=== PATIENT | female | born 1950 | race Caucasian/White ===

== ENCOUNTER → 2019-11-02 09:21 | Outpatient (BNVA) | payer MEDICARE, MEDICAID, SELFPAY | PROVIDERS: Family Provider Family Medicine; PCP Family Medicine; Visit Provider Social Worker | DX: F41.1 Generalized anxiety disorder (principal); F43.12 Post-traumatic stress disorder, chronic | CPT/HCPCS: 90834 ==

== ENCOUNTER 2019-11-03 08:09 | Outpatient (CLI) | payer MEDICARE, MEDICAID, SELFPAY ==
--- NOTE | 2019-11-03 08:25 | CT_ITS ---
WS: [id number] CT ABDOMEN WITH CONTRAST HISTORY: Pain in stomach. Burning sensation. History of colon cancer. Contiguous single phase 5 mm axial imaging performed to the abdomen. Oral contrast has been provided. Coronal and sagittal reformats are submitted. All CT scans at [facility] use at least on e of these dose optimization techniques: automated exposure control; mA and/or kV adjustment per corey ent size (includes targeted exams where dose is matched to clinical indication); or iterative reconst ruction. CONTRAST: Visipaque 320; 95 mL IV. DLP: 726.22 mGy-cm. COMPARISON: 07/15/2018 and 01/03/2018 Lower thorax: Irregular soft tissue opacification measuring 10 x 20 mm at the medial RIGHT lung base is new. Liver: Numerous scattered cysts throughout the liver. No solid mass is identified. No bile duct dilat ation. Gallbladder: Normal. Pancreas: Normal. Spleen: Normal. Adrenals: RIGHT adrenal gland is normal. Long-term stability LEFT adrenal mass measuring 1.9 x 1.7 cm . Right kidney: Numerous low-attenuation masses within the kidney. Largest from the upper pole is a cys t measuring 4.7 x 4.2 cm. Numerous hypodensities are subcentimeter and too small to characterize in t he cortex. Small extrarenal pelvis. No obstruction of the kidney. Left kidney: 2 small to characterize hypodensity in the posterior upper pole. Aorta: Mild atherosclerosis with calcified plaque. No aneurysm. GI tract: As visualized there is no GI tract obstruction. Moderate fecal retention throughout the tra nsverse colon. No adenopathy or free fluid. Abdominal wall: No hernia. Visualized osseous structures: Facet joint arthropathy in the lower lumbar spine. No osseous destruct ion. CT/CT abdomen w con* [id number] IMPRESSION: 1. Hepatic and renal cysts. Some of the hypodensities in the kidneys are too s mall to characterize due to their small size. 2. Focal consolidation in the medial RIGHT lower lobe measures 10 x 20 mm. Pne umonia versus atelectasis or early neoplasm. Recommend follow-up chest CT after treatment in 3 months. 3. Long-term stability LEFT adrenal mass consistent with that adenoma.
[2019-11-03] MEDS: iodixanol 320 mg/mL 100mL Btl IV (09:39)
[2019-11-03 09:45] LABS: Blood Urea Nitrogen 13 mg/dL (8-23)
[2019-11-03] MEDS: iohexol 300 mg/mL 50 mL Btl PO (15:28)
== END 2019-11-03 08:10 | disposition home or self-care (01) ==
LOC: RADWPI 08:15
PROVIDERS: Radiology Diagnostic Radiology; Family Provider Family Medicine; PCP Family Medicine; Referring Provider Family Medicine; Visit Provider Internal Medicine Gastroenterology
DX: K76.89 Other specified diseases of liver (principal); E27.8 Other specified disorders of adrenal gland; R10.9 Unspecified abdominal pain
CPT/HCPCS: 74160; 82565; 84520; Q9967

== ENCOUNTER → 2019-11-11 12:57 | Outpatient (BNVA) | payer MEDICARE, MEDICAID, SELFPAY | PROVIDERS: Family Provider Family Medicine; PCP Family Medicine; Visit Provider Nurse Practitioner | DX: F43.12 Post-traumatic stress disorder, chronic (principal); F41.1 Generalized anxiety disorder; F51.05 Insomnia due to other mental disorder | CPT/HCPCS: 99213 ==

== ENCOUNTER → 2019-11-23 14:13 | Outpatient (BNVA) | payer MEDICARE, MEDICAID, SELFPAY | PROVIDERS: Family Provider Family Medicine; PCP Family Medicine; Visit Provider Social Worker | DX: F41.1 Generalized anxiety disorder (principal); F43.12 Post-traumatic stress disorder, chronic | CPT/HCPCS: 90834 ==

== ENCOUNTER → 2019-11-25 13:56 | Outpatient (BNVA) | payer MEDICARE, MEDICAID, SELFPAY | PROVIDERS: Family Provider Family Medicine; PCP Family Medicine; Visit Provider Urology | DX: N28.9 Disorder of kidney and ureter, unspecified (principal); N39.0 Urinary tract infection, site not specified; N28.1 Cyst of kidney, acquired | CPT/HCPCS: 81001; 87086 ==

== ENCOUNTER → 2019-12-13 09:02 | Outpatient (BNVA) | payer MEDICARE, MEDICAID, SELFPAY | PROVIDERS: Family Provider Family Medicine; PCP Family Medicine; Visit Provider Family Medicine | DX: E78.5 Hyperlipidemia, unspecified (principal); R73.9 Hyperglycemia, unspecified; E78.00 Pure hypercholesterolemia, unspecified; F17.219 Nicotine dependence, cigarettes, with unspecified nicotine-induced disorders | CPT/HCPCS: 83036 ==

== ENCOUNTER 2019-12-15 12:38 | Outpatient (CLI) | payer MEDICARE, MEDICAID, SELFPAY ==
--- NOTE | 2019-12-15 13:00 | CT_ITS ---
WS: [id number] CT CHEST TECHNIQUE: Noncontrast CT of the chest with coronal and sagittal reformatted images. CLINICAL INFORMATION: Lung nodule COMPARISON: CT abdomen pelvis November 03, 2019 DLP: 368.[address] scans at [facility] use at least one of these dose optimization techniques: automat ed exposure control; mA and/or kV adjustment per patient size (includes targeted exams where dose is matched to clinical indication); or iterative reconstruction. FINDINGS: Previously described pneumonia in the right lower lobe medially has nearly resolved with a small amou nt of residual patchy infiltrate. Lungs are otherwise well aerated. Moderate chronic emphysematous ch anges. No other suspicious pulmonary parenchymal abnormalities. No mediastinal or hilar lymphadenopat hy. Normal endobronchial tree. No axillary lymphadenopathy. Stable left adrenal adenoma measuring 17 mm. Partially visualized stable hepatic cysts. Mild thoracic curve. Mild thoracic kyphosis. CT/CT chest wo con [id number] IMPRESSION: 1. Previous described right lower lobe pneumonia has nearly resolved with smal l amount of residual infiltrate. 2. No other suspicious pulmonary parenchymal abnormalities. 3. Moderate chronic emphysematous changes. 4. No mediastinal or hilar lymphadenopathy. 5. Stable left adrenal adenoma. 6. Partially visualized hepatic cysts.
== END 2019-12-15 12:39 | disposition home or self-care (01) ==
LOC: CT 12:40
PROVIDERS: Family Provider Family Medicine; PCP Family Medicine; Visit Provider Internal Medicine Critical Care Medicine
DX: R91.1 Solitary pulmonary nodule (principal); J18.9 Pneumonia, unspecified organism; J43.9 Emphysema, unspecified; D35.02 Benign neoplasm of left adrenal gland; K76.89 Other specified diseases of liver
CPT/HCPCS: 71250

== ENCOUNTER → 2019-12-28 08:21 | Outpatient (BNVA) | payer MEDICARE, MEDICAID, SELFPAY | PROVIDERS: Family Provider Family Medicine; PCP Family Medicine; Visit Provider Social Worker | DX: F41.1 Generalized anxiety disorder (principal); F43.12 Post-traumatic stress disorder, chronic | CPT/HCPCS: 90834 ==

== ENCOUNTER 2019-12-31 20:19 | Emergency (ER) | payer MEDICARE, MEDICAID, SELFPAY ==
[2019-12-31 20:20] VITALS: BP 183/75; PULSE 69; RESP 18; TEMP 36.7; O2SAT 97; BMI 25.8
--- NOTE | 2019-12-31 20:43 | XR_ITS ---
WS: [id number] XR chest 1V portable [id number] REASON FOR EXAM: cough FINDINGS: The heart and mediastinal interfaces normal. The chest is similar to July 17, 2018. The lung [place] are well aerated. No pneumonia, pleural effusion, pulmonary edema, mass effect, or pn eumothorax. The hilum and apices normal. No osseous abnormalities. XR/XR chest 1V portable [id number] IMPRESSION: Negative chest for active pathology.
--- NOTE | 2019-12-31 20:43 | W.ED.GENADLT ---
HPI - General Adult General: Chief complaint: General Medical Stated complaint: cough/sore throat Time Seen by Provider: 12/31/19 20:43 History of Present Illness: HPI narrative: Patient is a 69-year-old female who comes to the ED with nasal congestion and cough. Patient says the symptoms started last night. Patient does have a past medical history of COPD. Patient also states she is out of her albuterol inhaler. She feels like her lungs are a little wheezy and would like to get a breathing treatment here in the ED. She did say she has been around quite a few sick people recently that have a cough and other upper respiratory symptoms. Associated symptoms: Deny chest pain, dyspnea, headache(s), nausea, rash, palpitations or vomiting Review of Systems Const: Denies: fever, chills or fatigue Eyes: Denies: change in vision or eye discomfort ENMT: Reports: throat pain, nasal discharge and nasal congestion; Denies: painful swallowing Card: Denies: chest pain, palpitations, edema, swelling of feet/ankles, shortness of breath on exertion or shortness of breath when lying down Resp: Reports: non-productive cough; Denies: shortness of breath or productive cough GI: Denies: abdominal pain, nausea, vomiting, diarrhea, constipation or blood in stool : Denies: flank pain, painful urination or blood in urine Musc: Denies: neck pain, back pain or extremity swelling Skin/Breast: Denies: rash or new lesion Neuro: Denies: headache, numbness in extremities or weakness in extremities [facility] PFSH: Medical History Benign essential HTN Generalized anxiety disorder GERD (gastroesophageal reflux disease) Hyperlipidemia Insomnia Insomnia due to mental condition Osteoporosis Post-traumatic stress disorder, chronic Renal cyst Surgical History H/O section S/P breast biopsy S/P lumpectomy of breast S/P thyroidectomy S/P tonsillectomy Family History Mother , 89 Cancer Dementia Father No problems noted. Social History Smoking and tobacco status: current every day smoker cigarettes Packs smoked per day: 0.25 Years cigarettes smoked: 23 Alcohol intake: never Lives independently: Yes Marital status: Single Current occupational status: retired History of recent travel: No Current gender identity: Female Physical Exam Narrative: EXAM NARRATIVE: Patient is a 69-year-old female that is sitting comfortably on the exam bed when I enter the room. She is showing no signs of any acute respiratory distress or any acute pain. Const: COMMON NORMALS: oriented x3 HENMT: COMMON NORMALS: normocephalic and external nose normal HEAD & SCALP: normocephalic NOSE: external nose normal and nasal discharge clear MOUTH: oral and palatal mucosa normal THROAT: uvula midline and posterior oropharynx abnormal cobblestoning Neck/C-Spine: COMMON NORMALS: supple GENERAL: Yes normal visual inspection Lymph: LYMPHATIC: no lymphadenopathy noted (none palpated on cervical chains) Resp: COMMON NORMALS: normal respiratory effort, no retractions and no use of accessory muscles AUSCULTATION: wheezes left lower (light wheezing) and right upper (light wheezing) Cardio: COMMON NORMALS: regular rate, regular rhythm, S1 normal heart sound, S2 normal heart sound, no gallops, no clicks, no murmurs and peripheral pulses 2+ throughout RATE: regular rate RHYTHM: regular rhythm HEART SOUNDS: S1 normal and S2 normal PERIPHERAL PULSES: pulses 2+ throughout GI: COMMON NORMALS: normal to inspection, nondistended, normoactive bowel sounds, soft to palpation, non-tender and no masses PALPATION: Yes soft : COMMON NORMALS: Yes no CVA tenderness BLADDER/KIDNEY EXAM: Yes no CVA tenderness Back/Pelvis: COMMON NORMALS: no CVA tenderness Extremity: COMMON NORMALS: normal to inspection and normal capillary refill Neuro: COMMON NORMALS: oriented x3 and moves all extremities Skin: COMMON NORMALS: no rashes or lesions noted GENERAL SKIN EXAM: no rashes or lesions noted Course Vital Signs: Vital signs: Vital Signs Temperature 98.1 F 12/31/19 20:20 Pulse Rate 64 12/31/19 22:29 Respiratory Rate 16 12/31/19 22:29 Blood Pressure 137/89 12/31/19 22:29 Pulse Oximetry 96 12/31/19 22:29 MDM - General Adult MDM Narrative: Medical decision making narrative: Patient is a 69-year-old female comes to the ED with some wheezing, cough and congestion. Patient is a past medical history of COPD and states she is out of her albuterol inhaler. Physical exam was remarkable for some wheezing. Chest x-ray showed some possible bronchitis. Patient was diagnosed with upper respiratory infection and bronchitis. She was given a prescription for an albuterol inhaler, azithromycin and prednisone. Patient was told to follow-up with PCP in 5 to 7 days for reevaluation. Patient understood and agreed with plan. Lab Data: Attestation: I reviewed the patient's lab results. Labs: Lab Results 12/31/19 Range/Units 20:57 Influenza Type A A g Negative (Negative) POC Influenza B Ag Negative (Negative) Imaging Data^: CXR: Attestation: I personally reviewed and interpreted this imaging study as follows: My impression: Possible bronchitis seen. Pending final radiology report. Discharge Plan Discharge Patient Disposition: Home, Self-Care Clinical Impression: Upper respiratory infection with cough and congestion, Bronchitis Condition: Stable Prescriptions: New albuterol sulfate 90 mcg/actuation HFA aerosol inhaler 1 inh INHALATION Q6H Qty: 8 RF: 0 azithromycin 250 mg tablet See Rx Instructions .ROUTE .COMPLEX Qty: 6 RF: 0 prednisone 50 mg tablet 50 mg PO DAILY 5 Days Qty: 5 RF: 0 No Action alendronate [Fosamax] 70 mg tablet 70 mg PO Q7D RF: 0 aspirin [Adult Aspirin Regimen] 81 mg tablet,delayed release (DR/EC) 81 mg PO QDAY RF: 0 sulfamethoxazole-trimethoprim 800-160 mg tablet 1 tab PO BID Qty: 60 RF: 2 pantoprazole [Protonix] 40 mg tablet,delayed release (DR/EC) 40 mg PO BID RF: 0 metoprolol tartrate 50 mg tablet 50 mg PO BID RF: 0 clonazepam [Klonopin] 0.5 mg tablet 0.5 mg PO QDAY PRN (Reason: anxiety) Qty: 30 RF: 2 eszopiclone [Lunesta] 3 mg tablet 3 mg PO .at bed Qty: 30 RF: 2 levothyroxine 88 mcg capsule 88 mcg PO DAILY RF: 0 atorvastatin 20 mg tablet 20 mg PO DAILY Qty: 45 RF: 0 acetaminophen 325 mg Tablet 325 mg PO QID PRN (Reason: Pain) RF: 0 pravastatin 40 mg Tablet 40 mg PO DAILY RF: 0 Aleve 220 mg Tablet 220 mg PO BID PRN (Reason: Pain) RF: 0 ibuprofen 200 mg Tablet 200 mg PO Q6H PRN (Reason: Pain) RF: 0 Discharge Orders: Discharge Order (Routine); Ordered 12/31/19 Ordered By: Cholo Ross Referrals: Mulu Miguel DO [Primary Care Provider] - Discharge Diet: Regular Discharge Activity: Resume usual activity Patient Instructions: Upper Respiratory Infection - Adult Activity Restrictions/Additional Instructions: Follow-up with your primary care physician in 7 days for reevaluation. Take the albuterol inhaler as needed for shortness of breath or wheezing. Take ibuprofen or Tylenol for any fevers. Drink plenty of fluids and stay hydrated. Continue taking all other medications. I discussed with you the importance of quitting smoking to help your COPD and symptoms. Discharge Date/Time: 12/31/19 22:30 Coding Level of Care Code ED Assistant Program Manager for [facility] Fwd Exam Comprehensive
[2019-12-31 21:38] LABS: Influenza A by IFA Negative (Negative); Influenza B by IFA Negative (Negative)
[2019-12-31] MEDS: ipratropium-albuterol 3 mL Neb INHALATION (21:51)
[2019-12-31 21:52] VITALS: PULSE 58; RESP 18; O2SAT 98
[2019-12-31 21:54] VITALS: PULSE 60; RESP 22; O2SAT 99
[2019-12-31] MEDS: predniSONE 20 mg Tablet 40 MG PO (21:56)
[2019-12-31 22:29] VITALS: BP 137/89; PULSE 64; RESP 16; O2SAT 96
--- NOTE | 2019-12-31 22:30 | PC.NURSE ---
Patient dc'd home in stable condition via ambulation refusing wheelchair. Discharge papers and rx given to patient with all questions asked and answered.
== END 2019-12-31 22:30 | disposition home or self-care (01) ==
PROVIDERS: Emergency Provider Physician Assistant; Family Provider Family Medicine; PCP Family Medicine
DX: J06.9 Acute upper respiratory infection, unspecified (principal); J40 Bronchitis, not specified as acute or chronic; F17.210 Nicotine dependence, cigarettes, uncomplicated; I10 Essential (primary) hypertension; F41.1 Generalized anxiety disorder; K21.9 Gastro-esophageal reflux disease without esophagitis; E78.5 Hyperlipidemia, unspecified; G47.00 Insomnia, unspecified; M81.0 Age-related osteoporosis without current pathological fracture; F43.12 Post-traumatic stress disorder, chronic
CPT/HCPCS: 12345; 71045; 87804; 94640; 99281; 99283; J7512

== ENCOUNTER 2020-01-02 09:51 | Emergency (ER) | payer MEDICARE, MEDICAID, SELFPAY ==
[2020-01-02 09:56] VITALS: BMI 25.8
[2020-01-02 10:00] VITALS: BP 190/102; PULSE 59; RESP 18; TEMP 36.6; O2SAT 96
[2020-01-02 10:08] VITALS: O2SAT 97
--- NOTE | 2020-01-02 10:46 | XRR_ITS ---
PROCEDURE INFORMATION: Exam: XR Chest, 1 View Exam date and time: 01/02/2020 10:47 AM Age: 69 years old Clinical indication: Cough; Additional info: Cough/congestion TECHNIQUE: Imaging protocol: XR of the chest Views: 1 view. COMPARISON: CR XR chest 1V portable [id number] 12/31/2019 9:00 PM FINDINGS: Lungs: Lungs are well aerated without a focal area of consolidation. Pleural space: Unremarkable. No pleural effusion. No pneumothorax. Heart/Mediastinum: The cardiac silhouette appears enlarged, some of which is magnification related to the AP projection. Bones/joints: Unremarkable. XR/XR chest 1V portable [id number] IMPRESSION: Mild platelike atelectasis right costophrenic angle. Lungs are otherwise well aerated.
--- NOTE | 2020-01-02 10:47 | W.ED.GENADLT ---
HPI - General Adult General: Chief complaint: Headache Stated complaint: GENERAL WEAKNESS, FLU LIKE SYMPTOMS Time Seen by Provider: 01/02/20 10:15 Source: patient Mode of arrival: ambulatory Limitations: no limitations History of Present Illness: HPI narrative: Patient is a 69-year-old female who presents to ED today for complaints of a headache, sinus pain/pressure, cough, nasal congestion,, body aches, not feeling well. Patient was seen here recently for similar symptoms and diagnosed with bronchitis. Patient reports a history of migraines and states the sinus pressure and cough has caused her to have a migraine headache. She states her headache today feels identical to previous migraines. She does not feel lightheaded, dizzy. She ambulates well. Onset (ago): day(s) Relieving factors: none Exacerbating factors: none Associated symptoms: Reports no associated symptoms, headache(s) and malaise; Deny chest pain, dyspnea, nausea, rash, palpitations, syncope or vomiting Review of Systems Const: Reports: body aches and malaise; Denies: fever, chills, change in appetite, change in weight, fatigue or night sweats Eyes: Denies: change in vision, blurry vision, photophobia, eye discomfort or eye discharge ENMT: Reports: nasal discharge, nasal congestion and facial/sinus pain; Denies: throat pain, enlarged tonsils, painful swallowing, swelling of lips/tongue, oral sores/lesions, ear pain, ear discharge or post nasal drip Card: Denies: chest pain, palpitations, irregular heart rhythm, edema, lightheadedness, syncope or pre-syncope Resp: Reports: productive cough and chest congestion; Denies: shortness of breath, non-productive cough or coughing up blood GI: Denies: abdominal pain, nausea, vomiting or diarrhea : Denies: flank pain, difficulty urinating, painful urination, urinary frequency or urinary urgency Musc: Denies: neck pain or back pain Skin/Breast: Denies: rash Neuro: Reports: headache; Denies: numbness in extremities, weakness in extremities, changes in sensation or lack of coordination All/Imm: Denies: facial swelling or seasonal allergies PFSH ED PFSH: Social History Smoking and tobacco status: current every day smoker cigarettes Packs smoked per day: 0.25 Years cigarettes smoked: 23 Alcohol intake: never Lives independently: Yes Marital status: Single Current occupational status: retired History of recent travel: No Current gender identity: Female Physical Exam Const: COMMON NORMALS: no apparent distress, average body habitus, oriented x3, no limitations, healthy appearing, alert and well nourished HENMT: COMMON NORMALS: normocephalic, head/scalp atraumatic, hearing grossly normal bilaterally, external ears normal, EAC's normal, TM's normal bilaterally, external nose normal, moist oral mucous membranes and oropharynx normal HEAD & SCALP: normocephalic and atraumatic FACE & SINUS: sinus tenderness maxillary NOSE: external nose normal and nasal discharge EXTERNAL EAR: Yes external ears normal EXTERNAL AUDITORY CANAL: EAC's normal TYMPANIC MEMBRANE: TM's normal bilaterally THROAT: posterior oropharynx normal, tonsils normal and uvula midline Eye: COMMON NORMALS: PERRL, EOMs intact bilaterally, conjunctivae normal and no scleral icterus CONJUNCTIVA: Yes conjunctivae normal PUPIL: Yes PERRL Neck/C-Spine: COMMON NORMALS: full ROM, no lymphadenopathy and no meningeal signs Resp: COMMON NORMALS: normal respiratory effort and clear to auscultation bilaterally AUSCULTATION: clear to auscultation bilaterally Cardio: COMMON NORMALS: regular rate and regular rhythm RATE: regular rate RHYTHM: regular rhythm Neuro: COMMON NORMALS: oriented x3 SENSORIUM/ORIENTATION: Yes alert MENINGEAL SIGNS: Yes no meningeal signs Skin: COMMON NORMALS: no rashes or lesions noted GENERAL SKIN EXAM: no rashes or lesions noted Course Vital Signs: Vital signs: Vital Signs Temperature 97.9 F 01/02/20 12:15 Pulse Rate 64 01/02/20 12:15 Respiratory Rate 16 01/02/20 12:15 Blood Pressure 176/106 01/02/20 12:15 Pulse Oximetry 96 01/02/20 12:15 [facility] - General Adult Lab Data: Labs: Lab Results 01/02/20 01/02/20 01/02/20 Range/Units 10:30 10:30 11:20 WBC 6.2 (4.0-10.0) 10^3/ uL RBC 4.83 (4.1-5.3) 10^6/u L Hgb 14.2 (11.5-15.3) g/dL Hct 43.6 (37.0-47.0) % MCV 90.3 (81-99) fL MCH 29.4 (28.0-34.0) pg MCHC 32.6 (30.0-36.0) g/dL RDW 13.4 (12.1-15.1) % Plt Count 158 (130-400) 10^3/c mm MPV 13.5 H (7.4-10.4) fL Neut % (Auto) 70.8 % Lymph % (Auto) 21.2 % [place] % (Auto) 7.6 % Eos % (Auto) 0.0 % Baso % (Auto) 0.2 % Neut # (Auto) 4.4 (1.8-7.7) 10^3/u L Lymph # (Auto) 1.3 (0.8-4.8) 10^3/u L [place] # (Auto) 0.5 (0.2-0.9) 10^3/u L Eos # (Auto) 0.0 (0.0-0.8) 10^3/u L Baso # (Auto) 0.0 (0.0-0.1) 10^3/u L Nucleated RBC % (a uto) 0 % Nucleated RBCs # 0.0 /100WBC Sodium 142 (136-145) mmol/L Potassium 3.6 (3.5-5.1) mmol/L Chloride 104 (98-107) mmol/L Carbon Dioxide 23 (22-29) mmol/L Anion Gap 18.6 (5-19) BUN 17 (8-23) mg/dL Creatinine 1.0 H (0.5-0.9) mg/dL GFR Calculation 55.0 L (90-130) mL/min Glucose 85 (65-115) mg/dL Calculated Osmolal ity 290 (285-295) mOsm/k g Calcium 9.8 (8.5-10.5) mg/dL Total Bilirubin 0.3 (0.15-1.2) mg/dL AST 24 (0-32) U/L ALT 15 (0-33) U/L Alkaline Phosphata se 85 (35-105) IU/L Total Protein 8.3 (6.6-8.7) g/dL Albumin 4.3 (3.5-5.2) g/dL Globulin 4.0 (1.3-4.6) g/dL Influenza Type A A g Positive H (Negative) POC Influenza B Ag Negative (Negative) Imaging Data^: CXR: Radiologist's impression: [address] [address] XRay Report Signed Patient: Wen Voss Unit #: [id number] : 1950 Age/Sex: 69 / F ADM Date: 01/02/20 Loc: ER Room/Bed: Attending Dr: Ordering Provider/Ordering MD: Amairani Ramirez Date of Service: 01/02/20 Procedure(s): XR chest 1V portable [id number] Accession Number(s): [id number] Report Number: [id number] PROCEDURE INFORMATION: Exam: XR Chest, 1 View Exam date and time: 01/02/2020 10:47 AM Age: 69 years old Clinical indication: Cough; Additional info: Cough/congestion TECHNIQUE: Imaging protocol: XR of the chest Views: 1 view. COMPARISON: CR XR chest 1V portable [id number] 12/31/2019 9:00 PM FINDINGS: Lungs: Lungs are well aerated without a focal area of consolidation. Pleural space: Unremarkable. No pleural effusion. No pneumothorax. Heart/Mediastinum: The cardiac silhouette appears enlarged, some of which is magnification related to the AP projection. Bones/joints: Unremarkable. XR/XR chest 1V portable [id number] IMPRESSION: Mild platelike atelectasis right costophrenic angle. Lungs are otherwise well aerated. Dictated By: Jorge Crespo MD Signed By: Jorge Crespo MD Signed Date/Time: 01/02/20 1136 DD/ 1135 Discharge Plan Discharge Patient Disposition: Home, Self-Care Clinical Impression: Influenza A Condition: Stable Prescriptions: No Action alendronate [Fosamax] 70 mg tablet 70 mg PO Q7D RF: 0 aspirin [Adult Aspirin Regimen] 81 mg tablet,delayed release (DR/EC) 81 mg PO QDAY RF: 0 sulfamethoxazole-trimethoprim 800-160 mg tablet 1 tab PO BID Qty: 60 RF: 2 pantoprazole [Protonix] 40 mg tablet,delayed release (DR/EC) 40 mg PO BID RF: 0 metoprolol tartrate 50 mg tablet 50 mg PO BID RF: 0 clonazepam [Klonopin] 0.5 mg tablet 0.5 mg PO QDAY PRN (Reason: anxiety) Qty: 30 RF: 2 eszopiclone [Lunesta] 3 mg tablet 3 mg PO .at bed Qty: 30 RF: 2 levothyroxine 88 mcg capsule 88 mcg PO DAILY RF: 0 atorvastatin 20 mg tablet 20 mg PO DAILY Qty: 45 RF: 0 acetaminophen 325 mg Tablet 325 mg PO QID PRN (Reason: Pain) RF: 0 pravastatin 40 mg Tablet 40 mg PO DAILY RF: 0 Aleve 220 mg Tablet 220 mg PO BID PRN (Reason: Pain) RF: 0 ibuprofen 200 mg Tablet 200 mg PO Q6H PRN (Reason: Pain) RF: 0 albuterol sulfate 90 mcg/actuation HFA aerosol inhaler 1 inh INHALATION Q6H Qty: 8 RF: 0 azithromycin 250 mg tablet See Rx Instructions .ROUTE .COMPLEX Qty: 6 RF: 0 prednisone 50 mg tablet 50 mg PO DAILY 5 Days Qty: 5 RF: 0 Discharge Orders: Discharge Order (Routine); Ordered 01/02/20 Ordered By: Amairani Ramirez Referrals: Mulu Miguel DO [Primary Care Provider] - Patient Instructions: Influenza (ED) Discharge Date/Time: 01/02/20 12:20 Coding Level of Care Code ED 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
[2020-01-02 11:01] LABS: Basophils % 0.2 %; Hematocrit 43.6 % (37.0-47.0); Hemoglobin 14.2 g/dL (11.5-15.3); Lymphocytes # 1.3 10^3/uL (0.8-4.8); Lymphocytes % 21.2 %; Mean Corpuscular HGB Conc 32.6 g/dL (30.0-36.0); Mean Corpuscular Hemoglobin 29.4 pg (28.0-34.0); Mean Corpuscular Volume 90.3 fL (81-99); Mean Platelet Volume 13.5 fL (7.4-10.4); Monocytes # 0.5 10^3/uL (0.2-0.9); Monocytes % 7.6 %; Neutrophils # 4.4 10^3/uL (1.8-7.7); Neutrophils % 70.8 %; Nucleated Red Blood Cells % 0 %; Platelet Count 158 10^3/cmm (130-400); Red Blood Count 4.83 10^6/uL (4.1-5.3); Red Cell Distribution Width 13.4 % (12.1-15.1); White Blood Count 6.2 10^3/uL (4.0-10.0)
[2020-01-02 11:08] LABS: Alanine Aminotransferase 15 U/L (0-33); Albumin Level 4.3 g/dL (3.5-5.2); Alkaline Phosphatase 85 IU/L (35-105); Anion Gap 18.6 (5-19); Aspartate Amino Transferase 24 U/L (0-32); Blood Urea Nitrogen 17 mg/dL (8-23); Calcium 9.8 mg/dL (8.5-10.5); Carbon Dioxide 23 mmol/L (22-29); Chloride 104 mmol/L (98-107); Glucose 85 mg/dL (65-115); Osmolality Calculated 290 mOsm/kg (285-295); Potassium 3.6 mmol/L (3.5-5.1); Sodium 142 mmol/L (136-145); Total Bilirubin 0.3 mg/dL (0.15-1.2); Total Protein 8.3 g/dL (6.6-8.7)
[2020-01-02] MEDS: ketorolac 60 mg/2 mL INJ 30 MG IVP (11:16)
[2020-01-02] MEDS: dexamethasone 10 mg/mL INJ 6 MG IVP (11:16)
[2020-01-02] MEDS: sodium chloride 0.9% 1,000 ML 999 ML IV (11:16)
[2020-01-02] MEDS: ondansetron 2 mg/ML SDV 2 mL 4 MG IVP (11:17)
[2020-01-02] MEDS: diphenhydrAMINE 50 mg/mL SDV 1mL IVP (11:17)
[2020-01-02 11:52] LABS: Influenza A by IFA Positive (Negative); Influenza B by IFA Negative (Negative)
[2020-01-02 12:15] VITALS: BP 176/106; PULSE 64; RESP 16; TEMP 36.6; O2SAT 96
== END 2020-01-02 12:20 | disposition home or self-care (01) ==
PROVIDERS: Emergency Provider Physician Assistant; Family Provider Family Medicine; PCP Family Medicine
DX: J09.X2 Influenza due to identified novel influenza A virus with other respiratory manifestations (principal); F17.210 Nicotine dependence, cigarettes, uncomplicated
CPT/HCPCS: 12345; 36415; 71045; 80053; 85025; 87804; 96360; 96361; 96374; 96375; 99283; J1100; J1200; J1885; J2405; J7030

== ENCOUNTER → 2020-01-05 08:07 | Outpatient (BNVA) | payer MEDICARE, MEDICAID, SELFPAY | PROVIDERS: Family Provider Family Medicine; PCP Family Medicine; Visit Provider Urology | DX: N39.0 Urinary tract infection, site not specified (principal); N28.1 Cyst of kidney, acquired; I10 Essential (primary) hypertension | CPT/HCPCS: 81001 ==

== ENCOUNTER → 2020-01-27 07:42 | Outpatient (BNVA) | payer MEDICARE, MEDICAID, SELFPAY | PROVIDERS: Family Provider Family Medicine; PCP Family Medicine; Visit Provider Nurse Practitioner | DX: F51.05 Insomnia due to other mental disorder (principal); F43.12 Post-traumatic stress disorder, chronic; F41.1 Generalized anxiety disorder | CPT/HCPCS: 99213 ==

== ENCOUNTER → 2020-02-02 15:12 | Outpatient (BNVA) | payer MEDICARE, MEDICAID, SELFPAY | PROVIDERS: Family Provider Family Medicine; PCP Family Medicine; Visit Provider Social Worker | DX: F41.1 Generalized anxiety disorder (principal); F43.12 Post-traumatic stress disorder, chronic | CPT/HCPCS: 90834 ==

== ENCOUNTER → 2020-03-01 08:51 | Outpatient (BNVA) | payer MEDICARE, MEDICAID, SELFPAY | PROVIDERS: Family Provider Family Medicine; PCP Family Medicine; Visit Provider Social Worker | DX: F41.1 Generalized anxiety disorder (principal); F43.12 Post-traumatic stress disorder, chronic | CPT/HCPCS: 90834 ==

== ENCOUNTER → 2020-03-02 07:23 | Outpatient (BNVA) | payer MEDICARE, MEDICAID, SELFPAY | PROVIDERS: Family Provider Family Medicine; PCP Family Medicine; Visit Provider Nurse Practitioner | DX: F43.12 Post-traumatic stress disorder, chronic (principal); F41.1 Generalized anxiety disorder; F51.05 Insomnia due to other mental disorder; F60.3 Borderline personality disorder; I10 Essential (primary) hypertension; L01.00 Impetigo, unspecified; Z13.6 Encounter for screening for cardiovascular disorders | CPT/HCPCS: 80053; 80061; 82044; 85025; 99213 ==

== ENCOUNTER → 2020-04-05 08:24 | Outpatient (BNVA) | payer MEDICARE, MEDICAID, SELFPAY | PROVIDERS: Family Provider Family Medicine; PCP Family Medicine; Visit Provider Social Worker | DX: F41.1 Generalized anxiety disorder (principal); F43.12 Post-traumatic stress disorder, chronic; F17.219 Nicotine dependence, cigarettes, with unspecified nicotine-induced disorders | CPT/HCPCS: 90832 ==

== ENCOUNTER 2020-05-01 08:08 | Emergency (ER) | payer MEDICARE, MEDICAID, SELFPAY ==
[2020-05-01 08:15] VITALS: BMI 25.8
[2020-05-01 08:17] VITALS: BP 225/105; PULSE 77; RESP 20; TEMP 36.4; O2SAT 98
--- NOTE | 2020-05-01 08:22 | XRR_ITS ---
PROCEDURE INFORMATION: Exam: XR Chest, 1 View Exam date and time: 05/01/2020 8:23 AM Age: 69 years old Clinical indication: Cough and dyspnea; Smoker's cough; Additional info: Dyspnea/cough TECHNIQUE: Imaging protocol: XR of the chest Views: 1 view. COMPARISON: CR XR chest 1V portable [id number] 01/02/2020 10:46 AM FINDINGS: Lungs: Unremarkable. No consolidation. Pleural space: Unremarkable. No pleural effusion. No pneumothorax. Heart/Mediastinum: Unremarkable. No cardiomegaly. Bones/joints: Unremarkable. XR/XR chest 1V portable [id number] IMPRESSION: No acute findings.
[2020-05-01 08:53] LABS: Alanine Aminotransferase 8 U/L (0-33); Albumin Level 4.2 g/dL (3.5-5.2); Alkaline Phosphatase 80 IU/L (35-105); Anion Gap 13.9 (5-19); Aspartate Amino Transferase 16 U/L (0-32); Blood Urea Nitrogen 24 mg/dL (8-23); Calcium 9.4 mg/dL (8.5-10.5); Carbon Dioxide 26 mmol/L (22-29); Chloride 105 mmol/L (98-107); Globulin 3.2 g/dL (1.3-4.6); Glomerular Filtration Rate 62.1 mL/min (90-130); Glucose 97 mg/dL (65-115); Osmolality Calculated 289 mOsm/kg (285-295); Potassium 3.9 mmol/L (3.5-5.1); Sodium 141 mmol/L (136-145); Total Bilirubin 0.5 mg/dL (0.15-1.2); Total Protein 7.4 g/dL (6.6-8.7)
--- NOTE | 2020-05-01 08:59 | ED_ITS ---
HPI - SOB/Dyspnea General: Chief Complaint: Shortness of Breath/Dyspnea Stated Complaint: sob Time Seen by Provider: 05/01/20 08:22 History of Present Illness: HPI Narrative: 69-year-old female presents emergency room complaining of sore throat said she had nebulizer at home but is out of the medication for it she felt short of breath and was coughing more clear mucus she not had a fever at all sore throat began yesterday. She was sent here by her home health nurse. On arrival she is breathing and talking comfortably 97% on room air with no wheezing MD elicited complaint: shortness of breath, cough and anxiety Pertinent past history: COPD Onset (ago): hour(s) Timing: intermittent Severity: mild Exacerbating factors: nothing Relieving factors: nothing Known history of: COPD Associated symptoms: Reports chest congestion and cough; Deny abdominal pain, chest pain, diaphoresis, dizziness, extremity pain, fever(s), hemoptysis, lightheadedness, myalgias, nausea, orthopnea or palpitations Treatment prior to arrival: none Review of Systems Const: Denies: fever(s) or diaphoresis ENMT: Denies: throat pain, ear or mastoid pain, nasal discharge or nasal congestion Card: Denies: chest pain, palpitations, lightheadedness or orthopnea Resp: Reports: chest congestion; Denies: hemoptysis GI: Denies: abdominal pain or nausea : Denies: flank pain, difficulty voiding, dysuria, urinary frequency or urinary urgency Musc: Denies: extremity pain Skin/Breast: Denies: rash or pruritus Neuro: Denies: dizziness PFSH ED PFSH: Medical History Benign essential HTN Generalized anxiety disorder GERD (gastroesophageal reflux disease) Hyperlipidemia Insomnia Insomnia due to mental condition Osteoporosis Post-traumatic stress disorder, chronic Renal cyst Surgical History H/O section S/P breast biopsy S/P lumpectomy of breast S/P thyroidectomy S/P tonsillectomy Family History Mother , 89 Cancer Dementia Father No problems noted. Social History (Reviewed 05/01/20 @ 09:17 by JORGE Cortes Smoking and tobacco status: current every day smoker cigarettes Years cigarettes smoked: 23 [ Other cigarette details: Hx of 3PPD x 20 Years ] Quit status (tobacco): considering quitting Alcohol intake: never Lives independently: Yes Household members: none Housing: Apartment Marital status: Single Current occupational status: retired History of recent travel: No Current gender identity: Female Physical Exam Const: COMMON NORMALS: no acute distress GENERAL APPEARANCE: cooperative and comfortable ORIENTATION/CONSCIOUSNESS: Yes awake, Yes oriented to person, Yes oriented to place and Yes oriented to time HENMT: COMMON NORMALS: normocephalic, atraumatic, hearing grossly normal bilaterally, external ears normal, EAC's normal, TM's normal bilaterally, Normal nasal mucous membranes and turbinates present, moist oral mucous membranes and oropharynx normal HEAD & SCALP: normocephalic and atraumatic NOSE: Normal nasal mucous membranes and turbinates present EXTERNAL EAR: Yes external ears normal EXTERNAL AUDITORY CANAL: EAC's normal TYMPANIC MEMBRANE: TM's normal bilaterally Eye: COMMON NORMALS: Equal, round and reactive pupils present, EOMs intact bilaterally, conjunctivae normal and no scleral icterus CONJUNCTIVA: Yes conjunctivae normal PUPIL: Yes Equal, round and reactive pupils present Neck/C-Spine: COMMON NORMALS: full ROM, no lymphadenopathy, supple and no JVD Lymph: LYMPHATIC: no lymphadenopathy noted and no lymphedema noted Resp: COMMON NORMALS: normal respiratory effort, No retractions, No use of accessory muscles and clear to auscultation bilaterally AUSCULTATION: clear to auscultation bilaterally Cardio: COMMON NORMALS: no JVD, regular rate, regular rhythm and No murmurs present (Cardio) RATE: regular rate RHYTHM: regular rhythm GI: COMMON NORMALS: Soft to palpation and No hepatosplenomegaly present AUSCULTATION: Yes normoactive bowel sounds PALPATION: Yes Soft to palpation, No Tenderness to palpation present (GI), No Guarding due to palpation present (GI) and Yes No hepatosplenomegaly present Extremity: COMMON NORMALS: normal to inspection, capillary refill normal, no clubbing, cyanosis or edema, no calf tenderness and no pedal edema Neuro: SENSORIUM/ORIENTATION: Yes oriented to person, Yes oriented to place and Yes oriented to time Skin: COMMON NORMALS: no rashes or lesions noted GENERAL SKIN EXAM: no rashes or lesions noted Course Vital Signs: Vital signs: Vital Signs Temperature 97.6 F 05/01/20 08:17 Pulse Rate 70 05/01/20 09:38 Respiratory Rate 15 05/01/20 09:38 Blood Pressure 143/85 05/01/20 09:38 Pulse Oximetry 98 05/01/20 09:38 MDM - SOB/Dyspnea MDM Narrative: Medical decision making narrative: Patient has no significant findings on exam her lungs are clear. We did give her an albuterol treatment she states she feels fine. No acute infection at this time did not recommend antibiotics refilled her DuoNeb to follow-up with her primary care doctor as needed return if has further problems. Lab Data: Labs: Lab Results 05/01/20 05/01/20 05/01/20 Range/Units 08:25 08:25 08:55 WBC 6.9 (4.0-10.0) 10^3/ uL RBC 4.58 (4.1-5.3) 10^6/u L Hgb 13.9 (11.5-15.3) g/dL Hct 44.2 (37.0-47.0) % MCV 96.5 (81-99) fL MCH 30.3 (28.0-34.0) pg MCHC 31.4 (30.0-36.0) g/dL RDW 12.1 (12.1-15.1) % Plt Count 125 L (130-400) 10^3/c mm MPV 13.5 H (7.4-10.4) fL Neut % (Auto) 66.6 % Lymph % (Auto) 22.3 % White % (Auto) 5.8 % Eos % (Auto) 3.9 % Baso % (Auto) 1.3 % Neut # (Auto) 4.6 (1.8-7.7) 10^3/u L Lymph # (Auto) 1.5 (0.8-4.8) 10^3/u L White # (Auto) 0.4 (0.2-0.9) 10^3/u L Eos # (Auto) 0.3 (0.0-0.8) 10^3/u L Baso # (Auto) 0.1 (0.0-0.1) 10^3/u L Nucleated RBC % (a uto) 0 % Nucleated RBCs # 0.0 /100WBC Sodium 141 (136-145) mmol/L Potassium 3.9 (3.5-5.1) mmol/L Chloride 105 (98-107) mmol/L Carbon Dioxide 26 (22-29) mmol/L Anion Gap 13.9 (5-19) BUN 24 H (8-23) mg/dL Creatinine 0.9 (0.5-0.9) mg/dL GFR Calculation 62.1 L (90-130) mL/min Glucose 97 (65-115) mg/dL Calculated Osmolal ity 289 (285-295) mOsm/k g Calcium 9.4 (8.5-10.5) mg/dL Total Bilirubin 0.5 (0.15-1.2) mg/dL AST 16 (0-32) U/L ALT 8 (0-33) U/L Alkaline Phosphata se 80 (35-105) IU/L Total Protein 7.4 (6.6-8.7) g/dL Albumin 4.2 (3.5-5.2) g/dL Globulin 3.2 (1.3-4.6) g/dL Urine Color Yellow (Yellow) Urine Appearance Clear (CLEAR) Urine pH 5.0 (5-7) Ur Specific Gravit y 1.010 (1.005-1.030) Urine Protein Neg (Negative) Urine Glucose (UA) Norm (Normal) Urine Ketones Negative (Negative) Urine Blood Neg (Negative) Urine Nitrate Negative (Negative) Urine Bilirubin Neg (NEGATIVE) Urine Urobilinogen Norm (Negative) mg/dL Ur Leukocyte Richelle ase Negative (Negative) Discharge Plan Discharge Patient Disposition: Home, Self-Care Clinical Impression: COPD (chronic obstructive pulmonary disease) Condition: Stable Prescriptions: New ipratropium-albuterol 0.5 mg-3 mg(2.5 mg base)/3 mL solution for nebulization 3 ml INHALATION Q6H PRN (Reason: shortness of breath or wheezing) Qty: 90 RF: 0 No Action aspirin [Adult Aspirin Regimen] 81 mg tablet,delayed release (DR/EC) 81 mg PO DAILY RF: 0 dicyclomine 10 mg capsule 10 mg PO QID PRN (Reason: unknown) RF: 0 pantoprazole [Protonix] 40 mg tablet,delayed release (DR/EC) 40 mg PO BID RF: 0 atorvastatin 20 mg tablet 20 mg PO DAILY Qty: 30 RF: 5 alendronate [Fosamax] 70 mg tablet 70 mg PO Q7D Qty: 4 RF: 2 metoprolol tartrate 50 mg tablet 50 mg PO BID Qty: 180 RF: 0 levothyroxine 50 mcg Tablet 50 mcg PO DAILY RF: 0 valsartan 40 mg Tablet 40 mg PO DAILY RF: 0 potassium chloride 10 mEq Tablet Extended Release 10 meq PO DAILY RF: 0 Klonopin 0.5 mg tablet 0.5 mg PO DAILY PRN (Reason: anxiety) RF: 0 albuterol sulfate 90 mcg/actuation HFA aerosol inhaler 1 inh INHALATION Q6H PRN (Reason: Shortness Of Breath) RF: 0 Lunesta 3 mg tablet 3 mg PO BEDTIME RF: 0 Discharge Orders: Discharge Order (Routine); Ordered 05/01/20 Ordered By: Gregory Guajardo Referrals: Mulu Miguel DO [Primary Care Provider] - Discharge Diet: Advance as tolerated Discharge Activity: Resume usual activity Discharge Date/Time: 05/01/20 09:44 Coding Level of Care Code ED Fire Extinguisher Repairer Inspector for Chg Fwd Exam Comprehensive
[2020-05-01 09:04] LABS: Basophils # 0.1 10^3/uL (0.0-0.1); Basophils % 1.3 %; Eosinophils # 0.3 10^3/uL (0.0-0.8); Eosinophils % 3.9 %; Hematocrit 44.2 % (37.0-47.0); Hemoglobin 13.9 g/dL (11.5-15.3); Lymphocytes # 1.5 10^3/uL (0.8-4.8); Lymphocytes % 22.3 %; Mean Corpuscular HGB Conc 31.4 g/dL (30.0-36.0); Mean Corpuscular Hemoglobin 30.3 pg (28.0-34.0); Mean Corpuscular Volume 96.5 fL (81-99); Mean Platelet Volume 13.5 fL (7.4-10.4); Monocytes # 0.4 10^3/uL (0.2-0.9); Monocytes % 5.8 %; Neutrophils # 4.6 10^3/uL (1.8-7.7); Neutrophils % 66.6 %; Nucleated Red Blood Cells % 0 %; Platelet Count 125 10^3/cmm (130-400); Red Blood Count 4.58 10^6/uL (4.1-5.3); Red Cell Distribution Width 12.1 % (12.1-15.1); White Blood Count 6.9 10^3/uL (4.0-10.0)
[2020-05-01 09:19] LABS: Add Urine Microscopic? NO
[2020-05-01 09:27] LABS: Bilirubin Urine Neg (NEGATIVE); Blood Urine Neg (Negative); Glucose Urine UA Norm (Normal); Ketones Urine Negative (Negative); Leukocyte Esterase Urine Negative (Negative); Nitrate Urine Negative (Negative); Protein Urine Neg (Negative); Urine Appearance Clear (CLEAR); Urine Color Yellow (Yellow); Urobilinogen Urine Norm (Negative)
[2020-05-01 09:38] VITALS: BP 143/85; PULSE 70; RESP 15; O2SAT 98
== END 2020-05-01 09:44 | disposition home or self-care (01) ==
PROVIDERS: Emergency Provider Family Medicine; Family Provider Family Medicine; PCP Family Medicine
DX: J44.9 Chronic obstructive pulmonary disease, unspecified (principal); Z79.82 Long term (current) use of aspirin
CPT/HCPCS: 12345; 71045; 80053; 81003; 85025; 99283

== ENCOUNTER → 2020-05-02 07:30 | Outpatient (BNVA) | payer MEDICARE, MEDICAID, SELFPAY | PROVIDERS: Family Provider Family Medicine; PCP Family Medicine; Visit Provider Nurse Practitioner | DX: F43.12 Post-traumatic stress disorder, chronic (principal); F41.1 Generalized anxiety disorder; F51.05 Insomnia due to other mental disorder | CPT/HCPCS: 99213 ==

== ENCOUNTER → 2020-05-23 13:47 | Outpatient (BNVA) | payer MEDICARE, MEDICAID, SELFPAY | PROVIDERS: Family Provider Family Medicine; PCP Family Medicine; Visit Provider Dermatology | DX: B37.0 Candidal stomatitis (principal); B35.1 Tinea unguium; D17.1 Benign lipomatous neoplasm of skin and subcutaneous tissue of trunk; B35.8 Other dermatophytoses; F17.210 Nicotine dependence, cigarettes, uncomplicated | CPT/HCPCS: 11102; 87220; 99203; 99204 ==

== ENCOUNTER 2020-06-28 10:38 | Outpatient (CLI) | payer MEDICARE, MEDICAID, SELFPAY ==
--- NOTE | 2020-06-28 10:44 | MR_ITS ---
WS: [id number] MRI BRAIN WITH AND WITHOUT CONTRAST HISTORY: MULTIPLE SCLEROSIS COMPARISON: 03/03/2016 TECHNIQUE: Multiplanar imaging performed through the brain with Prohance 14 ml's IV. No acute infarcts or hemorrhage. There is extensive, predominantly confluent T2 and FLAIR signal abno rmalities within the white matter beginning at the vertices and extending inferiorly through the cent rum semiovale ovale and saucedo radiata and the basal ganglia. Bilateral increased T2 signal in the po ns and a few scattered foci in the mid cerebellum. There are numerous callosal and pericallosal white matter lesions similar to the prior study consistent with demyelinating disease. There has been an i ncrease in the number and size of the white matter lesions. None of these white matter lesions enhanc e. Ventricles and extra-axial spaces are mildly prominent on the basis of atrophy. Clivus and pituitary gland are normal. Postcontrast images are negative for masses or vascular malformations. Dural venous sinuses are normal. Paranasal sinuses: Well aerated with no significant disease. Mastoid air cells: Normal. Calvarium and scalp: Normal. MR/MR head wo/w con [id number] IMPRESSION: 1. Mild progression of the demyelinating lesions and chronic microvascular isc hemic disease since 03/03/2016. There is extensive chronic ischemic disease with superimposed demyelinating lesions but no active lesions. There is no enhanceme nt. 2. No hemorrhage or acute infarct.
[2020-06-28 11:32] LABS: Blood Urea Nitrogen 12 mg/dL (8-23); Glomerular Filtration Rate 70.9 mL/min (90-130)
== END 2020-06-28 10:39 | disposition home or self-care (01) ==
LOC: RADSHAW 10:43
PROVIDERS: PCP Physician Assistant; Visit Provider Physician Assistant
DX: G35 Multiple sclerosis (principal)
CPT/HCPCS: 70553; 82565; 84520; 99213; A9579

== ENCOUNTER → 2020-08-09 10:33 | Outpatient (BNVA) | payer MEDICARE, MEDICAID, SELFPAY | PROVIDERS: PCP Physician Assistant; Visit Provider Internal Medicine | DX: E03.9 Hypothyroidism, unspecified (principal); E16.2 Hypoglycemia, unspecified; E78.00 Pure hypercholesterolemia, unspecified; I10 Essential (primary) hypertension | CPT/HCPCS: 99204 ==

== ENCOUNTER 2020-08-10 07:27 | Outpatient (CLI) | payer MEDICARE, MEDICAID, SELFPAY ==
[2020-08-10 08:52] LABS: Free T4 Free Thyroxine 1.27 ng/dL (0.82-1.77); Thyroid Stimulating Hormone 7.63 uIU/mL (0.27-4.20)
[2020-08-10 08:53] LABS: Cortisol Random 24.94 ug/mL (2.47-19.5)
== END 2020-08-10 07:28 | disposition home or self-care (01) ==
LOC: LAB 07:35
PROVIDERS: PCP Physician Assistant; Visit Provider Internal Medicine
DX: E16.2 Hypoglycemia, unspecified (principal); E03.9 Hypothyroidism, unspecified
CPT/HCPCS: 36415; 82533; 84439; 84443; 86337

== ENCOUNTER 2020-08-16 12:57 | Emergency (ER) | payer MEDICARE, MEDICAID, SELFPAY ==
[2020-08-16 13:17] VITALS: BP 168/87; BP 183/82; PULSE 61; PULSE 63; RESP 14; RESP 16; TEMP 36.6; O2SAT 97; O2SAT 98; BMI 24.5
--- NOTE | 2020-08-16 13:38 | XR_ITS ---
WS: [id number] Right hand, 3 views, 08/16/2020 Clinical Data: swelling and pain Comparison: Right hand, 06/23/2013. Findings: No fractures or dislocations are seen. The soft tissues are unremarkable. There is minima l narrowing of the DIP joints but little progression from the prior study. No periarticular demineral ization or calcification is seen. The carpal bones are intact. There is a small cyst of the lunate un changed. XR/XR hand RT min 3V* [id number] Impression: 1. Minimal narrowing of the DIP joints unchanged from prior study. 2. Negative for fracture or dislocation.
--- NOTE | 2020-08-16 13:38 | ED_ITS ---
HPI - Extremity Problem General: Chief complaint: Extremity Problem,Nontraumatic Stated complaint: R HAND SWELLING/NO INJURY Time Seen by Provider: 08/16/20 13:23 Source: patient Mode of arrival: ambulatory Limitations: no limitations History of Present Illness: HPI Narrative: She noticed right hand swelling about 45 minutes 1 hour ago. Swelling is in the dorsal part of her right hand, she says the swelling has been progressively enlarging. She denies any trauma. No prior history of something similar MD Complaint: extremity pain and extremity swelling Onset (ago): hour(s) (1) Pain Consistency: constant Location: right and upper extremity Quality: sharp Radiation: none Relieving factors: nothing Exacerbating factors: nothing Associated symptoms: Deny fever(s) or rash Review of Systems General: Reports: 10 or more systems reviewed and unremarkable except in HPI and below Const: Denies: fever(s), chills or body aches Eyes: Denies: change in vision or blurry vision ENMT: Denies: throat pain, enlarged tonsils, odynophagia, hoarseness, mouth pain or swelling of lips/tongue Card: Denies: palpitations, irregular heart rhythm, edema or swelling of feet/ankles Resp: Denies: dyspnea, productive cough or non-productive cough GI: Denies: abdominal pain, nausea or vomiting : Denies: flank pain, difficulty voiding, dysuria, urinary frequency, urinary urgency or urinary hesitancy Musc: Reports: extremity pain and extremity swelling; Denies: neck pain or back pain Skin/Breast: Denies: rash, pruritus or erythema Neuro: Denies: headache(s), numbness in extremities or weakness in extremities Endo: Denies: polyuria, polydipsia or tired all the time PFSH ED PFSH: Medical History (Reviewed 08/16/20 @ 13:42 by Thierno Aranda MD, [facility] [place]) Benign essential HTN Generalized anxiety disorder GERD (gastroesophageal reflux disease) Lori's disease Hyperlipidemia Insomnia due to mental condition Osteoporosis Post-traumatic stress disorder, chronic Renal cyst Surgical History (Reviewed 08/16/20 @ 13:42 by Thierno Aranda MD, [facility] [place]) H/O section H/O colonoscopy H/O esophagogastroduodenoscopy S/P breast biopsy S/P lumpectomy of breast S/P thyroidectomy S/P tonsillectomy Family History (Reviewed 08/16/20 @ 13:42 by Thierno Aranda MD, [facility] [place]) Mother , 89 Cancer Dementia Father No problems noted. Family/Other Bleeding disorder cousin, hemophilia Denies family history of Anesthesia complication Social History (Reviewed 08/16/20 @ 13:42 by Thierno Aranda MD, [facility] [place]) Smoking and tobacco status: current every day smoker cigarettes Years cigarettes smoked: 23 [ Other cigarette details: Hx of 3PPD x 20 Years ] Quit status (tobacco): considering quitting Second hand smoke exposure: Yes Smoking risk assessment/counseling performed?: Yes Alcohol intake: never Lives independently: Yes Household members: none Housing: Apartment Marital status: Single Current occupational status: retired History of recent travel: No Current gender identity: Female Physical Exam Const: COMMON NORMALS: no acute distress, average body habitus, patient oriented x3, no limitations, healthy appearing, alert and well nourished HENMT: COMMON NORMALS: normocephalic, atraumatic and moist oral mucous membranes HEAD & SCALP: normocephalic and atraumatic Neck/C-Spine: COMMON NORMALS: no meningeal signs and no JVD Resp: COMMON NORMALS: normal respiratory effort, No retractions, No use of accessory muscles, clear to auscultation bilaterally and percussion normal AUSCULTATION: clear to auscultation bilaterally PERCUSSION: percussion normal Cardio: COMMON NORMALS: no JVD, regular rate, regular rhythm, S1 normal heart sound present, S2 normal heart sound present, No gallops present (Cardio), No clicks present (Cardio), No murmurs present (Cardio), No rub (Cardio) and Peripheral pulses 2+ throughout RATE: regular rate RHYTHM: regular rhythm HEART SOUNDS: S1 normal heart sound present and S2 normal heart sound present PERIPHERAL PULSES: Peripheral pulses 2+ throughout GI: COMMON NORMALS: Normal to inspection, nondistended, normoactive bowel sounds present, Soft to palpation, non-tender, No hepatosplenomegaly present, no masses and no bruits PALPATION: Yes Soft to palpation and Yes No hepatosplenomegaly present Extremity: COMMON NORMALS: normal to inspection, full ROM, capillary refill normal, no calf tenderness and no pedal edema RIGHT UPPER EXTREMITY: Yes hand & digits (5 cm swelling noted on the dorsal surface of the hand just proximal to mid third and fourth fingers. She is tender at the MCPs. Limited flexion. Neurovascular status intact) Neuro: COMMON NORMALS: patient oriented x3 SENSORIUM/ORIENTATION: Yes alert MENINGEAL SIGNS: Yes no meningeal signs Course Reevaluation(s): Reevaluation #1: Discussed imaging findings with. Negative for acute findings. No fracture or dislocation. I discussed that since her pain and swelling is mostly at the MCP she likely has some arthritic process going on. The small joints of the hand are also swollen. She does say that she has rheumatoid arthritis but is not on any medication for it. I advised her that this is likely a flare and will give a prescription for oral steroids. She is to follow-up with her primary care provider and to be referred to a metaphysician. She voiced understanding and is in agreement with the plan. Time: 14:06 Vital Signs: Vital signs: Vital Signs Temperature 97.9 F 08/16/20 13:17 Pulse Rate 63 08/16/20 13:17 Respiratory Rate 14 08/16/20 13:17 Blood Pressure 183/82 08/16/20 13:17 Pulse Oximetry 97 08/16/20 13:17 MDM - Extremity (Nontraumatic) MDM Narrative: Medical decision making narrative: Patient with symptoms consistent with a flare of her rheumatoid arthritis. She is discharged home with a prescription for oral steroids and she is advised to follow-up with a metaphysician. Medical Records: Attestation: I reviewed the patient's medical records. Imaging Data^: Xray Ortho: Attestation: I personally reviewed and interpreted this imaging study as follows: Radiologist's impression: [address] [address] XRay Report Signed Patient: Wen Voss #: [id number] : 1950Acct#:[id number] Age/Sex: 70 / FADM Date: 08/16/20 Loc: ERRoom/Bed: Attending Dr: Ordering Provider/Ordering MD: Thierno Aranda MD, [facility] [place] Date of Service: 08/16/20 Procedure(s): XR hand RT min 3V* 13268 Accession Number(s): [id number] Report Number: [id number] WS: [id number] Right hand, 3 views, 08/16/2020 Clinical Data: swelling and pain Comparison: Right hand, 06/23/2013. Findings: No fractures or dislocations are seen. The soft tissues are unremarkable. There is minimal narrowing of the DIP joints but little p rogression from the prior study. No periarticular demineralization or calcification is seen. The carpal bones are intact. There is a small cyst of the lunate unchanged. XR/XR hand RT min 3V* [id number] Impression: 1. Minimal narrowing of the DIP joints unchanged from prior study. 2. Negative for fracture or dislocation. Dictated By:Lauryn Chandra MD Signed By:Lauryn Chandraigned Date/Time:08/16/201352 DD/ 1350 Discharge Plan Discharge Patient Disposition: Home Clinical Impression: Arthritis of hand, right Condition: Stable Prescriptions: New prednisone 20 mg tablet 20 mg PO DAILY Qty: 7 RF: 0 Continued aspirin [Adult Aspirin Regimen] 81 mg tablet,delayed release (DR/EC) 81 mg PO DAILY RF: 0 dicyclomine 10 mg capsule 10 mg PO QID PRN (Reason: unknown) RF: 0 mupirocin 2 % ointment 1 applic TOPICAL BID Qty: 22 RF: 1 ketoconazole 2 % cream 1 applic TOPICAL BID Qty: 60 RF: 1 pantoprazole [Protonix] 40 mg tablet,delayed release (DR/EC) 40 mg PO BID RF: 0 albuterol sulfate [ProAir HFA] 90 mcg/actuation HFA aerosol inhaler 2 puff INHALATION Q6H PRN (Reason: shortness of breath or wheezing) 30 Days Qty: 18 RF: 3 Klonopin 0.5 mg tablet 0.5 mg PO DAILY PRN (Reason: anxiety) Qty: 30 RF: 2 Lunesta 3 mg tablet 3 mg PO BEDTIME Qty: 30 RF: 2 atorvastatin 20 mg tablet 20 mg PO DAILY Qty: 30 RF: 5 alendronate [Fosamax] 70 mg tablet 70 mg PO Q7D Qty: 4 RF: 2 fluconazole 150 mg tablet 300 mg PO DAILY Qty: 48 RF: 0 metoprolol tartrate 50 mg tablet 50 mg PO BID Qty: 180 RF: 0 umeclidinium-vilanterol [Anoro Ellipta] 62.5-25 mcg/actuation blister with device See Rx Instructions .ROUTE .COMPLEX Qty: 60 RF: 3 levothyroxine 50 mcg Tablet 50 mcg PO DAILY RF: 0 ipratropium-albuterol 0.5 mg-3 mg(2.5 mg base)/3 mL solution for nebulization 3 ml INHALATION Q6H PRN (Reason: shortness of breath or wheezing) Qty: 90 RF: 0 albuterol sulfate 90 mcg/actuation HFA aerosol inhaler 1 inh INHALATION Q6H PRN (Reason: Shortness Of Breath) RF: 0 valsartan 40 mg tablet 40 mg PO DAILY RF: 0 Discharge Orders: Discharge Order (Routine); Ordered 08/16/20 Ordered By: Thierno Aranda Referrals: Lisa Puente PA [Primary Care Provider] - 1-3 days Discharge Diet: Usual diet Discharge Activity: Increase activity as tolerated Patient Instructions: Rheumatoid Arthritis (ED) Activity Restrictions/Additional Instructions: Return for any new or worsening symptoms. Take your medications as prescribed. Apply cold compress to the hand at least 3 times a day. Do not apply ice directly to the hand and for no longer than 15 minutes at a time. Follow-up with your primary care provider for referral to the metaphysician. Coding Level of Care Code ED Strategic Debriefing Officer for Chg Fwd Exam Detailed
[2020-08-16 14:20] VITALS: BP 152/90; PULSE 74; RESP 14; O2SAT 99
== END 2020-08-16 14:22 | disposition home or self-care (01) ==
PROVIDERS: Emergency Provider Family Medicine; PCP Physician Assistant
DX: M19.041 Primary osteoarthritis, right hand (principal); Z79.82 Long term (current) use of aspirin; I10 Essential (primary) hypertension; E78.5 Hyperlipidemia, unspecified; F17.210 Nicotine dependence, cigarettes, uncomplicated
CPT/HCPCS: 12345; 73130; 99281; 99282

== ENCOUNTER 2020-08-27 14:08 | Outpatient (CLI) | payer MEDICARE, MEDICAID, SELFPAY ==
[2020-08-27 14:36] LABS: Basophils # 0.1 10^3/uL (0.0-0.1); Basophils % 1.1 %; Eosinophils # 0.2 10^3/uL (0.0-0.8); Hematocrit 46.3 % (37.0-47.0); Hemoglobin 14.2 g/dL (11.5-15.3); Lymphocytes % 31.9 %; Mean Corpuscular HGB Conc 30.7 g/dL (30.0-36.0); Mean Corpuscular Hemoglobin 29.3 pg (28.0-34.0); Mean Corpuscular Volume 95.5 fL (81-99); Monocytes # 0.4 10^3/uL (0.2-0.9); Monocytes % 6.8 %; Neutrophils # 3.63 10^3/uL (1.8-7.7); Nucleated Red Blood Cells % 0 %; Platelet Count 60 10^3/cmm (130-400); Red Blood Count 4.85 10^6/uL (4.1-5.3); Red Cell Distribution Width 14.6 % (12.1-15.1); White Blood Count 6.4 10^3/uL (4.0-10.0)
[2020-08-27 15:02] LABS: Alanine Aminotransferase 18 U/L (0-33); Albumin Level 4.1 g/dL (3.5-5.2); Alkaline Phosphatase 100 IU/L (35-105); Anion Gap 11.1 (5-19); Aspartate Amino Transferase 19 U/L (0-32); Blood Urea Nitrogen 24 mg/dL (8-23); Calcium 8.9 mg/dL (8.5-10.5); Carbon Dioxide 28 mmol/L (22-29); Chloride 106 mmol/L (98-107); Globulin 2.9 g/dL (1.3-4.6); Glomerular Filtration Rate 54.8 mL/min (90-130); Glucose 87 mg/dL (65-115); Osmolality Calculated 295 mOsm/kg (285-295); Potassium 4.1 mmol/L (3.5-5.1); Sodium 141 mmol/L (136-145); Total Bilirubin 0.3 mg/dL (0.15-1.2)
[2020-08-27 15:45] LABS: HIV 1 & 2 Antibody Non-Reactive (Non-Reactiv); HIV 1 & 2 Antigen Non-Reactive (Non-Reactiv)
[2020-08-27 16:28] LABS: Slide Review Slide Review Perform
== END 2020-08-27 14:09 | disposition home or self-care (01) ==
LOC: LAB 14:13
PROVIDERS: PCP Physician Assistant; Visit Provider Dermatology
DX: B35.1 Tinea unguium (principal); B37.0 Candidal stomatitis
CPT/HCPCS: 36415; 80053; 85025; 87806

== ENCOUNTER → 2020-08-28 10:12 | Outpatient (BNVA) | payer MEDICARE, MEDICAID, SELFPAY | PROVIDERS: PCP Physician Assistant; Visit Provider Urology | DX: N23 Unspecified renal colic (principal); N39.0 Urinary tract infection, site not specified; N26.1 Atrophy of kidney (terminal) | CPT/HCPCS: 81003 ==

== ENCOUNTER → 2020-09-11 14:04 | Outpatient (BNVA) | payer MEDICARE, MEDICAID, SELFPAY | PROVIDERS: PCP Physician Assistant; Visit Provider Specialist | DX: G37.9 Demyelinating disease of central nervous system, unspecified (principal); F17.210 Nicotine dependence, cigarettes, uncomplicated | CPT/HCPCS: 99203 ==

== ENCOUNTER 2020-09-12 07:51 | Outpatient (CLI) | payer MEDICARE, MEDICAID, SELFPAY ==
--- NOTE | 2020-09-12 07:45 | XR_ITS ---
WS: [id number] ABDOMEN: SUPINE FILM HISTORY: RENAL COLIC COMPARISON: 09/28/2017 and 11/03/2019 Moderate fecal retention throughout the colon. Calcific density in the LEFT upper abdomen is external to the kidney and seen on a prior CT in the anterior soft tissues. Phleboliths in the pelvis. Mild d egenerative changes and LEFT convex curvature lumbar spine. Right kidney: No renal or ureteral stone identified. Left kidney: No renal or ureteral stone identified. XR/XR KUB [id number] IMPRESSION: No renal or ureteral calcifications are identified. Kidneys are obscured by bow el content.
--- NOTE | 2020-09-12 08:00 | US_ITS ---
WS: [id number] RENAL ULTRASOUND HISTORY: RENAL CYST COMPARISON: 11/16/2009 TECHNIQUE: 2-D and color Doppler imaging of the kidney submitted. Right kidney: 10.1 cm x 4.8 cm x 5.2 cm. Mildly complex cyst from the upper pole the RIGHT kidney. There are a few small thin septations withi n the cyst. There is through transmission. Cyst measures 4.6 x 3.9 x 4.2 cm and has slowly increased in size. No solid mass or hydronephrosis. Left kidney: 10.6 cm x 4.2 cm x 4.8 cm. Normal echogenicity with no hydronephrosis or mass. Cortical cyst inferior LEFT kidney measures 1.0 x 0.8 x 1.0 cm. Aorta: Normal. Urinary Bladder: Minimally distended urinary bladder. Simple cyst in the RIGHT lobe of the liver measures 2.3 x 1.7 x 2.4 cm and has been previously descri bed. US/US renal BI* [id number] IMPRESSION: 1. Minimally complex cyst upper pole RIGHT kidney has slowly increased in size since 2009. 2. Stable hepatic cyst. 3. Lower pole LEFT renal cyst measures 1.0 cm.
== END 2020-09-12 07:52 | disposition home or self-care (01) ==
LOC: RAD 08:03
PROVIDERS: PCP Physician Assistant; Visit Provider Nurse Practitioner Family
DX: N28.1 Cyst of kidney, acquired (principal); N23 Unspecified renal colic; N39.0 Urinary tract infection, site not specified
CPT/HCPCS: 74018; 76770; 81003

== ENCOUNTER → 2020-09-26 07:38 | Outpatient (BNVA) | payer MEDICARE, MEDICAID, SELFPAY | PROVIDERS: PCP Physician Assistant; Visit Provider Nurse Practitioner | DX: F43.12 Post-traumatic stress disorder, chronic (principal); F41.1 Generalized anxiety disorder; F51.05 Insomnia due to other mental disorder | CPT/HCPCS: 99214 ==

== ENCOUNTER 2020-10-12 13:55 | Outpatient (CLI) | payer MEDICARE, MEDICAID, SELFPAY ==
--- NOTE | 2020-10-12 14:00 | MM_ITS ---
WS: [id number] BILATERAL SCREENING DIGITAL MAMMOGRAM WITH CAD HISTORY: SCREENING COMPARISON: 05/20/2017 and 01/29/2016 Bilateral CC and MLO views submitted. Computer aided detection analyzed. Breast composition: There are scattered areas of fibroglandular density. No suspicious masses, microc alcifications or architectural distortion. Benign calcifications in each breast. MM/[place] [id number] IMPRESSION: BI-RADS: 2-Benign FOLLOW UP: 1 Year Follow-up
== END 2020-10-12 13:56 | disposition home or self-care (01) ==
LOC: RADSHAW 13:58
PROVIDERS: PCP Physician Assistant; Visit Provider Physician Assistant
DX: Z12.31 Encounter for screening mammogram for malignant neoplasm of breast (principal)
CPT/HCPCS: 77067

== ENCOUNTER 2020-10-23 15:32 | Outpatient (CLI) | payer MEDICARE, MEDICAID, SELFPAY ==
[2020-10-23 16:53] LABS: Free T4 Free Thyroxine 1.26 ng/dL (0.82-1.77); Thyroid Stimulating Hormone 6.16 uIU/mL (0.27-4.20)
[2020-10-23 17:20] LABS: Estmated Average Glucose 103; Hemoglobin A1C 5.2 % (4.0-6.0)
== END 2020-10-23 15:33 | disposition home or self-care (01) ==
PROVIDERS: PCP Physician Assistant; Visit Provider Internal Medicine
DX: E03.9 Hypothyroidism, unspecified (principal); E04.1 Nontoxic single thyroid nodule; E16.2 Hypoglycemia, unspecified; R73.9 Hyperglycemia, unspecified
CPT/HCPCS: 36415; 83036; 84439; 84443; 99214

== ENCOUNTER 2020-11-09 13:36 | Outpatient (CLI) | payer MEDICARE, MEDICAID, SELFPAY ==
--- NOTE | 2020-11-09 14:15 | US_ITS ---
WS: [id number] ULTRASOUND THYROID TECHNIQUE: Ultrasound of the thyroid. CLINICAL INFORMATION: thyroid nodule, s/p partial thyroidectomy COMPARISON: FINDINGS: Thyroid: Right thyroid has been surgically removed. 3 echogenic nodules in the left thyroid similar i n appearance to 2018. Left thyroid lobe: 2.1 cm x 0.9 cm x 1.0 cm. Isthmus: 0.1 mm. Cervical lymphadenopathy: None. US/US thyroid [id number] IMPRESSION: 1. Right thyroidectomy is new from previous. 2. 3 small echogenic nodules left thyroid largest measuring 6 x 3 mm. This is similar in appearance to 2018. Recommend continued annual surveillance
== END 2020-11-09 13:37 | disposition home or self-care (01) ==
LOC: US 13:41
PROVIDERS: PCP Physician Assistant; Visit Provider Internal Medicine
DX: E04.1 Nontoxic single thyroid nodule (principal); E89.0 Postprocedural hypothyroidism
CPT/HCPCS: 76536

== ENCOUNTER 2020-11-29 09:31 | Outpatient (CLI) | payer MEDICARE, MEDICAID, SELFPAY ==
[2020-11-29 09:56] LABS: Basophils # 0.1 10^3/uL (0.0-0.1); Eosinophils # 0.1 10^3/uL (0.0-0.8); Eosinophils % 2.4 %; Hematocrit 44.6 % (37.0-47.0); Hemoglobin 14.2 g/dL (11.5-15.3); Lymphocytes # 1.4 10^3/uL (0.8-4.8); Lymphocytes % 27.4 %; Mean Corpuscular HGB Conc 31.8 g/dL (30.0-36.0); Mean Corpuscular Hemoglobin 30.1 pg (28.0-34.0); Mean Corpuscular Volume 94.7 fL (81-99); Monocytes # 0.4 10^3/uL (0.2-0.9); Monocytes % 8.1 %; Neutrophils # 3.07 10^3/uL (1.8-7.7); Neutrophils % 60.9 %; Nucleated Red Blood Cells % 0 %; Platelet Count 49 10^3/cmm (130-400); Red Blood Count 4.71 10^6/uL (4.1-5.3); Red Cell Distribution Width 13.3 % (12.1-15.1)
[2020-11-29 10:18] LABS: Alanine Aminotransferase 17 U/L (0-33); Albumin Level 4.3 g/dL (3.5-5.2); Alkaline Phosphatase 93 IU/L (35-105); Anion Gap 11.8 (5-19); Aspartate Amino Transferase 21 U/L (0-32); Blood Urea Nitrogen 18 mg/dL (8-23); Calcium 9.2 mg/dL (8.5-10.5); Carbon Dioxide 29 mmol/L (22-29); Chloride 104 mmol/L (98-107); Glomerular Filtration Rate 70.9 mL/min (90-130); Glucose 93 mg/dL (65-115); Osmolality Calculated 294 mOsm/kg (285-295); Potassium 3.8 mmol/L (3.5-5.1); Sodium 141 mmol/L (136-145); Total Bilirubin 0.6 mg/dL (0.15-1.2); Total Protein 7.3 g/dL (6.6-8.7)
[2020-11-29 10:24] LABS: Slide Review Slide Review Perform
== END 2020-11-29 09:32 | disposition home or self-care (01) ==
LOC: LAB 09:35
PROVIDERS: PCP Physician Assistant; Visit Provider Dermatology
DX: B35.1 Tinea unguium (principal); Z79.899 Other long term (current) drug therapy
CPT/HCPCS: 36415; 80053; 85025

== ENCOUNTER → 2020-12-18 07:28 | Outpatient (BNVA) | payer MEDICARE, MEDICAID, SELFPAY | PROVIDERS: PCP Physician Assistant; Visit Provider Nurse Practitioner | DX: F43.12 Post-traumatic stress disorder, chronic (principal); F41.1 Generalized anxiety disorder; F51.05 Insomnia due to other mental disorder; F17.219 Nicotine dependence, cigarettes, with unspecified nicotine-induced disorders | CPT/HCPCS: 99214 ==

== ENCOUNTER 2020-12-20 08:39 | Outpatient (CLI) | payer MEDICARE, MEDICAID, SELFPAY ==
[2020-12-20 11:00] LABS: Basophils # 0.1 10^3/uL (0.0-0.1); Eosinophils # 0.2 10^3/uL (0.0-0.8); Eosinophils % 3.4 %; Hematocrit 45.7 % (37.0-47.0); Hemoglobin 14.3 g/dL (11.5-15.3); Lymphocytes # 1.2 10^3/uL (0.8-4.8); Lymphocytes % 24.4 %; Mean Corpuscular HGB Conc 31.3 g/dL (30.0-36.0); Mean Platelet Volume 14.1 fL (7.4-10.4); Monocytes # 0.4 10^3/uL (0.2-0.9); Monocytes % 7.8 %; Neutrophils # 3.15 10^3/uL (1.8-7.7); Neutrophils % 63.2 %; Nucleated Red Blood Cells % 0 %; Platelet Count 98 10^3/cmm (130-400); Red Blood Count 4.76 10^6/uL (4.1-5.3); Red Cell Distribution Width 13.3 % (12.1-15.1)
[2020-12-20 11:28] LABS: Alanine Aminotransferase 17 U/L (0-33); Albumin Level 4.3 g/dL (3.5-5.2); Alkaline Phosphatase 87 IU/L (35-105); Anion Gap 11.1 (5-19); Aspartate Amino Transferase 17 U/L (0-32); Blood Urea Nitrogen 21 mg/dL (8-23); Calcium 9.4 mg/dL (8.5-10.5); Carbon Dioxide 30 mmol/L (22-29); Chloride 104 mmol/L (98-107); Globulin 3.1 g/dL (1.3-4.6); Glomerular Filtration Rate 70.9 mL/min (90-130); Glucose 84 mg/dL (65-115); Lactate Dehydrogenase 233 U/L (135-214); Osmolality Calculated 294 mOsm/kg (285-295); Potassium 4.1 mmol/L (3.5-5.1); Sodium 141 mmol/L (136-145); Thyroid Stimulating Hormone 0.98 uIU/mL (0.27-4.20); Total Bilirubin 0.7 mg/dL (0.15-1.2); Total Protein 7.4 g/dL (6.6-8.7); Vitamin B12 487 pg/mL (232-1245)
[2020-12-20 12:22] LABS: Erythrocyte Sedimentation Rate 13 mm/hr (0-15)
[2020-12-20 12:38] LABS: Free T4 Free Thyroxine 1.51 ng/dL (0.82-1.77)
[2020-12-20 13:12] LABS: LAB Peripheral Smear Sent for Review
--- NOTE | 2020-12-20 13:54 | ONC CON_ITS ---
Dr. García New Patient Note Patient: Wen Voss Unit #: [id number]: 1950 Dicatated By: Walter García M.D.Date of Visit: Dec 20, 2020 Onc MED New Patient/Consult Referring Physician: Tracee Villasenor Chief Complaint: Thrombocytopenia. History of Present Illness: This is a 70-year-old woman with mild to moderately severe thrombocytopenia. She has multiple medical illnesses including hypertension, hyperlipidemia, COPD, degenerative arthritis/degenerative disease of the spine, and osteoporosis. She has a history of posttraumatic stress disorder with anxiety and depression. She also has a history of Lori's thyroiditis with associated thyroid nodules for which she underwent right hemithyroidectomy in August 2018. She had recently been seeing Dr. Villasenor for treatment of onychomycosis, and she was found to have a low platelet count. In reviewing the record in [facility], she was first noted to have a mildly decreased platelet count in April 2020 with a CBC at that time showing normal hemoglobin at 13.9 g, white blood cell count 6900, and platelet count slightly decreased at 125,000. On a repeat CBC in August 2020 the platelet count was down to 60,000. The most recent CBC, from 11/29/2020, showed further decrease in the platelet count to 49,000 with hemoglobin normal at 14.2 g and white blood cell count normal at 5000. She complains that she has been feeling really tired, that has been getting gradually worse. Her activity is also limited because of back pain. Her ECOG score is 2. Her appetite has been okay. She reports having previously gained somewhere in the range of 20 pounds, and she has been losing some of that. She has not had fever or night sweats. She used to have hot flashes, but not as much lately. She reports having sneezing and stuffy nose, and she reports having a lot of white phlegm. She has cough, but not bad. She does not complain of shortness of breath. She recently has had sharp pain in the left side of the chest, significant enough that she could not breathe. She does not complain of nausea. Her acid reflux is adequately managed with medication. She has diarrhea associated with irritable bowel syndrome. She occasionally has abdominal pain. She has been prone to have urinary tract infection, and she reports having intermittent dysuria and urinary frequency. She has joint pain, particularly in her hands, hips, ankles, and feet. She has chronic back pain. She has a history of migraine headache, but she now has headaches very infrequently. She has random dizziness. She has numbness in her feet. She reports having anxiety, and she also has chronic anxiety. Both are adequately managed with medication. Past Medical History: Her medical history includes chronic obstructive pulmonary disease, degenerative arthritis/degenerative disease of the spine, gastroesophageal reflux disease, Hashito's disease, history of chronic migraine, hyperlipidemia, hypertension, insomnia, onychomycosis, osteoporosis, and PTSD with anxiety and depression. Past Surgical History: Her surgical/procedural history includes Caesarean section, colonoscopy in October 2015, EGD and colonoscopy in 2012, EGD in February 2016 and in October 2017, fatty tumor removed from spine in 1986, multiple breast biopsies for benign disease, a procedure for cervical cancer in 2007, tonsillectomy, and right hemithyroidectomy in 2018. Medications: Albuterol Sulfate 2 Inhalation (of 108 (90 base) mcg/act) Aerosol Powder, Breath Activated Inhalation q 6 hours, Aleve 1 (220 mg) Tablet Oral daily PRN, Anoro Ellipta 1 (62.5-25 mcg/inh) Aerosol Powder, Breath Activated Inhalation q 8 hours, Aspirin 81 1 (81 mg) Tablet, chewable Oral daily, Atorvastatin Calcium 1 (20 mg) Tablet Oral daily, Bentyl 1 (10 mg) Capsule Oral four times a day PRN, Ciclopirox (8 %) Solution Topical Take as Directed, clonazePAM 1 (0.5 mg) Tablet Oral b.i.d. PRN, Clotrimazole Jeni Mouth/throat, Diflucan 2 (150 mg) Tablet Oral q 7 days, Fosamax 1 (70 mg) Tablet Oral q 1 week, Levothyroxine Sodium 1 (75 mcg) Tablet Oral every am on ,,Alexander, Levothyroxine Sodium 1 (50 mcg) Tablet Oral every am on -, Lunesta 1 (3 mg) Tablet Oral at bedtime, Lutein 1 (20 mg) Tablet Oral daily, Metoprolol Tartrate 1 (50 mg) Tablet Oral b.i.d., Simethicone 1 (125 mg) Tablet Oral daily, Stiolto Respimat 2 Inhalation (of 2.5-2.5 mcg/act) Aerosol, solution Inhalation daily, Tylenol PM Extra Strength 2 (500-25 mg) Tablet Oral daily, Valsartan 1 (80 mg) Tablet Oral daily Allergies: Butorphanol Tartrate and DULoxetine HCl. Social History: Ms. Voss is . She has a history of smoking up to 2-1/2 packs of cigarettes daily for 15 years. She quit smoking about 4 years ago. She then started again, but only 2 to 5 cigarettes/day. She has had just very occasional alcohol use. Family History: She does not know anything about her father. Her mother with dementia at age 89. There are multiple aunts, uncles, and cousins on her mother side affected by a variety of different cancers including colon cancer, brain cancer, bone cancer, liver cancer, and leukemia. A son of suicide. Review Of Symptoms: Constitutional - She has been feeling really tired. She has restricted activity due to her back problems. Her appetite has been okay. She had experienced a significant weight gain, in the range of 20 pounds, but she has started to lose some of that now. She does not have fever or night sweats. She used to have hot flashes, but those seem to be resolving. ECOG score is 2, Eyes - She has had some visual decline due to macular degeneration, ENMT - No hearing loss or tinnitus. She has some chronic sneezing and stuffy nose. No mouth sores. No sore throat or difficulty swallowing, Hematologic/Lymphatic - She has just occasional bruising. No other bleeding, Respiratory - No shortness of breath. She has some cough, but not bad. She does report bringing up a lot of white phlegm. No pleuritic pain or hemoptysis, Cardiovascular - Recently she had sharp pain in the left side of the chest. It was bad enough that she could not breathe. No palpitations, Gastrointestinal - No nausea or vomiting. Her acid reflux is adequately managed with medication. She has irritable bowel syndrome with diarrhea. She occasionally has abdominal pain. No blood in the stool or black stools, Genitourinary (F) - She has been prone to urinary tract infections, and she does report having intermittent burning with urination and urinary frequency. No hematuria. No urgency or incontinence, Musculoskeletal - She has joint pain, particularly in her hands, hips, and in her ankles/feet. She has chronic back pain, Integumentary - She has been undergoing treatment for onychomycosis, Neurologic - She has headache only infrequently. She has random dizziness. She has numbness/tingling in her feet. No other focal neurologic symptoms. She has been having some difficulty with memory, Psychiatric - She has anxiety. She has insomnia, but it is managed adequately with her medication. Vital Signs: Performed on Dec 20, 2020 09:45: 10, 0, 0.00, 0.00 sq.m, 98 %, 60 /min, 18 /min, 146/81 mm(hg) (HIGH), 97.6 F (LOW), and 152.6 lbs (HIGH). Physical Examination: Constitutional - She does not appear acutely ill. She does have somewhat limited mobility, Eyes - Sclerae nonicteric. Conjunctivae clear, ENMT - No lesions noted in the oral cavity, Hematologic/Lymphatic - No cervical, clavicular, or axillary adenopathy, Respiratory - Lungs are clear with good air movement bilaterally, Cardiovascular - Heart rhythm is regular. There is no murmur, gallop, or rub noted, Abdomen - Soft and non-tender. Liver and spleen are not enlarged. There is no abdominal mass or ascites noted and there is no inguinal adenopathy, Back/Spine - No spine or CVA tenderness noted, Extremities - No edema. Both feet are cool to touch. I am not able to palpate pedal pulses. There are no petechiae or ecchymoses noted, Integumentary - She does appear to have onychomycosis in the toenails. No suspicious skin lesions noted, Neurologic - No focal neurologic deficits noted. Problem List: 1. Mild to moderately severe thrombocytopenia. 2. She has recently been undergoing treatment for onychomycosis. 3. Hypertension. 4. Hyperlipidemia. 5. GERD. 6. Lori's thyroiditis with associated thyroid nodules. She is status post right hemithyroidectomy. 7. Degenerative arthritis/degenerative disease of the spine. 8. Osteoporosis. 9. History of chronic migraine. 10. Chronic insomnia. 11. Posttraumatic stress disorder with anxiety and depression. Problems Addressed with this Encounter and Plan: Patient with mild to moderately severe thrombocytopenia. Etiology is uncertain. Platelet clumping needs to be first of all be excluded. Otherwise, it would most likely be autoimmune. At this point drug-induced thrombocytopenia cannot be excluded, but none of the medications she has been taking are in the higher risk category for that. The laboratory findings were reviewed with the patient and we discussed the clinical implications. She will have additional laboratory studies today to include CBC, comprehensive metabolic profile, sed rate and CRP level, ESTELA and RA titers, thyroid profile, LDH level, and B12 level. I will review the blood smear. She will have further evaluation as indicated. Signed By: Walter García M.D. <<Signature on File>>
[2020-12-21 14:13] LABS: Anti-Nuclear Antibody Screen NEGATIVE (NEGATIVE)
== END 2020-12-20 08:40 | disposition home or self-care (01) ==
LOC: ONCMED 08:42
PROVIDERS: PCP Physician Assistant; Visit Provider Internal Medicine Medical Oncology
DX: D69.6 Thrombocytopenia, unspecified (principal); B35.1 Tinea unguium; I10 Essential (primary) hypertension; E78.5 Hyperlipidemia, unspecified; K21.9 Gastro-esophageal reflux disease without esophagitis; E06.3 Autoimmune thyroiditis; M47.9 Spondylosis, unspecified; M81.0 Age-related osteoporosis without current pathological fracture; G43.919 Migraine, unspecified, intractable, without status migrainosus; F51.04 Psychophysiologic insomnia; F43.10 Post-traumatic stress disorder, unspecified; F41.9 Anxiety disorder, unspecified; F32.9 Major depressive disorder, single episode, unspecified; Z79.899 Other long term (current) drug therapy
CPT/HCPCS: 36415; 80053; 82607; 83615; 84439; 84443; 85025; 85651; 86038; 86141; 86431; 99204

== ENCOUNTER 2021-01-02 08:57 | Outpatient (CLI) | payer MEDICARE, MEDICAID, SELFPAY ==
--- NOTE | 2021-01-02 09:30 | USCV_ITS ---
Wen Voss Age: 70 Gender: F : 1950 Exam Date: 01/02/2021 08:57 Ordering Phys: Martin Lynch DPM Technologist: Exam Location: [facility] [place] Indication: DECREASED PEDAL PULSES RIGHT LEFT Brachial 179.00 mmHg Brachial 169.00 mmHg Pressure (mmHg) Waveform Pressure (mmHg) Waveform 214.00 Below Knee 215.00 ENVIRONMENTAL PROJECTS ADVISOR 216.00 210.00 DPA 196.00 1.20 Ankle/Brachial Index 1.21 128.00 Pre-Exercise Toe Pressure 100.00 0.72 Pre-Exercise Toe/Brachial Index 0.56 FINDINGS Normal resting ABIs of 1.20 bilaterally Normal resting TBI on the right side of 0.72 Slightly diminished resting TBI on the left side of 0.56 CONCLUSIONS Features of mild peripheral arterial disease on the left side, possibly involving the distal vessels No significant arterial obstruction on the right side Dr Ted Klein MD [facility] (Electronically Signed) Final Date: 02 January 2021 23:07 S
== END 2021-01-02 08:58 | disposition home or self-care (01) ==
LOC: RAD 09:04
PROVIDERS: PCP Physician Assistant; Visit Provider Podiatrist Foot & Ankle Surgery
DX: R09.89 Other specified symptoms and signs involving the circulatory and respiratory systems (principal)
CPT/HCPCS: 93923

== ENCOUNTER 2021-01-11 09:30 | Outpatient (CLI) | payer MEDICARE, MEDICAID, SELFPAY ==
--- NOTE | 2021-01-11 10:15 | MR_ITS ---
WS: [id number] INDICATION: Left elbow mass TECHNIQUE: MRI left elbow without and with gadolinium enhancement. Axial T1, axial T2, coronal T1, co bobby PD, coronal STIR, post gadolinium imaging was obtained with fat saturation technique. FINDINGS: Palpable marker in the area of concern. Deep to the area of palpable concern is normal underlying subcutaneous fat and soft tissue. No eviden ce of cystic or solid mass. No suspicious abnormalities in this area. There is a prominent vessel in this area likely corresponding to the palpable abnormality. No significant joint effusion. Distal humerus is normal in appearance. Normal radial head and neck. M ild degenerative arthritis involving the proximal ulna. Normal radial and lateral collateral ligament s. MR/MR elbow LT wo/w con [id number] IMPRESSION: 1. No evidence of pathologic mass or lesion deep to the area of palpable jason rn. 2. Prominent vessel in this area likely corresponds the palpable abnormality. 3. Mild degenerative arthritis left elbow. 4. No significant joint effusion. 5. No other significant findings.
[2021-01-11] MEDS: gadobenate dimeglumine 20 mL vial IV (11:46)
== END 2021-01-11 09:31 | disposition home or self-care (01) ==
LOC: RADWPI 09:36
PROVIDERS: PCP Physician Assistant; Visit Provider Physician Assistant
DX: R22.32 Localized swelling, mass and lump, left upper limb (principal); M19.022 Primary osteoarthritis, left elbow
CPT/HCPCS: 73223; A9577

== ENCOUNTER → 2021-01-18 10:46 | Outpatient (BNVA) | payer MEDICARE, MEDICAID, SELFPAY | PROVIDERS: PCP Physician Assistant; Visit Provider Nurse Practitioner | DX: R30.0 Dysuria (principal); N39.0 Urinary tract infection, site not specified | CPT/HCPCS: 81000 ==

== ENCOUNTER → 2021-01-21 15:18 | Outpatient (BNVA) | payer MEDICARE, MEDICAID, SELFPAY | PROVIDERS: PCP Physician Assistant; Visit Provider Internal Medicine | DX: D35.00 Benign neoplasm of unspecified adrenal gland (principal); E03.9 Hypothyroidism, unspecified; E04.1 Nontoxic single thyroid nodule; E16.2 Hypoglycemia, unspecified | CPT/HCPCS: 99215 ==

== ENCOUNTER → 2021-02-13 07:13 | Outpatient (BNVA) | payer MEDICARE, MEDICAID, SELFPAY | PROVIDERS: PCP Physician Assistant; Visit Provider Nurse Practitioner Psychiatric/Mental Health | DX: F43.12 Post-traumatic stress disorder, chronic (principal); F41.1 Generalized anxiety disorder; F17.219 Nicotine dependence, cigarettes, with unspecified nicotine-induced disorders | CPT/HCPCS: 99214 ==

== ENCOUNTER 2021-03-09 19:52 | Emergency (ER) | payer MEDICARE, MEDICAID, SELFPAY ==
[2021-03-09 19:56] VITALS: BP 188/138; PULSE 74; RESP 16; TEMP 36.8; O2SAT 100; BMI 24.5
--- NOTE | 2021-03-09 20:25 | W.ED.EXTPRO ---
HPI - Extremity Problem General: Chief complaint: Extremity Problem,Nontraumatic Stated complaint: poss spider bite Time Seen by Provider: 03/09/21 20:11 History of Present Illness: HPI Narrative: Right third finger had a possible bite or cut on the end of it which she was placed on amoxicillin. She said it is hurting worse now swelling is gone down at the area but her fingers 1 little bit more proximal of where the bite was. Said it hurts a lot more now Complaint: extremity pain and extremity swelling Onset (ago): day(s) Pain Consistency: constant Location: right and upper extremity Severity scale (1-10): 4 Quality: aching Radiation: proximal Relieving factors: nothing Associated symptoms: Reports no associated symptoms; Deny chest pain, fever(s) or rash Review of Systems Const: Denies: fever(s), chills or body aches Eyes: Denies: change in vision or blurry vision ENMT: Denies: throat pain or nasal congestion Card: Denies: chest pain or dyspnea on exertion Resp: Denies: dyspnea, productive cough or non-productive cough GI: Denies: abdominal pain, nausea or vomiting Musc: Denies: extremity pain Skin/Breast: Reports: erythema, skin tenderness, skin swelling and other (Possible spider bite or cut to the right third finger happened few days ago); Denies: rash Neuro: Denies: headache(s) Psych: Denies: anxiety or depression Bello/Lymph: Denies: easy bruising [facility] ED PFSH: Medical History (Updated 03/09/21 @ 20:23 by MARLENI Rosenberg) Benign essential HTN Candidiasis of mouth Generalized anxiety disorder GERD (gastroesophageal reflux disease) Lori's disease High risk medication use Hyperlipidemia Insomnia due to mental condition Onychomycosis Onychomycosis Osteoporosis Post-traumatic stress disorder, chronic Renal cyst Surgical History H/O section H/O colonoscopy H/O esophagogastroduodenoscopy S/P breast biopsy S/P lumpectomy of breast S/P thyroidectomy S/P tonsillectomy Family History Mother , 89 Cancer Dementia Father No problems noted. Family/Other Bleeding disorder cousin, hemophilia Denies family history of Anesthesia complication Social History Smoking and tobacco status: current every day smoker cigarettes Years cigarettes smoked: 23 [ Other cigarette details: Hx of 3PPD x 20 Years ] Quit status (tobacco): considering quitting Second hand smoke exposure: Yes Smoking risk assessment/counseling performed?: Yes Alcohol intake: never Counseling given: No Counseling given: No Lives independently: Yes Household members: none Housing: Apartment Marital status: Single Current occupational status: retired History of recent travel: No Current gender identity: Female Physical Exam Const: COMMON NORMALS: no acute distress Extremity: RIGHT UPPER EXTREMITY: Yes hand & digits (Right third finger with mild redness, bruising underneath the skin) Right hand and digits: Yes other (Does have mild swelling to the base of the finger no tenderness) OTHER: She does not have a red streak extend down her hand or upper arm Psych: COMMON NORMALS: mental status grossly normal Course Vital Signs: Vital signs: Vital Signs Temperature 98.3 F 03/09/21 19:56 Pulse Rate 74 03/09/21 20:34 Respiratory Rate 16 03/09/21 20:34 Blood Pressure 165/110 03/09/21 20:34 Pulse Oximetry 97 03/09/21 20:34 MDM - Extremity (Nontraumatic) MDM Narrative: Medical decision making narrative: Finger did not appear too bad. Does not really like there is any erythema there is mild swelling. Patient has been trying a variety of pulses that friends have given her. Definitely looks like it is been a brown recluse bite. We will try different antibiotic than now Augmentin and see if that improves her. Discharge Plan Discharge Patient Disposition: Home Clinical Impression: Finger pain, right Condition: Stable Prescriptions: New tramadol 50 mg tablet 50 mg PO TID PRN (Reason: pain) Qty: 7 RF: 0 doxycycline hyclate 100 mg capsule 100 mg PO BID 7 Days Qty: 14 RF: 0 No Action aspirin [Adult Aspirin Regimen] 81 mg tablet,delayed release (DR/EC) 81 mg PO DAILY RF: 0 dicyclomine 10 mg capsule 10 mg PO QID PRN (Reason: unknown) RF: 0 mupirocin 2 % ointment 1 applic TOPICAL BID Qty: 22 RF: 1 ketoconazole 2 % cream 1 applic TOPICAL BID Qty: 60 RF: 1 levothyroxine 75 mcg tablet 75 mcg PO .every thursday RF: 0 sulfamethoxazole-trimethoprim 800-160 mg tablet 1 tab PO Q12H 7 Days Qty: 14 RF: 0 Klonopin 0.5 mg tablet 0.5 mg PO .morning Qty: 30 RF: 3 Lunesta 3 mg tablet 3 mg PO BEDTIME Qty: 30 RF: 3 melatonin 10 mg tablet 10 mg PO DIRECTED PRN (Reason: sleep) Qty: 30 RF: 3 amoxicillin-pot clavulanate [Augmentin] 875-125 mg tablet 1 tab PO BID 10 Days Qty: 20 RF: 0 pantoprazole [Protonix] 40 mg tablet,delayed release (DR/EC) 40 mg PO BID RF: 0 levothyroxine 50 mcg tablet 50 mcg PO DAILY Qty: 90 RF: 3 alendronate [Fosamax] 70 mg tablet 70 mg PO Q7D Qty: 4 RF: 2 fluconazole 150 mg tablet 300 mg PO DAILY Qty: 48 RF: 0 clotrimazole 10 mg eric 10 mg MUCOUS MEM TID Qty: 60 RF: 0 metoprolol tartrate 50 mg tablet 50 mg PO BID Qty: 42 RF: 0 atorvastatin 20 mg tablet 20 mg PO DAILY Qty: 14 RF: 0 Stiolto Respimat 2.5-2.5 mcg/actuation mist 2 puff inhalation DAILY Qty: 4 RF: 3 albuterol sulfate [Ventolin HFA] 90 mcg/actuation HFA aerosol inhaler 2 puff inhalation Q6H PRN (Reason: shortness of breath or wheezing) Qty: 8.5 RF: 3 valsartan 80 mg tablet 80 mg PO DAILY Qty: 90 RF: 3 fluticasone propionate 50 mcg/actuation spray,suspension See Rx Instructions .ROUTE .COMPLEX Qty: 16 RF: 3 ipratropium-albuterol 0.5 mg-3 mg(2.5 mg base)/3 mL solution for nebulization 3 ml INHALATION Q6H PRN (Reason: shortness of breath or wheezing) Qty: 90 RF: 0 Discharge Orders: Discharge ED (Routine); Ordered 03/09/21 Ordered By: Oscar Hairston Referrals: Lisa Puente PA [Primary Care Provider] - Discharge Diet: Usual diet Discharge Activity: Increase activity as tolerated Patient Instructions: Brown Recluse Spider Bite (ED), Opioid Safety Activity Restrictions/Additional Instructions: Follow-up with medical provider as directed. Take medications as prescribed. Return to the ER or your medical provider if condition worsens. Please read and understand discharge instructions. If any questions ask please. Do Epson salt soaks with finger 3 times a day. 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
[2021-03-09] MEDS: doxycycline 100 mg Tablet PO (20:28)
[2021-03-09] MEDS: TRAMadol 50 mg Tablet PO (20:32)
[2021-03-09 20:34] VITALS: BP 165/110; PULSE 74; RESP 16; O2SAT 97
== END 2021-03-09 20:35 | disposition home or self-care (01) ==
PROVIDERS: Emergency Provider Nurse Practitioner Family; PCP Physician Assistant
DX: M79.644 Pain in right finger(s) (principal); Z79.82 Long term (current) use of aspirin; I10 Essential (primary) hypertension; E78.5 Hyperlipidemia, unspecified; F17.210 Nicotine dependence, cigarettes, uncomplicated
CPT/HCPCS: 99283

== ENCOUNTER 2021-03-18 13:48 | Outpatient (CLI) | payer MEDICARE, MEDICAID, SELFPAY ==
[2021-03-18 14:45] LABS: Basophils # 0.1 10^3/uL (0.0-0.1); Basophils % 0.8 %; Eosinophils # 0.1 10^3/uL (0.0-0.8); Hematocrit 41.6 % (37.0-47.0); Hemoglobin 13.3 g/dL (11.5-15.3); Lymphocytes # 1.9 10^3/uL (0.8-4.8); Mean Corpuscular Hemoglobin 29.8 pg (28.0-34.0); Mean Corpuscular Volume 93.3 fL (81-99); Mean Platelet Volume 13.6 fL (7.4-10.4); Monocytes # 0.5 10^3/uL (0.2-0.9); Monocytes % 7.6 %; Neutrophils # 3.42 10^3/uL (1.8-7.7); Neutrophils % 57.4 %; Nucleated Red Blood Cells % 0 %; Platelet Count 114 10^3/cmm (130-400); Red Blood Count 4.46 10^6/uL (4.1-5.3); Red Cell Distribution Width 13.4 % (12.1-15.1)
[2021-03-18 16:45] LABS: Alanine Aminotransferase 12 U/L (0-33); Albumin Level 4.1 g/dL (3.5-5.2); Alkaline Phosphatase 76 IU/L (35-105); Aspartate Amino Transferase 18 U/L (0-32); Blood Urea Nitrogen 15 mg/dL (8-23); Calcium 8.6 mg/dL (8.5-10.5); Carbon Dioxide 28 mmol/L (22-29); Chloride 105 mmol/L (98-107); Free T4 Free Thyroxine 1.77 ng/dL (0.82-1.77); Globulin 2.3 g/dL (1.3-4.6); Glomerular Filtration Rate 82.7 mL/min (90-130); Glucose 85 mg/dL (65-115); Osmolality Calculated 296 mOsm/kg (285-295); Sodium 143 mmol/L (136-145); Thyroid Stimulating Hormone 0.97 uIU/mL (0.27-4.20); Total Bilirubin 0.5 mg/dL (0.15-1.2); Total Protein 6.4 g/dL (6.6-8.7)
--- NOTE | 2021-03-18 19:53 | ONC FU_ITS ---
Dr. García Patient Follow-Up Note Patient: Wen Voss Unit #: [id number]: 1950 Dicatated By: Walter García M.D.Date of Visit:March 18, 2021 Onc Med Follow-up/Prog Note Chief Complaint: Thrombocytopenia. History of Present Illness: This is a 70-year-old woman with mild to moderately severe thrombocytopenia. She has multiple medical illnesses including hypertension, hyperlipidemia, COPD, degenerative arthritis/degenerative disease of the spine, and osteoporosis. She has a history of posttraumatic stress disorder with anxiety and depression. She also has a history of Lori's thyroiditis with associated thyroid nodules for which she underwent right hemithyroidectomy in August 2018. She had been seeing Dr. Villasenor for treatment of onychomycosis, and she was found to have a low platelet count. I had seen her initially on 12/20/2020. In reviewing the record in [facility], she was first noted to have a mildly decreased platelet count in April 2020 with a CBC at that time showing normal hemoglobin at 13.9 g, white blood cell count 6900, and platelet count slightly decreased at 125,000. On a repeat CBC in August 2020 the platelet count was down to 60,000. The most recent CBC, from 11/29/2020, showed further decrease in the platelet count to 49,000 with hemoglobin normal at 14.2 g and white blood cell count normal at 5000. She complained that she had been feeling really tired, that it had been getting gradually worse. Her activity was also limited because of back pain. She also complained of having sharp pain in the left side of the chest, significant enough that she could not breathe. Her CBC showed normal hemoglobin of 14.3 g with white blood cell count 5000 and platelet count just mildly decreased at 98,000. Her sed rate was normal at 13 mm/h with CRP normal at 0.180 mg/dL. Her B12 level was normal at 487 pg/mL. Her RA titer was normal and her ESTELA screen was negative. With those findings, I had recommended expectant management for the thrombocytopenia. However, I did schedule her for arterial Doppler studies of the lower extremities and no showed features of mild peripheral arterial disease on the left side with no significant arterial obstruction on the right side. She is seen now for a follow-up visit. She continues to complain that she is really tired and that she wants to sleep all the time. Activity remains very limited, though she does walk every day. Her ECOG score is 2. She does not have good appetite. She has not had fever. She occasionally has sweating at night. She has sinus drainage and cough. She gets short of breath lying on her back. She has pain in her chest and back which is worse with coughing. The pain also gets worse in certain positions and with lifting. She sometimes has nausea. Her acid reflux is adequately managed with medication. She continues to have a constant ache in the right upper quadrant area. Bowel function has been okay. She says she has bladder infections all the time. She has a lot of back pain, mainly in the area just below the right shoulder blade. She also has joint pain and she has pain in both feet. She has numbness, particularly in the right foot. Medications: Albuterol Sulfate 2 Inhalation (of 108 (90 base) mcg/act) Aerosol Powder, Breath Activated Inhalation q 6 hours, Aleve 1 (220 mg) Tablet Oral daily PRN, Anoro Ellipta 1 (62.5-25 mcg/inh) Aerosol Powder, Breath Activated Inhalation q 8 hours, Aspirin 81 1 (81 mg) Tablet, chewable Oral daily, Atorvastatin Calcium 1 (20 mg) Tablet Oral daily, Bentyl 1 (10 mg) Capsule Oral four times a day PRN, Ciclopirox (8 %) Solution Topical Take as Directed, clonazePAM 1 (0.5 mg) Tablet Oral b.i.d. PRN, Clotrimazole Jeni Mouth/throat, Diflucan 2 (150 mg) Tablet Oral q 7 days, Fosamax 1 (70 mg) Tablet Oral q 1 week, Levothyroxine Sodium 1 (75 mcg) Tablet Oral every am on ,Sa,Alexander, Levothyroxine Sodium 1 (50 mcg) Tablet Oral every am on -, Lunesta 1 (3 mg) Tablet Oral at bedtime, Lutein 1 (20 mg) Tablet Oral daily, Metoprolol Tartrate 1 (50 mg) Tablet Oral b.i.d., Simethicone 1 (125 mg) Tablet Oral daily, Stiolto Respimat 2 Inhalation (of 2.5-2.5 mcg/act) Aerosol, solution Inhalation daily, Tylenol PM Extra Strength 2 (500-25 mg) Tablet Oral daily, Valsartan 1 (80 mg) Tablet Oral daily Allergies: Butorphanol Tartrate and DULoxetine HCl. Vital Signs: Performed on March 18, 2021 15:55 Weight - 151.2 lbs (LOW) BSA - 0.00 sq.m BMI - 0.00 Temperature - 96.5 F (LOW) Pulse - 65 /min Respiration - 18 /min BP - 169/80 mm(hg) (HIGH) O2 Sat - 98 % Pain - 5 Fatigue - 7 Physical Examination: Constitutional - She has limited mobility, Eyes - Sclerae nonicteric. Conjunctivae clear, ENMT - No lesions noted in the oral cavity, Hematologic/Lymphatic - No cervical, clavicular, or axillary adenopathy, Respiratory - Lungs are clear with good air movement bilaterally, Cardiovascular - Heart rhythm is regular. There is no murmur, gallop, or rub noted, Abdomen - There is tenderness in the right upper quadrant, but her abdomen is soft. Liver and spleen are not enlarged. There is no abdominal mass or ascites noted and there is no inguinal adenopathy, Back/Spine - There is no significant bony tenderness in the spine. There is some tenderness in the area of the right costovertebral angle, Extremities - Mild edema, Neurologic - No focal neurologic deficits noted. Lab/Imaging: Test performed on March 18, 2021 14:07 Sodium 143 mmol/L T4, Free 1.77 ng/dL TSH 0.97 uIU/mL Potassium 4.0 mmol/L Chloride 105 mmol/L CO2 28 mmol/L Anion Gap 14.0 BUN 15 mg/dL Creatinine 0.7 mg/dL eGFR 82.7 mL/min Glucose 85 mg/dL Osmolality - Calculated 296 mOsm/kg Calcium 8.6 mg/dL Protein, Total 6.4 g/dL Albumin 4.1 g/dL Globulin 2.3 g/dL Bilirubin, Total 0.5 mg/dL ALT (SGPT) 12 U/L AST (SGOT) 18 U/L Alkaline Phosphatase 76 IU/L WBC 6.0 10 3/uL RBC 4.46 10 6/uL HGB 13.3 g/dL HCT 41.6 % MCV 93.3 fL MCH 29.8 pg MCHC 32.0 g/dL RDW 13.4 % Platelet Count 114 10 3/cmm MPV 13.6 fL Neutrophils 3.42 10 3/uL Lymphocytes 1.9 10 3/uL Monocytes 0.5 10 3/uL Eosinophils 0.1 10 3/uL Basophils 0.1 10 3/uL Neutrophil % 57.4 % Lymphocyte % 32.0 % Monocyte % 7.6 % Eosinophil % 2.0 % Basophils % 0.8 % NRBC % 0 % Problem List: 1. Mild to moderately severe thrombocytopenia. 2. She has recently been undergoing treatment for onychomycosis. 3. Hypertension. 4. Hyperlipidemia. 5. GERD. 6. Lori's thyroiditis with associated thyroid nodules. She is status post right hemithyroidectomy. 7. Degenerative arthritis/degenerative disease of the spine. 8. Osteoporosis. 9. History of chronic migraine. 10. Chronic insomnia. 11. Posttraumatic stress disorder with anxiety and depression. Problems Addressed with this Encounter and Plan: 1. Patient with mild to moderately severe thrombocytopenia. This was first detected in early November when her platelet count was 49,000. I had initially seen her 3 weeks later, and by that time the platelet count had increased to 98,000. A specific cause was not determined, but it has continued to show gradual improvement with her platelet count now up to 114,000. With her other blood counts remaining normal, the cause and clinical significance of the thrombocytopenia is uncertain. However, it can just be followed expectantly. 2. She has severe fatigue and excessive somnolence. In the absence of any other apparent cause for it, I will recommend that she have a sleep study. I also will repeat her thyroid studies. 3. She has ongoing complaints of chest pain, back pain, and abdominal pain, and I also will repeat her CT scans of the chest, abdomen, and pelvis. She will have further evaluation as indicated. Signed By: Walter García M.D. <<Signature on File>>
== END 2021-03-18 13:49 | disposition home or self-care (01) ==
LOC: ONCMED 13:52
PROVIDERS: PCP Physician Assistant; Visit Provider Internal Medicine Medical Oncology
DX: D69.6 Thrombocytopenia, unspecified (principal); B35.1 Tinea unguium; I10 Essential (primary) hypertension; E78.5 Hyperlipidemia, unspecified; K21.9 Gastro-esophageal reflux disease without esophagitis; E06.3 Autoimmune thyroiditis; M47.9 Spondylosis, unspecified; M81.0 Age-related osteoporosis without current pathological fracture; G43.919 Migraine, unspecified, intractable, without status migrainosus; F51.04 Psychophysiologic insomnia; F43.10 Post-traumatic stress disorder, unspecified; F41.9 Anxiety disorder, unspecified; F32.9 Major depressive disorder, single episode, unspecified; Z79.899 Other long term (current) drug therapy
CPT/HCPCS: 36415; 80053; 84439; 84443; 85025; 99214

== ENCOUNTER → 2021-03-19 08:21 | Outpatient (BNVA) | payer MEDICARE, MEDICAID, SELFPAY | PROVIDERS: PCP Physician Assistant; Visit Provider Nurse Practitioner Psychiatric/Mental Health | DX: F43.12 Post-traumatic stress disorder, chronic (principal); F41.1 Generalized anxiety disorder; F17.219 Nicotine dependence, cigarettes, with unspecified nicotine-induced disorders | CPT/HCPCS: 99214 ==

== ENCOUNTER 2021-03-26 13:23 | Outpatient (CLI) | payer MEDICARE, MEDICAID, SELFPAY ==
--- NOTE | 2021-03-26 13:30 | XRR_ITS ---
PROCEDURE INFORMATION: Exam: XR Abdomen Exam date and time: 03/26/2021 1:46 PM Age: 70 years old Clinical indication: Condition or disease; Kidney or ureter condition; Cyst of kidney; Prior surgery; Surgery type: Leep; Additional info: N28.1 - cyst of kidney, acquired TECHNIQUE: Imaging protocol: XR of the abdomen. Views: Frontal supine view of the abdomen. 1 View. COMPARISON: CR XR KUB [id number] 09/12/2020 8:13 AM FINDINGS: Gastrointestinal tract: There is stool throughout the colon. No bowel dilation or obstruction. Bones/joints: Unremarkable. XR/XR KUB [id number] IMPRESSION: There are no acute concerning abnormalities. If there is desire for further evaluation, a CT scan could be performed.
== END 2021-03-26 13:24 | disposition home or self-care (01) ==
LOC: RAD 13:27
PROVIDERS: PCP Physician Assistant; Visit Provider Urology
DX: N28.1 Cyst of kidney, acquired (principal)
CPT/HCPCS: 74018; 81003

== ENCOUNTER → 2021-03-28 13:10 | Outpatient (BNVA) | payer MEDICARE, MEDICAID, SELFPAY | PROVIDERS: PCP Physician Assistant; Referring Provider Orthopaedic Surgery; Visit Provider Orthopaedic Surgery | DX: M47.897 Other spondylosis, lumbosacral region (principal); M47.894 Other spondylosis, thoracic region; M54.9 Dorsalgia, unspecified; M41.9 Scoliosis, unspecified | CPT/HCPCS: 72072; 72110 ==

== ENCOUNTER 2021-04-01 11:49 | Outpatient (CLI) | payer MEDICARE, MEDICAID, SELFPAY ==
--- NOTE | 2021-04-01 12:00 | CT_ITS ---
WS: [id number] CT CHEST, ABDOMEN, AND PELVIS TECHNIQUE: Contrast-enhanced CT of the chest, abdomen, and pelvis with coronal and sagittal reformatt ed images. CLINICAL INFORMATION: CHEST PAIN, RT UPPER QUADRANT PAIN, BACK PAIN COMPARISON: CT November 2019, October 2019, June 2018 DLP: 1635.[address] scans at [facility] use at least one of these dose optimization techniques: automat ed exposure control; mA and/or kV adjustment per patient size (includes targeted exams where dose is matched to clinical indication); or iterative reconstruction. CT CHEST: Moderate chronic emphysematous changes. No acute pulmonary infiltrates. No focal consolidation or ple ural fluid. No mediastinal or hilar lymphadenopathy. Normal caliber thoracic aorta. Mild aortic calci fication. Coronary calcification. No axillary lymphadenopathy. Normal GE junction. Slight subsegmenta l atelectasis in the lung bases. CT ABDOMEN AND PELVIS: Diffuse fatty infiltration of the liver. Multiple hepatic cysts stable since the prior examinations. Normal portal vein and splenic vein. Normal gallbladder . Normal spleen. Stable left adrenal adenoma measuring 19 mm. No hydronephrosis in either kidney. Stable bilateral renal cysts largest right upper pole measuring 4.2 x 4.6 cm unchanged. Stable right renal pelvocaliectasis. Normal caliber abdominal aorta. Aortic calcification. No abdominal or pelvic lymphadenopathy. No inguinal lymphadenopathy. Sigmoid diverticulosis. No evide nce of small or large bowel obstruction. No other significant changes from previous. CT/CT chest abd pel w con* IMPRESSION: 1. No suspicious pulmonary parenchymal opacities. No focal consolidation or pl eural fluid. 2. No mediastinal or hilar lymphadenopathy. 3. Stable left adrenal adenoma. 4. Stable hepatic and renal cysts. 5. Sigmoid diverticulosis. No evidence of acute diverticulitis. 6. No other significant changes.
[2021-04-01] MEDS: iohexol 300 mg/mL 50 mL Btl PO (13:07)
[2021-04-01] MEDS: iohexol 300 mg/mL 100 mL Btl IV (13:29)
== END 2021-04-01 11:50 | disposition home or self-care (01) ==
PROVIDERS: PCP Physician Assistant; Visit Provider Internal Medicine Medical Oncology
DX: R10.11 Right upper quadrant pain (principal); R07.9 Chest pain, unspecified; D35.02 Benign neoplasm of left adrenal gland; K76.89 Other specified diseases of liver; N28.1 Cyst of kidney, acquired; K57.30 Diverticulosis of large intestine without perforation or abscess without bleeding
CPT/HCPCS: 71260; 74177; Q9967

== ENCOUNTER 2021-04-02 21:19 | Emergency (ER) | payer MEDICARE, MEDICAID, SELFPAY ==
[2021-04-02 21:23] VITALS: BP 215/111; PULSE 83; RESP 16; TEMP 36.7; O2SAT 98; BMI 24.3
--- NOTE | 2021-04-02 21:30 | W.ED.HA ---
HPI - Headache General: Chief Complaint: Headache Stated Complaint: Headache Time Seen by Provider: 04/02/21 21:25 Source: patient Mode of arrival: ambulatory Limitations: no limitations History of Present Illness: HPI Narrative: 70-year-old female states she had a headache that began gradually this morning and got much worse this evening. States headache is now 9 out of 10. She does have photophobia and phonophobia. States she has a history of migraines this feels similar. She was recently diagnosed with a lung mass. She denies any syncope. She denies his headache being sudden. MD elicited complaint: headache Pertinent past history: migraines Onset (ago): hour(s) Onset description: gradually Associated symptoms: Deny chest pain, fever(s), nausea, rash or vomiting Review of Systems Const: Denies: fever(s), chills, body aches or change in appetite Eyes: Denies: blurry vision or eye discomfort ENMT: Denies: throat pain or dental pain Card: Denies: chest pain Resp: Denies: dyspnea GI: Denies: abdominal pain, nausea, vomiting or diarrhea : Denies: dysuria Musc: Denies: neck pain or back pain Skin/Breast: Denies: rash Neuro: Reports: headache(s) Psych: Denies: depression Bello/Lymph: Denies: easy bruising All/Imm: Denies: urticaria PFSH ED PFSH: Medical History Benign essential HTN Candidiasis of mouth Generalized anxiety disorder GERD (gastroesophageal reflux disease) Lori's disease High risk medication use History of kidney stones Hyperlipidemia Insomnia due to mental condition Onychomycosis Onychomycosis Osteoporosis Post-traumatic stress disorder, chronic Renal cyst Surgical History H/O section H/O colonoscopy H/O esophagogastroduodenoscopy S/P breast biopsy S/P lumpectomy of breast S/P thyroidectomy S/P tonsillectomy Family History Mother , 89 Cancer Dementia Father No problems noted. Family/Other Bleeding disorder cousin, hemophilia Denies family history of Anesthesia complication Social History Smoking and tobacco status: current every day smoker cigarettes Years cigarettes smoked: 23 [ Other cigarette details: Hx of 3PPD x 20 Years ] Quit status (tobacco): considering quitting Second hand smoke exposure: Yes Smoking risk assessment/counseling performed?: Yes Alcohol intake: never Counseling given: No Counseling given: No Lives independently: Yes Household members: none Housing: Apartment Marital status: Single Current occupational status: retired History of recent travel: No Current gender identity: Female Physical Exam Const: COMMON NORMALS: no acute distress, patient oriented x3 and healthy appearing HENMT: COMMON NORMALS: normocephalic and atraumatic HEAD & SCALP: normocephalic and atraumatic Eye: COMMON NORMALS: Equal, round and reactive pupils present and EOMs intact bilaterally PUPIL: Yes Equal, round and reactive pupils present Neck/C-Spine: COMMON NORMALS: full ROM and supple Chest: COMMONS NORMALS: normal inspection of the chest and normal palpation of entire chest wall Resp: COMMON NORMALS: normal respiratory effort, No retractions, No use of accessory muscles and clear to auscultation bilaterally AUSCULTATION: clear to auscultation bilaterally Cardio: COMMON NORMALS: regular rate, regular rhythm and No murmurs present (Cardio) RATE: regular rate RHYTHM: regular rhythm GI: COMMON NORMALS: Normal to inspection, nondistended, normoactive bowel sounds present, Soft to palpation, non-tender and no masses PALPATION: Yes Soft to palpation Extremity: COMMON NORMALS: normal to inspection and full ROM Neuro: COMMON NORMALS: patient oriented x3, moves all extremities and no focal motor deficits Psych: COMMON NORMALS: mental status grossly normal, Normal thought process present and cooperative THOUGHT PROCESS: Normal thought process present Skin: COMMON NORMALS: no rashes or lesions noted and no wounds GENERAL SKIN EXAM: no rashes or lesions noted Course Vital Signs: Vital signs: Vital Signs Temperature 98.1 F 04/02/21 21:23 Pulse Rate 69 04/02/21 23:00 Respiratory Rate 14 04/02/21 23:00 Blood Pressure 151/83 04/02/21 23:00 Pulse Oximetry 96 04/02/21 23:00 MDM - Headache MDM Narrative: Medical decision making narrative: Krystyna presents with a headache that is likely a migraine headache. Head CT and CT angios showed no signs of aneurysm or hemorrhage. She has no signs of meningitis. Headache is much improved here. She is stable for discharge and follow-up with PCP and return if worsening. Lab Data: Labs: Lab Results 04/02/21 04/02/21 Range/Units 21:42 21:42 WBC 6.5 (4.0-10.0) 10^3/ uL RBC 4.81 (4.1-5.3) 10^6/u L Hgb 14.3 (11.5-15.3) g/dL Hct 43.5 (37.0-47.0) % MCV 90.4 (81-99) fL MCH 29.7 (28.0-34.0) pg MCHC 32.9 (30.0-36.0) g/dL RDW 13.5 (12.1-15.1) % Plt Count 103 L (130-400) 10^3/c mm MPV Not Reportable Neut % (Auto) 82.8 % Lymph % (Auto) 13.8 % Yell % (Auto) 2.9 % Eos % (Auto) 0.0 % Baso % (Auto) 0.2 % Neut # (Auto) 5.42 (1.8-7.7) 10^3/u L Lymph # (Auto) 0.9 (0.8-4.8) 10^3/u L Yell # (Auto) 0.2 (0.2-0.9) 10^3/u L Eos # (Auto) 0.0 (0.0-0.8) 10^3/u L Baso # (Auto) 0.0 (0.0-0.1) 10^3/u L Nucleated RBC % (a uto) 0 % Nucleated RBCs # 0.0 /100WBC Sodium 135 L (136-145) mmol/L Potassium 4.8 (3.5-5.1) mmol/L Chloride 99 (98-107) mmol/L Carbon Dioxide 24 (22-29) mmol/L Anion Gap 16.8 (5-19) BUN 17 (8-23) mg/dL Creatinine 0.7 (0.5-0.9) mg/dL GFR Calculation 82.7 L (90-130) mL/min Glucose 115 (65-115) mg/dL Calculated Osmolal ity 282 L (285-295) mOsm/k g Calcium 8.7 (8.5-10.5) mg/dL Imaging Data^: CT Head: Attestation: I personally reviewed and interpreted this imaging study as follows: [facility]ologist's impression: [facility] [address] [place] [address] CT Scan Report Signed Patient: Wen Voss Unit #: [id number] : 1950 Age/Sex: 70 / F ADM Date: 04/02/21 Loc: ER Room/Bed: Attending Dr: Ordering Provider/Ordering MD: Nayeli Rush MD Date of Service: 04/02/21 Procedure(s): CT head wo con* [id number] Accession Number(s): [id number] Report Number: [id number] PROCEDURE INFORMATION: Exam: CT Head Without Contrast Exam date and time: 04/02/2021 9:35 PM Age: 70 years old Clinical indication: Pain; Patient HX: RT sided headache. Hypertensive. ; Additional info: BUENO TECHNIQUE: Imaging protocol: Computed tomography of the head without contrast. Radiation optimization: All CT scans at this facility use at least one of these dose optimization techniques: automated exposure control; mA and/or kV adjustment per patient size (includes targeted exams where dose is matched to clinical indication); or iterative reconstruction. COMPARISON: No relevant prior studies available. RADIATION DOSE METRICS: Total DLP (mGy-cm): 740.99 FINDINGS: Brain: No acute intracranial hemorrhage or mass effect. There is prominent decreased attenuation in the periventricular white matter, likely from microvascular disease. Changes related to multiple sclerosis or other demyelinating process might also be considered. Please correlate clinically. MRI could further evaluate, as clinically directed. There is a small old lacunar infarct in the left caudate nucleus. No definite acute infarct by CT. Cerebral ventricles: Ventricle size is normal for age. Paranasal sinuses: Included paranasal sinuses are essentially clear. Mastoid air cells: No significant acute finding. Vasculature: Vascular calcifications in the internal carotid arteries. Bones/joints: No definite acute skull fracture. Soft tissues: Unremarkable. CT/CT head wo con* [id number] IMPRESSION: 1. No acute intracranial hemorrhage or mass effect. 2. White matter changes as discussed above. 3. 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 4. No definite acute infarct by CT. 5. Other findings discussed above. Other CT: Attestation: I personally reviewed and interpreted this imaging study as follows: Radiologist's impression: [facility] [place] [address] CT Scan Report Signed Patient: Wen Voss Unit #: [id number] : 1950 Age/Sex: 70 / F ADM Date: 04/02/21 Loc: ER Room/Bed: Attending Dr: Ordering Provider/Ordering MD: Nayeli Rush MD Date of Service: 04/02/21 Procedure(s): CT angio headneck* [id number] Accession Number(s): [id number] Report Number: [id number] PROCEDURE INFORMATION: Exam: CT Angiography Head With Contrast, Arteriography Exam date and time: 04/02/2021 10:31 PM Age: 70 years old Clinical indication: Pain; Headache; Patient HX: Lung cancer; Additional info: BUENO TECHNIQUE: Imaging protocol: Computed tomography angiography of the head with contrast. Exam focused on the arteries. 3D rendering (Not supervised by radiologist): MIP and/or 3D reconstructed images were created by the technologist. Radiation optimization: All CT scans at this facility use at least one of these dose optimization techniques: automated exposure control; mA and/or kV adjustment per patient size (includes targeted exams where dose is matched to clinical indication); or iterative reconstruction. Contrast material: OMNI 350; Contrast volume: 95 ml; Contrast route: INTRAVENOUS (IV); COMPARISON: CT head wo con* [id number] 04/02/2021 9:45 PM RADIATION DOSE METRICS: Total DLP (mGy-cm): 1752.65 FINDINGS: ANTERIOR CIRCULATION: Right internal carotid artery: Calcified plaque causes mild stenosis of the right intracranial ICA. Right middle cerebral artery: Unremarkable. No occlusion or significant stenosis. No aneurysm. Right anterior cerebral artery: Unremarkable. No occlusion or significant stenosis. No aneurysm. Left internal carotid artery: Calcified plaque causes mild stenosis of the left intracranial ICA. Left middle cerebral artery: Unremarkable. No occlusion or significant stenosis. No aneurysm. Left anterior cerebral artery: Unremarkable. No occlusion or significant stenosis. No aneurysm. POSTERIOR CIRCULATION: Right vertebral artery: Unremarkable. No occlusion or significant stenosis. No aneurysm. Left vertebral artery: Unremarkable. No occlusion or significant stenosis. No aneurysm. Basilar artery: Unremarkable. No occlusion or significant stenosis. No aneurysm. Right posterior cerebral artery: Persistent origin. No occlusion or significant stenosis. No aneurysm. Left posterior cerebral artery: Persistent origin. No occlusion or significant stenosis. No aneurysm. IMPRESSION: Mild stenosis of the intracranial ICAs bilaterally. PROCEDURE INFORMATION: Exam: CT Angiography Neck With Contrast Exam date and time: 04/02/2021 10:31 PM Age: 70 years old Clinical indication: Pain; Headache; Patient HX: Lung cancer; Additional info: BUENO TECHNIQUE: Imaging protocol: Computed tomography angiography of the neck with contrast. 3D rendering (Not supervised by radiologist): MIP and/or 3D reconstructed images were created by the technologist. Radiation optimization: All CT scans at this facility use at least one of these dose optimization techniques: automated exposure control; mA and/or kV adjustment per patient size (includes targeted exams where dose is matched to clinical indication); or iterative reconstruction. Contrast material: OMNI 350; Contrast volume: 95 ml; Contrast route: INTRAVENOUS (IV); COMPARISON: CT head wo con* [id number] 04/02/2021 9:45 PM RADIATION DOSE METRICS: Total DLP (mGy-cm): 1752.65 FINDINGS: Right common carotid artery: No stenosis. No dissection or occlusion. Right internal carotid artery: Calcified plaque causes no significant stenosis of the right proximal ICA. Right external carotid artery: No occlusion or stenosis of the origin. Left common carotid artery: No stenosis. No dissection or occlusion. Left internal carotid artery: Calcified plaque causes mild less than 50% stenosis of the left proximal ICA. Left external carotid artery: No occlusion or stenosis of the origin. Right vertebral artery: No stenosis. No dissection or occlusion. Left vertebral artery: No stenosis. No dissection or occlusion. Oropharynx: Incidentally noted is asymmetric soft tissue fullness at the right base of tongue and vallecula. Recommend correlation with direct visualization to exclude a mucosal lesion in this location. Lungs: Mild emphysematous changes at the lung apices. CT/CT angio headneck* [id number] IMPRESSION: 1. Mild less than 50% stenosis of the left proximal ICA. 2. Asymmetric soft tissue fullness at the right base of tongue and vallecula. Correlate with direct visualization, to exclude mucosal lesion in this location. REFERENCES: NASCET CRITERIA. The degree of internal carotid artery stenosis is based on NASCET criteria. Normal is no stenosis. Mild is less than 50% stenosis. Moderate is 50-69% stenosis. Severe is 70% to 99% stenosis. Total occlusion is no detectable patent lumen. Discharge Plan Discharge Patient Disposition: Home Clinical Impression: Headache Qualifiers: Headache type: unspecified Headache chronicity pattern: unspecified pattern Intractability: not intractable Qualified Code(s): R51.9 - Headache, unspecified Condition: Stable Prescriptions: No Action aspirin [Adult Aspirin Regimen] 81 mg tablet,delayed release (DR/EC) 81 mg PO DAILY RF: 0 levothyroxine 75 mcg tablet 75 mcg PO .every thursday RF: 0 Klonopin 0.5 mg tablet 0.5 mg PO .morning Qty: 30 RF: 3 Lunesta 3 mg tablet 3 mg PO BEDTIME Qty: 30 RF: 3 melatonin 10 mg tablet 10 mg PO DIRECTED PRN (Reason: sleep) Qty: 30 RF: 3 prednisone 20 mg tablet 20 mg PO DAILY Qty: 15 RF: 0 diazepam [Valium] 5 mg tablet 5 mg PO ONCE PRN (Reason: anxiety) 1 Days Qty: 2 RF: 0 pantoprazole [Protonix] 40 mg tablet,delayed release (DR/EC) 40 mg PO BID RF: 0 levothyroxine 50 mcg tablet 50 mcg PO DAILY Qty: 90 RF: 3 alendronate [Fosamax] 70 mg tablet 70 mg PO Q7D Qty: 4 RF: 2 atorvastatin 20 mg tablet 20 mg PO DAILY Qty: 14 RF: 0 albuterol sulfate [Ventolin HFA] 90 mcg/actuation HFA aerosol inhaler 2 puff inhalation Q6H PRN (Reason: shortness of breath or wheezing) Qty: 8.5 RF: 3 valsartan 80 mg tablet 80 mg PO DAILY Qty: 90 RF: 3 fluticasone propionate 50 mcg/actuation spray,suspension See Rx Instructions .ROUTE .COMPLEX Qty: 16 RF: 3 metoprolol tartrate 50 mg tablet 50 mg PO BID Qty: 60 RF: 3 Stiolto Respimat 2.5-2.5 mcg/actuation mist See Rx Instructions .ROUTE .COMPLEX Qty: 4 RF: 3 ipratropium-albuterol 0.5 mg-3 mg(2.5 mg base)/3 mL solution for nebulization 3 ml INHALATION Q6H PRN (Reason: shortness of breath or wheezing) Qty: 90 RF: 0 Discharge Orders: Discharge ED (Routine); Ordered 04/02/21 Ordered By: Nayeli Rush Referrals: Lisa Puente PA [Primary Care Provider] - 1-3 days Discharge Diet: Advance as tolerated Discharge Activity: Resume usual activity Patient Instructions: Migraine Headache (ED) Coding Level of Care Code ED [employer] 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
[2021-04-02 21:47] LABS: Basophils % 0.2 %; Hematocrit 43.5 % (37.0-47.0); Hemoglobin 14.3 g/dL (11.5-15.3); Lymphocytes # 0.9 10^3/uL (0.8-4.8); Lymphocytes % 13.8 %; Mean Corpuscular HGB Conc 32.9 g/dL (30.0-36.0); Mean Corpuscular Hemoglobin 29.7 pg (28.0-34.0); Mean Corpuscular Volume 90.4 fL (81-99); Monocytes # 0.2 10^3/uL (0.2-0.9); Monocytes % 2.9 %; Neutrophils # 5.42 10^3/uL (1.8-7.7); Neutrophils % 82.8 %; Nucleated Red Blood Cells % 0 %; Platelet Count 103 10^3/cmm (130-400); Red Blood Count 4.81 10^6/uL (4.1-5.3); Red Cell Distribution Width 13.5 % (12.1-15.1); White Blood Count 6.5 10^3/uL (4.0-10.0)
[2021-04-02] MEDS: diphenhydrAMINE 50 mg/mL SDV 1mL 25 MG IVP (22:02)
[2021-04-02] MEDS: metoclopramide 5 mg/mL SDV 2 mL IVP (22:03)
[2021-04-02] MEDS: hyDRALAzine 20 mg/mL INJ 1 mL 10 MG IVP (22:06)
[2021-04-02 22:16] LABS: Blood Urea Nitrogen 17 mg/dL (8-23); Calcium 8.7 mg/dL (8.5-10.5); Carbon Dioxide 24 mmol/L (22-29); Chloride 99 mmol/L (98-107); Glomerular Filtration Rate 82.7 mL/min (90-130); Glucose 115 mg/dL (65-115); Osmolality Calculated 282 mOsm/kg (285-295); Sodium 135 mmol/L (136-145)
[2021-04-02 22:21] LABS: Anion Gap 16.8 (5-19); Potassium 4.8 mmol/L (3.5-5.1)
[2021-04-02 22:24] VITALS: BP 142/90; PULSE 70; RESP 18; O2SAT 97
--- NOTE | 2021-04-02 22:30 | CTR_ITS ---
PROCEDURE INFORMATION: Exam: CT Angiography Head With Contrast, Arteriography Exam date and time: 04/02/2021 10:31 PM Age: 70 years old Clinical indication: Pain; Headache; Patient HX: Lung cancer; Additional info: BUENO TECHNIQUE: Imaging protocol: Computed tomography angiography of the head with contrast. Exam focused on the arteries. 3D rendering (Not supervised by radiologist): MIP and/or 3D reconstructed images were created by the technologist. Radiation optimization: All CT scans at this facility use at least one of these dose optimization techniques: automated exposure control; mA and/or kV adjustment per patient size (includes targeted exams where dose is matched to clinical indication); or iterative reconstruction. Contrast material: OMNI 350; Contrast volume: 95 ml; Contrast route: INTRAVENOUS (IV); COMPARISON: CT head wo con* [id number] 04/02/2021 9:45 PM RADIATION DOSE METRICS: Total DLP (mGy-cm): 1752.65 FINDINGS: ANTERIOR CIRCULATION: Right internal carotid artery: Calcified plaque causes mild stenosis of the right intracranial ICA. Right middle cerebral artery: Unremarkable. No occlusion or significant stenosis. No aneurysm. Right anterior cerebral artery: Unremarkable. No occlusion or significant stenosis. No aneurysm. Left internal carotid artery: Calcified plaque causes mild stenosis of the left intracranial ICA. Left middle cerebral artery: Unremarkable. No occlusion or significant stenosis. No aneurysm. Left anterior cerebral artery: Unremarkable. No occlusion or significant stenosis. No aneurysm. POSTERIOR CIRCULATION: Right vertebral artery: Unremarkable. No occlusion or significant stenosis. No aneurysm. Left vertebral artery: Unremarkable. No occlusion or significant stenosis. No aneurysm. Basilar artery: Unremarkable. No occlusion or significant stenosis. No aneurysm. Right posterior cerebral artery: Persistent origin. No occlusion or significant stenosis. No aneurysm. Left posterior cerebral artery: Persistent origin. No occlusion or significant stenosis. No aneurysm. IMPRESSION: Mild stenosis of the intracranial ICAs bilaterally. PROCEDURE INFORMATION: Exam: CT Angiography Neck With Contrast Exam date and time: 04/02/2021 10:31 PM Age: 70 years old Clinical indication: Pain; Headache; Patient HX: Lung cancer; Additional info: BUENO TECHNIQUE: Imaging protocol: Computed tomography angiography of the neck with contrast. 3D rendering (Not supervised by radiologist): MIP and/or 3D reconstructed images were created by the technologist. Radiation optimization: All CT scans at this facility use at least one of these dose optimization techniques: automated exposure control; mA and/or kV adjustment per patient size (includes targeted exams where dose is matched to clinical indication); or iterative reconstruction. Contrast material: OMNI 350; Contrast volume: 95 ml; Contrast route: INTRAVENOUS (IV); COMPARISON: CT head wo con* [id number] 04/02/2021 9:45 PM RADIATION DOSE METRICS: Total DLP (mGy-cm): 1752.65 FINDINGS: Right common carotid artery: No stenosis. No dissection or occlusion. Right internal carotid artery: Calcified plaque causes no significant stenosis of the right proximal ICA. Right external carotid artery: No occlusion or stenosis of the origin. Left common carotid artery: No stenosis. No dissection or occlusion. Left internal carotid artery: Calcified plaque causes mild less than 50% stenosis of the left proximal ICA. Left external carotid artery: No occlusion or stenosis of the origin. Right vertebral artery: No stenosis. No dissection or occlusion. Left vertebral artery: No stenosis. No dissection or occlusion. Oropharynx: Incidentally noted is asymmetric soft tissue fullness at the right base of tongue and vallecula. Recommend correlation with direct visualization to exclude a mucosal lesion in this location. Lungs: Mild emphysematous changes at the lung apices. CT/CT angio headneck* [id number] IMPRESSION: 1. Mild less than 50% stenosis of the left proximal ICA. 2. Asymmetric soft tissue fullness at the right base of tongue and vallecula. Correlate with direct visualization, to exclude mucosal lesion in this location. REFERENCES: NASCET CRITERIA. The degree of internal carotid artery stenosis is based on NASCET criteria. Normal is no stenosis. Mild is less than 50% stenosis. Moderate is 50-69% stenosis. Severe is 70% to 99% stenosis. Total occlusion is no detectable patent lumen. Radiation Dose CTDIVOL = (mGy): DLP = 1752.65~1752.65 (mGy-cm)
[2021-04-02 22:35] VITALS: RESP 20; O2SAT 98
[2021-04-02] MEDS: morphine 4 mg/mL SDV 1 mL IVP (22:35)
[2021-04-02] MEDS: iohexol 350 mg/mL 100 mL Btl IV (22:55)
[2021-04-02 23:00] VITALS: BP 151/83; PULSE 69; RESP 14; O2SAT 96
[2021-04-02 23:47] VITALS: BP 148/93; PULSE 64; RESP 15; TEMP 36.7; O2SAT 96
== END 2021-04-02 23:49 | disposition home or self-care (01) ==
PROVIDERS: Emergency Provider Emergency Medicine; PCP Physician Assistant
DX: R51.9 Headache, unspecified (principal); Z79.82 Long term (current) use of aspirin; I10 Essential (primary) hypertension; E78.5 Hyperlipidemia, unspecified; F17.210 Nicotine dependence, cigarettes, uncomplicated
CPT/HCPCS: 70450; 70496; 70498; 80048; 85025; 96374; 96375; 99284; J0360; J1200; J2270; J2765; Q9967

== ENCOUNTER → 2021-04-10 10:41 | Outpatient (BNVA) | payer MEDICARE, MEDICAID, SELFPAY | PROVIDERS: PCP Physician Assistant; Visit Provider Podiatrist Foot & Ankle Surgery | DX: M79.671 Pain in right foot (principal); M20.11 Hallux valgus (acquired), right foot | CPT/HCPCS: 73630 ==

== ENCOUNTER → 2021-04-16 07:24 | Outpatient (BNVA) | payer MEDICARE, MEDICAID, SELFPAY | PROVIDERS: PCP Physician Assistant; Visit Provider Nurse Practitioner Psychiatric/Mental Health | DX: F43.12 Post-traumatic stress disorder, chronic (principal); F41.1 Generalized anxiety disorder; F17.219 Nicotine dependence, cigarettes, with unspecified nicotine-induced disorders | CPT/HCPCS: 99214 ==

== ENCOUNTER 2021-05-02 08:32 | Outpatient (CLI) | payer MEDICARE, MEDICAID, SELFPAY ==
--- NOTE | 2021-05-02 09:00 | IR_ITS ---
WS: [id number] MYELOGRAM THORACIC AND LUMBAR SPINE Fluoroscopic guided thoracic myelogram CLINICAL INFORMATION: M41.9 - Scoliosis, unspecified TECHNIQUE: The procedure, including risks, benefits, and complications, were discussed with the patie nt who agreed to proceed. A timeout was performed to confirm correct patient, procedure, and site. Using sterile technique, the patient was prepped and draped in the usual sterile fashion. After admin istration of local anesthesia using 1% preservative-free lidocaine and using fluoroscopic guidance, a 22-gauge spinal needle was advanced into the subarachnoid space at the left L2-3 level. Subsequently 13 cc of Omnipaque 240 was administered into the thecal sac. The needle was removed and hemostasis w as achieved. Subsequently the table was tilted down and contrast flowed freely into the thoracic spin e. Spot fluoroscopic images were obtained. FLUOROSCOPIC TIME: 1.0 minutes. Spot fluoroscopic images demonstrate S-shaped thoracolumbar scoliosis. Mild thoracic kyphosis. Mild d isc space narrowing throughout the thoracic spine. Mild chronic appearing anterior wedging mid thorac ic spine. No acute compression fractures. Incidental perineural thoracic and lumbar nerve sheath cyst s. Normal alignment on the neutral view in the lumbar spine. Disc space narrowing worse at L4-L5 and L5- S1. Advanced facet arthropathy L5-S1. No instability on flexion-extension in the lumbar spine. Aortic calcification. Osteopenia IR/IR myelogram spine thorac/lumb IMPRESSION: 1. Uncomplicated thoracic and lumbar myelogram. 2. Moderate suspicion thoracolumbar scoliosis is mild thoracic kyphosis. 3. Disc space narrowing worse L4-L5 and L5-S1. Advanced facet arthropathy L5-S 1. 4. No instability on flexion-extension. 5. Contrast filled perineural thoracic and lumbar nerve sheath cysts likely in cidental. Please see CT myelogram report for additional detail.
[2021-05-02] MEDS: iohexol 240 mg/mL 50 mL Btl INTRATHECA (09:34)
--- NOTE | 2021-05-02 11:00 | CT_ITS ---
WS: [id number] CT THORACIC SPINE MYELOGRAM TECHNIQUE: CT myelogram of the thoracic spine with coronal and sagittal reformatted images. CLINICAL INFORMATION: M54.9 - Dorsalgia, unspecified COMPARISON: None. DLP: 886.[address] scans at [facility] use at least one of these dose optimization techniques: automat ed exposure control; mA and/or kV adjustment per patient size (includes targeted exams where dose is matched to clinical indication); or iterative reconstruction. FINDINGS: Mild thoracic curve convex right. Mild thoracic kyphosis. No acute compression fractures. Mild disc s pace narrowing mid thoracic spine. Minimal chronic anterior wedging in the mid thoracic spine. No hi gh-grade central canal stenosis. A few tiny disc protrusions in the upper and mid thoracic spine more prominent at T4-T5 and T6-T7. Moderate facet arthropathy lower thoracic spine. A few incidental joyce neural nerve root sleeve cysts. Partially visualized lungs are well aerated. Slight atelectasis in the lung bases. Left adrenal adeno ma. Partially visualized right renal cyst. CT/CT thoracic spine w con [id number] IMPRESSION: 1. Mild thoracic kyphosis with mild thoracic curve. 2. No acute compression fractures. No high-grade central canal stenosis. 3. Mild disc space narrowing in the mid thoracic spine with moderate facet art hropathy in the lower thoracic spine. 4. Tiny disc protrusions at T4-T5 and T6-T7 with slight effacement of ventral thecal sac. No significant central canal stenosis.
--- NOTE | 2021-05-02 11:30 | CT_ITS ---
WS: [id number] CT LUMBAR SPINE TECHNIQUE: Contrast-enhanced CT of the lumbar spine with coronal and sagittal reformatted images. CLINICAL INFORMATION: M54.9 - Dorsalgia, unspecified COMPARISON: MRI 4 14,010 DLP: 1848.[address] scans at [facility] use at least one of these dose optimization techniques: automat ed exposure control; mA and/or kV adjustment per patient size (includes targeted exams where dose is matched to clinical indication); or iterative reconstruction. FINDINGS: Mild lumbar curve. No acute compression. No high-grade central canal stenosis. Mild disc bulging L4-L 5 and L5-S1. Vacuum disc phenomenon L5-S1. L1-L2: Small bilateral perineural cysts. Spinal canal and foramen are patent. L2-L3: Small bilateral perineural cysts. No significant disc bulging. Spinal canal and foramen are pa tent. L3-L4: Small bilateral perineural cysts. Mild to moderate facet arthropathy. Mild annular bulging. Sl ight effacement of ventral thecal sac. Spinal canal is patent. Foramen are patent. Mild facet arthrop athy with ligamentum flavum flavum hypertrophy. L4-L5: Mild annular bulging with narrowing of the right subarticular recess. Encroachment traversing right L5 nerve root. Moderate facet arthropathy ligament flavum hypertrophy. Right eccentric disc bul ging encroaches on the far exiting right L4 nerve root. Left foramen is patent. Mild central canal st enosis. L5-S1: Mild disc bulging with vacuum disc phenomenon. Shallow right pericentral protrusion impinges t he traversing right S1 nerve root with mild central canal stenosis. Mild right greater than left fora jose narrowing. Moderate to advanced left facet arthropathy with ligament flavum hypertrophy. Right upper pole renal cyst measuring 4.3 cm. Low-attenuation left adrenal lesion likely adenoma scottie uring 1.9 cm. Visualized pelvic bony structures: Normal. Paravertebral soft tissues: Normal. CT/CT lumbar spine w con [id number] IMPRESSION: 1. Mild lumbar curve. No acute compression. No high-grade central canal stenos is. 2. Mild annular bulging L4-5 with mild central canal stenosis. Impingement on the traversing right L5 nerve root in the subarticular recess. Right eccentric disc bulging encroaches on the far exiting right L4 nerve root. 3. Shallow right pericentral protrusion L5-S1 impinges the traversing right S1 nerve root in the subarticular recess. Correlation for right S1 nerve root sym ptoms. Mild to moderate central canal stenosis at this level. 4. Moderate facet arthropathy L4-L5 and moderate to advanced facet arthropathy left L5-S1.
== END 2021-05-02 08:33 | disposition home or self-care (01) ==
LOC: RADWPI 08:33
PROVIDERS: PCP Physician Assistant; Visit Provider Orthopaedic Surgery
DX: M47.816 Spondylosis without myelopathy or radiculopathy, lumbar region (principal); M48.07 Spinal stenosis, lumbosacral region; M47.817 Spondylosis without myelopathy or radiculopathy, lumbosacral region; M51.26 Other intervertebral disc displacement, lumbar region; M51.24 Other intervertebral disc displacement, thoracic region; M40.294 Other kyphosis, thoracic region
CPT/HCPCS: 62305; 72120; 72129; 72132; Q9966

== ENCOUNTER → 2021-05-10 08:38 | Outpatient (BNVA) | payer MEDICARE, MEDICAID, SELFPAY | PROVIDERS: PCP Physician Assistant; Referring Provider Orthopaedic Surgery; Visit Provider Anesthesiology Pain Medicine | DX: G89.29 Other chronic pain (principal); M47.814 Spondylosis without myelopathy or radiculopathy, thoracic region; M47.816 Spondylosis without myelopathy or radiculopathy, lumbar region; M51.16 Intervertebral disc disorders with radiculopathy, lumbar region; M41.9 Scoliosis, unspecified; M79.605 Pain in left leg; F17.210 Nicotine dependence, cigarettes, uncomplicated; Z79.899 Other long term (current) drug therapy | CPT/HCPCS: 99205 ==

== ENCOUNTER → 2021-05-22 07:15 | Outpatient (BNVA) | payer MEDICARE, MEDICAID, SELFPAY | PROVIDERS: PCP Physician Assistant; Visit Provider Nurse Practitioner Psychiatric/Mental Health | DX: F43.12 Post-traumatic stress disorder, chronic (principal); F41.1 Generalized anxiety disorder; F17.219 Nicotine dependence, cigarettes, with unspecified nicotine-induced disorders | CPT/HCPCS: 80061; 83036; 99214 ==

== ENCOUNTER → 2021-06-04 13:13 | Outpatient (BNVA) | payer MEDICARE, MEDICAID, SELFPAY ==
[2021-06-03 11:55] VITALS: BP 147/81; BMI 24.9
== END ==
PROVIDERS: PCP Physician Assistant; Visit Provider Anesthesiology Pain Medicine
DX: M47.814 Spondylosis without myelopathy or radiculopathy, thoracic region (principal); F17.210 Nicotine dependence, cigarettes, uncomplicated
CPT/HCPCS: 64490; 64491; 64492; J1040; J3490

== ENCOUNTER → 2021-06-19 07:31 | Outpatient (BNVA) | payer MEDICARE, MEDICAID, SELFPAY ==
[2021-06-03 11:55] VITALS: BP 147/81; BMI 24.9
== END ==
PROVIDERS: PCP Physician Assistant; Visit Provider Nurse Practitioner Psychiatric/Mental Health
DX: F43.12 Post-traumatic stress disorder, chronic (principal); F41.1 Generalized anxiety disorder; F17.219 Nicotine dependence, cigarettes, with unspecified nicotine-induced disorders; G89.29 Other chronic pain; M51.16 Intervertebral disc disorders with radiculopathy, lumbar region; M47.814 Spondylosis without myelopathy or radiculopathy, thoracic region; M47.816 Spondylosis without myelopathy or radiculopathy, lumbar region; M51.17 Intervertebral disc disorders with radiculopathy, lumbosacral region; M25.559 Pain in unspecified hip; M41.9 Scoliosis, unspecified; M79.605 Pain in left leg
CPT/HCPCS: 99214

== ENCOUNTER 2021-06-27 12:09 | Outpatient (CLI) | payer MEDICARE, MEDICAID, SELFPAY ==
[2021-06-03 11:55] VITALS: BP 147/81; BMI 24.9
[2021-06-27 15:40] LABS: Thyroid Stimulating Hormone 1.56 uIU/mL (0.27-4.20)
[2021-06-27 17:41] LABS: Free T4 Free Thyroxine 1.47 ng/dL (0.82-1.77)
== END 2021-06-27 12:10 | disposition home or self-care (01) ==
PROVIDERS: PCP Physician Assistant; Visit Provider Internal Medicine
DX: E03.9 Hypothyroidism, unspecified (principal); E16.2 Hypoglycemia, unspecified
CPT/HCPCS: 84439; 84443

== ENCOUNTER 2021-07-10 11:50 | Outpatient (RCR) | payer MEDICARE, MEDICAID, SELFPAY ==
[2021-06-03 11:55] VITALS: BP 147/81; BMI 24.9
== END 2021-07-25 23:59 | disposition home or self-care (01) ==
LOC: SPT 11:50
PROVIDERS: PCP Physician Assistant; Referring Provider Anesthesiology Pain Medicine; Visit Provider Anesthesiology Pain Medicine
DX: M54.5 Low back pain (principal); G89.29 Other chronic pain
CPT/HCPCS: 97110; 97161

== ENCOUNTER → 2021-07-17 10:30 | Outpatient (BNVA) | payer MEDICARE, MEDICAID, SELFPAY ==
[2021-06-03 11:55] VITALS: BP 147/81; BMI 24.9
== END ==
PROVIDERS: PCP Physician Assistant; Visit Provider Anesthesiology Pain Medicine
DX: M47.816 Spondylosis without myelopathy or radiculopathy, lumbar region (principal); M51.16 Intervertebral disc disorders with radiculopathy, lumbar region; M47.814 Spondylosis without myelopathy or radiculopathy, thoracic region; M41.9 Scoliosis, unspecified; M79.605 Pain in left leg; M25.559 Pain in unspecified hip
CPT/HCPCS: 99214

== ENCOUNTER → 2021-07-18 07:35 | Outpatient (BNVA) | payer MEDICARE, MEDICAID, SELFPAY ==
[2021-06-03 11:55] VITALS: BP 147/81; BMI 24.9
== END ==
PROVIDERS: PCP Physician Assistant; Visit Provider Nurse Practitioner Psychiatric/Mental Health
DX: F43.12 Post-traumatic stress disorder, chronic (principal); F41.1 Generalized anxiety disorder; F17.219 Nicotine dependence, cigarettes, with unspecified nicotine-induced disorders
CPT/HCPCS: 99214

== ENCOUNTER 2021-07-25 10:12 | Outpatient (CLI) | payer MEDICARE, MEDICAID, SELFPAY ==
[2021-06-03 11:55] VITALS: BP 147/81; BMI 24.9
--- NOTE | 2021-07-25 10:15 | USCV_ITS ---
Wen Voss Age: 71 Gender: F : 1950 Exam Date: 07/25/2021 10:34 Ordering Phys: Gisele Shanks Technologist: Ashley Cornell Exam Location: [facility] [place] Indication: SOB BP: 100 / 72 HR: 46 Rhythm: Sinus Technical Quality: Adequate MEASUREMENTS (Male / Female) Normal Values 2D ECHO LV Diastolic Diameter PLAX 4.0 cm 4.2 - 5.9 / 3.9 - 5.3 cm LV Systolic Diameter PLAX 2.6 cm IVS Diastolic Thickness 1.2 cm 0.6 - 1.0 / 0.6 - 0.9 cm IVS Systolic Thickness 1.3 cm LVPW Diastolic Thickness 1.0 cm 0.6 - 1.0 / 0.6 - 0.9 cm LVPW Systolic Thickness 1.3 cm LVOT Diameter 2.1 cm LV Ejection Fraction 2D Teich 64.4 % LV Ejection Fraction MOD 2C 43.6 % LV Ejection Fraction 2C AL 43.5 % LA Width 2.9 cm LA Height 3.9 cm RA Width 3.4 cm RA Height 4.0 cm Aorta at Sinotubular Diameter 2.7 cm DOPPLER AV Peak Velocity 95.0 cm/s LVOT Peak Velocity 82.0 cm/s AV Area Cont Eq vti 2.8 cm squared AV Area Cont Eq pk 2.9 cm squared MV Peak Velocity 116.0 cm/s MV Area PHT 3.7 cm squared Mitral E to A Ratio 1.3 MV E' Velocity 54.5 cm/s Mitral E to MV E' Ratio 12.5 Mitral E to LV E' Lateral Ratio 13.1 Mitral E to LV E' Septal Ratio 12.0 TR Peak Velocity 196.0 cm/s TR Peak Gradient 15.4 mmHg Right Atrial Pressure 3.0 mmHg Pulmonary Artery Systolic Pressu 18.4 mmHg PV Peak Velocity 60.0 cm/s RV Acceleration Time 0.2 s RV Ejection Time 0.4 s RV AcT/ET 0.6 FINDINGS Left Ventricle Normal left ventricular size, systolic function and wall thickness, with no regional wall motion abnormalities. Left ventricular ejection fraction is estimated at 65 %. Indeterminate diastolic function. Right Ventricle Normal right ventricular size and systolic function. Right ventricular systolic pressure 26 mmHg. Right Atrium Normal right atrial size. Right atrial pressure estimated at 8 mm Hg. Left Atrium Mildly increased left atrial size. Mitral Valve Structurally normal mitral valve. No mitral valve stenosis. Mild mitral valve regurgitation. Aortic Valve Mildly thickened and calcified trileaflet aortic valve. No aortic valve stenosis. No aortic valve regurgitation. Tricuspid Valve Structurally normal tricuspid valve. Trace to mild tricuspid valve regurgitation. Pulmonic Valve Pulmonic valve not well visualized. No pulmonary valve stenosis. Trace pulmonary valve regurgitation. Pericardium No pericardial effusion. Aorta Normal sized aortic root. Mildly dilated inferior vena cava with decreased respiratory variation. CONCLUSIONS 1. Normal left ventricular size, systolic function and wall thickness, with no regional wall motion abnormalities. Left ventricular ejection fraction is estimated at 65 %. Indeterminate diastolic function. 2. Mild mitral valve regurgitation. 3. Pulmonary artery pressure estimated at 26 mm Hg. 4. When compared to previous echocardiogram dated 08/17/2014, there may not have been any significant change. Arline Dubose MD (Electronically Signed) Final Date: 28 July 2021 20:07 S
== END 2021-07-25 10:13 | disposition home or self-care (01) ==
LOC: US 10:15
PROVIDERS: PCP Physician Assistant; Visit Provider Nurse Practitioner Family
DX: I73.9 Peripheral vascular disease, unspecified (principal); R06.02 Shortness of breath; I34.0 Nonrheumatic mitral (valve) insufficiency
CPT/HCPCS: 93306

== ENCOUNTER 2021-07-25 13:43 | Emergency (ER) | payer MEDICARE, MEDICAID, SELFPAY ==
[2021-06-03 11:55] VITALS: BP 147/81; BMI 24.9
[2021-07-25 14:01] VITALS: BP 168/78; PULSE 54; RESP 17; TEMP 36.6; O2SAT 98; BMI 24.0
[2021-07-25 14:56] VITALS: BP 142/76; PULSE 46; RESP 16; O2SAT 97
--- NOTE | 2021-07-25 15:17 | ED_ITS ---
HPI - Extremity Problem General: Chief complaint: Extremity Injury, Lower Stated complaint: LLE PAIN/SWELLING/REDNESS Time Seen by Provider: 07/25/21 14:40 Source: patient Mode of arrival: ambulatory Limitations: no limitations History of Present Illness: HPI Narrative: Patient is a 71-year-old female presents to ED today after she was told to come here for DVT rule out. Patient tells me she has had bilateral lower extremity swelling over the past several months. She has recently seen Dr. Dubose/cardiology who has ordered cardiac echo to assess for CHF. Patient states over the past 48 to 72 hours she has noticed a lump to her left lower leg and was told it could be a DVT. She has had no injury or trauma. She complains of minimal calf pain. Patient has been ambula tory on the extremity. She does not complain of shortness of breath or chest pain. MD Complaint: extremity pain and extremity swelling Onset (ago): day(s) Pain Consistency: constant Location: left and lower extremity Relieving factors: nothing Exacerbating factors: weight bearing, walking and palpation Associated symptoms: Reports no associated symptoms; Deny chest pain, fever(s) or rash Review of Systems Const: Denies: fever(s), chills, body aches, fatigue or malaise Card: Reports: swelling of feet/ankles; Denies: chest pain, palpitations, irregular heart rhythm, lightheadedness, syncope or pre-syncope Resp: Denies: dyspnea Musc: Reports: extremity pain and extremity swelling Skin/Breast: Denies: rash Neuro: Denies: numbness in extremities, weakness in extremities or sensory changes PFS ED PFSH: Medical History Benign essential HTN Candidiasis of mouth Generalized anxiety disorder GERD (gastroesophageal reflux disease) Lori's disease High risk medication use History of kidney stones Hyperlipidemia Insomnia due to mental condition Onychomycosis Onychomycosis Osteoporosis Post-traumatic stress disorder, chronic Psychiatric care Renal cyst Surgical History H/O section H/O colonoscopy H/O esophagogastroduodenoscopy S/P breast biopsy S/P lumpectomy of breast S/P thyroidectomy S/P tonsillectomy Family History Mother , 89 Dementia Father No problems noted. Family/Other Bleeding disorder cousin, hemophilia Denies family history of Anesthesia complication Social History Quit status (tobacco): not considering quitting Smoking risk assessment/counseling performed?: Yes Alcohol intake: never Counseling given: No Counseling given: No Adopted: No Caregiver/support person: No Lives independently: Yes Household members: none Housing: Apartment Marital status: Number of children: 4 Number of grandchildren: 11 Highest education level completed: GED or Equivalent service: No Current occupational status: retired Current occupational exposures/hazards: No Pets and animals: No History of recent travel: No Leisure activites: art, games and other Leisure activities details: Wii bowling, Bingo, craft Sexually active: No Current gender identity: Female Cara/Hinduism: Moravian Special cara needs: No Agree to transfusion: No Financial difficulty paying for basics: Not Very Hard Female Reproductive History: Para: 4 Physical Exam Const: COMMON NORMALS: no acute distress, average body habitus, patient oriented x3, no limitations, healthy appearing, alert and well nourished Resp: COMMON NORMALS: normal respiratory effort and clear to auscultation bilaterally AUSCULTATION: clear to auscultation bilaterally Cardio: COMMON NORMALS: regular rate and regular rhythm RATE: regular rate RHYTHM: regular rhythm Extremity: GENERAL: Yes normal exam except as noted OTHER: mild bilateral pitting edema; she complains of firmness to L lower anteriomedial leg; no erythema/warmth present; no calf swelling/negative Jean's; some varicose veins noted but no obvious palpable cord Neuro: COMMON NORMALS: patient oriented x3 SENSORIUM/ORIENTATION: Yes alert Skin: COMMON NORMALS: no rashes or lesions noted GENERAL SKIN EXAM: no rashes or lesions noted TRAUMA: no lacerations or abrasions Course Vital Signs: Vital signs: Vital Signs Temperature 97.9 F 07/25/21 14:01 Pulse Rate 50 L 07/25/21 15:53 Respiratory Rate 16 07/25/21 15:53 Blood Pressure 155/84 07/25/21 15:53 Pulse Oximetry 97 07/25/21 15:53 MDM - Extremity (Nontraumatic) Imaging Data^: US L LE venous: Radiologist's impression: [facility] [place], [place] [id number] ReportSigned Patient: Wen Voss SUnit #: [id number]: 1950Acct#:[id number]/Sex: 71 / FADM Date: 07/25/21Loc: ERRoom/Bed:Attending Dr: Ordering Provider/Ordering MD: Amairani Ramirez Date of Service: 07/25/21 Procedure(s): [place] [address] Accession Number(s): [id number] Report Number: [id number] Wen Voss Age: 71 Gender: F : 1950 Exam Date: 07/25/2021 15:36 Ordering Phys: Amairani Ramirez Technologist: Ashley Cornell [place] [facility] [place]ication: LLE EDEMA HISTORY: LLE SWELLING AND PAIN PROCEDURES: On the left side, the common femoral, superficial femoral, profunda femoral, popliteal, posterior tibial, greater saphenous veins, and the peroneal trunk were identified and interrogated in the standard fashion. FINDINGS: Normal 2-D Doppler and augmentation and compressibility throughout the lower extremity venous structures. Additional imaging through the proximal calf veins also reveals no thrombus. Limited evaluation of the greater saphenous vein is patent with no thrombus. CONCLUSIONS No DVT left lower extremity. Dr. Lise Issa DO (Electronically Signed) Final Date: 25 July 2021 16:05 S Discharge Plan Discharge Patient Disposition: Home Clinical Impression: Left leg pain Condition: Stable Prescriptions: No Action aspirin [Adult Aspirin Regimen] 81 mg tablet,delayed release (DR/EC) 81 mg PO DAILY RF: 0 levothyroxine 75 mcg tablet 75 mcg PO .every thursday RF: 0 Anoro Ellipta 62.5-25 mcg/actuation blister with device 1 inh inhalation DAILY RF: 0 melatonin 10 mg tablet 10 mg PO DIRECTED PRN (Reason: sleep) Qty: 30 RF: 3 pantoprazole [Protonix] 40 mg tablet,delayed release (DR/EC) 40 mg PO BID RF: 0 levothyroxine 50 mcg tablet 50 mcg PO DAILY Qty: 90 RF: 3 furosemide 20 mg tablet 20 mg PO DAILY PRN (Reason: edema) Qty: 90 RF: 2 tizanidine 4 mg tablet 4 mg PO BID PRN (Reason: muscle spasticity) Qty: 60 RF: 0 pregabalin 75 mg capsule 75 mg PO DAILY 30 Days Qty: 30 RF: 0 Lunesta 3 mg tablet 3 mg PO BEDTIME Qty: 30 RF: 3 alendronate [Fosamax] 70 mg tablet 70 mg PO Q7D Qty: 4 RF: 2 atorvastatin 20 mg tablet 20 mg PO DAILY Qty: 14 RF: 0 albuterol sulfate [Ventolin HFA] 90 mcg/actuation HFA aerosol inhaler 2 puff inhalation Q6H PRN (Reason: shortness of breath or wheezing) Qty: 8.5 RF: 3 valsartan 80 mg tablet 80 mg PO DAILY Qty: 90 RF: 3 fluticasone propionate 50 mcg/actuation spray,suspension See Rx Instructions .ROUTE .COMPLEX Qty: 16 RF: 3 Stiolto Respimat 2.5-2.5 mcg/actuation mist See Rx Instructions .ROUTE .COMPLEX Qty: 4 RF: 3 clonazepam 2 mg tablet 2 mg PO ONCE Qty: 1 RF: 0 metoprolol tartrate 50 mg tablet 50 mg PO BID Qty: 60 RF: 3 ciclopirox 8 % solution 1 applic topical DAILY Qty: 6.6 RF: 3 Klonopin 0.5 mg tablet 0.25 mg PO .morning PRN (Reason: anxiety) Qty: 15 RF: 1 ipratropium-albuterol 0.5 mg-3 mg(2.5 mg base)/3 mL solution for nebulization 3 ml INHALATION Q6H PRN (Reason: shortness of breath or wheezing) Qty: 90 RF: 0 Discharge Orders: Discharge ED (Routine); Ordered 07/25/21 Ordered By: Amairani Ramirez Referrals: Lisa Puente PA [Primary Care Provider] - Activity Restrictions/Additional Instructions: As we discussed your ultrasound did not show any evidence of a blood clot. 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 Coding Level of Care Code ED Corporate Securities Research Analyst for Chg Fwd Exam Detailed
[2021-07-25 15:53] VITALS: BP 155/84; PULSE 50; RESP 16; O2SAT 97
== END 2021-07-25 16:18 | disposition home or self-care (01) ==
PROVIDERS: Emergency Provider Physician Assistant; PCP Physician Assistant
DX: M79.605 Pain in left leg (principal); Z79.82 Long term (current) use of aspirin; I10 Essential (primary) hypertension; E78.5 Hyperlipidemia, unspecified; I73.9 Peripheral vascular disease, unspecified; R06.02 Shortness of breath; I34.0 Nonrheumatic mitral (valve) insufficiency
CPT/HCPCS: 93306; 93971; 99282

== ENCOUNTER → 2021-08-14 08:21 | Outpatient (BNVA) | payer MEDICARE, MEDICAID, SELFPAY ==
[2021-06-03 11:55] VITALS: BP 147/81; BMI 24.9
== END ==
PROVIDERS: PCP Physician Assistant; Visit Provider Nurse Practitioner Psychiatric/Mental Health
DX: F43.12 Post-traumatic stress disorder, chronic (principal); F41.1 Generalized anxiety disorder; F17.219 Nicotine dependence, cigarettes, with unspecified nicotine-induced disorders
CPT/HCPCS: 99214

== ENCOUNTER 2021-08-17 09:32 | Emergency (ER) | payer MEDICARE, MEDICAID, SELFPAY ==
[2021-06-03 11:55] VITALS: BP 147/81; BMI 24.9
[2021-08-17] VITALS (7 sets, daily range): BP systolic 151–177; BP diastolic 82–97; PULSE 60–98; RESP 17–18; TEMP 36.4–37; O2SAT 94–100; BMI 24.0
--- NOTE | 2021-08-17 09:56 | W.ED.EXTPRO ---
Documented by User: AALIYAH Child 08/17/21 11:43 HPI - Extremity Problem General: Chief complaint: Extremity Problem,Nontraumatic Stated complaint: LLE REDNESS/SWELLING/PAIN: BEGAN LAST PM Time Seen by Provider: 08/17/21 09:36 Source: patient and family (daughter) Mode of arrival: ambulatory Limitations: no limitations History of Present Illness: HPI Narrative: Patient is a 71-year-old female who presents to ED today along with her daughter for complaints of a rash to her bilateral lower extremities. Patient states she began noticing the rash 1 to 2 days ago. She states the rash initially felt very pruritic but has progressed into pain/burning. Patient has chronic bilateral lower extremity edema. She has known peripheral vascular disease. No chemical, household, environmental exposures to suggest contact dermatitis. No new medications. She is not on anticoagulation. She has no systemic symptoms such as fever, chills, body aches, joint pains. Complaint: extremity pain and extremity swelling Onset (ago): day(s) Pain Consistency: constant Location: left, right and lower extremity Quality: burning Radiation: none Relieving factors: nothing Exacerbating factors: palpation Associated symptoms: Reports no associated symptoms and rash; Deny chest pain or fever(s) Review of Systems Const: Denies: fever(s), chills, body aches, fatigue or malaise Card: Denies: chest pain Resp: Denies: dyspnea GI: Denies: abdominal pain Musc: Reports: extremity pain and extremity swelling; Denies: neck pain, back pain, joint pain, joint swelling, joint redness, joint warmth or limited range of motion Skin/Breast: Reports: rash Neuro: Denies: headache(s), numbness in extremities, weakness in extremities or sensory changes [facility] ED PFSH: Medical History Benign essential HTN Candidiasis of mouth Generalized anxiety disorder GERD (gastroesophageal reflux disease) Lori's disease High risk medication use History of kidney stones Hyperlipidemia Insomnia due to mental condition Onychomycosis Onychomycosis Osteoporosis Post-traumatic stress disorder, chronic Psychiatric care Renal cyst Surgical History H/O section H/O colonoscopy H/O esophagogastroduodenoscopy S/P breast biopsy S/P lumpectomy of breast S/P thyroidectomy S/P tonsillectomy Family History Mother , 89 Dementia Father No problems noted. Family/Other Bleeding disorder cousin, hemophilia Denies family history of Anesthesia complication Social History Quit status (tobacco): not considering quitting Smoking risk assessment/counseling performed?: Yes Alcohol intake: never Counseling given: No Counseling given: No Adopted: No Caregiver/support person: No Lives independently: Yes Household members: none Housing: Apartment Marital status: Number of children: 4 Number of grandchildren: 11 Highest education level completed: GED or Equivalent service: No Current occupational status: retired Current occupational exposures/hazards: No Pets and animals: No History of recent travel: No Leisure activites: art, games and other Leisure activities details: Wii bowling, Bingo, craft Sexually active: No Current gender identity: Female Cara/Roman Catholic: Spiritism Special cara needs: No Agree to transfusion: No Financial difficulty paying for basics: Not Very Hard Female Reproductive History: Para: 4 Physical Exam Const: COMMON NORMALS: no acute distress, average body habitus, patient oriented x3, no limitations, healthy appearing, alert and well nourished GENERAL APPEARANCE: cooperative ORIENTATION/CONSCIOUSNESS: Yes awake, Yes oriented to person, Yes oriented to place and Yes oriented to time Resp: COMMON NORMALS: normal respiratory effort and clear to auscultation bilaterally AUSCULTATION: clear to auscultation bilaterally Cardio: COMMON NORMALS: regular rate and regular rhythm RATE: regular rate RHYTHM: regular rhythm Extremity: OTHER: pt has bilateral symmetrical 1+ pitting edema; she has faint but palpable DP/PT pulses with normal cap refills; edema has not worsened since I saw her about a month ago; she has no calf swelling and negative Jean's; she is very tender to the touch throughout lower legs which is consistent with previous examination by myself and also reported from other provider documentation; she has the presence of new skin lesions consisting of non-raised/non-palpable and non-blanching purpuric/petechial lesions to R medial lower leg and larger convalescing area to L anteriomedial leg Neuro: COMMON NORMALS: patient oriented x3 SENSORIUM/ORIENTATION: Yes alert, Yes oriented to person, Yes oriented to place and Yes oriented to time Skin: NARRATIVE SKIN EXAM: see extremity assessment for pertinent skin findings Course Vital Signs: Vital signs: Vital Signs Temperature 98.6 F 08/17/21 12:11 Pulse Rate 63 08/17/21 12:11 Respiratory Rate 18 08/17/21 12:11 Blood Pressure 151/82 08/17/21 12:11 Pulse Oximetry 94 08/17/21 12:11 MDM - Extremity (Nontraumatic) MDM Narrative: Medical decision making narrative: Patient's vital signs are stable. Labs including coags are normal. She has a normal platelet count. She has weak but palpable DP/PT pulses. Extremities are warm to the touch. Rash most likely consistent with stasis dermatitis. Could also be pigmented purpuric dermatosis. Less likely cutaneous vasculitis. Think she also has a neuropathic component as well given her diffuse tenderness. Recommend she follow up with her house steward/stewardess for continued evaluation of her PVD. She can also follow up with PCP in the meantime for any additional workup if indicated. Discussed with Dr. Guajardo who agrees with plan/assessment for patient. Lab Data: Labs: Lab Results 08/17/21 08/17/21 08/17/21 10:15 10:15 10:15 WBC 5.1 10^3/uL 10^3/ uL (4.0-10.0) RBC 4.81 10^6/uL 10^6 /uL (4.1-5.3) Hgb 14.4 g/dL g/dL (11.5-15.3) Hct 45.5 % % (37.0-47.0) MCV 94.6 fl fl (81-99) MCH 29.9 pg pg (28.0-34.0) MCHC 31.6 g/dL g/dL (30.0-36.0) RDW 14.2 % % (12.1-15.1) Plt Count 133 10^3/cmm 10^3 /cmm (130-400) MPV 12.9 fL H fL (7.4-10.4) Neut % (Auto) 64.2 % % Lymph % (Auto) 25.1 % % [place] % (Auto) 7.9 % % Eos % (Auto) 1.8 % % Baso % (Auto) 0.8 % % Neut # (Auto) 3.25 10^3/uL 10^3 /uL (1.8-7.7) Lymph # (Auto) 1.3 10^3/uL 10^3/ uL (0.8-4.8) [place] # (Auto) 0.4 10^3/uL 10^3/ uL (0.2-0.9) Eos # (Auto) 0.1 10^3/uL 10^3/ uL (0.0-0.8) Baso # (Auto) 0.0 10^3/uL 10^3/ uL (0.0-0.1) Nucleated RBC % (a uto) 0 % % Nucleated RBCs # 0.0 /100WBC /100W BC PT INR APTT Sodium 142 mmol/L mmol/L (136-145) Potassium 3.7 mmol/L mmol/L (3.5-5.1) Chloride 101 mmol/L mmol/L (98-107) Carbon Dioxide 30 mmol/L H mmol/ L (22-29) Anion Gap 14.7 (5-19) BUN 19 mg/dL mg/dL (8-23) Creatinine 0.8 mg/dL mg/dL (0.5-0.9) GFR Calculation Not Reportable Glucose 90 mg/dL mg/dL (65-115) Calculated Osmolal ity 296 mOsm/kg H mOs m/kg (285-295) Calcium 9.4 mg/dL mg/dL (8.5-10.5) Total Bilirubin 0.9 mg/dL mg/dL (0.15-1.2) AST 21 U/L U/L (0-32) ALT 14 U/L U/L (0-33) Alkaline Phosphata se 84 IU/L IU/L (35-105) C-Reactive Protein 7.9 mg/L H mg/L (0.0-4.9) Total Protein 7.6 g/dL g/dL (6.6-8.7) Albumin 4.4 g/dL g/dL (3.5-5.2) Globulin 3.2 g/dL g/dL (1.3-4.6) Urine Color Yellow (Yellow) Urine Appearance Clear (CLEAR) Urine pH 6.5 (5-7) Ur Specific Gravit y 1.005 (1.005-1.030) Urine Protein Neg (Negative) Urine Glucose (UA) Norm (Normal) Urine Ketones Negative (Negative) Urine Blood Neg (Negative) Urine Nitrate Negative (Negative) Urine Bilirubin Neg (Negative) Urine Urobilinogen Norm mg/dL mg/dL (Negative) Ur Leukocyte Richelle ase Negative (Negative) 08/17/21 10:30 WBC RBC Hgb Hct MCV MCH MCHC RDW Plt Count MPV Neut % (Auto) Lymph % (Auto) [place] % (Auto) Eos % (Auto) Baso % (Auto) Neut # (Auto) Lymph # (Auto) [place] # (Auto) Eos # (Auto) Baso # (Auto) Nucleated RBC % (a uto) Nucleated RBCs # PT 13.20 SECONDS SEC ONDS (12.1-14.9) INR 0.97 (0.8-1.2) APTT 28.6 SECONDS SECO NDS (23.9-36.7) Sodium Potassium Chloride Carbon Dioxide Anion Gap BUN Creatinine GFR Calculation Glucose Calculated Osmolal ity Calcium Total Bilirubin AST ALT Alkaline Phosphata se C-Reactive Protein Total Protein Albumin Globulin Urine Color Urine Appearance Urine pH Ur Specific Gravit y Urine Protein Urine Glucose (UA) Urine Ketones Urine Blood Urine Nitrate Urine Bilirubin Urine Urobilinogen Ur Leukocyte Richelle ase Discharge Plan Discharge Patient Disposition: Home Clinical Impression: Stasis dermatitis of both legs Condition: Stable Prescriptions: No Action aspirin [Adult Aspirin Regimen] 81 mg tablet,delayed release (DR/EC) 81 mg PO DAILY RF: 0 Anoro Ellipta 62.5-25 mcg/actuation blister with device 1 inh inhalation DAILY RF: 0 melatonin 10 mg tablet 10 mg PO DIRECTED PRN (Reason: sleep) Qty: 30 RF: 3 pantoprazole [Protonix] 40 mg tablet,delayed release (DR/EC) 40 mg PO BID RF: 0 furosemide 20 mg tablet 20 mg PO DAILY PRN (Reason: edema) Qty: 90 RF: 2 tizanidine 4 mg tablet 4 mg PO BID PRN (Reason: muscle spasticity) Qty: 60 RF: 0 pregabalin 75 mg capsule 75 mg PO DAILY 30 Days Qty: 30 RF: 0 Lunesta 3 mg tablet 3 mg PO BEDTIME Qty: 30 RF: 3 Klonopin 0.5 mg tablet 0.25 mg PO .morning PRN (Reason: anxiety) Qty: 30 RF: 1 alendronate [Fosamax] 70 mg tablet 70 mg PO Q7D Qty: 4 RF: 2 atorvastatin 20 mg tablet 20 mg PO DAILY Qty: 14 RF: 0 albuterol sulfate [Ventolin HFA] 90 mcg/actuation HFA aerosol inhaler 2 puff inhalation Q6H PRN (Reason: shortness of breath or wheezing) Qty: 8.5 RF: 3 valsartan 80 mg tablet 80 mg PO DAILY Qty: 90 RF: 3 fluticasone propionate 50 mcg/actuation spray,suspension See Rx Instructions .ROUTE .COMPLEX Qty: 16 RF: 3 Stiolto Respimat 2.5-2.5 mcg/actuation mist See Rx Instructions .ROUTE .COMPLEX Qty: 4 RF: 3 metoprolol tartrate 50 mg tablet 50 mg PO BID Qty: 60 RF: 3 ciclopirox 8 % solution 1 applic topical DAILY Qty: 6.6 RF: 3 levothyroxine 50 mcg tablet 50 mcg PO DAILY Qty: 90 RF: 3 ipratropium-albuterol 0.5 mg-3 mg(2.5 mg base)/3 mL solution for nebulization 3 ml INHALATION Q6H PRN (Reason: shortness of breath or wheezing) Qty: 90 RF: 0 Discharge Orders: Discharge ED (Routine); Ordered 08/17/21 Ordered By: Amairani Ramirez Referrals: Lisa Puente PA [Primary Care Provider] - Patient Instructions: Stasis Dermatitis (ED) Activity Restrictions/Additional Instructions: As we discussed we will have you follow-up with your house steward/stewardess for continued evaluation of your peripheral vascular disease. You may follow-up with your primary care provider in the meantime. You may return to the ED for worsening rash, severe or uncontrollable pain, systemic symptoms such as fevers, body aches, generally feeling ill, coldness to your extremities, numbness/tingling/loss of sensation, or any other concerns you may have. Coding Level of Care Code ED Manager Mechanical for Chg Fwd Exam Expanded Problem Focused Documented by User: Gregory Guajardo DO 08/17/21 15:01 HPI - Extremity Problem General: Chief complaint: Extremity Problem,Nontraumatic Stated complaint: LLE REDNESS/SWELLING/PAIN: BEGAN LAST PM Time Seen by Provider: 08/17/21 09:36 PFSH ED PFSH: Medical History Benign essential HTN Candidiasis of mouth Generalized anxiety disorder GERD (gastroesophageal reflux disease) Lori's disease High risk medication use History of kidney stones Hyperlipidemia Insomnia due to mental condition Onychomycosis Onychomycosis Osteoporosis Post-traumatic stress disorder, chronic Psychiatric care Renal cyst Surgical History H/O section H/O colonoscopy H/O esophagogastroduodenoscopy S/P breast biopsy S/P lumpectomy of breast S/P thyroidectomy S/P tonsillectomy Family History Mother , 89 Dementia Father No problems noted. Family/Other Bleeding disorder cousin, hemophilia Denies family history of Anesthesia complication Social History Quit status (tobacco): not considering quitting Smoking risk assessment/counseling performed?: Yes Alcohol intake: never Counseling given: No Counseling given: No Adopted: No Caregiver/support person: No Lives independently: Yes Household members: none Housing: Apartment Marital status: Number of children: 4 Number of grandchildren: 11 Highest education level completed: GED or Equivalent service: No Current occupational status: retired Current occupational exposures/hazards: No Pets and animals: No History of recent travel: No Leisure activites: art, games and other Leisure activities details: Wii bowling, Bingo, craft Sexually active: No Current gender identity: Female Cara/Roman Catholic: Spiritism Special cara needs: No Agree to transfusion: No Financial difficulty paying for basics: Not Very Hard Course Vital Signs: Vital signs: Vital Signs Temperature 98.6 F 08/17/21 12:11 Pulse Rate 63 08/17/21 12:11 Respiratory Rate 18 08/17/21 12:11 Blood Pressure 151/82 08/17/21 12:11 Pulse Oximetry 94 08/17/21 12:11 MDM - Extremity (Nontraumatic) MDM Narrative: Medical decision making narrative: Patient seen by AALIYAH Child asked with Amairani méndez assessment and plan agree. Lab Data: Labs: Lab Results 08/17/21 08/17/21 08/17/21 10:15 10:15 10:15 WBC 5.1 10^3/uL 10^3/ uL (4.0-10.0) RBC 4.81 10^6/uL 10^6 /uL (4.1-5.3) Hgb 14.4 g/dL g/dL (11.5-15.3) Hct 45.5 % % (37.0-47.0) MCV 94.6 fl fl (81-99) MCH 29.9 pg pg (28.0-34.0) MCHC 31.6 g/dL g/dL (30.0-36.0) RDW 14.2 % % (12.1-15.1) Plt Count 133 10^3/cmm 10^3 /cmm (130-400) MPV 12.9 fL H fL (7.4-10.4) Neut % (Auto) 64.2 % % Lymph % (Auto) 25.1 % % [place] % (Auto) 7.9 % % Eos % (Auto) 1.8 % % Baso % (Auto) 0.8 % % Neut # (Auto) 3.25 10^3/uL 10^3 /uL (1.8-7.7) Lymph # (Auto) 1.3 10^3/uL 10^3/ uL (0.8-4.8) [place] # (Auto) 0.4 10^3/uL 10^3/ uL (0.2-0.9) Eos # (Auto) 0.1 10^3/uL 10^3/ uL (0.0-0.8) Baso # (Auto) 0.0 10^3/uL 10^3/ uL (0.0-0.1) Nucleated RBC % (a uto) 0 % % Nucleated RBCs # 0.0 /100WBC /100W BC PT INR APTT Sodium 142 mmol/L mmol/L (136-145) Potassium 3.7 mmol/L mmol/L (3.5-5.1) Chloride 101 mmol/L mmol/L (98-107) Carbon Dioxide 30 mmol/L H mmol/ L (22-29) Anion Gap 14.7 (5-19) BUN 19 mg/dL mg/dL (8-23) Creatinine 0.8 mg/dL mg/dL (0.5-0.9) GFR Calculation Not Reportable Glucose 90 mg/dL mg/dL (65-115) Calculated Osmolal ity 296 mOsm/kg H mOs m/kg (285-295) Calcium 9.4 mg/dL mg/dL (8.5-10.5) Total Bilirubin 0.9 mg/dL mg/dL (0.15-1.2) AST 21 U/L U/L (0-32) ALT 14 U/L U/L (0-33) Alkaline Phosphata se 84 IU/L IU/L (35-105) C-Reactive Protein 7.9 mg/L H mg/L (0.0-4.9) Total Protein 7.6 g/dL g/dL (6.6-8.7) Albumin 4.4 g/dL g/dL (3.5-5.2) Globulin 3.2 g/dL g/dL (1.3-4.6) Urine Color Yellow (Yellow) Urine Appearance Clear (CLEAR) Urine pH 6.5 (5-7) Ur Specific Gravit y 1.005 (1.005-1.030) Urine Protein Neg (Negative) Urine Glucose (UA) Norm (Normal) Urine Ketones Negative (Negative) Urine Blood Neg (Negative) Urine Nitrate Negative (Negative) Urine Bilirubin Neg (Negative) Urine Urobilinogen Norm mg/dL mg/dL (Negative) Ur Leukocyte Richelle ase Negative (Negative) 08/17/21 10:30 WBC RBC Hgb Hct MCV MCH MCHC RDW Plt Count MPV Neut % (Auto) Lymph % (Auto) [place] % (Auto) Eos % (Auto) Baso % (Auto) Neut # (Auto) Lymph # (Auto) [place] # (Auto) Eos # (Auto) Baso # (Auto) Nucleated RBC % (a uto) Nucleated RBCs # PT 13.20 SECONDS SEC ONDS (12.1-14.9) INR 0.97 (0.8-1.2) APTT 28.6 SECONDS SECO NDS (23.9-36.7) Sodium Potassium Chloride Carbon Dioxide Anion Gap BUN Creatinine GFR Calculation Glucose Calculated Osmolal ity Calcium Total Bilirubin AST ALT Alkaline Phosphata se C-Reactive Protein Total Protein Albumin Globulin Urine Color Urine Appearance Urine pH Ur Specific Gravit y Urine Protein Urine Glucose (UA) Urine Ketones Urine Blood Urine Nitrate Urine Bilirubin Urine Urobilinogen Ur Leukocyte Richelle ase Discharge Plan Discharge Patient Disposition: Home Clinical Impression: Stasis dermatitis of both legs Condition: Stable Prescriptions: No Action aspirin [Adult Aspirin Regimen] 81 mg tablet,delayed release (DR/EC) 81 mg PO DAILY RF: 0 Anoro Ellipta 62.5-25 mcg/actuation blister with device 1 inh inhalation DAILY RF: 0 melatonin 10 mg tablet 10 mg PO DIRECTED PRN (Reason: sleep) Qty: 30 RF: 3 pantoprazole [Protonix] 40 mg tablet,delayed release (DR/EC) 40 mg PO BID RF: 0 furosemide 20 mg tablet 20 mg PO DAILY PRN (Reason: edema) Qty: 90 RF: 2 tizanidine 4 mg tablet 4 mg PO BID PRN (Reason: muscle spasticity) Qty: 60 RF: 0 pregabalin 75 mg capsule 75 mg PO DAILY 30 Days Qty: 30 RF: 0 Lunesta 3 mg tablet 3 mg PO BEDTIME Qty: 30 RF: 3 Klonopin 0.5 mg tablet 0.25 mg PO .morning PRN (Reason: anxiety) Qty: 30 RF: 1 alendronate [Fosamax] 70 mg tablet 70 mg PO Q7D Qty: 4 RF: 2 atorvastatin 20 mg tablet 20 mg PO DAILY Qty: 14 RF: 0 albuterol sulfate [Ventolin HFA] 90 mcg/actuation HFA aerosol inhaler 2 puff inhalation Q6H PRN (Reason: shortness of breath or wheezing) Qty: 8.5 RF: 3 valsartan 80 mg tablet 80 mg PO DAILY Qty: 90 RF: 3 fluticasone propionate 50 mcg/actuation spray,suspension See Rx Instructions .ROUTE .COMPLEX Qty: 16 RF: 3 Stiolto Respimat 2.5-2.5 mcg/actuation mist See Rx Instructions .ROUTE .COMPLEX Qty: 4 RF: 3 metoprolol tartrate 50 mg tablet 50 mg PO BID Qty: 60 RF: 3 ciclopirox 8 % solution 1 applic topical DAILY Qty: 6.6 RF: 3 levothyroxine 50 mcg tablet 50 mcg PO DAILY Qty: 90 RF: 3 ipratropium-albuterol 0.5 mg-3 mg(2.5 mg base)/3 mL solution for nebulization 3 ml INHALATION Q6H PRN (Reason: shortness of breath or wheezing) Qty: 90 RF: 0 Discharge Orders: Discharge ED (Routine); Ordered 08/17/21 Ordered By: Amairani Ramirez Referrals: Lisa Puente PA [Primary Care Provider] - Patient Instructions: Stasis Dermatitis (ED) Activity Restrictions/Additional Instructions: As we discussed we will have you follow-up with your house steward/stewardess for continued evaluation of your peripheral vascular disease. You may follow-up with your primary care provider in the meantime. You may return to the ED for worsening rash, severe or uncontrollable pain, systemic symptoms such as fevers, body aches, generally feeling ill, coldness to your extremities, numbness/tingling/loss of sensation, or any other concerns you may have. Coding Level of Care Code ED Manager Mechanical for Chg Fwd Exam Expanded Problem Focused
[2021-08-17 10:25] LABS: Add Urine Microscopic? NO; Charge for UA Resulting for Rev
[2021-08-17 10:37] LABS: Bilirubin Urine Neg (Negative); Blood Urine Neg (Negative); Glucose Urine UA Norm (Normal); Ketones Urine Negative (Negative); Leukocyte Esterase Urine Negative (Negative); Nitrate Urine Negative (Negative); Protein Urine Neg (Negative); Specific Gravity, Urine 1.005 (1.005-1.030); Urine Appearance Clear (CLEAR); Urine Color Yellow (Yellow); Urobilinogen Urine Norm (Negative); pH Urine 6.5 (5-7)
[2021-08-17 10:45] LABS: Alanine Aminotransferase 14 U/L (0-33); Albumin Level 4.4 g/dL (3.5-5.2); Alkaline Phosphatase 84 IU/L (35-105); Anion Gap 14.7 (5-19); Aspartate Amino Transferase 21 U/L (0-32); Blood Urea Nitrogen 19 mg/dL (8-23); C Reactive Protein 7.9 mg/L (0.0-4.9); Calcium 9.4 mg/dL (8.5-10.5); Carbon Dioxide 30 mmol/L (22-29); Chloride 101 mmol/L (98-107); Globulin 3.2 g/dL (1.3-4.6); Glucose 90 mg/dL (65-115); Osmolality Calculated 296 mOsm/kg (285-295); Potassium 3.7 mmol/L (3.5-5.1); Sodium 142 mmol/L (136-145); Total Bilirubin 0.9 mg/dL (0.15-1.2); Total Protein 7.6 g/dL (6.6-8.7)
[2021-08-17 10:52] LABS: INR 0.97 (0.8-1.2)
[2021-08-17 10:53] LABS: Partial Thromboplastin Time 28.6 SECONDS (23.9-36.7)
[2021-08-17 10:56] LABS: Basophils % 0.8 %; Eosinophils # 0.1 10^3/uL (0.0-0.8); Eosinophils % 1.8 %; Hematocrit 45.5 % (37.0-47.0); Hemoglobin 14.4 g/dL (11.5-15.3); Lymphocytes # 1.3 10^3/uL (0.8-4.8); Lymphocytes % 25.1 %; Mean Corpuscular HGB Conc 31.6 g/dL (30.0-36.0); Mean Corpuscular Hemoglobin 29.9 pg (28.0-34.0); Mean Corpuscular Volume 94.6 fl (81-99); Mean Platelet Volume 12.9 fL (7.4-10.4); Monocytes # 0.4 10^3/uL (0.2-0.9); Monocytes % 7.9 %; Neutrophils # 3.25 10^3/uL (1.8-7.7); Neutrophils % 64.2 %; Nucleated Red Blood Cells % 0 %; Platelet Count 133 10^3/cmm (130-400); Red Blood Count 4.81 10^6/uL (4.1-5.3); Red Cell Distribution Width 14.2 % (12.1-15.1); White Blood Count 5.1 10^3/uL (4.0-10.0)
--- NOTE | 2021-08-20 10:50 | PC.SOCIAL ---
Addendum entered by Loida Jenkins RN 08/21/21 09:56: Patient returned call and confirmed that she will see Dr Dubose on Aug. Original Note: Called Patient and verified she sees Dr Dubose. Called Cardiology clinic and appt was move from Sep to 09/02/21 at arrival time of 3:30 pm for 3:45 appt. Tried to call patient back but unable to reach left a voicemail with appt information and requested a call back.
--- NOTE | 2021-09-05 08:35 | DCPLANNER ---
Patient had an appointment scheduled for 09.02.[address] [facility] [address]. Dubose - patient did attend appointment.
== END 2021-08-17 12:12 | disposition home or self-care (01) ==
PROVIDERS: Emergency Provider Physician Assistant; PCP Physician Assistant
DX: I87.2 Venous insufficiency (chronic) (peripheral) (principal); Z79.82 Long term (current) use of aspirin; I10 Essential (primary) hypertension; E78.5 Hyperlipidemia, unspecified
CPT/HCPCS: 36415; 80053; 81003; 85025; 85610; 85730; 86140; 99283

== ENCOUNTER → 2021-08-19 10:01 | Day surgery (SDC) | payer MEDICARE, MEDICAID, SELFPAY ==
[2021-06-03 11:55] VITALS: BP 147/81; BMI 24.9
[2021-08-19 10:25] VITALS: BP 176/98; PULSE 67; RESP 18; TEMP 36.4; O2SAT 100
[2021-08-19] MEDS: cosyntropin 0.25 mg SDV IVP (10:40)
[2021-08-19 10:50] VITALS: BMI 24.7
[2021-08-19 12:52] LABS: Cosyntropin 30 Minute 18.85 mcg/dL
== END ==
PROVIDERS: PCP Physician Assistant; Visit Provider Internal Medicine
DX: D35.00 Benign neoplasm of unspecified adrenal gland (principal); E04.1 Nontoxic single thyroid nodule; E03.9 Hypothyroidism, unspecified; E16.2 Hypoglycemia, unspecified
CPT/HCPCS: 36415; 82533; 96374; J0834

== ENCOUNTER 2021-08-20 13:30 | Outpatient (CLI) | payer MEDICARE, MEDICAID, SELFPAY ==
[2021-06-03 11:55] VITALS: BP 147/81; BMI 24.9
[2021-08-20 14:11] LABS: Urine Creatinine 109 mg/dL (28-217)
[2021-08-20 14:22] LABS: Creatinine 24 Hour Urine 554.8 mg/dL (601-1689); Total Volume Urine 509 ml
[2021-08-23 20:49] LABS: Free Cortisol Urine 26.3 mcg/24 h (4.0-50.0); Total Urine 500 mL; Urine Creatinine 0.56 g/24 h (0.50-2.15)
== END 2021-08-20 13:31 | disposition home or self-care (01) ==
LOC: LAB 13:36
PROVIDERS: PCP Physician Assistant; Visit Provider Internal Medicine
DX: D35.00 Benign neoplasm of unspecified adrenal gland (principal); E03.9 Hypothyroidism, unspecified; E04.1 Nontoxic single thyroid nodule; E16.2 Hypoglycemia, unspecified; N39.0 Urinary tract infection, site not specified
CPT/HCPCS: 82530; 82570

== ENCOUNTER 2021-09-06 01:06 | Emergency (ER) | payer MEDICARE, MEDICAID, SELFPAY ==
[2021-06-03 11:55] VITALS: BP 147/81; BMI 24.9
[2021-09-06 01:07] VITALS: BP 182/89; PULSE 52; RESP 16; TEMP 36.4; O2SAT 98; BMI 24.1
--- NOTE | 2021-09-06 01:14 | CTR_ITS ---
PROCEDURE INFORMATION: Exam: CT Head Without Contrast Exam date and time: 09/06/2021 1:14 AM Age: 71 years old Clinical indication: Patient HX: Severe dizziness and weakness with n/v. History of vertigo. TECHNIQUE: Imaging protocol: Computed tomography of the head without contrast. Radiation optimization: All CT scans at this facility use at least one of these dose optimization techniques: automated exposure control; mA and/or kV adjustment per patient size (includes targeted exams where dose is matched to clinical indication); or iterative reconstruction. COMPARISON: CT head wo con* [id number] 04/02/2021 9:45 PM RADIATION DOSE METRICS: Total DLP (mGy-cm): 726.47 FINDINGS: Brain: Age appropriate atrophy and small vessel ischemic change. 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 No evidence of intracranial hemorrhage, mass effect, midline shift or extra-axial fluid collections. Midline structures are normal. Arroyo-white matter differentiation is normal. Cerebral ventricles: No ventriculomegaly. Paranasal sinuses: Mucosal thickening in the ethmoid and sphenoid sinuses. Mastoid air cells: Visualized mastoid air cells are well aerated. Vasculature: Carotid atherosclerotic calcification. Bones/joints: Unremarkable. No acute fracture. Soft tissues: Unremarkable. CT/CT head wo con* [id number] IMPRESSION: No acute intracranial abnormality. Radiation Dose CTDIVOL = (mGy): DLP = 726.47 (mGy-cm)
--- NOTE | 2021-09-06 01:14 | CTR_ITS ---
PROCEDURE INFORMATION: Exam: CT Angiography Head With Contrast, Arteriography Exam date and time: 09/06/2021 1:14 AM Age: 71 years old Clinical indication: Prior surgery; Surgery type: Thyroidectomy; Patient HX: Severe dizziness and weakness with n/v. History of vertigo. TECHNIQUE: Imaging protocol: Computed tomography angiography of the head with contrast. Exam focused on the arteries. 3D rendering (Not supervised by radiologist): MIP and/or 3D reconstructed images were created by the technologist. Radiation optimization: All CT scans at this facility use at least one of these dose optimization techniques: automated exposure control; mA and/or kV adjustment per patient size (includes targeted exams where dose is matched to clinical indication); or iterative reconstruction. Contrast material: OMNI 350; Contrast volume: 95 ml; Contrast route: INTRAVENOUS (IV); COMPARISON: CT angio headneck* [id number] 04/02/2021 10:51 PM RADIATION DOSE METRICS: Total DLP (mGy-cm): 1516.64 FINDINGS: ANTERIOR CIRCULATION: Right internal carotid artery: Unremarkable. Intracranial segment is patent with no significant stenosis. No aneurysm. Right middle cerebral artery: Unremarkable. No occlusion or significant stenosis. No aneurysm. Right anterior cerebral artery: Unremarkable. No occlusion or significant stenosis. No aneurysm. Left internal carotid artery: Unremarkable. Intracranial segment is patent with no significant stenosis. No aneurysm. Left middle cerebral artery: Unremarkable. No occlusion or significant stenosis. No aneurysm. Left anterior cerebral artery: Unremarkable. No occlusion or significant stenosis. No aneurysm. POSTERIOR CIRCULATION: Right vertebral artery: Unremarkable. No occlusion or significant stenosis. No aneurysm. Left vertebral artery: Unremarkable. No occlusion or significant stenosis. No aneurysm. Basilar artery: Unremarkable. No occlusion or significant stenosis. No aneurysm. Right posterior cerebral artery: There is a origin right EDGE BANDER HAND. Left posterior cerebral artery: There is a origin left EDGE BANDER HAND. Brain: No definite mass, mass effect, or midline shift. Cerebral ventricles: No ventriculomegaly. Bones/joints: Unremarkable. No acute fracture. Soft tissues: Unremarkable. IMPRESSION: No acute vascular abnormality. PROCEDURE INFORMATION: Exam: CT Angiography Neck With Contrast Exam date and time: 09/06/2021 1:14 AM Age: 71 years old Clinical indication: Prior surgery; Surgery type: Thyroidectomy; Patient HX: Severe dizziness and weakness with n/v. History of vertigo. TECHNIQUE: Imaging protocol: Computed tomography angiography of the neck with contrast. 3D rendering (Not supervised by radiologist): MIP and/or 3D reconstructed images were created by the technologist. Radiation optimization: All CT scans at this facility use at least one of these dose optimization techniques: automated exposure control; mA and/or kV adjustment per patient size (includes targeted exams where dose is matched to clinical indication); or iterative reconstruction. Contrast material: OMNI 350; Contrast volume: 95 ml; Contrast route: INTRAVENOUS (IV); COMPARISON: CT angio headne* [id number] 04/02/2021 10:51 PM RADIATION DOSE METRICS: Total DLP (mGy-cm): 1516.64 FINDINGS: Right common carotid artery: No stenosis. No dissection or occlusion. Right internal carotid artery: No stenosis of the extracranial segment. No dissection or occlusion. Right external carotid artery: No occlusion or stenosis of the origin. Left common carotid artery: No stenosis. No dissection or occlusion. Left internal carotid artery: No stenosis of the extracranial segment. No dissection or occlusion. Left external carotid artery: No occlusion or stenosis of the origin. Right vertebral artery: No stenosis. No dissection or occlusion. Left vertebral artery: There is a dominant left vertebral artery. Soft tissues: Normal. No significant soft tissue swelling. Bones/joints: No acute fracture. CT[facility] [id number] IMPRESSION: No acute vascular abnormality. REFERENCES: NASCET CRITERIA. The degree of internal carotid artery stenosis is based on NASCET criteria. Normal is no stenosis. Mild is less than 50% stenosis. Moderate is 50-69% stenosis. Severe is 70% to 99% stenosis. Total occlusion is no detectable patent lumen. Radiation Dose CTDIVOL = (mGy): DLP = 1516.64~1516.64 (mGy-cm)
--- NOTE | 2021-09-06 01:14 | XRR_ITS ---
PROCEDURE INFORMATION: Exam: XR Chest Exam date and time: 09/06/2021 1:14 AM Age: 71 years old Clinical indication: Prior surgery; Surgery type: Breast biopsy; Patient HX: General weakness. Nausea. History of vertigo. History of copd. ; Additional info: HTN TECHNIQUE: Imaging protocol: XR of the chest. Views: 1 view. COMPARISON: CR IR myelogram spine thorac/lumb 05/02/2021 8:44 AM FINDINGS: Lungs: Unremarkable. No consolidation. Pleural spaces: Unremarkable. No pleural effusion. No pneumothorax. Heart/Mediastinum: Unremarkable. No cardiomegaly. Bones/joints: Unremarkable. XR/XR chest 1V portable [id number] IMPRESSION: No acute findings. Radiation Dose CTDIVOL = (mGy): DLP = (mGy-cm)
--- NOTE | 2021-09-06 01:17 | W.ED.DIZZY ---
HPI - Dizziness General: Chief Complaint: Dizziness Stated Complaint: N/V Time Seen by Provider: 09/06/21 01:09 Source: patient and EMS Mode of arrival: EMS Limitations: no limitations History of Present Illness: HPI Narrative: 71-year-old female states she has not felt well all day. States she woke up at 6 took her meds and starting at 10 she did feel very dizzy lightheaded and nauseous. States anytime she moves she gets very dizzy states she when he time she ambulates she feels like she is running into cano. States she states still her symptoms are minimum. States she is having very difficulty getting time walking. Denies any history of stroke denies any headache denies any chest pain. Associated symptoms: Reports nausea; Denies chest pain or chills Review of Systems Const: Denies: fever(s), chills, body aches or change in appetite Eyes: Denies: blurry vision or eye discomfort ENMT: Denies: throat pain or dental pain Card: Denies: chest pain Resp: Denies: dyspnea GI: Reports: nausea : Denies: dysuria Musc: Denies: neck pain or back pain Skin/Breast: Denies: rash Neuro: Reports: difficulty walking and dizziness Psych: Denies: depression Bello/Lymph: Denies: easy bruising All/Imm: Denies: urticaria PFSH ED PFSH: Medical History Benign essential HTN Candidiasis of mouth Generalized anxiety disorder GERD (gastroesophageal reflux disease) Lori's disease High risk medication use History of kidney stones Hyperlipidemia Insomnia due to mental condition Onychomycosis Onychomycosis Osteoporosis Post-traumatic stress disorder, chronic Psychiatric care Renal cyst Surgical History H/O section H/O colonoscopy H/O esophagogastroduodenoscopy S/P breast biopsy S/P lumpectomy of breast S/P thyroidectomy S/P tonsillectomy Family History Mother , 89 Dementia Father No problems noted. Family/Other Bleeding disorder cousin, hemophilia Denies family history of Anesthesia complication Social History Smoking and tobacco status: former smoker Quit status (tobacco): not considering quitting Smoking risk assessment/counseling performed?: Yes Alcohol intake: never Counseling given: No Counseling given: No Adopted: No Caregiver/support person: No Lives independently: Yes Household members: none Housing: Apartment Marital status: Number of children: 4 Number of grandchildren: 11 Highest education level completed: GED or Equivalent service: No Current occupational status: retired Current occupational exposures/hazards: No Pets and animals: No History of recent travel: No Leisure activites: art, games and other Leisure activities details: Wii bowling, Bingo, craft Sexually active: No Current gender identity: Female Cara/Buddhist: Moravian Special cara needs: No Agree to transfusion: No Financial difficulty paying for basics: Not Very Hard Female Reproductive History: Para: 4 Physical Exam Const: COMMON NORMALS: no acute distress, patient oriented x3 and healthy appearing HENMT: COMMON NORMALS: normocephalic and atraumatic HEAD & SCALP: normocephalic and atraumatic Eye: COMMON NORMALS: Equal, round and reactive pupils present and EOMs intact bilaterally PUPIL: Yes Equal, round and reactive pupils present Neck/C-Spine: COMMON NORMALS: full ROM and supple Chest: COMMONS NORMALS: normal inspection of the chest and normal palpation of entire chest wall Resp: COMMON NORMALS: normal respiratory effort, No retractions, No use of accessory muscles and clear to auscultation bilaterally AUSCULTATION: clear to auscultation bilaterally Cardio: COMMON NORMALS: regular rate, regular rhythm and No murmurs present (Cardio) RATE: regular rate RHYTHM: regular rhythm GI: COMMON NORMALS: Normal to inspection, nondistended, normoactive bowel sounds present, Soft to palpation, non-tender and no masses PALPATION: Yes Soft to palpation Extremity: COMMON NORMALS: normal to inspection and full ROM Neuro: COMMON NORMALS: patient oriented x3, moves all extremities and no focal motor deficits Psych: COMMON NORMALS: mental status grossly normal, Normal thought process present and cooperative THOUGHT PROCESS: Normal thought process present Skin: COMMON NORMALS: no rashes or lesions noted and no wounds GENERAL SKIN EXAM: no rashes or lesions noted Course Vital Signs: Vital signs: Vital Signs Temperature 97.6 F 09/06/21 01:07 Pulse Rate 50 L 09/06/21 04:18 Respiratory Rate 14 09/06/21 04:18 Blood Pressure 146/72 09/06/21 04:18 Pulse Oximetry 98 09/06/21 04:18 MDM - Dizziness MDM Narrative: Medical decision making narrative: Patient presents here with vertigo is likely peripheral in nature her symptoms have since resolved here after meclizine patient was able ambulate to bathroom back with normal dizziness CT of the head and CT are normal no signs of stroke or difficulty meclizine for home if her symptoms worsen she is to return immediately she is to follow-up with PCP in 2 to 4 days she understands agrees to plan. Lab Data: Labs: Lab Results 09/06/21 09/06/21 09/06/21 00:53 00:53 00:53 WBC 6.0 10^3/uL 10^3/ uL (4.0-10.0) RBC 4.79 10^6/uL 10^6 /uL (4.1-5.3) Hgb 14.2 g/dL g/dL (11.5-15.3) Hct 45.1 % % (37.0-47.0) MCV 94.2 fl fl (81-99) MCH 29.6 pg pg (28.0-34.0) MCHC 31.5 g/dL g/dL (30.0-36.0) RDW 13.6 % % (12.1-15.1) Plt Count 147 10^3/cmm 10^3 /cmm (130-400) MPV 12.6 fL H fL (7.4-10.4) Neut % (Auto) 59.0 % % Lymph % (Auto) 30.7 % % [place] % (Auto) 7.0 % % Eos % (Auto) 2.2 % % Baso % (Auto) 0.8 % % Neut # (Auto) 3.53 10^3/uL 10^3 /uL (1.8-7.7) Lymph # (Auto) 1.8 10^3/uL 10^3/ uL (0.8-4.8) [place] # (Auto) 0.4 10^3/uL 10^3/ uL (0.2-0.9) Eos # (Auto) 0.1 10^3/uL 10^3/ uL (0.0-0.8) Baso # (Auto) 0.1 10^3/uL 10^3/ uL (0.0-0.1) Nucleated RBC % (a uto) 0 % % Nucleated RBCs # 0.0 /100WBC /100W BC PT 12.90 SECONDS SEC ONDS (12.1-14.9) INR 0.94 (0.8-1.2) Sodium 142 mmol/L mmol/L (136-145) Potassium 4.1 mmol/L mmol/L (3.5-5.1) Chloride 104 mmol/L mmol/L (98-107) Carbon Dioxide 27 mmol/L mmol/L (22-29) Anion Gap 15.1 (5-19) BUN 20 mg/dL mg/dL (8-23) Creatinine 0.8 mg/dL mg/dL (0.5-0.9) GFR Calculation Not Reportable Glucose 88 mg/dL mg/dL (65-115) Calculated Osmolal ity 296 mOsm/kg H mOs m/kg (285-295) Calcium 9.4 mg/dL mg/dL (8.5-10.5) Total Bilirubin 0.3 mg/dL mg/dL (0.15-1.2) AST 15 U/L U/L (0-32) ALT 13 U/L U/L (0-33) Alkaline Phosphata se 80 IU/L IU/L (35-105) Troponin T Baselin e Troponin T 120 Min [place] Delta Troponin T Total Protein 7.0 g/dL g/dL (6.6-8.7) Albumin 4.4 g/dL g/dL (3.5-5.2) Globulin 2.6 g/dL g/dL (1.3-4.6) TSH 0.31 uIU/mL uIU/m L (0.27-4.20) 09/06/21 09/06/21 00:53 03:27 WBC RBC Hgb Hct MCV MCH MCHC RDW Plt Count MPV Neut % (Auto) Lymph % (Auto) [place] % (Auto) Eos % (Auto) Baso % (Auto) Neut # (Auto) Lymph # (Auto) [place] # (Auto) Eos # (Auto) Baso # (Auto) Nucleated RBC % (a uto) Nucleated RBCs # PT INR Sodium Potassium Chloride Carbon Dioxide Anion Gap BUN Creatinine GFR Calculation Glucose Calculated Osmolal ity Calcium Total Bilirubin AST ALT Alkaline Phosphata se Troponin T Baselin e 17 ng/L H ng/L (0-10) Troponin T 120 Min [place] 13.80 ng/L H ng/L (0-10) Delta Troponin T -3.20 ABS# L ABS# (0-10) Total Protein Albumin Globulin TSH Imaging Data^: CXR: Attestation: I personally reviewed and interpreted this imaging study as follows: Radiologist's impression: [address] [facility]. [place] [id number] XRay Report Signed Patient: Wen Voss Unit #: [id number] : 1950 Age/Sex: 71 / F ADM Date: 09/06/21 Loc: ER Room/Bed: Attending Dr: Ordering Provider/Ordering MD: Nayeli Rush MD Date of Service: 09/06/21 Procedure(s): XR chest 1V portable [id number] Accession Number(s): [id number] Report Number: [id number] PROCEDURE INFORMATION: Exam: XR Chest Exam date and time: 09/06/2021 1:14 AM Age: 71 years old Clinical indication: Prior surgery; Surgery type: Breast biopsy; Patient HX: General weakness. Nausea. History of vertigo. History of copd. ; Additional info: HTN TECHNIQUE: Imaging protocol: XR of the chest. Views: 1 view. COMPARISON: CR IR myelogram spine thorac/lumb 05/02/2021 8:44 AM FINDINGS: Lungs: Unremarkable. No consolidation. Pleural spaces: Unremarkable. No pleural effusion. No pneumothorax. Heart/Mediastinum: Unremarkable. No cardiomegaly. Bones/joints: Unremarkable. XR/XR chest 1V portable [id number] IMPRESSION: No acute findings. Radiation Dose CTDIVOL = (mGy): DLP = (mGy-cm) Dictated By: Garrett Sheikh MD Signed By: Garrett Sheikh MD Signed Date/Time: 09/06/21237 DD/ 3 CT Head: Radiologist's impression: [facility] [address] [facility] [place] [address] CT Scan Report Signed Patient: Wen Voss Unit #: [id number] : 1950 Age/Sex: 71 / F ADM Date: 09/06/21 Loc: ER Room/Bed: Attending Dr: Ordering Provider/Ordering MD: Nayeli Rsuh MD Date of Service: 09/06/21 Procedure(s): CT head wo con* [id number] Accession Number(s): [id number] Report Number: [id number] PROCEDURE INFORMATION: Exam: CT Head Without Contrast Exam date and time: 09/06/2021 1:14 AM Age: 71 years old Clinical indication: Patient HX: Severe dizziness and weakness with n/v. History of vertigo. TECHNIQUE: Imaging protocol: Computed tomography of the head without contrast. Radiation optimization: All CT scans at this facility use at least one of these dose optimization techniques: automated exposure control; mA and/or kV adjustment per patient size (includes targeted exams where dose is matched to clinical indication); or iterative reconstruction. COMPARISON: CT head wo con* [id number] 04/02/2021 9:45 PM RADIATION DOSE METRICS: Total DLP (mGy-cm): 726.47 FINDINGS: Brain: Age appropriate atrophy and small vessel ischemic change. 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 No evidence of intracranial hemorrhage, mass effect, midline shift or extra-axial fluid collections. Midline structures are normal. Arroyo-white matter differentiation is normal. Cerebral ventricles: No ventriculomegaly. Paranasal sinuses: Mucosal thickening in the ethmoid and sphenoid sinuses. Mastoid air cells: Visualized mastoid air cells are well aerated. Vasculature: Carotid atherosclerotic calcification. Bones/joints: Unremarkable. No acute fracture. Soft tissues: Unremarkable. CT/CT head wo con* [id number] IMPRESSION: No acute intracranial abnormality. Radiation Dose CTDIVOL = (mGy): DLP = 726.47 (mGy-cm) Dictated By: Garrett Sheikh MD Signed By: Garrett Sheikh MD Signed Date/Time: 09/06/21 0302 DD/ [address]: Attestation: I personally reviewed and interpreted this imaging study as follows: Radiologist's impression: [facility] [address] [address] [address] Scan Report Signed Patient: Wen Voss Unit #: [id number] : 1950 Age/Sex: 71 / F ADM Date: 09/06/21 Loc: ER Room/Bed: Attending Dr: Ordering Provider/Ordering MD: Nayeli Rush MD Date of Service: 09/06/21 Procedure(s): CT angio headneck* [id number] Accession Number(s): [id number] Report Number: [id number] PROCEDURE INFORMATION: Exam: CT Angiography Head With Contrast, Arteriography Exam date and time: 09/06/2021 1:14 AM Age: 71 years old Clinical indication: Prior surgery; Surgery type: Thyroidectomy; Patient HX: Severe dizziness and weakness with n/v. History of vertigo. TECHNIQUE: Imaging protocol: Computed tomography angiography of the head with contrast. Exam focused on the arteries. 3D rendering (Not supervised by radiologist): MIP and/or 3D reconstructed images were created by the technologist. Radiation optimization: All CT scans at this facility use at least one of these dose optimization techniques: automated exposure control; mA and/or kV adjustment per patient size (includes targeted exams where dose is matched to clinical indication); or iterative reconstruction. Contrast material: OMNI 350; Contrast volume: 95 ml; Contrast route: INTRAVENOUS (IV); COMPARISON: CT angio headneck* [id number] 04/02/2021 10:51 PM RADIATION DOSE METRICS: Total DLP (mGy-cm): 1516.64 FINDINGS: ANTERIOR CIRCULATION: Right internal carotid artery: Unremarkable. Intracranial segment is patent with no significant stenosis. No aneurysm. Right middle cerebral artery: Unremarkable. No occlusion or significant stenosis. No aneurysm. Right anterior cerebral artery: Unremarkable. No occlusion or significant stenosis. No aneurysm. Left internal carotid artery: Unremarkable. Intracranial segment is patent with no significant stenosis. No aneurysm. Left middle cerebral artery: Unremarkable. No occlusion or significant stenosis. No aneurysm. Left anterior cerebral artery: Unremarkable. No occlusion or significant stenosis. No aneurysm. POSTERIOR CIRCULATION: Right vertebral artery: Unremarkable. No occlusion or significant stenosis. No aneurysm. Left vertebral artery: Unremarkable. No occlusion or significant stenosis. No aneurysm. Basilar artery: Unremarkable. No occlusion or significant stenosis. No aneurysm. Right posterior cerebral artery: There is a origin right LANDSCAPE SUPERVISOR. Left posterior cerebral artery: There is a origin left LANDSCAPE SUPERVISOR. Brain: No definite mass, mass effect, or midline shift. Cerebral ventricles: No ventriculomegaly. Bones/joints: Unremarkable. No acute fracture. Soft tissues: Unremarkable. IMPRESSION: No acute vascular abnormality. PROCEDURE INFORMATION: Exam: CT Angiography Neck With Contrast Exam date and time: 09/06/2021 1:14 AM Age: 71 years old Clinical indication: Prior surgery; Surgery type: Thyroidectomy; Patient HX: Severe dizziness and weakness with n/v. History of vertigo. TECHNIQUE: Imaging protocol: Computed tomography angiography of the neck with contrast. 3D rendering (Not supervised by radiologist): MIP and/or 3D reconstructed images were created by the technologist. Radiation optimization: All CT scans at this facility use at least one of these dose optimization techniques: automated exposure control; mA and/or kV adjustment per patient size (includes targeted exams where dose is matched to clinical indication); or iterative reconstruction. Contrast material: OMNI 350; Contrast volume: 95 ml; Contrast route: INTRAVENOUS (IV); COMPARISON: CT angio headneck* [id number] 04/02/2021 10:51 PM RADIATION DOSE METRICS: Total DLP (mGy-cm): 1516.64 FINDINGS: Right common carotid artery: No stenosis. No dissection or occlusion. Right internal carotid artery: No stenosis of the extracranial segment. No dissection or occlusion. Right external carotid artery: No occlusion or stenosis of the origin. Left common carotid artery: No stenosis. No dissection or occlusion. Left internal carotid artery: No stenosis of the extracranial segment. No dissection or occlusion. Left external carotid artery: No occlusion or stenosis of the origin. Right vertebral artery: No stenosis. No dissection or occlusion. Left vertebral artery: There is a dominant left vertebral artery. Soft tissues: Normal. No significant soft tissue swelling. Bones/joints: No acute fracture. CT/CT angio headneck* [id number] IMPRESSION: No acute vascular abnormality. REFERENCES: NASCET CRITERIA. The degree of internal carotid artery stenosis is based on NASCET criteria. Normal is no stenosis. Mild is less than 50% stenosis. Moderate is 50-69% stenosis. Severe is 70% to 99% stenosis. Total occlusion is no detectable patent lumen. Radiation Dose CTDIVOL = (mGy): DLP = 1516.64 1516.64 (mGy-cm) Dictated By: Garrett Sheikh MD Signed By: Garrett Sheikh MD Signed Date/Time: 09/06/21312 EKG Data^: EKG 1: Attestation: I personally reviewed and interpreted this EKG as follows: EKG interpretation date: 09/06/21 EKG interpretation time: 01:22 Interpretation: sinus triston hr [address] or t wave abnormalities qrs 74 qtc 445 Discharge Plan Discharge Patient Disposition: Home Clinical Impression: Dizziness Condition: Stable Prescriptions: New Antivert 50 mg tablet 50 mg PO BID PRN (Reason: dizziness) Qty: 20 RF: 0 No Action aspirin [Adult Aspirin Regimen] 81 mg tablet,delayed release (DR/EC) 81 mg PO DAILY RF: 0 Anoro Ellipta 62.5-25 mcg/actuation blister with device 1 inh inhalation DAILY RF: 0 melatonin 10 mg tablet 10 mg PO DIRECTED PRN (Reason: sleep) Qty: 30 RF: 3 levothyroxine 50 mcg tablet 50 mcg PO DAILY RF: 0 furosemide 20 mg tablet 20 mg PO DAILY PRN (Reason: edema) Qty: 90 RF: 2 pantoprazole [Protonix] 40 mg tablet,delayed release (DR/EC) 40 mg PO BID RF: 0 Lunesta 3 mg tablet 3 mg PO BEDTIME Qty: 30 RF: 3 Klonopin 0.5 mg tablet 0.25 mg PO .morning PRN (Reason: anxiety) Qty: 30 RF: 1 alendronate [Fosamax] 70 mg tablet 70 mg PO Q7D Qty: 4 RF: 2 atorvastatin 20 mg tablet 20 mg PO DAILY Qty: 14 RF: 0 valsartan 80 mg tablet 80 mg PO DAILY Qty: 90 RF: 3 metoprolol tartrate 50 mg tablet 50 mg PO BID Qty: 60 RF: 3 ipratropium-albuterol 0.5 mg-3 mg(2.5 mg base)/3 mL solution for nebulization 3 ml INHALATION Q6H PRN (Reason: shortness of breath or wheezing) Qty: 90 RF: 0 Discharge Orders: Discharge ED (Routine); Ordered 09/06/21 Ordered By: Nayeli Rush Referrals: Lisa Puente PA [Primary Care Provider] - Discharge Diet: Advance as tolerated Discharge Activity: Resume usual activity Patient Instructions: Vertigo (ED) Coding Level of Care Code ED Spot Welder Body Assembly for Chg Fwd Exam Comprehensive NIH stroke score NIHSS Level Of Consciousness - 1a: 0 Level Of Consciousness Questions - 1b: Both Correct Level Of Consciousness Commands - 1c: Both Correct Best Gaze - 2: Normal Visual Rosas - 3: No Visual Loss Facial Palsy - 4: Normal Motor Arm Right - 5: No Drift Motor Arm Left - 5: No Drift Motor Leg Right - 6: No Drift Motor Leg Left - 6: No Drift Limb Ataxia - 7: Absent Sensory - 8: Normal Best Language - 9: No Aphasia Dysarthia - 10: Normal Extinction And Inattention - 11: 0 Score Total Score: 0
[2021-09-06] MEDS: meclizine 25 mg tablet 50 MG PO (01:31)
[2021-09-06 01:43] LABS: Basophils # 0.1 10^3/uL (0.0-0.1); Basophils % 0.8 %; Eosinophils # 0.1 10^3/uL (0.0-0.8); Eosinophils % 2.2 %; Hematocrit 45.1 % (37.0-47.0); Hemoglobin 14.2 g/dL (11.5-15.3); Lymphocytes # 1.8 10^3/uL (0.8-4.8); Lymphocytes % 30.7 %; Mean Corpuscular HGB Conc 31.5 g/dL (30.0-36.0); Mean Corpuscular Hemoglobin 29.6 pg (28.0-34.0); Mean Corpuscular Volume 94.2 fl (81-99); Mean Platelet Volume 12.6 fL (7.4-10.4); Monocytes # 0.4 10^3/uL (0.2-0.9); Neutrophils # 3.53 10^3/uL (1.8-7.7); Nucleated Red Blood Cells % 0 %; Platelet Count 147 10^3/cmm (130-400); Red Blood Count 4.79 10^6/uL (4.1-5.3); Red Cell Distribution Width 13.6 % (12.1-15.1)
[2021-09-06 01:55] LABS: INR 0.94 (0.8-1.2)
[2021-09-06 02:07] LABS: Troponin(5th) Baseline 17 ng/L (0-10)
[2021-09-06 02:14] LABS: Alanine Aminotransferase 13 U/L (0-33); Albumin Level 4.4 g/dL (3.5-5.2); Alkaline Phosphatase 80 IU/L (35-105); Anion Gap 15.1 (5-19); Aspartate Amino Transferase 15 U/L (0-32); Blood Urea Nitrogen 20 mg/dL (8-23); Calcium 9.4 mg/dL (8.5-10.5); Carbon Dioxide 27 mmol/L (22-29); Chloride 104 mmol/L (98-107); Globulin 2.6 g/dL (1.3-4.6); Glucose 88 mg/dL (65-115); Osmolality Calculated 296 mOsm/kg (285-295); Potassium 4.1 mmol/L (3.5-5.1); Sodium 142 mmol/L (136-145); Thyroid Stimulating Hormone 0.31 uIU/mL (0.27-4.20); Total Bilirubin 0.3 mg/dL (0.15-1.2)
[2021-09-06] MEDS: LORazepam 2 mg/mL INJ 1 mL 0.5 MG IVP (02:15)
[2021-09-06] MEDS: iohexol 350 mg/mL 100 mL Btl IV (02:40)
[2021-09-06 04:18] VITALS: BP 146/72; PULSE 50; RESP 14; O2SAT 98
--- NOTE | 2021-09-06 05:45 | P.HP_ITS ---
Providers/Chief Complaint Primary Care Provider: Lisa Puente Chief Complaint: N/V History of Present Illness Wen Voss is a 71 year old female with past medical history of hypertension, COPD, anxiety, MS who is presenting with complaints of dizziness and vertigo which started yesterday suddenly. History describes her symptoms as severe. Has associated problems with balance, nausea. Reports similar episodes in the past when she had active MS. She denies any associated muscle weakness or sensory loss, headache, problems with vision. No vomiting. No fever or chills. No runny nose or sore throat. No chest pain, shortness of breath, cough, palpitations. Meclizine in the emergency room provided partial relief of the symptoms. However she still has ataxia and is unable to stand up and ambulate. Review of Systems General: Reports: 10 or more systems reviewed and unremarkable except in HPI and below Medications/Allergies Home Medications Medication Instructions Recorded Confirmed Last Taken Type pantoprazole 40 mg tablet,delayed 40 mg PO BID tab 11/11/19 08/13/21 12/31/19 History release aspirin 81 mg tablet,delayed 81 mg PO DAILY 11/25/19 08/13/21 12/31/19 History release alendronate 70 mg tablet 70 mg PO Q7D #4 tab 04/05/20 08/13/21 Unknown Rx ipratropium-albuterol 3 ml INHALATION Q6H PRN #90 ml 05/01/20 08/13/21 Unknown Rx atorvastatin 20 mg tablet 20 mg PO DAILY #14 tab 11/14/20 08/13/21 Unknown Rx valsartan 80 mg tablet 80 mg PO DAILY #90 tab 12/13/20 08/13/21 Unknown Rx melatonin 10 mg tablet 10 mg PO DIRECTED PRN #30 tab 02/13/21 08/13/21 Unknown Rx metoprolol tartrate 50 mg tablet 50 mg PO BID #60 tab 06/11/21 08/13/21 Unknown Rx umeclidinium 62.5 mcg-vilanterol 1 inh INHALATION DAILY 07/11/21 08/13/21 Unknown History 25 mcg/actuation powdr for inhalation eszopiclone 3 mg tablet 3 mg PO BEDTIME #30 tab 07/18/21 08/13/21 Unknown Rx clonazepam 0.5 mg tablet 0.25 mg PO .morning PRN #30 tab 08/14/21 08/14/21 08/19/21 Rx furosemide 20 mg tablet 20 mg PO DAILY PRN #90 tab 09/02/21 09/02/21 Unknown Rx levothyroxine 50 mcg tablet 50 mcg PO DAILY tab 09/02/21 Unknown History meclizine [Antivert] 50 mg PO BID PRN #20 tab 09/06/21 Unknown Rx Allergies Allergy/AdvReac Type Severity Reaction Status Date / Time butorphanol [From Stadol] AdvReac Mild ADR-Vomitin Verified 09/02/21 15:42 g duloxetine [From Cymbalta] AdvReac Mild ADR-Vomitin Verified 09/02/21 15:42 g PFSH Acute PFSH: Medical History Benign essential HTN Candidiasis of mouth Generalized anxiety disorder GERD (gastroesophageal reflux disease) Lori's disease High risk medication use History of kidney stones Hyperlipidemia Insomnia due to mental condition Onychomycosis Onychomycosis Osteoporosis Post-traumatic stress disorder, chronic Psychiatric care Renal cyst Surgical History H/O section H/O colonoscopy H/O esophagogastroduodenoscopy S/P breast biopsy S/P lumpectomy of breast S/P thyroidectomy S/P tonsillectomy Family History Mother , 89 Dementia Father No problems noted. Family/Other Bleeding disorder cousin, hemophilia Denies family history of Anesthesia complication Social History Smoking and tobacco status: former smoker Quit status (tobacco): not considering quitting Smoking risk assessment/counseling performed?: Yes Alcohol intake: never Counseling given: No Counseling given: No Adopted: No Caregiver/support person: No Lives independently: Yes Household members: none Housing: Apartment Marital status: Number of children: 4 Number of grandchildren: 11 Highest education level completed: GED or Equivalent service: No Current occupational status: retired Current occupational exposures/hazards: No Pets and animals: No History of recent travel: No Leisure activites: art, games and other Leisure activities details: Wii bowling, Bingo, craft Sexually active: No Current gender identity: Female Cara/Buddhist: Lutheran Special cara needs: No Agree to transfusion: No Financial difficulty paying for basics: Not Very Hard Female Reproductive History: Para: 4 Vitals/I&O/Wt Last Vital Signs Temp 97.6 F 09/06/21 01:07 Pulse 50 L 09/06/21 04:18 Resp 14 09/06/21 04:18 BP 146/72 09/06/21 04:18 Pulse Ox 98 09/06/21 04:18 Weight last 48 hrs Weight 65.771 kg Physical Exam Narrative: EXAM NARRATIVE: Slightly sleepy but responses are adequate. Oriented x4. No acute distress currently. Skin is warm and dry. Moist mucous membranes Eyes PERRL, extraocular muscles are intact. Developing vertigo when performance this test. No nystagmus Neck supple. No JVD Lungs are clear to auscultation bilaterally. No wheezes or crackles Heart S1, S2, regular Abdomen soft, nontender, bowel sounds are present Extremities no edema cyanosis or calf tenderness bilaterally Cerebellar testing upper extremities are grossly intact. No focal weakness on evaluation. Sensation seems to be intact. Normal speech. No facial asymmetry. Data : 09/06/21 00:53 09/06/21 00:53 Other Labs: Laboratory Results WBC 6.0 10^3/uL (4.0-10.0) 09/06/21 00:53 RBC 4.79 10^6/uL (4.1-5.3) 09/06/21 00:53 Hgb 14.2 g/dL (11.5-15.3) 09/06/21 00:53 Hct 45.1 % (37.0-47.0) 09/06/21 00:53 MCV 94.2 fl (81-99) 09/06/21 00:53 MCH 29.6 pg (28.0-34.0) 09/06/21 00:53 MCHC 31.5 g/dL (30.0-36.0) 09/06/21 00:53 RDW 13.6 % (12.1-15.1) 09/06/21 00:53 Plt Count 147 10^3/cmm (130-400) 09/06/21 00:53 MPV 12.6 fL (7.4-10.4) H 09/06/21 00:53 Neut % (Auto) 59.0 % 09/06/21 00:53 Lymph % (Auto) 30.7 % 09/06/21 00:53 [place] % (Auto) 7.0 % 09/06/21 00:53 Eos % (Auto) 2.2 % 09/06/21 00:53 Baso % (Auto) 0.8 % 09/06/21 00:53 Neut # (Auto) 3.53 10^3/uL (1.8-7.7) 09/06/21 00:53 Lymph # (Auto) 1.8 10^3/uL (0.8-4.8) 09/06/21 00:53 [place] # (Auto) 0.4 10^3/uL (0.2-0.9) 09/06/21 00:53 Eos # (Auto) 0.1 10^3/uL (0.0-0.8) 09/06/21 00:53 Baso # (Auto) 0.1 10^3/uL (0.0-0.1) 09/06/21 00:53 Nucleated RBC % (auto) 0 % 09/06/21 00:53 Nucleated RBCs # 0.0 /100WBC 09/06/21 00:53 PT 12.90 SECONDS (12.1-14.9) 09/06/21 00:53 INR 0.94 (0.8-1.2) 09/06/21 00:53 Sodium 142 mmol/L (136-145) 09/06/21 00:53 Potassium 4.1 mmol/L (3.5-5.1) 09/06/21 00:53 Chloride 104 mmol/L (98-107) 09/06/21 00:53 Carbon Dioxide 27 mmol/L (22-29) 09/06/21 00:53 Anion Gap 15.1 (5-19) 09/06/21 00:53 BUN 20 mg/dL (8-23) 09/06/21 00:53 Creatinine 0.8 mg/dL (0.5-0.9) 09/06/21 00:53 GFR Calculation Not Reportable 09/06/21 00:53 Glucose 88 mg/dL (65-115) 09/06/21 00:53 Calculated Osmolality 296 mOsm/kg (285-295) H 09/06/21 00:53 Calcium 9.4 mg/dL (8.5-10.5) 09/06/21 00:53 Total Bilirubin 0.3 mg/dL (0.15-1.2) 09/06/21 00:53 AST 15 U/L (0-32) 09/06/21 00:53 ALT 13 U/L (0-33) 09/06/21 00:53 Alkaline Phosphatase 80 IU/L (35-105) 09/06/21 00:53 Troponin T Baseline 17 ng/L (0-10) H 09/06/21 00:53 Troponin T 120 Minute 13.80 ng/L (0-10) H 09/06/21 03:27 Delta Troponin T -3.20 ABS# (0-10) L 09/06/21 03:27 Total Protein 7.0 g/dL (6.6-8.7) 09/06/21 00:53 Albumin 4.4 g/dL (3.5-5.2) 09/06/21 00:53 Globulin 2.6 g/dL (1.3-4.6) 09/06/21 00:53 TSH 0.31 uIU/mL (0.27-4.20) 09/06/21 00:53 Impressions Chest X-Ray 09/06/21 01:14 IMPRESSION: No acute findings. Radiation Dose CTDIVOL = (mGy): DLP = (mGy-cm) Head CT 09/06/21 01:14 IMPRESSION: No acute intracranial abnormality. Radiation Dose CTDIVOL = (mGy): DLP = 726.47 (mGy-cm) Head/Neck CTA 09/06/21 01:14 IMPRESSION: No acute vascular abnormality. REFERENCES: NASCET CRITERIA. The degree of internal carotid artery stenosis is based on NASCET criteria. Normal is no stenosis. Mild is less than 50% stenosis. Moderate is 50-69% stenosis. Severe is 70% to 99% stenosis. Total occlusion is no detectable patent lumen. Radiation Dose CTDIVOL = (mGy): DLP = 1516.64~1516.64 (mGy-cm) A&P Assessment and plan (1) Vertigo: Status: Acute (2) Multiple sclerosis: Status: Acute (3) Benign essential HTN: Status: Chronic Additional A&P Information 1 year old female with past medical history of hypertension, COPD, anxiety, MS who is presenting with complaints of dizziness and vertigo which started yesterday suddenly. Has associated problems with balance, nausea. Reports similar episodes in the past when she had active MS. Vertigo and ataxia. CT and CTA head and neck were unremarkable. Will admit the patient for observation. Will order MRI of the brain with and without contrast. Will continue managing her symptoms with meclizine, Zofran, Phenergan. PT OT eval. Uncontrolled hypertension. We will resume her home medications. Will order as needed hydralazine. It seems her bradycardia is chronic. COPD. No acute exacerbation. We will resume her home medications. DVT prophylaxis. SCDs. If she remains in the hospital longer than 1 midnight we will consider anticoagulation. The plan of care was discussed with the patient. She verbalized understanding and agreement. 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
[2021-09-06 09:55] VITALS: BP 168/83; PULSE 50; RESP 16; O2SAT 97
[2021-09-06] MEDS: aspirin 81 mg EC Tablet PO (10:09)
[2021-09-06] MEDS: LORazepam 2 mg/mL INJ 1 mL 1 MG IVP (10:10)
--- NOTE | 2021-09-06 10:15 | MR_ITS ---
WS: [id number] MRI HEAD WITH CONTRAST TECHNIQUE: Sagittal T1, T2 axial, T2 axial FLAIR, axial susceptibility weighted imaging, axial diffus ion weighted images, and coronal T2 images were obtained. Pre and post-T1 axial and post T1 coronal i mages. ADC and FSPGR images. CLINICAL INFORMATION: Verigo. MS? CVA? COMPARISON: CT September 06, 2021 MRI June 28, 2020 FINDINGS: No evidence of restricted diffusion to suggest acute ischemia. Ventricular system and basal cisterns are patent. Moderate patchy supra and infratentorial white matter changes compatible with small vesse l disease superimposed on background history of demyelination. Small vessel changes in the fredo. Norm al posterior fossa. Normal vascular flow voids at the skull base. No extra-axial fluid collections. N o evidence of mass or mass effect. No hemosiderin on susceptibly weighted images. Mild parenchymal vo lume loss. Normal optic chiasm and pituitary infundibulum. Temporal lobes and hippocampal formations are normal in appearance. No abnormal gadolinium enhancement. No enhancing lesions. MR/MR head wo/w con [id number] IMPRESSION: 1. No evidence of restricted diffusion to suggest acute ischemia. 2. Moderate patchy white matter changes unchanged from previous consistent wit h small vessel disease in a patient this age. Superimposed chronic underlying d emyelinating plaques. 3. No enhancing lesions. 4. Mild parenchymal volume loss. 5. Overall no significant changes from the prior MRI June 28, 2020
[2021-09-06] MEDS: gadobenate dimeglumine 20 mL vial IV (11:11)
--- NOTE | 2021-09-06 13:20 | PC.NURSE ---
PT AMB 30 FEET UNASSISTED. PT HAS A LIMP BUT IS ABLE TO WALK WITHOUT ASSISTANCE PT REPORTS USING A WALKER AT HOME.
--- NOTE | 2021-09-06 13:22 | PM.DCS ---
Discharge Providers Date of Discharge: September 06, 2021 Primary Care Provider: Lisa Puente Diagnoses at Discharge Discharge Diagnosis (1) Vertigo: Status: Acute (2) Multiple sclerosis: Status: Acute (3) Benign essential HTN: Status: Chronic Reason for Visit Reason for Visit: N/V Hospital Course Hospital Course Wen is a 71-year-old white female who presented to the emergency department with complaints of dizziness. This improved with meclizine, but was still significantly present as the patient could not ambulate. There was concern this might be a CVA so emergency department physician arrange for CT of head, which was negative as well as CTA of head and neck which was negative. Bradycardia was noted, sinus, with no obvious pauses or blocks. No evidence of severe electrolyte abnormality. Troponin slight elevation but no trend. She was monitored overnight and an MRI was performed the next day. This demonstrated no evidence of CVA. At that point she was able to ambulate 20 feet without concern. It was thought she could be discharged home, with close follow-up. Meclizine was given as needed for further dizziness. Metoprolol will be reduced to 12.5 mg twice a day and Norvasc added for hypertension. EKG was done prior to discharge demonstrated sinus bradycardia, borderline axis, normal QT interval, no evidence of heart blocks. Physical Exam Narrative: EXAM NARRATIVE: General exam no distress Neck is supple Cardiovascular regular rate and rhythm Lungs clear Abdomen is soft Extremities no cyanosis clubbing or edema Discharge Data Data Completed and Pending: Completed Studies During Hospitalization Category Date Time Status CT angio headneck * [id number] Urge nt Cat Scan 09/06/21 01:[address] head wo con* [id number] Urgent Cat Scan 09/06/21 01:14 Completed XR chest 1V deyanira ble [id number] Stat Exams 09/06/21 01:14 Completed MR head wo/w con [id number] Urgent MRI 09/06/21 10:15 Completed Pending at discharge Category Date Time Status Basic Metabolic P esperanza AM LABS Lab 09/07/21 04:00 Ordered Complete Blood Co unt w/Auto AM LABS Lab 09/07/21 04:00 Ordered Lipid Panel AM LA BS Lab 09/07/21 04:00 Ordered Magnesium AM LABS Lab 09/07/21 04:00 Ordered Labs from last 24 hours 09/06/21 09/06/21 09/06/21 03:27 00:53 00:53 WBC RBC Hgb Hct MCV MCH MCHC RDW Plt Count MPV Neut % (Auto) Lymph % (Auto) [place] % (Auto) Eos % (Auto) Baso % (Auto) Neut # (Auto) Lymph # (Auto) [place] # (Auto) Eos # (Auto) Baso # (Auto) Nucleated RBC % (a uto) Nucleated RBCs # PT INR Sodium 142 Potassium 4.1 Chloride 104 Carbon Dioxide 27 Anion Gap 15.1 BUN 20 Creatinine 0.8 GFR Calculation Not Reportable Glucose 88 Calculated Osmolal ity 296 H Calcium 9.4 Total Bilirubin 0.3 AST 15 ALT 13 Alkaline Phosphata se 80 Troponin T Baselin e 17 H Troponin T 120 Min [place] 13.80 H Delta Troponin T -3.20 L Total Protein 7.0 Albumin 4.4 Globulin 2.6 TSH 0.31 09/06/21 09/06/21 00:53 00:53 WBC 6.0 RBC 4.79 Hgb 14.2 Hct 45.1 MCV 94.2 MCH 29.6 MCHC 31.5 RDW 13.6 Plt Count 147 MPV 12.6 H Neut % (Auto) 59.0 Lymph % (Auto) 30.7 [place] % (Auto) 7.0 Eos % (Auto) 2.2 Baso % (Auto) 0.8 Neut # (Auto) 3.53 Lymph # (Auto) 1.8 [place] # (Auto) 0.4 Eos # (Auto) 0.1 Baso # (Auto) 0.1 Nucleated RBC % (a uto) 0 Nucleated RBCs # 0.0 PT 12.90 INR 0.94 Sodium Potassium Chloride Carbon Dioxide Anion Gap BUN Creatinine GFR Calculation Glucose Calculated Osmolal ity Calcium Total Bilirubin AST ALT Alkaline Phosphata se Troponin T Baselin e Troponin T 120 Min [place] Delta Troponin T Total Protein Albumin Globulin TSH Vitals: Last Vital Signs Temp 97.6 F 09/06/21 01:07 Pulse 50 L 09/06/21 09:55 Resp 16 09/06/21 09:55 BP 168/83 09/06/21 09:55 Pulse Ox 97 09/06/21 09:55 Discharge Plan Discharge Patient Disposition: Home Clinical Impression: Dizziness Condition: Stable Prescriptions: New Antivert 50 mg tablet 50 mg PO BID PRN (Reason: dizziness) Qty: 20 RF: 0 metoprolol tartrate 25 mg tablet 12.5 mg PO BID Qty: 30 RF: 0 Norvasc 5 mg tablet 5 mg PO DAILY Qty: 30 RF: 0 meclizine 25 mg tablet 12.5 mg PO TID PRN (Reason: dizziness) Qty: 10 RF: 0 Continued aspirin [Adult Aspirin Regimen] 81 mg tablet,delayed release (DR/EC) 81 mg PO DAILY RF: 0 Anoro Ellipta 62.5-25 mcg/actuation blister with device 1 inh inhalation DAILY RF: 0 melatonin 10 mg tablet 10 mg PO DIRECTED PRN (Reason: sleep) Qty: 30 RF: 3 levothyroxine 50 mcg tablet 50 mcg PO DAILY RF: 0 pantoprazole [Protonix] 40 mg tablet,delayed release (DR/EC) 40 mg PO BID RF: 0 Lunesta 3 mg tablet 3 mg PO BEDTIME Qty: 30 RF: 3 Klonopin 0.5 mg tablet 0.25 mg PO .morning MDD see pharmacy comment PRN (Reason: anxiety) Qty: 30 RF: 1 alendronate [Fosamax] 70 mg tablet 70 mg PO Q7D Qty: 4 RF: 2 atorvastatin 20 mg tablet 20 mg PO DAILY Qty: 14 RF: 0 valsartan 80 mg tablet 80 mg PO DAILY Qty: 90 RF: 3 levothyroxine 75 mcg tablet See Rx Instructions .ROUTE .COMPLEX RF: 0 furosemide 20 mg tablet 20 mg PO DAILY RF: 0 ipratropium-albuterol 0.5 mg-3 mg(2.5 mg base)/3 mL solution for nebulization 3 ml INHALATION Q6H PRN (Reason: shortness of breath or wheezing) Qty: 90 RF: 0 Discontinued metoprolol tartrate 50 mg tablet 50 mg PO BID Qty: 60 RF: 3 Discharge Orders: Discharge ED (Routine); Ordered 09/06/21 Ordered By: Sher Dalton Referrals: Lisa Puente PA [Primary Care Provider] - 1-3 days Discharge Diet: Advance as tolerated and Usual diet Discharge Activity: Resume usual activity Patient Instructions: Vertigo (ED) Activity Restrictions/Additional Instructions: Take all medicine as prescribed Return for any severe worsening Note your beta-benedicto has been reduced, and Norvasc has been added to your regimen Follow-up with your primary care provider in 2 to 3 days. Discharge Attestations Time Spent in Discharge Care*: greater than 30 min Quality Metrics Clinical Quality Measures During this hospital stay, did patient experience: None Coding Level of Care Code Acute Chg FW DC note Diagnoses Vertigo R42 Multiple sclerosis G35 Benign essential HTN I10
--- NOTE | 2021-09-06 13:23 | ECG_ITS ---
[facility] Test Date: 2021-09-06 Pat Name: Wen Voss Department: Room: Gender: Female Choral Director: : 1950 Requested By: Sher Hawthorne Order Number: [id number] Magan MD: Stew Page M.D. Measurements Intervals [place] Rate: 51 P: 61 WV: 196 QRS: 1 QRSD: 74 T: 39 QT: 446 QTc: 412 Interpretive Statements SINUS BRADYCARDIA POSSIBLE LEFT ATRIAL ENLARGEMENT [-0.1mV P-WAVE IN V1/V2] SEPTAL MYOCARDIAL INFARCTION , OF INDETERMINATE AGE [40+ ms Q WAVE IN V1/V2] Compared to ECG 07/17/2018 13:43:02 Myocardial infarct finding now present Sinus rhythm no longer present ST (T wave) deviation no longer present Electronically Signed On 09-06-2021 19:49:00 COLD ROLLER by Stew Page M.D. [email or web address] what's in [id number]
== END 2021-09-06 13:56 | disposition home or self-care (01) ==
PROVIDERS: Emergency Provider Emergency Medicine; PCP Physician Assistant
DX: R42 Dizziness and giddiness (principal); Z79.82 Long term (current) use of aspirin; I10 Essential (primary) hypertension; E78.5 Hyperlipidemia, unspecified; Z87.891 Personal history of nicotine dependence
CPT/HCPCS: 70450; 70496; 70498; 70553; 71045; 80053; 84443; 84484; 85025; 85610; 93005; 96374; 96376; 99284; A9577; J2060; J8597; Q9967

== ENCOUNTER → 2021-09-11 07:43 | Outpatient (BNVA) | payer MEDICARE, MEDICAID, SELFPAY ==
[2021-06-03 11:55] VITALS: BP 147/81; BMI 24.9
== END ==
PROVIDERS: PCP Physician Assistant; Visit Provider Nurse Practitioner Psychiatric/Mental Health
DX: F43.12 Post-traumatic stress disorder, chronic (principal); F41.1 Generalized anxiety disorder; F17.219 Nicotine dependence, cigarettes, with unspecified nicotine-induced disorders
CPT/HCPCS: 99214

== ENCOUNTER → 2021-09-18 13:22 | Outpatient (BNVA) | payer MEDICARE, MEDICAID, SELFPAY ==
[2021-06-03 11:55] VITALS: BP 147/81; BMI 24.9
== END ==
PROVIDERS: PCP Physician Assistant; Visit Provider Internal Medicine
DX: D35.00 Benign neoplasm of unspecified adrenal gland (principal); E04.1 Nontoxic single thyroid nodule; E16.2 Hypoglycemia, unspecified; E03.9 Hypothyroidism, unspecified; F17.210 Nicotine dependence, cigarettes, uncomplicated
CPT/HCPCS: 99214

== ENCOUNTER 2021-09-30 14:48 | Emergency (ER) | payer MEDICARE, MEDICAID, SELFPAY ==
[2021-06-03 11:55] VITALS: BP 147/81; BMI 24.9
[2021-09-30 14:52] VITALS: BP 160/103; PULSE 78; RESP 17; TEMP 36.9; O2SAT 99; BMI 23.8
[2021-09-30 15:02] VITALS: BP 134/95; PULSE 89; RESP 18; O2SAT 95
[2021-09-30] MEDS: triamcinolone 40 mg/mL SDV IM (15:25)
[2021-09-30] MEDS: sodium bicarbonate 8.4% 1 mEq/mL 50mL Syr 50 MEQ IVP (15:26)
[2021-09-30 15:46] LABS: Add Urine Microscopic? NO; Charge for UA Resulting for Rev
--- NOTE | 2021-09-30 16:04 | ED_ITS ---
HPI - General Adult General: Chief complaint: Back Pain/Injury Stated complaint: back pain Time Seen by Provider: 09/30/21 14:50 History of Present Illness: HPI narrative: CC: Back pain HPI: [71]yo patient w/ hx of chronic L-sided lumbar back pain presenting to the ED with acutely worsening chronic pain x 2 days when she bent over to pick an object for her granddaughter. Patient is followed by Dr. Jacques and because of the severity of pain decided to come to the ER. Endorsing taking [] medications back pain without symptom improvements. Today, patients denies trauma to the back, fever/chill/IVDU, LE weakness, saddle anesthesia/bowel incontinence/bladder incontinence, or hx of recent weight loss or cancer. In addition, he does not have a history of kidney stone or urinary symptoms/hx of UTI. Onset: chronic, acutely worsening symptoms x 2 days Duration: 2 days Location: +L Back pain with radiation to the L leg Severity: moderate Review of Systems Narrative: Constitutional: No fever, no chills. HEENT: No vision changes CV: No chest pain, no palpitations PULM: No cough, no dyspnea. GI: No abdominal pain, no N/V/D. : No dysuria MSKEL: No edema SKIN: No new rashes, no lesions. NEURO: No headache, no focal weakness. HEME: No visible bruises PSYCH: Normal mood BACK: L-sided lumbar paraspinal pain radiating to the legs/ +sginficant L glute pain PFSH ED PFSH: Medical History Benign essential HTN Candidiasis of mouth Generalized anxiety disorder GERD (gastroesophageal reflux disease) Lori's disease High risk medication use History of kidney stones Hyperlipidemia Insomnia due to mental condition Onychomycosis Onychomycosis Osteoporosis Post-traumatic stress disorder, chronic Psychiatric care Renal cyst Surgical History H/O section H/O colonoscopy H/O esophagogastroduodenoscopy S/P breast biopsy S/P lumpectomy of breast S/P thyroidectomy S/P tonsillectomy Family History Mother , 89 Dementia Father No problems noted. Family/Other Bleeding disorder cousin, hemophilia Denies family history of Anesthesia complication Social History Smoking and tobacco status: current every day smoker (is in the process of quiting) cigarettes Years cigarettes smoked: 30 Quit status (tobacco): has tried quititng Smoking risk assessment/counseling performed?: Yes Alcohol intake: never Counseling given: No Counseling given: No Adopted: No Caregiver/support person: No Lives independently: Yes Household members: none Housing: Apartment Marital status: Number of children: 4 Number of grandchildren: 11 Highest education level completed: GED or Equivalent service: No Current occupational status: retired Current occupational exposures/hazards: No Pets and animals: No History of recent travel: No Leisure activites: art, games and other Leisure activities details: Wii bowling, Bingo, craft Sexually active: No Current gender identity: Female Cara/Restorationist: Bahai Special cara needs: No Agree to transfusion: No Financial difficulty paying for basics: Not Very Hard Female Reproductive History: Para: 4 Physical Exam Narrative: EXAM NARRATIVE: Head: Atraumatic Eyes: PERRL, conjunctiva without injection ENT: Mucous membrane moist NECK: Supple without lymphadenopathy LUNGS: CTA CV: RRR ABDOMEN: Soft, nontender EXTREMITY: Normal ROM, 5/5 strength in hip/knee/ankle f/e bilaterally, sensation intact bilaterally in the hip SKIN: No rash or erythema NEURO: Awake and alert. No focal motor deficits. PSYCH: Normal mood and affect. : No saddle anesthesia BACK: No midline tenderness, no step off, obvious deformity, hip stable, L paraspinal lumbar tenderness with radiation to the : side GLUTE: +mulitple palpable knots in the L glutes with focal tenderness to palpation Procedures Nerve Block Nerve Block 1: Time out performed: Yes Local Anesthetic: lidocaine 1%, with epi and with bicarb Amount of anesthesia used (mL): 10 Side: left Nerve Blocks: other (glute) Procedure Successful: Yes Patient Tolerated Procedure: well Complications: none Additional Comments: Trigger point injections of the L glutes - multiple knots were appreciated on palpitation. Surface cleaned extensively with chlorohexadine, sterile gloves used. 40mg of kenalog mixed 10 cc of lidocaine 1% w/ epi and sodium bicarb were injected into the sites of pain and pressure. Area extensively cleaned afterwards with alcohol wipes. Course Vital Signs: Vital signs: Vital Signs Temperature 98.5 F 09/30/21 14:52 Pulse Rate 78 09/30/21 14:52 Respiratory Rate 17 09/30/21 14:52 Blood Pressure 160/103 09/30/21 14:52 Pulse Oximetry 99 09/30/21 14:52 MDM - General Adult MDM Narrative: Medical decision making narrative: [71]yo patient w/ hx of chronic lumbar pain with radiation to the L side presenting to the ED with acute worsening lumbar pain x [] days, now has pain with ambulation. Neurological exam including LE exam intact. The Patient is able to bear weight on legs and ambulate with moderate pain. No red flags of IVDU/fever, hx or symptomatology of cancer w/ mets to the bones, neurological findings or bowel or bladder incontinence, or acute trauma/fracture of the vertebral columns. Aorta size normal from April this year. Intervention: Trigger point injection, lidoaine patch, tylenol 500mg [3:45pm] On reassessment, the patient reports the pain is significantly improved with medications. Patient is now able to ambulate in the ED with only mild pain. At the present time, I have discussed the importance for the patient to follow up with orthopedics DIOGENES and the patient agrees. No suspicion for acute cord compression at this time. Rx: Tylenol 500mg Q6Hrs Lidocaine patch Qdaily x 10, menthol cream PRN pain I have given patient follow up with our case managers to be seen by Dr. Jacques in the next few days for worsening back pain. Patient aware of a call from our case managers to schedule for appointment(s) and verbalizes understanding of the im portance of following up. Disposition: Discharge. Patient is given SRP for any focal weakness, intractable pain, fever/chill, any signs of bowel or bladder incontinence. Patient is instructed to follow up with the orthopedics provider. I have provided an additional orthopedic referral for the patient should the patient need it. Patient verbalizes understanding and plans to do so in the next fews. Discharge Plan Discharge Patient Disposition: Home Clinical Impression: Back pain Condition: Stable Prescriptions: New acetaminophen 500 mg tablet 500 mg PO Q6H PRN (Reason: pain) 5 Days Qty: 20 RF: 0 lidocaine 5 % adhesive patch,medicated 1 patch topical DAILY PRN (Reason: pain) 10 Days Qty: 10 RF: 0 Biofreeze (menthol) 5 % gel 1 ea topical BID PRN (Reason: pain) 10 Days Qty: 1 RF: 0 No Action aspirin [Adult Aspirin Regimen] 81 mg tablet,delayed release (DR/EC) 81 mg PO DAILY RF: 0 Anoro Ellipta 62.5-25 mcg/actuation blister with device 1 inh inhalation DAILY RF: 0 melatonin 10 mg tablet 10 mg PO DIRECTED PRN (Reason: sleep) Qty: 30 RF: 3 levothyroxine 50 mcg tablet 50 mcg PO DAILY RF: 0 pantoprazole [Protonix] 40 mg tablet,delayed release (DR/EC) 40 mg PO BID RF: 0 Lunesta 3 mg tablet 3 mg PO BEDTIME Qty: 30 RF: 3 Klonopin 0.5 mg tablet 0.25 mg PO .morning MDD see pharmacy comment PRN (Reason: anxiety) Qty: 30 RF: 1 alendronate [Fosamax] 70 mg tablet 70 mg PO Q7D Qty: 4 RF: 2 atorvastatin 20 mg tablet 20 mg PO DAILY Qty: 14 RF: 0 valsartan 80 mg tablet 80 mg PO DAILY Qty: 90 RF: 3 Antivert 50 mg tablet 50 mg PO BID PRN (Reason: dizziness) Qty: 20 RF: 0 levothyroxine 75 mcg tablet See Rx Instructions .ROUTE .COMPLEX RF: 0 furosemide 20 mg tablet 20 mg PO DAILY RF: 0 Norvasc 5 mg tablet 5 mg PO DAILY Qty: 30 RF: 0 meclizine 25 mg tablet 12.5 mg PO TID PRN (Reason: dizziness) Qty: 10 RF: 0 ipratropium-albuterol 0.5 mg-3 mg(2.5 mg base)/3 mL solution for nebulization 3 ml INHALATION Q6H PRN (Reason: shortness of breath or wheezing) Qty: 90 RF: 0 Discharge Orders: Discharge ED (Routine); Ordered 09/30/21 Ordered By: Quinton Haines Referrals: Lisa Puente PA [Primary Care Provider] - Discharge Diet: Advance as tolerated Discharge Activity: Resume usual activity Patient Instructions: Back Pain (ED) Activity Restrictions/Additional Instructions: Please come back to the emergency room to have worsening back pain, if have any problem with urination and bowel movementm if you have any weakness in the legs, numbness in the legs, or if you have any new or concerning complaints. Our case managers will have you follow-up with Dr. Jacques in the next few days. You would be expected to have a phone call with our case managers who will put you on the schedule. Coding Level of Care Code ED Buncher Machine for Palomo Cameron
[2021-09-30] MEDS: acetaminophen 500 mg Tablet PO (16:23)
[2021-09-30 16:29] LABS: Bilirubin Urine Neg (Negative); Blood Urine Neg (Negative); Glucose Urine UA Norm (Normal); Ketones Urine Negative (Negative); Leukocyte Esterase Urine Negative (Negative); Nitrate Urine Negative (Negative); Protein Urine Neg (Negative); Specific Gravity, Urine 1.015 (1.005-1.030); Sulfosalicylic Acid Urine Negative (Negative); Urine Appearance Clear (CLEAR); Urine Color Straw (Yellow); Urobilinogen Urine Norm (Negative); pH Urine 9 (5-7)
[2021-09-30] MEDS: lidocaine 5% Patch 1 PATCH TOPICAL (16:38)
--- NOTE | 2021-10-01 08:41 | DCPLANNER ---
traffic manager had message to schedule a follow up appointment for patient with ortho. traffic manager called the ortho clinic, spoke with Kenyatta, gave clinic patients information. traffic manager was told that patients information would be printed and reviewed. Clinic will call patient with appointment information.
--- NOTE | 2021-10-03 07:12 | DCPLANNER ---
Patient has a follow up appointment scheduled for Friday, October 08, 2021 at 3:[address] Jacques at ortho. Clinic will call patient with appointment information.
--- NOTE | 2021-10-18 11:17 | DCPLANNER ---
Patient had a follow up appointment scheduled for 10.08.21 with ortho - patient did attend appointment.
== END 2021-09-30 16:40 | disposition home or self-care (01) ==
PROVIDERS: Emergency Provider Emergency Medicine; PCP Physician Assistant
DX: M54.50 Low back pain, unspecified (principal); Z79.82 Long term (current) use of aspirin; I10 Essential (primary) hypertension; E78.5 Hyperlipidemia, unspecified; F17.210 Nicotine dependence, cigarettes, uncomplicated
CPT/HCPCS: 81003; 96374; 99283; J3301

== ENCOUNTER 2021-10-02 08:35 | Outpatient (CLI) | payer MEDICARE, MEDICAID, SELFPAY ==
[2021-06-03 11:55] VITALS: BP 147/81; BMI 24.9
[2021-10-07 16:27] LABS: Metanephrine Total Free 92 pg/mL (<=205)
[2021-10-07 22:46] LABS: Plasma Renin Activity LC/MS/MS 1.83 ng/mL/h (0.25-5.82)
== END 2021-10-02 08:36 | disposition home or self-care (01) ==
LOC: LAB 08:38
PROVIDERS: PCP Physician Assistant; Visit Provider Internal Medicine
DX: D35.00 Benign neoplasm of unspecified adrenal gland (principal); E03.9 Hypothyroidism, unspecified; E04.1 Nontoxic single thyroid nodule; E16.2 Hypoglycemia, unspecified
CPT/HCPCS: 36415; 82088; 83835; 84244

== ENCOUNTER → 2021-10-11 07:46 | Outpatient (BNVA) | payer MEDICARE, MEDICAID, SELFPAY ==
[2021-06-03 11:55] VITALS: BP 147/81; BMI 24.9
== END ==
PROVIDERS: PCP Physician Assistant; Visit Provider Nurse Practitioner Psychiatric/Mental Health
DX: F43.12 Post-traumatic stress disorder, chronic (principal); F41.1 Generalized anxiety disorder; F17.219 Nicotine dependence, cigarettes, with unspecified nicotine-induced disorders
CPT/HCPCS: 99214

== ENCOUNTER → 2021-11-04 11:44 | Outpatient (BNVA) | payer MEDICARE, SELFPAY ==
[2021-06-03 11:55] VITALS: BP 147/81; BMI 24.9
== END ==
PROVIDERS: PCP Physician Assistant; Visit Provider Orthopaedic Surgery
DX: M48.062 Spinal stenosis, lumbar region with neurogenic claudication (principal); M51.16 Intervertebral disc disorders with radiculopathy, lumbar region
CPT/HCPCS: 87635

== ENCOUNTER 2021-11-06 14:34 | Outpatient (CLI) | payer MEDICARE, MEDICAID, SELFPAY ==
[2021-06-03 11:55] VITALS: BP 147/81; BMI 24.9
--- NOTE | 2021-11-06 15:00 | USCV_ITS ---
Wen Voss Age: 71 Gender: F : 1950 Exam Date: 11/06/2021 15:06 Ordering Phys: Arline Dubose MD ([email or web address]) Technologist: [place] [facility] [place]: HISTORY: Lower extremity swelling. PROCEDURES: Bilateral duplex Venous Insufficiency study of the Deep and Superficial systems was carried out according to normal protocol with the patient in supine positon for deep system and dependent position for the superficial system. FINDINGS: All deep veins demonstrated compressibility without evidence of intraluminal thrombus or increased echogenicity. Spectral analysis of Doppler signals demonstrates normal response to compression maneuvers indicating patency without obstruction. Reflux determinations were made with the patient in the dependent position, the weight being on the contralateral leg. THERE IS QUALIFING REFLUX ON RT GSAPH BELOW THE KNEE. PT WOULD MEET REQUIREMENTS FOR ABLATION CONCLUSIONS No evidence of DVT in the above-mentioned identifiable veins. Significant venous reflux of greater than 500 ms was noted at the below-knee segment of the greater saphenous vein on the right side. This venous segment was 0.52 cm in diameter at a depth of 0.83 cm. No significant venous reflux on the left superficial veins. No significant venous reflux in the deep veins. For the details of the venous dimensions , reflux times and the depth from the surface, please see the attached report Dr Ted Klein MD [facility] (Electronically Signed) Final Date: 07 November 2021 19:20 S
== END 2021-11-06 14:35 | disposition home or self-care (01) ==
LOC: RAD 14:37
PROVIDERS: PCP Physician Assistant; Visit Provider Internal Medicine Cardiovascular Disease
DX: I83.90 Asymptomatic varicose veins of unspecified lower extremity (principal); M79.89 Other specified soft tissue disorders
CPT/HCPCS: 93970

== ENCOUNTER 2021-11-08 07:49 | Day surgery (SDC) | payer MEDICARE, MEDICAID, SELFPAY ==
[2021-06-03 11:55] VITALS: BP 147/81; BMI 24.9
[2021-11-04 09:59] VITALS: BMI 23.3
--- NOTE | 2021-11-04 10:24 | ANES.PREANE2 ---
Pre-Anesthetic Assessment Pre-Anesthetic Assessment: Height/Weight: Height 1.68 m Weight 65.771 kg Proposed Procedure: Operation Date: 11/08/21 07:00 Proposed Procedures p Lumbar Spine Decompression L4/5 L5/S1 [id number] M48.062(Not Applicable) - Garry Jacques DO Familial anesthetic complications: none Social: Social History: Tobacco and No alcohol Exam: Pre-Anes Outpt Exam: alert, oriented x 3, clear to auscultation bilaterally and regular rate & rhythm Airway: MP: 2 Dentition: Other (no teeth) Pulmonary: Pulmonary: COPD CV/HEM: CV/HEM: HTN and PVD Metabolic: Metabolic: Thyroid Neuropsych: Comments: Relapsing-Remitting MS Anesthetic Plan: ASA status: 3 Anesthesia: General Risk of > 500 ml blood loss (7ml/kg in children): No PFSH Anesthesia PFSH: Medical History Benign essential HTN Candidiasis of mouth Generalized anxiety disorder GERD (gastroesophageal reflux disease) Lori's disease High risk medication use History of kidney stones Hyperlipidemia Insomnia due to mental condition Onychomycosis Onychomycosis Osteoporosis Post-traumatic stress disorder, chronic Psychiatric care Renal cyst Surgical History H/O section H/O colonoscopy H/O esophagogastroduodenoscopy S/P breast biopsy S/P lumpectomy of breast S/P thyroidectomy S/P tonsillectomy Family History Mother , 89 Dementia Father No problems noted. Family/Other Bleeding disorder cousin, hemophilia Denies family history of Anesthesia complication Social History Quit status (tobacco): has tried quititng Smoking risk assessment/counseling performed?: Yes Alcohol intake: never Counseling given: No Counseling given: No Adopted: No Caregiver/support person: No Lives independently: Yes Household members: none Housing: Apartment Marital status: Number of children: 4 Number of grandchildren: 11 Highest education level completed: GED or Equivalent service: No Current occupational status: retired Current occupational exposures/hazards: No Pets and animals: No History of recent travel: No Leisure activites: art, games and other Leisure activities details: Brianna Candelario craft Sexually active: No Current gender identity: Female Cara/Baptism: Episcopalian Special cara needs: No Agree to transfusion: No Financial difficulty paying for basics: Not Very Hard Female Reproductive History: Para: 4 Data Anesthesia CBC & Chem 7: 11/04/21 10:10 Cardiac Studies: Echocardiogram 07/25/21
[2021-11-04 10:41] LABS: Anion Gap 16.1 (5-19); Blood Urea Nitrogen 17 mg/dL (8-23); Calcium 9.7 mg/dL (8.5-10.5); Carbon Dioxide 26 mmol/L (22-29); Chloride 104 mmol/L (98-107); Glucose 75 mg/dL (65-115); Osmolality Calculated 294 mOsm/kg (285-295); Potassium 4.1 mmol/L (3.5-5.1); Sodium 142 mmol/L (136-145)
[2021-11-08] VITALS (15 sets, daily range): BP systolic 115–150; BP diastolic 73–98; PULSE 65–80; RESP 16–20; TEMP 36.2–36.4; O2SAT 94–100
--- NOTE | 2021-11-08 | SCC_ITS ---
Procedure Done: 1. L4/5 laminectomy with partial facetectomy 2. L5/S1 laminectomy with partial facetectomy 15.1 seconds of fluoroscopic guidance, for a cumulative dose of 2.88 mGy, was provided to Dr. Jacques by the radiology department. C-arm images of the lumbar spine were saved for the patient's permanent record. [facility]
--- NOTE | 2021-11-08 | XR_ITS ---
WS: [id number] XR lumbar spine 1V port [id number] REASON FOR EXAM: decompression FINDINGS: Surgical instrument initially overlies the left L4-L5 disc space. A second image demonstrates the molina gical instrument overlying the left L5-S1 disc space. XR/XR lumbar spine 1V port [id number] IMPRESSION: Intraoperative lumbar spine localization.
--- NOTE | 2021-11-08 08:57 | P.ANESUD_ITS ---
Pre-Anesthetic Update Pre-Anesthetic Assessment: Date of Surgery/Procedure: 11/08/21 Preop Kianna gnosis: Lumbar stenosis with neurogenic claudication Proposed Procedure: Operation Date: 11/08/21 09:25 Proposed Procedures p Lumbar Spine Decompression L4/5 L5/S1 [id number] M48.062(Not Applicable) - Garry Jacques, DO Any changes to Pre-Anesthetic Assessment?: No Last Intake: Intake Last Liquid Date 11/07/21 Last Liquid Time 22:00 Last Solid Date 11/07/21 Last Solid Time 22:00 Vitals: Temperature 97.6 F 11/08/21 08:22 Temperature Source Temporal Artery S can 11/08/21 08:22 Pulse Rate 65 11/08/21 08:22 Respiratory Rate 18 11/08/21 08:22 Blood Pressure 150/87 11/08/21 08:22 Blood Pressure Margareth n 108 11/08/21 08:22 Pulse Oximetry 98 11/08/21 08:22 Oxygen Delivery Me thod 11/08/21 08:22 Exam: Pre-Anes Outpt Exam: alert, oriented x 3, clear to auscultation bilaterally and regular rate & rhythm Cardiac Studies: Echocardiogram 07/25/21
--- NOTE | 2021-11-08 09:02 | P.HP_ITS ---
Providers/Chief Complaint Primary Care Provider: Lisa Puente Chief Complaint: Lumbar stenosis History of Present Illness Wen Voss is a 71 year old female patient here for follow up of her left sided mid and low back pain without radiation. She has been seeing pain management and is here for a follow up to discuss her response. She states that she have injections but she had no relief. She also went to [facility] once but had trouble with transportation and could not make anymore visits. She was in the ER a few days ago because she could not walk due to her back pain. They did a nerve block and her pain was improved for a short period of time. Review of Systems Narrative: General ROS: negative for weight changes, fever ENT ROS: negative for nasal congestion, drainage or bleeding, sore throat, dysphagia or ear pain Eyes: PERRL Hematological and Lymphatic ROS: negative for swollen glands or abnormal bleeding Endocrine ROS: negative for polyuria/polydpsia or new changes in weight Respiratory ROS: negative for cough, shortness of breath, or wheezing Cardiovascular ROS: negative for chest pain or dyspnea on exertion Gastrointestinal ROS: negative for reflux, abdominal pain, change in bowel habits, or black or bloody stools Musculoskeletal ROS: negative for back pain, neck pain, or joint pain or swelling except for current problem Neurological ROS: negative for TIA or stoke symptoms Skin: no rashes Medications/Allergies Home Medications Medication Instructions Recorded Confirmed Last Taken Type pantoprazole 40 mg tablet,delayed 40 mg PO BID tab 11/11/19 11/04/21 11/06/21 History release aspirin 81 mg tablet,delayed 81 mg PO DAILY 11/25/19 11/04/21 11/06/21 History release alendronate 70 mg tablet 70 mg PO Q7D #4 tab 04/05/20 11/04/21 11/02/21 Rx ipratropium-albuterol 3 ml INHALATION Q6H PRN #90 ml 05/01/20 11/08/21 Unknown Rx atorvastatin 20 mg tablet 20 mg PO DAILY #14 tab 11/14/20 11/04/21 11/06/21 Rx melatonin 10 mg tablet 10 mg PO DIRECTED PRN #30 tab 02/13/21 11/04/21 11/08/21 Rx umeclidinium 62.5 mcg-vilanterol 1 inh INHALATION DAILY 07/11/21 11/04/21 11/08/21 History 25 mcg/actuation powdr for inhalation eszopiclone 3 mg tablet 3 mg PO BEDTIME #30 tab 07/18/21 11/04/21 11/07/21 Rx clonazepam 0.5 mg tablet 0.25 mg PO .morning PRN #30 tab 08/14/21 11/04/21 Rx MDD see pharmacy comment levothyroxine 50 mcg tablet 50 mcg PO DAILY tab 09/02/21 11/04/21 11/08/21 History levothyroxine See Rx Instructions .ROUTE .COMPLEX 09/06/21 11/04/21 11/03/21 History meclizine 12.5 mg PO TID PRN #10 tab 09/06/21 11/08/21 Unknown Rx meclizine [Antivert] 50 mg PO BID PRN #20 tab 09/06/21 10/24/21 Unknown Rx amlodipine 5 mg tablet 5 mg PO DAILY #90 tab 10/02/21 11/04/21 11/08/21 Rx metoprolol tartrate 25 mg tablet 12.5 mg PO BID #45 tab 10/02/21 11/08/21 11/08/21 Rx valsartan 80 mg tablet 80 mg PO DAILY #90 tab 10/02/21 11/04/21 11/07/21 Rx furosemide [Lasix] 20 mg PO DAILY 11/08/21 11/04/21 11/07/21 History Allergies Allergy/AdvReac Type Severity Reaction Status Date / Time pregabalin [From Lyrica] Allergy Unknown Verified 11/08/21 08:23 butorphanol [From Stadol] AdvReac Mild ADR-Vomitin Verified 11/08/21 08:23 g duloxetine [From Cymbalta] AdvReac Mild ADR-Vomitin Verified 11/08/21 08:23 g PFSH Acute PFSH: Medical History Benign essential HTN Candidiasis of mouth Generalized anxiety disorder GERD (gastroesophageal reflux disease) Lori's disease High risk medication use History of kidney stones Hyperlipidemia Insomnia due to mental condition Onychomycosis Onychomycosis Osteoporosis Post-traumatic stress disorder, chronic Psychiatric care Renal cyst Surgical History H/O section H/O colonoscopy H/O esophagogastroduodenoscopy S/P breast biopsy S/P lumpectomy of breast S/P thyroidectomy S/P tonsillectomy Family History Mother , 89 Dementia Father No problems noted. Family/Other Bleeding disorder cousin, hemophilia Denies family history of Anesthesia complication Social History Quit status (tobacco): has tried quititng Smoking risk assessment/counseling performed?: Yes Alcohol intake: never Counseling given: No Counseling given: No Adopted: No Caregiver/support person: No Lives independently: Yes Household members: none Housing: Apartment Marital status: Number of children: 4 Number of grandchildren: 11 Highest education level completed: GED or Equivalent service: No Current occupational status: retired Current occupational exposures/hazards: No Pets and animals: No History of recent travel: No Leisure activites: art, games and other Leisure activities details: Justine davison, luciana Reed Sexually active: No Current gender identity: Female Cara/Sabianism: Lutheran Special cara needs: No Agree to transfusion: No Financial difficulty paying for basics: Not Very Hard Female Reproductive History: Para: 4 Vitals/I&O/Wt Last Vital Signs Temp 97.6 F 11/08/21 08:22 Pulse 65 11/08/21 08:22 Resp 18 11/08/21 08:22 BP 150/87 11/08/21 08:22 Pulse Ox 98 11/08/21 08:22 Physical Exam Narrative: EXAM NARRATIVE: GENERAL: Patient in no acute distress. CARDIAC: Regular rate and rhythm. CHEST: Normal inspiratory effort, normal respiratory rate. ABDOMEN: Soft and nontender. SKIN: Clear, warm and intact. NEURO?PSYCH: The patient is alert and oriented to person, place and time. Sensorv /SILT Motor StrengthShoulder abduction C5 5/5Wrist extension C6 5/5Elbow extension C7 5/5Hand Sustainability Project Manager C8 5/5Finger abduction T15/5 Radial/ Ulnar/ Median n intact LowerSensory (SILT)Motor StrengthHin flexion L2/3Ant/inner thigh 5/5Hip adduction L2/3 5/5Knee extension L4 Lat thigh, 5/5Toe dorsiflexion L5 5/5Ankle dorsiflexion L5/ I23Vktvthc flexion S1 5/5 DTRBleeps 2+Triceps 2+Brachioradialis 2+Patellar 2+Achilles 2+ MUSCULOSKELETAL: [] UPPEREXTREMITIES: The patient had full active ROM in fingers, wrist, elbow, and shoulder. The patient demonstrated ability to fully flex/extend/abduct/adduct fingers, make ok sign, cross 2nd/3rd digits, extend 1st digit fully.. Radial pulse 2+, CR<2 seconds. LOWER EXTREMITIES: Pt has full, active ROM of toes, ankle, knee, and hip. Dorsalis pedis/posterior tibialis pulses 2+, CR<2 seconds. SPINE: Skin warm, dry, intact. 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
[2021-11-08] MEDS: sodium chloride 0.9% 1,000 ML 30 ML IV (09:16)
--- NOTE | 2021-11-08 10:12 | P.ANESUD_ITS ---
Pre-Anesthetic Update Pre-Anesthetic Assessment: Date of Surgery/Procedure: 11/08/21 Preop Kianna gnosis: Lumbar stenosis with neurogenic claudication Proposed Procedure: Operation Date: 11/08/21 09:25 Proposed Procedures p Lumbar Spine Decompression L4/5 L5/S1 [id number] M48.062(Not Applicable) - Garry Jacques, DO Any changes to Pre-Anesthetic Assessment?: No Last Intake: Intake Last Liquid Date 11/07/21 Last Liquid Time 22:00 Last Solid Date 11/07/21 Last Solid Time 22:00 Vitals: Temperature 97.6 F 11/08/21 08:22 Temperature Source Temporal Artery S can 11/08/21 08:22 Pulse Rate 65 11/08/21 08:22 Respiratory Rate 18 11/08/21 08:22 Blood Pressure 150/87 11/08/21 08:22 Blood Pressure Margareth n 108 11/08/21 08:22 Pulse Oximetry 98 11/08/21 08:22 Oxygen Delivery Me thod 11/08/21 08:22 Exam: Pre-Anes Outpt Exam: alert, oriented x 3, clear to auscultation bilaterally and regular rate & rhythm Cardiac Studies: Echocardiogram 07/25/21
--- NOTE | 2021-11-08 12:06 | P.OP_ITS ---
Operative Report Date of procedure: November 08, 2021 Pre-op Diagnosis: Lumbar stenosis with neurogenic claudication Post-op diagnosis: same Procedure Done: 1. L4/5 laminectomy with partial facetectomy 2. L5/S1 laminectomy with partial facetectomy Surgeon: Garry Jacques Rotary Surface Grinder: Edward Joyce Rotary Surface Grinder: The director surgical, TERA Luna was needed for his expertise under the microscope. He was important and necessary throughout the procedure to complete in a safe and timely manner. He assisted with patient positioning prepping and draping tissue retraction suctioning of the operative field protection of the dural sac and tissue closure Anesthesia: General Estimated blood loss (mL): 5 Condition: stable Disposition: PACU Procedure: 1. L4/5 laminectomy with partial facetectomy 2. L5/S1 laminectomy with partial facetectomy Patient is brought to the operative suite. After undergoing anesthesia they are placed in the prone position. All areas of impingement are well padded. Patient is then prepped and draped in the normal sterile fashion. A skin incision is made over the L4/5 level. This is confirmed under c-arm guidance. A series of dilators are passed and the tubular retractor is docked on the L4 lamina. A bovie is used to clear the soft tissue off the lamina and the L 4/5 facet joint. A high speed ashely is then used to perform the laminectomy and take down the medial aspect of the L 4/5 facet joint. A kerrison rongeure was then used to take down the remaining lamina and smooth the edge of the laminectomy up to the point where the ligamentum flavum attaches. Attention was then brought to the medial aspect of the facet joint. The remaining medial aspect of the superior and inferior aspect of the facet joint were taken down with the kerrison from the pedicle of L4 to L 5. The facet joint had significant hypertrophy. Attention was then brought to the Ligamentum Flavum. The ligament was taken down from the lamina of L4 to L5 and out medially to the remaining facet joint. The ligament was thick. The dura was then exposed. The dura was in good repair. The L4 nerve was then traced with a curette out the L4/5 foramen and found to be adequately decompressed. The L5 nerve was traced with a curette around the L5 pedicle. The lateral recess was opened with a kerrison helping to further decompress the L5 nerve. Wound is then irrigated copiously with saline and surgiflo is used to stop any bleeding. The tubular retractor is removed and A skin incision is made over the L5/S1 level. This is confirmed under c-arm guidance. A series of dilators are passed and the tubular retractor is docked on the L5 lamina. A bovie is used to clear the soft tissue off the lamina and the L 5/S1 facet joint. A high speed ashely is then used to perform the l aminectomy and take down the medial aspect of the L 5/S1 facet joint. A kerrison rongeure was then used to take down the remaining lamina and smooth the edge of the laminectomy up to the point where the ligamentum flavum attaches. Attention was then brought to the medial aspect of the facet joint. The remaining medial aspect of the superior and inferior aspect of the facet joint were taken down with the kerrison from the pedicle of L5 to S1. The facet joint had significant hypertrophy. Attention was then brought to the Ligamentum Flavum. The ligament was taken down from the lamina of L5 to S1 and out medially to the remaining facet joint. The ligament was thick. The dura was then exposed. The dura was in good repair. The L5 nerve was then traced with a curette out the L5/S1 foramen and found to be adequately decompressed. The S1 nerve was traced with a curette around the S1 pedicle. The lateral recess was opened with a kerrison helping to further decompress the S1 nerve. Wound is then irrigated copiously with saline and surgiflo is used to stop any bleeding. The tubular retractor is removed and the wound is closed with vicryl and monocryl suture. Glue is then used to protect the wound. A sterile dressing is then placed. Patient was then placed in the supine position and transferred to the PACU in stable condition.
[2021-11-08] MEDS: HYDROmorphone 1 mg/mL INJ 1 mL 0.25 MG IVP (12:39)
[2021-11-08] MEDS: meperidine 50 mg/mL INJ 12.5 MG IVP ×2 (12:52→13:01)
--- NOTE | 2021-11-08 13:16 | ANE.PACU2 ---
Inpatient post-anesthesia follow up: Airway intact: Yes Vital signs: Temperature 97.4 F Pulse Rate 67 Respiratory Rate 18 Blood Pressure 142/80 Pulse Oximetry 96 Oxygen Delivery Me thod Room Air Oxygen Flow Rate 7 Fraction of Inspir ed Oxygen Hydration adequate: Yes Nausea and vomiting: No Pain level: 1 Mental status: Baseline
[2021-11-08] MEDS: HYDROcodone-acetaminophen 5-325 mg Tablet 1 TAB PO (14:02)
== END 2021-11-08 14:23 | disposition home or self-care (01) ==
PROVIDERS: Anesthesiology; PCP Physician Assistant; Visit Provider Orthopaedic Surgery
PROC: (CPT 63005; principal; 2021-11-08 09:25)
DX: M48.062 Spinal stenosis, lumbar region with neurogenic claudication (principal); J44.9 Chronic obstructive pulmonary disease, unspecified; I10 Essential (primary) hypertension; K21.9 Gastro-esophageal reflux disease without esophagitis; E78.5 Hyperlipidemia, unspecified
CPT/HCPCS: 63047; 63048; 72020; 76000; 80048; 96375; J0690; J1100; J1170; J2175; J2250; J2405; J2704; J2710; J3010; J3490; J7030

== ENCOUNTER 2021-12-05 13:44 | Outpatient (CLI) | payer MEDICARE, MEDICAID, SELFPAY ==
[2021-06-03 11:55] VITALS: BP 147/81; BMI 24.9
--- NOTE | 2021-12-05 14:15 | US_ITS ---
WS: [id number] THYROID ULTRASOUND REASON FOR EXAM: Thyroid nodules TECHNIQUE: Grayscale and Doppler ultrasound examination of the thyroid gland. FINDINGS: RIGHT: Right lobe of thyroid previously surgically removed. LEFT: Left thyroid gland measures 2.7 cm x 0.8 cm x 1.2 cm. Left thyroid volume equals 1.3 ccm3. Left lobe of the thyroid is inhomogeneous and nodular in appearance. There are 2 hyperechoic nodules and a third nodule that is nearly isoechoic to the thyroid gland. Measurements of each of these nodul es is comparable to the measurements obtained of the nodules on the previous examination of 11/09/2020 . Thyroid isthmus: 0.1 mm. No nodules identified. US/US thyroid [id number] IMPRESSION: Right lobe of the thyroid previously surgically removed. Left lobe of thyroid multinodular goiter. Ultrasound evaluation of the left lobe of the thyroid is unchanged compared to the previous examination.
== END 2021-12-05 13:45 | disposition home or self-care (01) ==
PROVIDERS: PCP Physician Assistant; Visit Provider Internal Medicine
DX: E04.2 Nontoxic multinodular goiter (principal)
CPT/HCPCS: 76536

== ENCOUNTER → 2021-12-09 08:26 | Outpatient (BNVA) | payer MEDICARE, MEDICAID, SELFPAY ==
[2021-06-03 11:55] VITALS: BP 147/81; BMI 24.9
== END ==
PROVIDERS: PCP Physician Assistant; Visit Provider Nurse Practitioner Psychiatric/Mental Health
DX: F43.12 Post-traumatic stress disorder, chronic (principal); F41.1 Generalized anxiety disorder; F17.210 Nicotine dependence, cigarettes, uncomplicated; F33.9 Major depressive disorder, recurrent, unspecified
CPT/HCPCS: 99214

== ENCOUNTER → 2021-12-16 10:49 | Outpatient (BNVA) | payer MEDICARE, MEDICAID, SELFPAY ==
[2021-06-03 11:55] VITALS: BP 147/81; BMI 24.9
== END ==
PROVIDERS: PCP Physician Assistant; Visit Provider Internal Medicine
DX: E03.9 Hypothyroidism, unspecified (principal); E16.2 Hypoglycemia, unspecified; E04.1 Nontoxic single thyroid nodule; D35.00 Benign neoplasm of unspecified adrenal gland; L65.9 Nonscarring hair loss, unspecified; F17.210 Nicotine dependence, cigarettes, uncomplicated
CPT/HCPCS: 99214

== ENCOUNTER → 2022-01-09 11:47 | Outpatient (BNVA) | payer MEDICARE, MEDICAID, SELFPAY ==
[2021-06-03 11:55] VITALS: BP 147/81; BMI 24.9
== END ==
PROVIDERS: PCP Physician Assistant; Visit Provider Orthopaedic Surgery
DX: M54.2 Cervicalgia (principal)
CPT/HCPCS: 72050

== ENCOUNTER → 2022-01-15 11:30 | Outpatient (BNVA) | payer MEDICARE, MEDICAID, SELFPAY ==
[2021-06-03 11:55] VITALS: BP 147/81; BMI 24.9
== END ==
PROVIDERS: PCP Physician Assistant; Visit Provider Internal Medicine Cardiovascular Disease
DX: R00.2 Palpitations (principal); I83.90 Asymptomatic varicose veins of unspecified lower extremity; I10 Essential (primary) hypertension; F41.1 Generalized anxiety disorder; F17.210 Nicotine dependence, cigarettes, uncomplicated; E03.9 Hypothyroidism, unspecified
CPT/HCPCS: 84439; 84443; 99214

== ENCOUNTER → 2022-02-12 12:38 | Outpatient (BNVA) | payer MEDICARE, MEDICAID, SELFPAY ==
[2021-06-03 11:55] VITALS: BP 147/81; BMI 24.9
== END ==
PROVIDERS: PCP Physician Assistant; Referring Provider Internal Medicine Critical Care Medicine; Visit Provider Internal Medicine Critical Care Medicine
DX: J44.9 Chronic obstructive pulmonary disease, unspecified (principal); I10 Essential (primary) hypertension; K21.9 Gastro-esophageal reflux disease without esophagitis; E78.5 Hyperlipidemia, unspecified; F17.210 Nicotine dependence, cigarettes, uncomplicated
CPT/HCPCS: 99213

== ENCOUNTER → 2022-05-26 13:21 | Outpatient (BNVA) | payer OTHER, SELFPAY ==
[2021-06-03 11:55] VITALS: BP 147/81; BMI 24.9
== END ==
PROVIDERS: Visit Provider Psychiatry & Neurology Psychiatry
DX: F60.3 Borderline personality disorder (principal); Z79.899 Other long term (current) drug therapy
CPT/HCPCS: 80061; 83036

== ENCOUNTER 2022-06-08 15:52 | Emergency (ER) | payer MEDICARE, MEDICAID, SELFPAY ==
[2022-05-30 16:06] VITALS: BP 121/75; BMI 23.4
[2022-06-08 16:10] VITALS: BP 114/74; PULSE 79; RESP 18; TEMP 36.8; O2SAT 95; BMI 22.6
--- NOTE | 2022-06-08 16:10 | XRR_ITS ---
PROCEDURE INFORMATION: Exam: XR Chest Exam date and time: 06/08/2022 6:08 PM Age: 72 years old Clinical indication: Other: Covid exposure TECHNIQUE: Imaging protocol: Radiologic exam of the chest. Views: 1 view. COMPARISON: CR XR chest 1V portable [id number] 09/06/2021 1:37 AM FINDINGS: Lungs: The lungs are hyperinflated, consistent with COPD. Linear atelectasis versus fibrosis at the lung bases. No consolidative pulmonary infiltrate noted. Pleural spaces: No pleural effusion. No pneumothorax. Heart/Mediastinum: No cardiomegaly. Vasculature: The thoracic aorta is atherosclerotic. Bones/joints: Minimal scoliosis and degeneration of the spine. XR/XR chest 1V portable [id number] IMPRESSION: 1. The lungs are hyperinflated, consistent with COPD. 2. Linear atelectasis versus fibrosis at the lung bases. This is new when compared to 09/06/2021 3. No consolidative pulmonary infiltrate noted.
[2022-06-08 18:10] LABS: Adenovirus Not Detected (NOT DETECT); Chlamydia Pneumoniae Not Detected (NOT DETECT); Coronavirus 229E,HKU1,NL63,OC4 Not Detected (NOT DETECT); Human Metapneumovirus Not Detected (NOT DETECT); Human Rhinovirus/Enterovirus Not Detected (NOT DETECT); Influenza A Not Detected (NOT DETECT); Influenza A H1 Not Detected (NOT DETECT); Influenza A H1-2009 Not Detected (NOT DETECT); Influenza A H3 Not Detected (NOT DETECT); Influenza B Not Detected (NOT DETECT); Mycoplasma Pneumoniae Not Detected (NOT DETECT); Parainfluenza Virus Type 1 Not Detected (NOT DETECT); Parainfluenza Virus Type 2 Not Detected (NOT DETECT); Parainfluenza Virus Type 3 Not Detected (NOT DETECT); Parainfluenza Virus Type 4 Not Detected (NOT DETECT); Respiratory Syncytial Virus A Not Detected (NOT DETECT); Respiratory Syncytial Virus B Not Detected (NOT DETECT); SARS-COV-2 Detected (NOT DETECT)
--- NOTE | 2022-06-08 18:31 | W.ED.GENADLT ---
HPI - General Adult General: Chief complaint: General Medical Stated complaint: FLU LIKE SYMPTOMS Time Seen by Provider: 06/08/22 18:30 History of Present Illness: 72-year-old female comes in today for complaints of flulike syndrome for 3 days. Patient reports exposure to COVID-19. Patient appears mildly unwell but not toxic. Patient denies any pain or chest discomfort. Associated symptoms: Reports headache(s) Review of Systems Const: Reports: fever(s) and body aches Resp: Reports: non-productive cough Neuro: Reports: headache(s) PFSH ED PFSH: Medical History Benign essential HTN Elevated blood sugar Generalized anxiety disorder GERD (gastroesophageal reflux disease) Lori's disease High risk medication use History of kidney stones Hyperlipidemia Insomnia due to mental condition Lumbar stenosis with neurogenic claudication Major depressive disorder, recurrent episode with anxious distress Osteoporosis Post-traumatic stress disorder, chronic Urolithiasis Varicose vein of leg Surgical History H/O section H/O colonoscopy H/O esophagogastroduodenoscopy S/P breast biopsy S/P lumpectomy of breast S/P thyroidectomy S/P tonsillectomy Status post lumbar laminectomy Family History Mother , 89 Dementia Father No problems noted. Family/Other Bleeding disorder cousin, hemophilia Denies family history of Anesthesia complication Social History (Updated 06/02/22 @ 14:55 by Ashley Ruff LPN) Smoking and tobacco status: current every day smoker (couple of cigs a day) cigarettes Packs smoked per day: 0.5 Years cigarettes smoked: 30 [ Other cigarette details: Started at age 47] and e-cigarettes E-Cigarette Details: vaporizer device E-cig/vape details: 5% when it is to cold to go outside Quit status (tobacco): has tried quititng Smoking risk assessment/counseling performed?: No Alcohol intake: never Counseling given: No Counseling given: No Adopted: No Caregiver/support person: No (has a nurse that comes in and sets up her medications) Lives independently: Yes Household members: none Housing: Apartment Marital status: Number of children: 4 Number of grandchildren: 11 Highest education level completed: GED or Equivalent service: No Current occupational status: retired Current occupational exposures/hazards: No Pets and animals: Yes Pets & animals: dog(s) History of recent travel: No Leisure activites: exercise, art, games and other Leisure activities details: crafts, write,zoroastrian Sexually active: No Current gender identity: Female Cara/Restorationist: Hindu Special cara needs: No Agree to transfusion: No Financial difficulty paying for basics: Not Very Hard Female Reproductive History: Para: 4 Physical Exam Const: COMMON NORMALS: alert HENMT: COMMON NORMALS: normocephalic HEAD & SCALP: normocephalic Neck/C-Spine: COMMON NORMALS: full ROM Resp: COMMON NORMALS: normal respiratory effort and clear to auscultation bilaterally AUSCULTATION: clear to auscultation bilaterally Cardio: COMMON NORMALS: regular rate RATE: regular rate Extremity: COMMON NORMALS: normal to inspection and no pedal edema Neuro: SENSORIUM/ORIENTATION: Yes alert Skin: COMMON NORMALS: no rashes or lesions noted GENERAL SKIN EXAM: no rashes or lesions noted Course Vital Signs: Vital signs: Vital Signs Temperature 98.3 F 06/08/22 16:10 Pulse Rate 79 06/08/22 16:10 Respiratory Rate 18 06/08/22 16:10 Blood Pressure 114/74 06/08/22 16:10 Pulse Oximetry 95 06/08/22 16:10 [facility] - General Adult Medical Decision Making 72-year-old female comes in today for complaints of illness for the last 3 days. On exam lungs have good air movement throughout lung kellogg. Abdomen soft nontender. Skin is warm and dry. Vital signs are normal. Differential diagnosis includes but not limited to upper respiratory infection, flu syndrome, viral syndrome, COVID-19. COVID-19 was positive. Chest x-ray noted emphysema changes but no pneumonia. Reviewed exam with patient with recommendations for treatment and follow-up. Patient refused Paxlovid. Patient understands to return to the ER for worsening shortness of breath or chest pain. Patient reported understanding of care plan with quarantine recommendations. Lab Data Radiology Impressions Chest X-Ray 06/08/22 16:10 IMPRESSION: 1. The lungs are hyperinflated, consistent with COPD. 2. Linear atelectasis versus fibrosis at the lung bases. This is new when compared to 09/06/2021 3. No consolidative pulmonary infiltrate noted. Laboratory Results Coronavirus 229E (PCR) Not detected (NOT DETECT) 06/08/22 16:15 SARS-CoV-2 (PCR) Detected (NOT DETECT) A 06/08/22 16:15 Discharge Plan Discharge Patient Disposition: Home Clinical Impression: COVID-19 Condition: Stable Prescriptions: No Action aspirin [Adult Aspirin Regimen] 81 mg tablet,delayed release (DR/EC) 81 mg PO DAILY PRN Anoro Ellipta 62.5-25 mcg/actuation blister with device 1 inh inhalation DAILY amitriptyline 25 mg tablet 12.5 mg PO BEDTIME Qty: 15 3RF Rx Instructions: Take half tablet at bedtime clonazepam [Klonopin] 0.5 mg tablet 0.25 mg PO BID PRN (Reason: anxiety) Qty: 30 2RF Rx Instructions: Take half tablet twice per day as needed for anxiety Norvasc 5 mg tablet 5 mg PO DAILY Qty: 90 3RF valsartan 80 mg tablet 80 mg PO DAILY Qty: 90 3RF pantoprazole [Protonix] 40 mg tablet,delayed release (DR/EC) 40 mg PO BID Qty: 180 1RF atorvastatin 20 mg tablet 20 mg PO DAILY Qty: 90 1RF alendronate [Fosamax] 70 mg tablet 70 mg PO Q7D Qty: 12 1RF Rx Instructions: once weekly ON THURSDAY albuterol sulfate 90 mcg/actuation HFA aerosol inhaler 2 puff inhalation Q6H PRN levothyroxine 50 mcg tablet 50 mcg PO DAILY Qty: 60 3RF Rx Instructions: take 50 mcg Thursday- levothyroxine 75 mcg tablet See Rx Instructions .ROUTE .COMPLEX Qty: 30 3RF Rx Instructions: 75 mcg orally on Thursday-Thursday metoprolol tartrate 25 mg tablet 12.5 mg PO BID Qty: 90 3RF Lasix 20 mg tablet 20 mg PO DAILY Discharge Orders: Discharge ED (Routine); Ordered 06/08/22 Ordered By: Mikal Samuel Discharge Diet: Usual diet Discharge Activity: Increase activity as tolerated Patient Instructions: Viral Syndrome (ED) Activity Restrictions/Additional Instructions: Maintain quarantine for 5 days after the start of symptoms. After the 5 days you can should continue to wear a facemask when around other individuals for a total of 10 days. Drink plenty of water. Use acetaminophen or ibuprofen for pain and discomfort. Follow-up with primary care for further instructions. Return to ER for worsening symptoms such as a fever greater than 100.4, increased shortness of breath, or chest pain. Coding Level of Care Code ED Cruise Guide for Palomo Cameron
== END 2022-06-08 18:54 | disposition home or self-care (01) ==
PROVIDERS: Family Medicine; Emergency Provider Nurse Practitioner Family
DX: U07.1 COVID-19 (principal); Z79.82 Long term (current) use of aspirin; I10 Essential (primary) hypertension; E78.5 Hyperlipidemia, unspecified; F17.210 Nicotine dependence, cigarettes, uncomplicated
CPT/HCPCS: 71045; 87635; 99283

== ENCOUNTER → 2022-07-09 14:22 | Outpatient (BNVA) | payer MEDICARE, MEDICAID, SELFPAY ==
[2022-05-30 16:06] VITALS: BP 121/75; BMI 23.4
== END ==
PROVIDERS: PCP Family Medicine Adult Medicine; Visit Provider Internal Medicine
DX: D35.00 Benign neoplasm of unspecified adrenal gland (principal); E03.9 Hypothyroidism, unspecified; I10 Essential (primary) hypertension; R53.83 Other fatigue; E78.5 Hyperlipidemia, unspecified; E04.1 Nontoxic single thyroid nodule; E55.9 Vitamin D deficiency, unspecified; E78.00 Pure hypercholesterolemia, unspecified; E16.2 Hypoglycemia, unspecified; L65.9 Nonscarring hair loss, unspecified; Z79.899 Other long term (current) drug therapy
CPT/HCPCS: 36415; 80053; 80061; 82306; 84439; 84443; 85025; 99214

== ENCOUNTER 2022-07-30 12:20 | Oncology outpatient (recurring) (ONCR) | payer MEDICARE, MEDICAID, SELFPAY ==
[2022-05-30 16:06] VITALS: BP 121/75; BMI 23.4
== END 2022-08-25 23:59 | disposition home or self-care (01) ==
PROVIDERS: PCP Family Medicine Adult Medicine; Visit Provider Internal Medicine Medical Oncology
DX: D69.6 Thrombocytopenia, unspecified (principal); F17.210 Nicotine dependence, cigarettes, uncomplicated
CPT/HCPCS: 99213; 99214

== ENCOUNTER 2022-08-01 13:46 | Outpatient (CLI) | payer MEDICARE, MEDICAID, SELFPAY ==
[2022-05-30 16:06] VITALS: BP 121/75; BMI 23.4
--- NOTE | 2022-08-01 14:00 | MM_ITS ---
WS: [id number] BILATERAL 3D TOMOSYNTHESIS DIGITAL SCREENING MAMMOGRAPHY WITH CAD CLINICAL INFORMATION: SCREENING HISTORY: Screening mammogram. No current complaints. COMPARISON: October 12, 2020 TECHNIQUE: Bilateral CC and MLO views. FINDINGS: Scattered fibroglandular densities bilaterally. Dystrophic calcification RIGHT breast. No suspicious focal mass, asymmetry, calcifications, or architectural distortion. No evidence of malignancy. A few tiny incidental punctate calcifications. MM/[place] [id number] IMPRESSION: BI-RADS: 2-Benign FOLLOW UP: 1 Year Follow-up Recommend return to annual screening mammography.
== END 2022-08-01 13:47 | disposition home or self-care (01) ==
LOC: RAD 13:49
PROVIDERS: PCP Family Medicine Adult Medicine; Visit Provider Family Medicine Adult Medicine
DX: Z12.31 Encounter for screening mammogram for malignant neoplasm of breast (principal)
CPT/HCPCS: 77063; 77067

== ENCOUNTER 2022-08-22 11:52 | Outpatient (CLI) | payer MEDICARE, MEDICAID, SELFPAY ==
[2022-05-30 16:06] VITALS: BP 121/75; BMI 23.4
--- NOTE | 2022-08-22 13:15 | CT_ITS ---
WS: [id number] LDCT LUNG CANCER SCREENING TECHNIQUE: Noncontrast CT of the chest with coronal and sagittal reformatted images. CLINICAL INFORMATION: Smoker COMPARISON: CT April 01, 2021 DLP: 76.99 mGy.cm DIvol: Mean CTDIvol: 1.60 (mGy) All CT scans at [facility] use at least one of these dose optimization techniques: automat ed exposure control; mA and/or kV adjustment per patient size (includes targeted exams where dose is matched to clinical indication); or iterative reconstruction. FINDINGS: Mild chronic emphysematous changes. No acute pulmonary infiltrates. No suspicious parenchymal opacit ies. Subsegmental atelectasis in the lingula and RIGHT middle lobe. No mediastinal or hilar lymphaden opathy. Mild aortic calcification and coronary calcification. No axillary lymphadenopathy. LEFT adrenal adenoma measuring 1.9 CM. Partially visualized RIGHT renal cyst measuring 4.2 cm. Low-at tenuation lesions in the liver likely hepatic cysts CT/CT lung screening [id number] IMPRESSION: LUNG-RADS: 2-Benign Appearance or Behavior FOLLOW UP: 12 Month: Continue annual screening with LDCT
== END 2022-08-22 11:53 | disposition home or self-care (01) ==
PROVIDERS: PCP Family Medicine Adult Medicine; Visit Provider Internal Medicine Pulmonary Disease
DX: J44.9 Chronic obstructive pulmonary disease, unspecified (principal); Z12.2 Encounter for screening for malignant neoplasm of respiratory organs; R06.09 Other forms of dyspnea; F17.210 Nicotine dependence, cigarettes, uncomplicated
CPT/HCPCS: 71271; 99214

== ENCOUNTER 2022-10-28 09:50 | Outpatient (CLI) | payer MEDICARE, MEDICAID, SELFPAY ==
[2022-05-30 16:06] VITALS: BP 121/75; BMI 23.4
--- NOTE | 2022-10-28 10:18 | ECG_ITS ---
[facility] Test Date: 2022-10-28 Pat Name: Wen Voss Department: Room: Gender: Female Student: : 1950 Requested By: Lorenzo Grimaldo Order Number: [id number] Magan MD: Ted Klein M.D. Measurements Intervals [place] Rate: 74 P: 83 CO: 197 QRS: -5 QRSD: 70 T: 44 QT: 393 QTc: 438 Interpretive Statements SINUS RHYTHM WITH OCCASIONAL VENTRICULAR PREMATURE COMPLEXES LOW QRS VOLTAGE IN PRECORDIAL LEADS [QRS DEFLECTION < 1.0 mV IN CHEST LEADS] SEPTAL MYOCARDIAL INFARCTION , OF INDETERMINATE AGE [40+ ms Q WAVE IN V1/V2] Compared to ECG 09/06/2021 13:33:34 Ventricular premature complex(es) now present Low QRS voltage now present Sinus bradycardia no longer present Myocardial infarct finding still present Electronically Signed On 10-28-2022 20:46:32 DOOR GLASS INSTALLER by Ted Klein M.D. [id number]
[2022-10-28 10:46] LABS: Basophils # 0.1 10^3/uL (0.0-0.1); Basophils % 1.2 %; Eosinophils # 0.1 10^3/uL (0.0-0.8); Eosinophils % 1.9 %; Hematocrit 42.8 % (37.0-47.0); Hemoglobin 13.7 g/dL (11.5-15.3); Lymphocytes # 1.5 10^3/uL (0.8-4.8); Lymphocytes % 25.7 %; Mean Corpuscular Hemoglobin 30.6 pg (28.0-34.0); Mean Corpuscular Volume 95.5 fl (81-99); Mean Platelet Volume 15.4 fL (7.4-10.4); Monocytes # 0.4 10^3/uL (0.2-0.9); Monocytes % 6.5 %; Neutrophils # 3.68 10^3/uL (1.8-7.7); Neutrophils % 64.5 %; Nucleated Red Blood Cells % 0 %; Red Blood Count 4.48 10^6/uL (4.1-5.3); Red Cell Distribution Width 13.2 % (12.1-15.1); White Blood Count 5.7 10^3/uL (4.0-10.0)
[2022-10-28 11:04] LABS: Anion Gap 13.9 (5-19); Blood Urea Nitrogen 26 mg/dL (8-23); Calcium 9.9 mg/dL (8.5-10.5); Carbon Dioxide 30 mmol/L (22-29); Chloride 104 mmol/L (98-107); Glucose 84 mg/dL (65-115); Osmolality Calculated 302 mOsm/kg (285-295); Potassium 3.9 mmol/L (3.5-5.1); Sodium 144 mmol/L (136-145)
[2022-10-28 11:17] LABS: Slide Review Slide Review Perform
[2022-10-28 11:18] LABS: Platelet Count 58 10^3/cmm (130-400)
== END 2022-10-28 09:51 | disposition home or self-care (01) ==
PROVIDERS: PCP Family Medicine Adult Medicine; Visit Provider Specialist
DX: C44.311 Basal cell carcinoma of skin of nose (principal); F17.200 Nicotine dependence, unspecified, uncomplicated; I21.9 Acute myocardial infarction, unspecified; I49.3 Ventricular premature depolarization
CPT/HCPCS: 36415; 80048; 85025; 93005

== ENCOUNTER 2022-11-04 13:12 | Oncology outpatient (recurring) (ONCR) | payer MEDICARE, MEDICAID, SELFPAY ==
[2022-05-30 16:06] VITALS: BP 121/75; BMI 23.4
[2022-11-04 14:57] LABS: Basophils # 0.1 10^3/uL (0.0-0.1); Basophils % 1.1 %; Eosinophils # 0.2 10^3/uL (0.0-0.8); Hematocrit 39.7 % (37.0-47.0); Hemoglobin 12.6 g/dL (11.5-15.3); Lymphocytes # 1.5 10^3/uL (0.8-4.8); Lymphocytes % 27.4 %; Mean Corpuscular HGB Conc 31.7 g/dL (30.0-36.0); Mean Corpuscular Hemoglobin 30.4 pg (28.0-34.0); Mean Corpuscular Volume 95.7 fl (81-99); Monocytes # 0.4 10^3/uL (0.2-0.9); Monocytes % 6.5 %; Neutrophils # 3.45 10^3/uL (1.8-7.7); Neutrophils % 61.8 %; Nucleated Red Blood Cells % 0 %; Platelet Count 95 10^3/cmm (130-400); Red Blood Count 4.15 10^6/uL (4.1-5.3); Red Cell Distribution Width 13.2 % (12.1-15.1); White Blood Count 5.6 10^3/uL (4.0-10.0)
[2022-11-04 15:50] LABS: Alanine Aminotransferase 13 U/L (0-33); Alkaline Phosphatase 74 U/L (35-105); Aspartate Amino Transferase 16 U/L (0-32); Blood Urea Nitrogen 28 mg/dL (8-23); Calcium 9.6 mg/dL (8.5-10.5); Carbon Dioxide 31 mmol/L (22-29); Chloride 103 mmol/L (98-107); Globulin 2.7 g/dL (1.3-4.6); Glucose 85 mg/dL (65-115); Iron 51 ug/dL (37-145); Osmolality Calculated 301 mOsm/kg (285-295); Percent Saturation 21.5 % (20-50); Sodium 143 mmol/L (136-145); Thyroid Stimulating Hormone 0.49 uIU/mL (0.27-4.20); Total Bilirubin 0.3 mg/dL (0.15-1.2); Total Iron Binding Capacity 237 mcg/dl; Total Protein 6.7 g/dL (6.6-8.7); Unsaturated Iron Binding 186 ug/dL (112-347); Vitamin B12 606 pg/mL (232-1245)
[2022-11-04 16:08] LABS: LAB Peripheral Smear Sent for Review
[2022-11-04 22:33] LABS: Free T4 Free Thyroxine 1.65 ng/dL (0.82-1.77)
[2022-11-05 15:19] LABS: Anti-Nuclear Antibody Screen NEGATIVE (NEGATIVE)
== END 2022-11-25 23:59 | disposition home or self-care (01) ==
PROVIDERS: PCP Family Medicine Adult Medicine; Visit Provider Internal Medicine Medical Oncology
DX: D69.6 Thrombocytopenia, unspecified (principal); C44.91 Basal cell carcinoma of skin, unspecified; N28.89 Other specified disorders of kidney and ureter; Z79.82 Long term (current) use of aspirin; F17.210 Nicotine dependence, cigarettes, uncomplicated; F17.290 Nicotine dependence, other tobacco product, uncomplicated
CPT/HCPCS: 36415; 80053; 82607; 83540; 83550; 84439; 84443; 85025; 86038; 99214

== ENCOUNTER 2022-11-12 06:00 | Day surgery (SDC) | payer MEDICARE, MEDICAID, SELFPAY ==
[2022-05-30 16:06] VITALS: BP 121/75; BMI 23.4
== END 2022-11-12 23:59 | disposition home or self-care (01) ==
LOC: OPS 11-26 13:16
PROVIDERS: PCP Family Medicine Adult Medicine; Visit Provider Specialist
DX: C44.311 Basal cell carcinoma of skin of nose (principal)
CPT/HCPCS: 88304; 88331

== ENCOUNTER 2022-11-27 09:24 | Outpatient (CLI) | payer MEDICARE, MEDICAID, SELFPAY ==
[2022-05-30 16:06] VITALS: BP 121/75; BMI 23.4
== END 2022-11-27 09:25 | disposition home or self-care (01) ==
LOC: RT 09:25
PROVIDERS: PCP Family Medicine Adult Medicine; Visit Provider Internal Medicine Pulmonary Disease
DX: J44.9 Chronic obstructive pulmonary disease, unspecified (principal)
CPT/HCPCS: 94010; 94618; 94729

== ENCOUNTER 2022-12-12 09:13 | Oncology outpatient (recurring) (ONCR) | payer MEDICARE, MEDICAID, SELFPAY ==
[2022-05-30 16:06] VITALS: BP 121/75; BMI 23.4
[2022-12-12 10:07] LABS: Basophils % 0.9 %; Eosinophils # 0.1 10^3/uL (0.0-0.8); Eosinophils % 1.9 %; Hematocrit 43.7 % (37.0-47.0); Hemoglobin 13.8 g/dL (11.5-15.3); Lymphocytes # 1.5 10^3/uL (0.8-4.8); Lymphocytes % 34.6 %; Mean Corpuscular HGB Conc 31.6 g/dL (30.0-36.0); Mean Corpuscular Hemoglobin 29.6 pg (28.0-34.0); Mean Corpuscular Volume 93.6 fl (81-99); Monocytes # 0.4 10^3/uL (0.2-0.9); Monocytes % 8.9 %; Neutrophils # 2.27 10^3/uL (1.8-7.7); Neutrophils % 53.5 %; Nucleated Red Blood Cells % 0 %; Red Blood Count 4.67 10^6/uL (4.1-5.3); Red Cell Distribution Width 13.4 % (12.1-15.1); White Blood Count 4.3 10^3/uL (4.0-10.0)
[2022-12-12 10:12] LABS: Erythrocyte Sedimentation Rate 5 mm/hr (0-15)
[2022-12-12 10:23] LABS: Alanine Aminotransferase 11 U/L (0-33); Albumin Level 4.4 g/dL (3.5-5.2); Alkaline Phosphatase 81 U/L (35-105); Anion Gap 10.6 (5-19); Aspartate Amino Transferase 17 U/L (0-32); Blood Urea Nitrogen 30 mg/dL (8-23); Calcium 9.7 mg/dL (8.5-10.5); Carbon Dioxide 33 mmol/L (22-29); Chloride 99 mmol/L (98-107); Ferritin 51 ng/mL (15-150); Globulin 2.4 g/dL (1.3-4.6); Glucose 64 mg/dL (65-115); Iron 55 ug/dL (37-145); Osmolality Calculated 290 mOsm/kg (285-295); Percent Saturation 20.3 % (20-50); Potassium 4.6 mmol/L (3.5-5.1); Sodium 138 mmol/L (136-145); Total Bilirubin 0.5 mg/dL (0.15-1.2); Total Iron Binding Capacity 270 mcg/dl; Total Protein 6.8 g/dL (6.6-8.7); Unsaturated Iron Binding 215 ug/dL (112-347)
[2022-12-12 11:22] LABS: Slide Review Slide Review Perform
[2022-12-12 11:24] LABS: Platelet Count 226 10^3/cmm (130-400)
[2022-12-13 06:06] LABS: PROTEIN, TOTAL 6.7 g/dL (6.1-8.1)
[2022-12-15 11:14] LABS: KAPPA LIGHT CHAIN, FREE, SERUM 39.1 mg/L (3.3-19.4); KAPPA/LAMBDA LIGHT CHAINS FREE 1.62 (0.26-1.65); LAMBDA LIGHT CHAIN, FREE, SERU 24.2 mg/L (5.7-26.3)
[2022-12-15 15:45] LABS: ALPHA 1 GLOBULIN 0.3 g/dL (0.2-0.3); ALPHA 2 GLOBULIN 0.8 g/dL (0.5-0.9); BETA 1 GLOBULIN 0.4 g/dL (0.4-0.6); BETA 2 GLOBULIN 0.3 g/dL (0.2-0.5)
== END 2022-12-23 23:59 | disposition home or self-care (01) ==
PROVIDERS: PCP Family Medicine Adult Medicine; Visit Provider Internal Medicine Medical Oncology
DX: D35.00 Benign neoplasm of unspecified adrenal gland; D69.6 Thrombocytopenia, unspecified; N28.9 Disorder of kidney and ureter, unspecified
CPT/HCPCS: 36415; 80053; 82728; 83540; 83550; 83883; 84155; 84165; 85025; 85651; 86140

== ENCOUNTER → 2023-01-22 08:55 | Outpatient (BNVA) | payer MEDICARE, MEDICAID, SELFPAY ==
[2023-01-03 11:08] VITALS: BP 121/75; BMI 23.4
== END ==
PROVIDERS: PCP Family Medicine Adult Medicine; Visit Provider Internal Medicine
DX: E04.1 Nontoxic single thyroid nodule (principal); E78.00 Pure hypercholesterolemia, unspecified; E03.9 Hypothyroidism, unspecified; E55.9 Vitamin D deficiency, unspecified; D35.00 Benign neoplasm of unspecified adrenal gland; E78.5 Hyperlipidemia, unspecified; E16.2 Hypoglycemia, unspecified; Z79.890 Hormone replacement therapy
CPT/HCPCS: 99214

== ENCOUNTER → 2023-02-20 09:42 | Outpatient (BNVA) | payer MEDICARE, MEDICAID, SELFPAY ==
[2023-01-03 11:08] VITALS: BP 121/75; BMI 23.4
== END ==
PROVIDERS: PCP Family Medicine Adult Medicine; Visit Provider Specialist
DX: G43.711 Chronic migraine without aura, intractable, with status migrainosus (principal); G31.84 Mild cognitive impairment of uncertain or unknown etiology; G62.89 Other specified polyneuropathies; R26.81 Unsteadiness on feet; Z91.81 History of falling
CPT/HCPCS: 99214

== ENCOUNTER 2023-02-23 07:35 | Outpatient (CLI) | payer BC, MEDICAID, SELFPAY ==
[2023-01-03 11:08] VITALS: BP 121/75; BMI 23.4
--- NOTE | 2023-02-23 07:45 | US_ITS ---
WS: [id number] ULTRASOUND THYROID TECHNIQUE: Ultrasound of the thyroid. CLINICAL INFORMATION: thyroid COMPARISON: None. FINDINGS: Thyroid: RIGHT thyroid removed. Atrophic LEFT thyroid. Right thyroid lobe: Removed Left thyroid lobe: 2.7 cm x 1.1 cm x 0.7 cm. Atrophic LEFT thyroid with small echogenic nodules largest measuring 6 x 5 x 3.5 mm unchanged from pr evious Isthmus: 0.3 mm. Cervical lymphadenopathy: None. US/US thyroid [id number] IMPRESSION: 1. RIGHT thyroid removed. 2. Atrophic LEFT thyroid. 3. Small echogenic nodules LEFT thyroid largest measuring 6 x 5 x 3.5 mm uncha nged from previous
== END 2023-02-23 07:36 | disposition home or self-care (01) ==
LOC: RAD 07:39
PROVIDERS: PCP Family Medicine Adult Medicine; Visit Provider Family Medicine Adult Medicine
DX: E04.2 Nontoxic multinodular goiter (principal)
CPT/HCPCS: 76536

== ENCOUNTER → 2023-03-10 09:26 | Outpatient (BNVA) | payer MEDICARE, SELFPAY ==
[2023-03-09 08:15] VITALS: BP 121/75; BMI 23.4
== END ==
PROVIDERS: PCP Family Medicine Adult Medicine; Visit Provider Nurse Practitioner Family
DX: L57.0 Actinic keratosis (principal); L90.5 Scar conditions and fibrosis of skin; Z85.828 Personal history of other malignant neoplasm of skin; L82.1 Other seborrheic keratosis; D22.5 Melanocytic nevi of trunk; Z71.89 Other specified counseling; L57.8 Other skin changes due to chronic exposure to nonionizing radiation; Z72.0 Tobacco use
CPT/HCPCS: 17000; 17003; 99213

== ENCOUNTER → 2023-03-11 14:41 | Outpatient (BNVA) | payer MEDICARE, MEDICAID, SELFPAY ==
[2023-03-09 08:15] VITALS: BP 121/75; BMI 23.4
== END ==
PROVIDERS: PCP Physician Assistant; Visit Provider Internal Medicine Cardiovascular Disease
DX: R00.2 Palpitations (principal); I83.90 Asymptomatic varicose veins of unspecified lower extremity; I10 Essential (primary) hypertension; F41.1 Generalized anxiety disorder; F17.219 Nicotine dependence, cigarettes, with unspecified nicotine-induced disorders
CPT/HCPCS: 99214

== ENCOUNTER → 2023-05-14 14:27 | Outpatient (BNVA) | payer MEDICARE, MEDICAID, SELFPAY ==
[2023-04-13 16:00] VITALS: BP 121/75; BMI 23.4
== END ==
PROVIDERS: PCP Family Medicine Adult Medicine; Visit Provider Internal Medicine Pulmonary Disease
DX: J44.9 Chronic obstructive pulmonary disease, unspecified (principal); R00.1 Bradycardia, unspecified; F17.210 Nicotine dependence, cigarettes, uncomplicated; F17.290 Nicotine dependence, other tobacco product, uncomplicated
CPT/HCPCS: 99214

== ENCOUNTER → 2023-05-19 14:21 | Outpatient (BNVA) | payer OTHER, SELFPAY ==
[2023-04-13 16:00] VITALS: BP 121/75; BMI 23.4
== END ==
PROVIDERS: PCP Family Medicine Adult Medicine; Visit Provider Nurse Practitioner Psychiatric/Mental Health
DX: F41.1 Generalized anxiety disorder (principal)
CPT/HCPCS: 80061; 83036

== ENCOUNTER 2023-07-17 12:19 | Outpatient (CLI) | payer BC, MEDICAID, SELFPAY ==
[2023-06-20 11:54] VITALS: BP 121/76; BMI 20.1
[2023-07-17 13:16] LABS: Free T4 Free Thyroxine 1.83 ng/dL (0.82-1.77); Thyroid Stimulating Hormone 0.05 uIU/mL (0.27-4.20)
[2023-07-18 12:09] LABS: T3 Total 105 ng/dL (76-181)
== END 2023-07-17 12:20 | disposition home or self-care (01) ==
PROVIDERS: PCP Family Medicine Adult Medicine; Visit Provider Internal Medicine
DX: E78.00 Pure hypercholesterolemia, unspecified (principal); R53.83 Other fatigue; E03.9 Hypothyroidism, unspecified; E55.9 Vitamin D deficiency, unspecified; D35.00 Benign neoplasm of unspecified adrenal gland; E78.5 Hyperlipidemia, unspecified
CPT/HCPCS: 84439; 84443; 84480

== ENCOUNTER 2023-07-24 10:07 | Outpatient (CLI) | payer MEDICARE, MEDICAID, SELFPAY ==
[2023-06-20 11:54] VITALS: BP 121/76; BMI 20.1
[2023-07-24 11:08] LABS: Free T4 Free Thyroxine 1.74 ng/dL (0.82-1.77)
[2023-07-29 14:59] LABS: TSH Receptor Binding Antibody <1.00 IU/L (< OR = 2.00)
== END 2023-07-24 10:08 | disposition home or self-care (01) ==
PROVIDERS: PCP Family Medicine Adult Medicine; Visit Provider Internal Medicine
DX: R94.6 Abnormal results of thyroid function studies (principal)
CPT/HCPCS: 36415; 83516; 84439

== ENCOUNTER → 2023-08-18 07:55 | Outpatient (BNVA) | payer MEDICARE, MEDICAID, SELFPAY ==
[2023-08-18 09:27] VITALS: BP 121/76; BMI 20.1
== END ==
PROVIDERS: PCP Family Medicine Adult Medicine; Visit Provider Specialist
DX: G62.9 Polyneuropathy, unspecified (principal); G31.84 Mild cognitive impairment of uncertain or unknown etiology; G43.711 Chronic migraine without aura, intractable, with status migrainosus; F17.210 Nicotine dependence, cigarettes, uncomplicated
CPT/HCPCS: 96116; 99214

== ENCOUNTER 2023-08-24 09:11 | Outpatient (CLI) | payer MEDICARE, MEDICAID, SELFPAY ==
[2023-08-18 09:27] VITALS: BP 121/76; BMI 20.1
--- NOTE | 2023-08-24 10:00 | CT_ITS ---
WS: [id number] LDCT LUNG CANCER SCREENING TECHNIQUE: Noncontrast CT of the chest with coronal and sagittal reformatted images. CLINICAL INFORMATION: lung cancer screening COMPARISON: 08/22/2022 DLP: 41.32 mGy.cm DIvol: Mean CTDIvol: 0.70 (mGy) All CT scans at [facility] use at least one of these dose optimization techniques: automat ed exposure control; mA and/or kV adjustment per patient size (includes targeted exams where dose is matched to clinical indication); or iterative reconstruction. FINDINGS: Stable mild chronic emphysematous changes. No acute pulmonary infiltrates. No new suspicious parenchy mal opacities. Subsegmental atelectasis in the LEFT lower lobe. No mediastinal or hilar lymphadenopathy. Mild aortic calcification and coronary calcification. No axillary lymphadenopathy. Stable LEFT adrenal adenoma measuring 1.9 CM. Partially visualized RIGHT renal cyst measuring 4.2 cm. Low- attenuation lesions in the liver likely hepatic cysts some are partially visualized IMPRESSION: CT/CT lung screening [id number] LUNG-RADS: 1-Negative FOLLOW UP: 12 Month: Continue annual screening with LDCT
== END 2023-08-24 09:12 | disposition home or self-care (01) ==
PROVIDERS: PCP Family Medicine Adult Medicine; Visit Provider Internal Medicine Pulmonary Disease
DX: Z12.2 Encounter for screening for malignant neoplasm of respiratory organs (principal); F17.200 Nicotine dependence, unspecified, uncomplicated; J44.9 Chronic obstructive pulmonary disease, unspecified
CPT/HCPCS: 71271

== ENCOUNTER 2023-09-29 09:52 | Outpatient (CLI) | payer MEDICARE, MEDICAID, SELFPAY ==
[2023-08-18 09:27] VITALS: BP 121/76; BMI 20.1
[2023-09-29 11:02] LABS: Free T4 Free Thyroxine 1.53 ng/dL (0.82-1.77); Thyroid Stimulating Hormone 0.87 uIU/mL (0.27-4.20)
== END 2023-09-29 09:53 | disposition home or self-care (01) ==
PROVIDERS: PCP Family Medicine Adult Medicine; Visit Provider Internal Medicine
DX: E03.9 Hypothyroidism, unspecified (principal)
CPT/HCPCS: 36415; 84439; 84443

== ENCOUNTER → 2023-10-01 10:18 | Outpatient (BNVA) | payer MEDICARE, MEDICAID, SELFPAY ==
[2023-08-18 09:27] VITALS: BP 121/76; BMI 20.1
== END ==
PROVIDERS: PCP Family Medicine Adult Medicine; Visit Provider Internal Medicine
DX: E03.9 Hypothyroidism, unspecified (principal); R53.83 Other fatigue; E78.00 Pure hypercholesterolemia, unspecified; E55.9 Vitamin D deficiency, unspecified; D35.00 Benign neoplasm of unspecified adrenal gland; E04.1 Nontoxic single thyroid nodule; E16.2 Hypoglycemia, unspecified; L65.9 Nonscarring hair loss, unspecified; Z79.890 Hormone replacement therapy
CPT/HCPCS: 99214

== ENCOUNTER → 2023-10-07 16:11 | Outpatient (BNVA) | payer MEDICARE, MEDICAID, SELFPAY ==
[2023-08-18 09:27] VITALS: BP 121/76; BMI 20.1
== END ==
PROVIDERS: PCP Family Medicine Adult Medicine; Visit Provider Specialist
DX: G56.03 Carpal tunnel syndrome, bilateral upper limbs (principal)
CPT/HCPCS: 73110; 99204

== ENCOUNTER → 2023-10-29 09:52 | Outpatient (BNVA) | payer MEDICARE, SELFPAY ==
[2023-08-18 09:27] VITALS: BP 121/76; BMI 20.1
== END ==
PROVIDERS: PCP Family Medicine Adult Medicine; Visit Provider Family Medicine
DX: Z01.818 Encounter for other preprocedural examination (principal)
CPT/HCPCS: 80053; 85025

== ENCOUNTER 2023-11-13 07:33 | Day surgery (SDC) | payer MEDICARE, MEDICAID, SELFPAY ==
[2023-08-18 09:27] VITALS: BP 121/76; BMI 20.1
--- OUTSIDE RECORDS SUMMARY | 2023-10-22 08:17 | XMS_ITS | Patient Health Record ---
Author Name Unknown Organization [facility] Address [address] [place], [place] [id number] Care Team Providers Care Scientist/Engineer Name Role Phone Uday Funes MD Unavailable [phone] Raza Drake MD Unavailable Unavailable ALLERGIES Allergen (clinical drug ingredient) Drug/Non Drug Allergy documented on EMR Reaction Allergy Type Onset Date Status acetaminophen / hydrocodone hydrocodone/acetamino phen (uncoded) Unknown Allergy Active Percocet (uncoded) Unknown Allergy A ctive Stadol Unknown Drug Allergy Active Percodan Unknown Drug Allergy Active codeine codeine Unknown Drug Allergy Active REASON FOR REFERRAL Reason Chronic back pain; S tatus post lumbar laminectomy; Polyneuropathy, peripheral senscrimotor axonal; Osteoarthritis Diagnosis 1 Dorsalgia, unspecifi ed (M54.9) Diagnosis 2 Other chronic pain ( G89.29) Diagnosis 3 Other specified post procedural states (Z98.890) Diagnosis 4 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 Referral Priority Routine MEDICATIONS Medication SIG (Take, Route, Frequency, Duration) Notes Start Date End Date Status aspirin 81 mg 1 tab orally BID for 30 day(s) Active traMADol 50 mg 1 tab po orally Q4H prn pain Active clonazePAM 0.5 mg 1 tab orally TID for 30 day(s) Active levothyroxine 50 mcg (0.05 mg) 1 tab orally once a day for 30 day(s) Active amLODIPine 10 mg 1 tab orally once a day for 30 day(s) Active metoprolol 50 mg 1 tab orally 2 times a day for 30 day(s) Active nicotine 1 PATCH transdermall y once a day for 28 day(s) Active SOCIAL HISTORY Sex Assigned At : Social History Observation Description Sex Assigned At Unknown PROBLEMS Problem Type ICD Code Onset Dates Problem Status W/U Status Risk SNOMED Code Notes Problem Muscle spasm (728.85) Active confirmed Spasm (54780855) Problem Hypersomnia (780.54) Active confirmed Hypersomnia (08795215) Problem Thoracic pain (724.1) Active confirmed Pain in thoraci c spine (115960758) Problem LONG-TERM USE MEDS NEC (V58.69) Active confirmed Long-term drug therapy (761263121) r/o substance abuse Problem 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) Active confirmed Displacement of thoracic intervertebral disc without myelopathy (25928578) Problem 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) Active confirmed Hereditary and idiopathic peripheral neuropathy (696451899) Problem Other chronic pain (G89.29) Active confirmed Chronic pain (24781568) Problem Dorsalgia, unspecified (M54.9) Active confirmed Backache (310668759) Problem Age-related osteoporosis without current pathological fracture (M81.0) Active confirmed Age-related osteoporosis (284655765) Problem Other specified postprocedural states (Z98.890) Active confirmed Postprocedu ral states (371831160) PLAN OF TREATMENT Next Appt Details Provider Name:Renetta Puente, 11/30/2023 11:00:00 AM, [address] [facility], [place], [place], [id number], Insurance Providers Payer Name Payer Address Payer Phone Subscriber Number Group Number Insured Name Patient Relationship to Insured Coverage Start Date Coverage End Date [employer]AGE PLAN [address] [place] [address] [id number] Wen Voss Self - patient is the insured [place] [address] [place] [address] [id number] Wen Voss Self - patient is the insured MEDICAL (GENERAL) HISTORY Medical History History ICD Code Low back pain Myalgia Hypertension Gastroesophageal reflux disease Urinary incontinence Hypothyroidism Polyneuropathy Degenerative disc disease, lumbar and ce rvical Emphysema Surgical History Surgery Date(Month/Year) section Tonsillectomy 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
[2023-11-13] VITALS (20 sets, daily range): BP systolic 148–183; BP diastolic 83–100; PULSE 59–73; RESP 11–24; TEMP 36.1–36.6; O2SAT 92–100; BMI 19.7
--- OUTSIDE RECORDS SUMMARY | 2023-11-13 07:36 | XMS_ITS | Patient Health Record ---
Author Name Unknown Organization [facility] Address [address] [place], [place] [id number] Care Team Providers Care Radiology Assistant Name Role Phone Uday Funes MD Unavailable [phone] Raza Drake MD Unavailable Unavailable ALLERGIES Allergen [...] Last Name Vidal Referring Provider Speciality Family Med icine Referred Organization [facility] Referred Provider Uday Funes Referred Address [address], [id number], Referred Provider Specialty Pain Managem ent General [...] Problem Muscle spasm (728.85) Active confirmed Spasm (39779786) Problem Hypersomnia (780.54) Active confirmed Hypersomnia (39799741) Problem Thoracic pain (724.1) Active confirmed Pain in thoraci c spine (910850864) Problem LONG-TERM USE MEDS NEC (V58.69) Active confirmed Long-term drug therapy (185860344) r/o substance abuse Problem 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) Active confirmed Displacement of thoracic intervertebral disc without myelopathy (82042058) Problem 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) Active confirmed Hereditary and idiopathic peripheral neuropathy (655180291) Problem Other chronic pain (G89.29) Active confirmed Chronic pain (12867394) Problem Dorsalgia, unspecified (M54.9) Active confirmed Backache (538229048) Problem Age-related osteoporosis without current pathological fracture (M81.0) Active confirmed Age-related osteoporosis (490590478) Problem Other specified postprocedural states (Z98.890) Active confirmed Postprocedu ral states (510652073) PLAN OF TREATMENT Next Appt Details Provider Name:Renetta Puente, 11/30/2023 11:00:00 AM, [address] [place] [address], [phone], Insurance Providers Payer Name Payer Address Payer Phone Subscriber Number Group Number Insured Name Patient Relationship to Insured Coverage Start Date Coverage End Date [employer]AN [address] [place] [address] [id number] Wen Voss Self - patient is the insured [place] [address] [place] [address] [id number] Bipin Wen Self - patient is the insured MEDICAL (GENERAL) HISTORY Medical History History ICD Code Low back pain Myalgia Hypertension Gastroesophageal reflux disease Urinary incontinence Hypothyroidism Polyneuropathy Degenerative disc disease, lumbar and ce rvical Emphysema Surgical History Surgery Date(Month/Year) section Tonsillectomy Tumor on spine 1996 Lumpectomies, breasts x 4 Foot surgery, left 1965 Hospitalization History Reason Date(Month/Year) Stress/cardiac issues
--- NOTE | 2023-11-13 08:13 | ANES.PREANE2 ---
Pre-Anesthetic Assessment Height/Weight: Height 1.68 m Weight 55.338 kg Temp Pulse Resp BP Pulse Ox O2 Del Method 97.2 F L 62 18 148/92 100 Room Air 11/13/23 07:51 11/13/23 07:51 11/13/23 07:51 11/13/23 07:51 11/13/23 07:51 11/13/23 07:52 Operation Date: 11/13/23 07:00 Proposed Procedures p right carpal tunnel release 75317,G56.01(Right) - Carola Grimm MD Familial anesthetic complications: None Was Beta Nati taken within 24 hours: Yes Was Clonidine taken within 24 hours: N/A Last intake: Intake Pudding at 0430; will wait til 12:30 Last Liquid Date 11/13/23 Last Liquid Time 04:30 Last Solid Date 11/13/23 Last Solid Time 04:30 Social Tobacco and No alcohol Exam alert, oriented x 3, clear to auscultation bilaterally and regular rate & rhythm Airway Mallampati: Class II Dentition: full Pulmonary Chronic Obstructive Pulmonary Disease CV/HEM Hypertension GI Gastroesophageal Reflux Disease Metabolic Hyperlipidemia and Thyroid Disease Anesthetic Plan ASA status: 3 Anesthesia: MAC Risk of > 500 ml blood loss (7ml/kg in children): No Medications/Allergies Home Medications Medication Instructions Recorded Confirmed Last Taken Type aspirin 81 mg tablet,delayed 81 mg PO DAILY 01/15/22 11/05/23 11/04/23 History release (Adult Aspirin Regimen) hydrocodone 5 mg-acetaminophen 325 1 tab PO Q6H PRN Pain 09/08/22 11/05/23 Unknown History mg tablet lorazepam 0.5 mg tablet (Ativan) 0.25 mg (1/2 x 0.5 mg) PO BID PRN 03/26/23 11/05/23 11/04/23 Rx anxiety #30 tabs furosemide 20 mg tablet (Lasix) 20 mg PO DAILY #90 tabs 04/13/23 11/05/23 11/04/23 Rx albuterol sulfate 90 mcg/actuation 2 puff inhalation Q6H PRN 05/14/23 11/13/23 Unknown Rx aerosol inhaler shortness of breath or wheezing #8.5 grams umeclidinium 62.5 mcg-vilanterol 1 inh inhalation DAILY #60 ea 05/14/23 11/05/23 11/12/23 Rx 25 mcg/actuation powdr for inhalation (Anoro Ellipta) trazodone 50 mg tablet 50 mg PO BEDTIME PRN insomnia #180 06/11/23 11/05/23 11/12/23 Rx tabs alendronate 70 mg tablet (Fosamax) 70 mg PO Q7D #12 tabs 07/01/23 11/05/23 10/31/23 Rx atorvastatin 20 mg tablet 20 mg PO DAILY #90 tabs 07/23/23 11/05/23 11/12/23 Rx pantoprazole 40 mg tablet,delayed 40 mg PO DAILY #180 tabs 07/23/23 11/05/23 11/12/23 Rx release (Protonix) escitalopram oxalate 10 mg tablet 10 mg PO .morning #90 tabs 09/10/23 11/05/23 11/12/23 Rx (Lexapro) levothyroxine 50 mcg tablet 50 mcg PO .COMPLEX 30 days #30 tabs 10/01/23 11/05/23 11/12/23 Rx metoprolol succinate 25 mg 12.5 mg (1/2 x 25 mg) PO DAILY #90 10/02/23 11/05/23 11/13/23 Rx tablet,extended release 24 hr tabs Allergies Allergy/AdvReac Type Severity Reaction Status Date / Time pregabalin [From Lyrica] Allergy Severe ADR-Dizzine Verified 11/05/23 09:28 ss ropinirole Allergy Severe ADR-Nausea Verified 11/05/23 09:28 butorphanol [From Stadol] AdvReac Mild ADR-Vomitin Verified 11/05/23 09:28 g duloxetine [From Cymbalta] AdvReac Mild ADR-Vomitin Verified 11/05/23 09:28 g PFSH Anesthesia Medical History Chronic back pain Lumbar stenosis with neurogenic claudication PVD (peripheral vascular disease) Polyneuropathy, peripheral sensorimotor axonal NCS/EMG 09/15/23 Bilateral medial nerve carpal tunnel syndrome, bilateral peritoneal nerve abnormal Bilateral carpal tunnel syndrome Basal cell carcinoma of nasal tip Bradycardia with 41-50 beats per minute Nocturnal leg cramps Hemangioma of joint History of anorexia nervosa Thrombocytopenia Vitamin D deficiency Major depressive disorder, recurrent episode with anxious distress History of kidney stones COPD (chronic obstructive pulmonary disease) GERD (gastroesophageal reflux disease) Hyperlipidemia Benign essential HTN Osteoporosis Generalized anxiety disorder Post-traumatic stress disorder, chronic Surgical History Status post lumbar laminectomy Georgie partial laminectomy 11/08/2021 L4L5 & L5S1 H/O colonoscopy H/O esophagogastroduodenoscopy S/P tonsillectomy S/P lumpectomy of breast S/P breast biopsy S/P thyroidectomy Right lobe of her thyroid removed left side multinodular goiter H/O section Family History Mother , 89 Dementia Father No problems noted. Family/Other Bleeding disorder cousin, hemophilia Denies family history of Anesthesia complication Social History Smoking and tobacco/nicotine status: current every day tobacco/nicotine user cigarettes Packs smoked per day: 0.25 Years cigarettes smoked: 31 [ Other cigarette details: Started at age 47] and e-cigarettes E-Cigarette Details: vaporizer device and with nicotine E-cig/vape details: 5% when it is to cold to go outside. Seldom uses it. Quit status (tobacco/nicotine): has tried quititng Second hand smoke exposure: Yes Alcohol intake: former Substance/Drug Use: former Adopted: No Caregiver/support person: No (has a nurse that comes in and sets up her medications) Lives independently: Yes Household members: none Housing: Apartment Marital status: Number of children: 4 Number of grandchildren: 11 Highest education level completed: GED or Equivalent service: No Current occupational status: retired Current occupational exposures/hazards: No Pets and animals: Yes (Tango) Pets & animals: dog(s) Leisure activites: exercise, art, games and other Leisure activities details: crafts, write, anabaptism Sexually active: No Do you think of yourself as: Straight/Heterosexual Current gender identity: Female Cara/Congregational: Holiness Special cara needs: No Agree to transfusion: No Female Reproductive History Para: 4 Data Anesthesia Cardiac Studies: Echocardiogram 07/25/21
[2023-11-13] MEDS: sodium chloride 0.9% 1,000 ML 30 ML IV (08:28)
[2023-11-13] MEDS: acetaminophen 1,000 MG/100 ML PIGGYBACK 400 MG IV (08:29)
[2023-11-13] MEDS: CELEcoxib 200 mg Capsule 400 MG PO (08:35)
--- NOTE | 2023-11-13 09:00 | P.HPUD_ITS ---
Surgery/Procedure H&P Update DATE OF PROCEDURE: November 13, 2023 DATE H&P PERFORMED: 10/29/23 H&P UPDATE INFORMATION: I have reviewed H&P completed within last 30 days, I have examined patient prior to procedure, No changes to prior documentation and H&P is in [facility] [place] on date indicated PLANNED PROCEDURE: Operation Date: 11/13/23 07:00 Proposed Procedures p right carpal tunnel release 98391,G56.01(Right) - Carola Grimm MD Related Problem List Diagnoses (1) Carpal tunnel syndrome on right:
[2023-11-13] MEDS: midazolam 1 mg/mL INJ 2 mL 2 MG IVP (10:15)
[2023-11-13] MEDS: ceFAZolin 2,000 MG in sodium chloride 0.9% (plus) 50 ML 100 MG IV (12:47)
[2023-11-13] MEDS: BUPivacaine 0.5% INJ 30 mL XX (13:17)
--- NOTE | 2023-11-13 13:51 | P.OP_ITS ---
Operative Report Date of procedure: November 13, 2023 Pre-op diagnosis: Right carpal tunnel syndrome, recurrent Post-op diagnosis: Right carpal tunnel syndrome, recurrent Post-op findings: Significant scarring and deformity of the soft tissues in the area of the carpal canal secondary to previous right carpal tunnel release. Very tight carpal canal. Procedure done: Revision right carpal tunnel release Specimens removed/disposition: None Surgeon: Carola Grimm MD Dancing Master: [facility] operating room technicians Anesthesia: General (Per LMA, ASA 3) Estimated blood loss (mL): 15 Tourniquet time (min): 24 (At 250 mmHg) IV fluids (mL): 600 Urine output (mL): 0 (No Pulido) Complications: None Findings: Significant scarring and deformity of soft tissue second to previous carpal tunnel release Condition: stable Disposition: PACU (Then return to same-day surgery for discharge to home) Brief History: This 73-year-old woman presented to my office initially for evaluation of bilateral carpal tunnel syndrome. The patient presents today for right carpal tunnel release. She has previously undergone right carpal tunnel surgery, but she has had significant recurrence of symptoms and electrodiagnostic study consistent with carpal tunnel syndrome. After discussion, in the office, consents were signed. Questions were answered. And plans were made for the surgical procedure. Procedure: The patient was brought to the operating theater. The patient had a general anesthetic per LMA, ASA 3. The tourniquet was elevated to 250 mmHg for a total tourniquet time of 24 minutes. The patient was also given Ancef 2 g preoperatively. The arm was then prepped and draped with DuraPrep in usual fashion with the arm draped free. A surgical pause was performed. At the time, the surgical pause, we confirmed the site and side of surgery. We also confirmed the patient's identity, appropriate and timely administration of preoperative antibiotics and preoperative surgical markings. An incision was then made along the thenar crease. The incision crossed the wrist joint in a curvilinear fashion. Dissection continued through skin and soft tissues using a scalpel. There was significant deformity to the soft tissues secondary to the patient's significant arthritis and prior history of carpal tunnel release. The anatomy was distorted, but we were able to isolate the median nerve as well as the palmaris longus. The palmaris longus was identified along with the transverse carpal ligament. Each of these was released carefully to avoid injury to the median nerve. We were able to dissect gently into the carpal canal which was noted to be quite tight with significant compression across the median nerve. There was also the above deformity noted. After exploration, the nerve was visualized and was an hourglass shape. The canal was subsequently palpated to assure there was no bony encroachment upon the canal. There was a quite thickened fibrous tissue within the canal, and this was opened longitudinally as well. The canal was then palpated distally and proximally to assure that my small finger was passed easily without impingement. Finding this to be so, attention was directed to closure. The wound was irrigated with ropivacaine plain. It was then closed with 3-0 nylon in an interrupted mattress fashion. Sterile dressing was then placed consisting of Dermabond, OpSite, fluffed fluffs, sterile soft roll, and an Saleem wrap. The tourniquet was released after 24 minutes, and hemostasis was obtained. There were no complications. There were no specimens. The procedure was well tolerated. Plan is the patient will be discharged home. Related Problem List Diagnoses (1) Carpal tunnel syndrome on right:
[2023-11-13] MEDS: fentaNYL 50 mcg/mL INJ 2mL IVP (14:29)
--- NOTE | 2023-11-13 15:48 | SUR.PHASEII ---
ROM AND SENSATION OF RIGHT HAND FINGERS.
--- NOTE | 2023-11-13 16:20 | ANE.PACU2 ---
Inpatient post-anesthesia follow up: Airway intact: Yes Vital signs: Temperature 97.8 F Pulse Rate 61 Respiratory Rate 14 Blood Pressure 160/83 Pulse Oximetry 97 Oxygen Delivery Me thod Room Air Oxygen Flow Rate 6 Fraction of Inspir ed Oxygen Hydration adequate: Yes Nausea and vomiting: No Pain level: 1 Mental status: Baseline
== END 2023-11-13 16:20 | disposition home or self-care (01) ==
PROVIDERS: PCP Family Medicine Adult Medicine; Visit Provider Specialist
PROC: (CPT 64721; principal; 2023-11-13 07:00)
DX: G56.01 Carpal tunnel syndrome, right upper limb (principal); J44.9 Chronic obstructive pulmonary disease, unspecified; I10 Essential (primary) hypertension; K21.9 Gastro-esophageal reflux disease without esophagitis; E78.5 Hyperlipidemia, unspecified; Z79.82 Long term (current) use of aspirin; M81.0 Age-related osteoporosis without current pathological fracture; F17.210 Nicotine dependence, cigarettes, uncomplicated
CPT/HCPCS: 64721; J0131; J0690; J1100; J2250; J2405; J2704; J3010; J3490; J7030

== ENCOUNTER → 2023-11-17 13:14 | Outpatient (BNVA) | payer MEDICARE, MEDICAID, SELFPAY ==
[2023-08-18 09:27] VITALS: BP 121/76; BMI 20.1
== END ==
PROVIDERS: PCP Family Medicine Adult Medicine; Visit Provider Nurse Practitioner Family
DX: Z85.828 Personal history of other malignant neoplasm of skin (principal); L57.0 Actinic keratosis; L82.1 Other seborrheic keratosis; L57.8 Other skin changes due to chronic exposure to nonionizing radiation; D22.4 Melanocytic nevi of scalp and neck; L81.4 Other melanin hyperpigmentation
CPT/HCPCS: 17000; 99213

== ENCOUNTER → 2023-11-19 10:41 | Outpatient (BNVA) | payer MEDICARE, MEDICAID, SELFPAY ==
[2023-08-18 09:27] VITALS: BP 121/76; BMI 20.1
== END ==
PROVIDERS: PCP Family Medicine Adult Medicine; Visit Provider Internal Medicine Pulmonary Disease
DX: J44.9 Chronic obstructive pulmonary disease, unspecified (principal); F17.210 Nicotine dependence, cigarettes, uncomplicated; Z12.2 Encounter for screening for malignant neoplasm of respiratory organs; Z71.6 Tobacco abuse counseling
CPT/HCPCS: 99214

== ENCOUNTER → 2023-12-14 13:12 | Outpatient (BNVA) | payer MEDICARE, MEDICAID, SELFPAY ==
[2023-08-18 09:27] VITALS: BP 121/76; BMI 20.1
== END ==
PROVIDERS: PCP Family Medicine Adult Medicine; Visit Provider Nurse Practitioner
DX: Z98.890 Other specified postprocedural states (principal); G56.01 Carpal tunnel syndrome, right upper limb
CPT/HCPCS: 99024

== ENCOUNTER 2023-12-24 10:59 | Outpatient (RCR) | payer MEDICARE, MEDICAID, SELFPAY ==
[2023-08-18 09:27] VITALS: BP 121/76; BMI 20.1
== END 2023-12-24 23:59 | disposition home or self-care (01) ==
LOC: SOT 10:59
PROVIDERS: PCP Family Medicine Adult Medicine; Visit Provider Nurse Practitioner
DX: Z47.89 Encounter for other orthopedic aftercare (principal)
CPT/HCPCS: 97110; 97166

== ENCOUNTER 2024-01-25 06:00 | Outpatient (RCR) | payer MEDICARE, MEDICAID, SELFPAY ==
[2023-08-18 09:27] VITALS: BP 121/76; BMI 20.1
== END 2024-02-23 23:59 | disposition home or self-care (01) ==
LOC: SOT 06:00
PROVIDERS: PCP Family Medicine Adult Medicine; Visit Provider Nurse Practitioner
DX: Z47.89 Encounter for other orthopedic aftercare (principal)
CPT/HCPCS: 97022; 97110

== ENCOUNTER → 2024-02-01 10:27 | Outpatient (BNVA) | payer MEDICAID, SELFPAY ==
[2023-08-18 09:27] VITALS: BP 121/76; BMI 20.1
== END ==
PROVIDERS: PCP Family Medicine Adult Medicine; Visit Provider Specialist
DX: Z98.890 Other specified postprocedural states (principal)
CPT/HCPCS: 99213

== ENCOUNTER 2024-04-04 10:52 | Outpatient (CLI) | payer MEDICARE, MEDICAID, SELFPAY ==
[2023-08-18 09:27] VITALS: BP 121/76; BMI 20.1
== END 2024-04-04 10:53 | disposition home or self-care (01) ==
LOC: LAB 10:55
PROVIDERS: PCP Family Medicine Adult Medicine; Visit Provider Internal Medicine
DX: D35.00 Benign neoplasm of unspecified adrenal gland (principal); E04.1 Nontoxic single thyroid nodule; E03.9 Hypothyroidism, unspecified
CPT/HCPCS: 36415; 84439; 84443; 84480

== ENCOUNTER 2024-04-18 10:46 | Emergency (ER) | payer MEDICARE, MEDICAID, SELFPAY ==
[2024-04-10 13:46] VITALS: BP 121/76; BMI 20.1
--- NOTE | 2024-04-18 10:44 | ECG_ITS ---
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 Measurements Intervals [place] Rate: 67 P: 66 MD: 200 QRS: -16 QRSD: 78 T: 52 QT: 426 QTc: 452 Interpretive Statements SINUS RHYTHM Compared to ECG 10/28/2022 10:12:22 Ventricular premature complex(es) no longer present Myocardial infarct finding no longer present Electronically Signed On 04-18-2024 14:48:19 CDT by Jorge Gomez M.D. [id number]
[2024-04-18 10:50] VITALS: BP 146/78; PULSE 68; TEMP 36.3; O2SAT 96; BMI 21.2
--- NOTE | 2024-04-18 10:51 | XRR_ITS ---
PROCEDURE INFORMATION: Exam: XR Chest Exam date and time: 04/18/2024 11:03 AM Age: 73 years old Clinical indication: Pain; Angina pectoris; Patient HX: HX of cervical basal cell thyroid colon cancer; Additional info: Chest pain TECHNIQUE: Imaging protocol: Radiologic exam of the chest. Views: 1 view. COMPARISON: CT lung screening [id number] 24/08/2023 09:34 FINDINGS: Lungs: Unremarkable. No consolidation. Pleural spaces: Unremarkable. No pleural effusion. No pneumothorax. Heart/Mediastinum: Unremarkable. No cardiomegaly. Bones/joints: Unremarkable. XR/XR chest 1V portable [id number] IMPRESSION: No acute findings.
[2024-04-18 11:06] LABS: Basophils # 0.1 10^3/uL (0.0-0.1); Basophils % 1.1 %; Eosinophils # 0.1 10^3/uL (0.0-0.8); Eosinophils % 1.8 %; Hematocrit 45.4 % (36-47); Lymphocytes % 31.7 %; Mean Corpuscular HGB Conc 32.8 g/dL (30-55); Mean Corpuscular Volume 94.4 fl (85-98); Mean Platelet Volume 12.7 fL (7.4-10.4); Monocytes # 0.5 10^3/uL (0.2-0.9); Monocytes % 8.1 %; Neutrophils # 3.51 10^3/uL (1.8-7.7); Neutrophils % 57.1 %; Nucleated Red Blood Cells % 0 %; Platelet Count 131 10^3/cmm (157-399); Red Blood Count 4.81 10^6/uL (3.85-5.65); Red Cell Distribution Width 13.8 % (12.1-15.1); White Blood Count 6.15 10^3/uL (3.29-11.43)
--- NOTE | 2024-04-18 11:16 | ED_ITS ---
HPI - Chest Pain 2 General: Chief Complaint: Chest Pain Stated Complaint: cp Time Seen by Provider: 04/18/24 10:48 History of Present Illness: 73-year-old female with a history of tob acco dependence, hypertension, hyperlipidemia and hypothyroidism who presents to the emergency room after having an episode of chest pain this morning. She says she was out talking with family and suddenly developed a sharp pain that went all the way across her chest from the left to the right side. It is improved. She said she felt lightheaded for a bit. She did not pass out. No nausea or vomiting. No diaphoresis. No altered mental status Review of Systems 2 Narrative: Constitutional symptoms: Negative except as documented in HPI. Skin symptoms: Negative except as documented in HPI. Eye symptoms: Negative except as documented in HPI. ENMT symptoms: Negative except as documented in HPI. Respiratory symptoms: Negative except as documented in HPI. Cardiovascular symptoms: Negative except as documented in HPI. Gastrointestinal symptoms: Negative except as documented in HPI. Genitourinary symptoms: Negative except as documented in HPI. Musculoskeletal symptoms: Negative except as documented in HPI. Neurologic symptoms: Negative except as documented in HPI. Psychiatric symptoms: Negative except as documented in HPI. Endocrine symptoms: Negative except as documented in HPI. PFSH ED 2 PFSH: Medical History Nicotine dependence, cigarettes, uncomplicated Hypersomnia Chronic back pain Lumbar stenosis with neurogenic claudication PVD (peripheral vascular disease) Polyneuropathy, peripheral sensorimotor axonal NCS/EMG 09/15/23 Bilateral medial nerve carpal tunnel syndrome, bilateral peritoneal nerve abnormal Bilateral carpal tunnel syndrome Basal cell carcinoma of nasal tip Bradycardia with 41-50 beats per minute Nocturnal leg cramps Hemangioma of joint History of anorexia nervosa Thrombocytopenia Vitamin D deficiency Major depressive disorder, recurrent episode with anxious distress History of kidney stones COPD (chronic obstructive pulmonary disease) GERD (gastroesophageal reflux disease) Hyperlipidemia Benign essential HTN Osteoporosis Generalized anxiety disorder Post-traumatic stress disorder, chronic Surgical History Status post carpal tunnel release Surgery: Right carpal tunnel release. Date of Surgery: 11/13/23. Surgeon: Dr. Carola Grimm MD. Status post lumbar laminectomy Georgie partial laminectomy 11/08/2021 L4L5 & L5S1 H/O colonoscopy H/O esophagogastroduodenoscopy S/P tonsillectomy S/P lumpectomy of breast S/P breast biopsy S/P thyroidectomy Right lobe of her thyroid removed left side multinodular goiter H/O section Family History Mother , 89 Dementia Father No problems noted. Family/Other Bleeding disorder cousin, hemophilia Denies family history of Anesthesia complication Social History Smoking and tobacco/nicotine status: never used tobacco/nicotine Quit status (tobacco/nicotine): has tried quititng Second hand smoke exposure: Yes Alcohol intake: former Substance/Drug Use: former Adopted: No Caregiver/support person: No (has a nurse that comes in and sets up her medications) Lives independently: Yes Household members: none Housing: Apartment Marital status: Number of children: 4 Number of grandchildren: 11 Highest education level completed: GED or Equivalent service: No Current occupational status: retired Current occupational exposures/hazards: No Pets and animals: Yes (Tango) Pets & animals: dog(s) Leisure activites: exercise, art, games and other Leisure activities details: crafts, write, latter day Sexually active: No Do you think of yourself as: Straight/Heterosexual Current gender identity: Female Cara/Baptism: Evangelical Special cara needs: No Agree to transfusion: No Female Reproductive History: Para: 4 Physical Exam 2 Narrative: EXAM NARRATIVE: General: Alert, no acute distress. Skin: Warm, dry. Head: Normocephalic, atraumatic. Neck: Supple, trachea midline. Eye: Extraocular movements are intact. Ears, nose, mouth and throat: mucosa moist. Cardiovascular: Regular, Normal peripheral perfusion. Respiratory: Lungs are clear to auscultation, respirations are non-labored, breath sounds are equal, Symmetrical chest wall expansion. Gastrointestinal: Soft, Nontender, Non distended, Normal bowel sounds. Musculoskeletal: Normal ROM, no deformity. Neurological: Alert and oriented, No focal neurological deficit observed. Psychiatric: Cooperative, appropriate mood & affect. Course 2 Vital Signs: Vital signs: Vital Signs Temperature 97.3 F L 04/18/24 10:50 Pulse Rate 59 L 04/18/24 13:29 Respiratory Rate 20 H 04/18/24 13:29 Blood Pressure 165/98 04/18/24 13:29 Pulse Oximetry 97 04/18/24 13:29 Oxygen Delivery Me thod Room Air 04/18/24 13:29 MDM - Chest Pain Medical Decision Making Differential diagnosis for patient with chest pain includes but is not limited to and based on the above HPI, review of systems and physical exam: Pneumonia. unstable angina. angina. Acute coronary syndrome / KS. Pulmonary embolism. Costochondritis / musculoskeletal. Pleurisy. Pericarditis. Esophageal spasm. Pancreatis. Cholecystitis. Orders placed to evaluate differential diagnosis based on the above differential, HPI and physical exam EKG: Time 10:44 AM. Rate 67. Normal sinus rhythm, No ST-T changes, no ectopy, normal KS & QRS intervals, This was reviewed and interpreted by myself the ER physician at 10:46 AM Chest x-ray: No acute process. No infiltrate. No pneumothorax. No cardiomegaly. This was reviewed and interpreted by myself the ER physician. EKG: Sinus bradycardia, No ST-T changes, no ectopy, normal KS & QRS intervals, This was reviewed and interpreted by myself the ER physician at 1252. Heart rate has slowed from 67 down to 52. Lab Review: Laboratory results were reviewed and interpreted by myself the emergency room physician. lab work is fairly unremarkable. Serial troponins are negative. No leukocytosis. BUN and creatinine are 22 and 1.1. D-dimer was minimally elevated at 1.1. However she is not hypoxic. She is not tachycardic. So I have a very low suspicion for PE. I did order CT which she does not tolerate contrast. I reviewed the patient's medical record. Reexamination: Patient feels much better. She wants to go home. No increased work of breathing. No further chest pain. No altered mental status. Assessment and plan: Chest pain, noncardiac Tobacco dependence - Discharged home - Discussed findings and plan with patient. Answered any questions. - All laboratory values were reviewed and interpreted personally by myself, the ER physician - All imaging was reviewed and interpreted personally by myself, the ER physician. - Evaluation and treatment of this problem were appropriate in the emergency setting I spent 3-4 minutes talking to the patient about tobacco cessation. We discussed the risk associated with tobacco use and the importance of stopping tobacco use. The patient seems receptive to the information. Lab Data 04/18/24 10:35 04/18/24 12:30 Radiology Impressions Chest X-Ray 04/18/24 10:51 IMPRESSION: No acute findings. Laboratory Results WBC 6.15 10^3/uL (3.29-11.43) 04/18/24 10:35 RBC 4.81 10^6/uL (3.85-5.65) 04/18/24 10:35 Hgb 14.90 g/dL (11.27-16.99) 04/18/24 10:35 Hct 45.4 % (36-47) 04/18/24 10:35 MCV 94.4 fl (85-98) 04/18/24 10:35 MCH 31.0 pg (27-33) 04/18/24 10:35 MCHC 32.8 g/dL (30-55) 04/18/24 10:35 RDW 13.8 % (12.1-15.1) 04/18/24 10:35 Plt Count 131 10^3/cmm (157-399) L 04/18/24 10:35 MPV 12.7 fL (7.4-10.4) H 04/18/24 10:35 Neut % (Auto) 57.1 % 04/18/24 10:35 Lymph % (Auto) 31.7 % 04/18/24 10:35 Manati % (Auto) 8.1 % 04/18/24 10:35 Eos % (Auto) 1.8 % 04/18/24 10:35 Baso % (Auto) 1.1 % 04/18/24 10:35 Neut # (Auto) 3.51 10^3/uL (1.8-7.7) 04/18/24 10:35 Lymph # (Auto) 2.0 10^3/uL (0.8-4.8) 04/18/24 10:35 [place] # (Auto) 0.5 10^3/uL (0.2-0.9) 04/18/24 10:35 Eos # (Auto) 0.1 10^3/uL (0.0-0.8) 04/18/24 10:35 Baso # (Auto) 0.1 10^3/uL (0.0-0.1) 04/18/24 10:35 Nucleated RBC % (auto) 0 % 04/18/24 10:35 Nucleated RBCs # 0.0 /100WBC 04/18/24 10:35 D-Dimer 1.11 ug/mLFEU (0-0.59) H 04/18/24 11:42 Sodium 138 mmol/L (136-145) 04/18/24 12:30 Potassium 4.4 mmol/L (3.5-5.1) 04/18/24 12:30 Chloride 102 mmol/L (98-107) 04/18/24 12:30 Carbon Dioxide 26 mmol/L (22-29) 04/18/24 12:30 Anion Gap 14.4 (5-19) 04/18/24 12:30 BUN 22 mg/dL (8-23) 04/18/24 12:30 Creatinine 1.1 mg/dL (0.5-0.9) H 04/18/24 12:30 GFR Calculation Not Reportable 04/18/24 12:30 Glucose 84 mg/dL (65-115) 04/18/24 12:30 Calculated Osmolality 289 mOsm/kg (285-295) 04/18/24 12:30 Calcium 8.8 mg/dL (8.5-10.5) 04/18/24 12:30 Total Bilirubin 0.5 mg/dL (0.15-1.2) 04/18/24 12:30 AST 14 U/L (0-32) 04/18/24 12:30 ALT 7 U/L (0-33) 04/18/24 12:30 Alkaline Phosphatase 61 U/L (35-105) 04/18/24 12:30 Troponin T Baseline 16 ng/L (0-10) H 04/18/24 10:35 Troponin T 120 Minute 14.76 ng/L (0-10) H 04/18/24 12:30 Delta Troponin T -1.24 ABS# (0-10) L 04/18/24 12:30 C-Reactive Protein 3.0 mg/L (0.0-4.9) 04/18/24 12:30 NT-Pro-B Natriuret Pep 358 pg/mL (0-125) H 04/18/24 12:30 Total Protein 6.6 g/dL (6.6-8.7) 04/18/24 12:30 Albumin 3.9 g/dL (3.5-5.2) 04/18/24 12:30 Globulin 2.7 g/dL (1.3-4.6) 04/18/24 12:30 All radiology interpretation(s) finalized by discharge Discharge Plan Discharge Patient Disposition: Home Clinical Impression: Atypical chest pain Condition: Stable Prescriptions: No Action aspirin [Adult Aspirin Regimen] 81 mg tablet,delayed release (DR/EC) 81 mg PO .NOON metoprolol succinate 25 mg tablet extended release 24 hr 12.5 mg PO DAILY Qty: 90 3RF albuterol sulfate 90 mcg/actuation HFA aerosol inhaler 2 puff inhalation Q6H PRN (Reason: shortness of breath or wheezing) Qty: 8.5 6RF Anoro Ellipta 62.5-25 mcg/actuation blister with device 1 inh inhalation DAILY Qty: 60 6RF pantoprazole [Protonix] 40 mg tablet,delayed release (DR/EC) 40 mg PO DAILY Qty: 180 1RF alendronate [Fosamax] 70 mg tablet 70 mg PO Q7D Qty: 12 1RF Rx Instructions: ON THURSDAY lorazepam [Ativan] 0.5 mg tablet 0.25 mg PO BID PRN (Reason: anxiety) Qty: 30 2RF atorvastatin 20 mg tablet 20 mg PO .NOON trazodone 50 mg tablet See Rx Instructions .ROUTE .COMPLEX PRN (Reason: insomnia) Rx Instructions: Take 1 tablet 1 hr prior to bedtime as needed for sleep, may repeat if not asleep in 2 hours. levothyroxine 50 mcg tablet See Rx Instructions .ROUTE .COMPLEX Rx Instructions: TAKE 50 MCG BY MOUTH DAILY EXCEPT FOR THURSDAY. Lasix 20 mg tablet 20 mg PO .NOON Lexapro 10 mg tablet 10 mg PO .NOON Discharge Orders: Discharge ED (Routine); Ordered 04/18/24 Ordered By: Lisa Engel Referrals: Raza Drake MD [Primary Care Provider] - Discharge Diet: Usual diet Discharge Activity: Increase activity as tolerated Patient Instructions: Noncardiac Chest Pain (ED) Activity Restrictions/Additional Instructions: Thank you for choosing [facility] for your healthcare needs today. Please realize this is an emergency room and that we are providing you with a medical screening exam and this may not be complete and all inclusive of all the testing and or work up that you may need to determine your ailment or severity of your illness. You have been screened and evaluated and felt safe for discharge. Health conditions do change or evolve sometimes and as such it is important that you follow up with your Primary Doctor to be re checked, 3-5 days is a general good time frame for follow up. You are always welcome to return to the ED for re assessment if your symptoms are worsening or you have new concerns Coding Level of Care Code ED Transfer Car Operator for Palomo Cameron
[2024-04-18 11:24] LABS: Troponin(5th) Baseline 16 ng/L (0-10)
[2024-04-18 12:11] LABS: D Dimer 1.11 ug/mLFEU (0-0.59)
[2024-04-18 12:19] VITALS: PULSE 54; O2SAT 97
[2024-04-18 12:20] VITALS: BP 157/87; PULSE 52; O2SAT 100
--- NOTE | 2024-04-18 12:49 | ECG_ITS ---
[facility] Test Date: 2024-04-18 Pat Name: Wen Voss Department: Room: Gender: Female Interventional Nurse: : 1950 Requested By: Lisa Pressley Order Number: [id number] Magan MD: Jorge Gomez M.D. Measurements Intervals Lipscomb Rate: 52 P: 64 MT: 213 QRS: -13 QRSD: 76 T: 40 QT: 461 QTc: 430 Interpretive Statements SINUS BRADYCARDIA WITH FIRST DEGREE AV BLOCK POSSIBLE LEFT ATRIAL ENLARGEMENT [-0.1mV P-WAVE IN V1/V2] SEPTAL MYOCARDIAL INFARCTION , OF INDETERMINATE AGE [40+ ms Q WAVE IN V1/V2] Compared to ECG 04/18/2024 10:44:26 First degree AV block now present Myocardial infarct finding now present Sinus rhythm no longer present Electronically Signed On 04-18-2024 14:51:10 CDT by Jorge Gomez M.D. [id number]
[2024-04-18 12:59] LABS: Alanine Aminotransferase 7 U/L (0-33); Albumin Level 3.9 g/dL (3.5-5.2); Alkaline Phosphatase 61 U/L (35-105); Anion Gap 14.4 (5-19); Aspartate Amino Transferase 14 U/L (0-32); Blood Urea Nitrogen 22 mg/dL (8-23); Calcium 8.8 mg/dL (8.5-10.5); Carbon Dioxide 26 mmol/L (22-29); Chloride 102 mmol/L (98-107); Creatinine Clr Calc Pharmacy 41.2916; Globulin 2.7 g/dL (1.3-4.6); Glucose 84 mg/dL (65-115); Osmolality Calculated 289 mOsm/kg (285-295); Potassium 4.4 mmol/L (3.5-5.1); Sodium 138 mmol/L (136-145); Total Bilirubin 0.5 mg/dL (0.15-1.2); Total Protein 6.6 g/dL (6.6-8.7)
[2024-04-18 13:00] LABS: Troponin 5 2HR 14.76 ng/L (0-10)
[2024-04-18 13:01] LABS: Troponin 5 2HR Delta -1.24 ABS# (0-10)
[2024-04-18 13:18] LABS: NT Pro B Type Natriuretic Pept 358 pg/mL (0-125)
[2024-04-18] MEDS: LORazepam 2 mg/mL INJ 10 mL MDV 1 MG IV (13:28)
[2024-04-18 13:29] VITALS: BP 165/98; PULSE 59; RESP 20; O2SAT 97
[2024-04-18 14:33] VITALS: BP 165/98; PULSE 59; RESP 20; TEMP 36.3; O2SAT 97
== END 2024-04-18 14:35 | disposition home or self-care (01) ==
PROVIDERS: Emergency Provider Emergency Medicine; PCP Family Medicine Adult Medicine
DX: R07.89 Other chest pain (principal); Z77.22 Contact with and (suspected) exposure to environmental tobacco smoke (acute) (chronic); J44.9 Chronic obstructive pulmonary disease, unspecified; I10 Essential (primary) hypertension; E78.5 Hyperlipidemia, unspecified
CPT/HCPCS: 36415; 71045; 80053; 83880; 84484; 85025; 85378; 86140; 93005; 96374; 99285; J2060

== ENCOUNTER 2024-04-25 07:32 | Outpatient (CLI) | payer MEDICARE, MEDICAID, SELFPAY ==
[2024-04-10 13:46] VITALS: BP 121/76; BMI 20.1
--- NOTE | 2024-04-25 08:00 | US_ITS ---
WS: [id number] THYROID ULTRASOUND HISTORY: thyroid nodule COMPARISON: 02/23/2023 there is small caliber thyroid. There are a few echogenic nodules which were kristine cribed on the prior study. The largest measures 6 x 5 x 6 mm. Nodule is not enlarging. No adjacent ly mph nodes. Right lobe: Prior RIGHT thyroid removal. No mass in the thyroid bed. No adenopathy. Left lobe: 1.1 cm x 0.8 cm x 2.1 cm (w x ap x l). Volume: 0.9 cm3. Small caliber LEFT thyroid. Isthmus: 0.2 cm. US/US thyroid [id number] IMPRESSION: TI-RADS 2: Echogenic LEFT subcentimeter thyroid nodule is unchanged. Prior RIGHT thyroidectomy.
[2024-04-25 08:50] LABS: Cortisol Random 18.53 ug/dL (2.47-19.5)
== END 2024-04-25 07:33 | disposition home or self-care (01) ==
LOC: RAD 07:33
PROVIDERS: PCP Family Medicine Adult Medicine; Visit Provider Internal Medicine
DX: E04.1 Nontoxic single thyroid nodule (principal); D35.00 Benign neoplasm of unspecified adrenal gland; E03.9 Hypothyroidism, unspecified
CPT/HCPCS: 36415; 76536; 82533

== ENCOUNTER → 2024-05-03 11:53 | Outpatient (BNVA) | payer MEDICARE, MEDICAID, SELFPAY ==
[2024-04-10 13:46] VITALS: BP 121/76; BMI 20.1
== END ==
PROVIDERS: PCP Family Medicine Adult Medicine; Visit Provider Internal Medicine
DX: E78.00 Pure hypercholesterolemia, unspecified (principal); R53.83 Other fatigue; E03.9 Hypothyroidism, unspecified; E55.9 Vitamin D deficiency, unspecified; D35.00 Benign neoplasm of unspecified adrenal gland; E04.1 Nontoxic single thyroid nodule; E16.2 Hypoglycemia, unspecified; L65.9 Nonscarring hair loss, unspecified; Z79.890 Hormone replacement therapy
CPT/HCPCS: 99214

== ENCOUNTER → 2024-05-24 16:07 | Outpatient (BNVA) | payer OTHER, SELFPAY ==
[2024-04-10 13:46] VITALS: BP 121/76; BMI 20.1
== END ==
PROVIDERS: PCP Family Medicine Adult Medicine; Visit Provider Nurse Practitioner Psychiatric/Mental Health
DX: F41.1 Generalized anxiety disorder (principal); Z79.899 Other long term (current) drug therapy
CPT/HCPCS: 80061; 83036

== ENCOUNTER → 2024-06-09 09:46 | Outpatient (BNVA) | payer MEDICARE, MEDICAID, SELFPAY ==
[2024-05-25 13:01] VITALS: BP 149/75; BMI 22.0
== END ==
PROVIDERS: PCP Family Medicine Adult Medicine; Visit Provider Internal Medicine Cardiovascular Disease
DX: I10 Essential (primary) hypertension (principal); R00.2 Palpitations; I83.893 Varicose veins of bilateral lower extremities with other complications; F17.210 Nicotine dependence, cigarettes, uncomplicated
CPT/HCPCS: 99213

== ENCOUNTER → 2024-06-21 09:03 | Outpatient (BNVA) | payer MEDICAID, SELFPAY ==
[2024-05-25 13:01] VITALS: BP 149/75; BMI 22.0
== END ==
PROVIDERS: PCP Family Medicine Adult Medicine; Visit Provider Nurse Practitioner Family
DX: D48.5 Neoplasm of uncertain behavior of skin (principal); L57.8 Other skin changes due to chronic exposure to nonionizing radiation; D22.4 Melanocytic nevi of scalp and neck; L81.4 Other melanin hyperpigmentation; Z85.828 Personal history of other malignant neoplasm of skin
CPT/HCPCS: 11102; 99213

== ENCOUNTER 2024-08-24 13:23 | Outpatient (CLI) | payer MEDICARE, MEDICAID, SELFPAY ==
[2024-05-25 13:01] VITALS: BP 149/75; BMI 22.0
== END 2024-08-24 13:24 | disposition home or self-care (01) ==
LOC: LAB 13:26
PROVIDERS: PCP Family Medicine Adult Medicine; Visit Provider Specialist
DX: C44.319 Basal cell carcinoma of skin of other parts of face (principal)
CPT/HCPCS: 88304; 88312; 88331

== ENCOUNTER → 2024-09-15 08:15 | Outpatient (BNVA) | payer MEDICARE, MEDICAID, SELFPAY ==
[2024-05-25 13:01] VITALS: BP 149/75; BMI 22.0
== END ==
PROVIDERS: PCP Family Medicine Adult Medicine; Visit Provider Nurse Practitioner Family
DX: L57.8 Other skin changes due to chronic exposure to nonionizing radiation (principal); D22.4 Melanocytic nevi of scalp and neck; L81.4 Other melanin hyperpigmentation; L85.8 Other specified epidermal thickening; Z85.828 Personal history of other malignant neoplasm of skin
CPT/HCPCS: 99214

== ENCOUNTER → 2024-09-20 14:36 | Outpatient (BNVA) | payer MEDICAID, SELFPAY ==
[2024-05-25 13:01] VITALS: BP 149/75; BMI 22.0
== END ==
PROVIDERS: PCP Family Medicine Adult Medicine
DX: I10 Essential (primary) hypertension (principal); N23 Unspecified renal colic
CPT/HCPCS: 80053; 81000; 85025

== ENCOUNTER 2024-10-13 09:57 | Outpatient (CLI) | payer MEDICARE, MEDICAID, SELFPAY ==
[2024-05-25 13:01] VITALS: BP 149/75; BMI 22.0
[2024-10-13] MEDS: iohexol 350 mg/mL 500 mL Btl (per mL) PO (10:20)
--- NOTE | 2024-10-13 10:30 | CT_ITS ---
WS: [id number] CT ABDOMEN AND PELVIS WITH CONTRAST HISTORY: left upper quadrant pain TECHNIQUE: Imaging performed of the abdomen and pelvis with IV contrast. Single phase imaging of the abdomen. Coronal and sagittal reformats are submitted. All CT scans at [facility] use at aden st one of these dose optimization techniques: automated exposure control; mA and/or kV adjustment per patient size (includes targeted exams where dose is matched to clinical indication); or iterative re construction. IV CONTRAST: Omnipaque 350; 100 mL IV. Oral contrast: Yes. DLP: 310.39 mGy.cm COMPARISON: 04/01/2021 Lower thorax: Lung bases are clear. Mild cardiomegaly. No hiatal hernia. Liver/biliary system: Normal size liver with several scattered hepatic cysts. No solid mass. No bile duct dilatation. Gallbladder: Normal. No gallstones or wall thickening. No pericholecystic fluid. Pancreas: Normal size pancreas and pancreatic duct. No adjacent inflammation. Spleen: Normal size spleen. No mass or infarct. Adrenal glands: Normal RIGHT adrenal gland. Long-term stability LEFT adrenal mass measuring 2.1 x 1.7 cm. Mass has been present since 01/06/2016 without increase in size. Right kidney: Normal size kidney with cortical cysts. Largest cyst upper pole measures 5.1 cm. No obs truction. Left kidney: Small cortical cysts. No obstruction or mass. Aorta: Mild atherosclerosis with no aneurysm. Lymphadenopathy: None. Free fluid: None. GI tract: Stomach is moderately distended with air and fluid. No obstruction. Diffuse at least modera te constipation. No appendicitis. Numerous diverticula in the descending and sigmoid colon. No acute diverticulitis. Abdominal wall: Unremarkable abdominal wall. No hernia. Pelvis: No free fluid or adenopathy within the pelvis. Prior hysterectomy. Bones: Mild scoliosis. CT/CT abdomen pelvis w con* [id number] IMPRESSION: 1. Moderate distal colon diverticulosis without acute diverticulitis. 2. No GI tract obstruction. 3. Hepatic and renal cysts. 4. Mild cardiomegaly. 5. Long-term stability LEFT adrenal adenoma 2.1 x 2.7 cm.
[2024-10-13] MEDS: iohexol 350 mg/mL 500 mL Btl (per mL) IV (11:05)
== END 2024-10-13 09:58 | disposition home or self-care (01) ==
LOC: RAD 09:58
PROVIDERS: PCP Family Medicine
DX: K57.90 Diverticulosis of intestine, part unspecified, without perforation or abscess without bleeding (principal); Q44.6 Cystic disease of liver; Q61.02 Congenital multiple renal cysts; D35.02 Benign neoplasm of left adrenal gland; K59.00 Constipation, unspecified; Z90.710 Acquired absence of both cervix and uterus
CPT/HCPCS: 74177

== ENCOUNTER 2024-11-02 11:05 | Outpatient (CLI) | payer MEDICARE, MEDICAID, SELFPAY ==
[2024-05-25 13:01] VITALS: BP 149/75; BMI 22.0
[2024-11-02 11:56] LABS: Free T4 Free Thyroxine 1.11 ng/dL (0.82-1.77); Thyroid Stimulating Hormone 14.13 uIU/mL (0.27-4.20)
== END 2024-11-02 11:06 | disposition home or self-care (01) ==
LOC: LAB 11:07
PROVIDERS: PCP Family Medicine; Visit Provider Internal Medicine
DX: E78.00 Pure hypercholesterolemia, unspecified (principal)
CPT/HCPCS: 36415; 84439; 84443

== ENCOUNTER → 2024-11-08 14:52 | Outpatient (BNVA) | payer MEDICAID, OTHER, SELFPAY ==
[2024-05-25 13:01] VITALS: BP 149/75; BMI 22.0
== END ==
PROVIDERS: PCP Family Medicine; Visit Provider Family Medicine
DX: R30.0 Dysuria (principal); M81.0 Age-related osteoporosis without current pathological fracture; I10 Essential (primary) hypertension; E78.00 Pure hypercholesterolemia, unspecified; K21.9 Gastro-esophageal reflux disease without esophagitis; F17.210 Nicotine dependence, cigarettes, uncomplicated; J44.9 Chronic obstructive pulmonary disease, unspecified; D69.6 Thrombocytopenia, unspecified; K59.00 Constipation, unspecified
CPT/HCPCS: 87077; 87086; 87184

== ENCOUNTER 2024-11-11 18:01 | Emergency (ER) | payer MEDICARE, MEDICAID, SELFPAY ==
[2024-05-25 13:01] VITALS: BP 149/75; BMI 22.0
--- NOTE | 2024-11-11 18:12 | CTR_ITS ---
PROCEDURE INFORMATION: Exam: CT Cervical Spine Without Contrast Exam date and time: 11/11/2024 6:23 PM Age: 74 years old Clinical indication: Injury or trauma; Blunt trauma; Patient HX: Fall with headstrike. C/O BUENO with small hematoma to left parietal. TECHNIQUE: Imaging protocol: Computed tomography of the cervical spine without contrast. Radiation optimization: All CT scans at this facility use at least one of these dose optimization techniques: automated exposure control; mA and/or kV adjustment per patient size (includes targeted exams where dose is matched to clinical indication); or iterative reconstruction. COMPARISON: CR XR cervical spine 4-5V [id number] 01/09/2022 11:54 AM RADIATION DOSE METRICS: Total DLP (mGy-cm): 136.57 FINDINGS: Bones: Grade 1 posterior listhesis of C5 on C6, similar to the prior cervical spine radiograph dated 01/09/2022. No acute cervical spine fracture. Lungs: Lung apices are normal. Soft tissues: Unremarkable. CT/CT cervical spin wo con* [id number] IMPRESSION: No acute cervical spine fracture.
--- NOTE | 2024-11-11 18:12 | CTR_ITS ---
PROCEDURE INFORMATION: Exam: CT Head Without Contrast Exam date and time: 11/11/2024 6:20 PM Age: 74 years old Clinical indication: Injury or trauma; Blunt trauma (contusions or hematomas); Patient HX: Fall with headstrike. C/O BUENO with small hematoma to left parietal. ; Additional info: Fall, frontal BUENO, large occipital hematoma TECHNIQUE: Imaging protocol: Computed tomography of the head without contrast. Radiation optimization: All CT scans at this facility use at least one of these dose optimization techniques: automated exposure control; mA and/or kV adjustment per patient size (includes targeted exams where dose is matched to clinical indication); or iterative reconstruction. COMPARISON: MR head wo/w con [id number] 09/06/2021 10:28 AM RADIATION DOSE METRICS: Total DLP (mGy-cm): 976.5 FINDINGS: Brain: Subcortical and periventricular white matter changes consistent with small-vessel ischemic disease in the appropriate clinical setting. Small-vessel ischemic disease. No acute intracranial abnormality. Cerebral ventricles: No ventriculomegaly. Paranasal sinuses: Visualized sinuses are unremarkable. No fluid levels. Mastoid air cells: Visualized mastoid air cells are well aerated. Bones: See Soft tissues finding. Soft tissues: Soft tissue hematoma overlying the left lateral skull with no underlying skull fracture. CT/CT head wo con* [id number] IMPRESSION: 1. No acute intracranial abnormality. 2. Small-vessel ischemic disease. 3. Soft tissue hematoma overlying the left lateral skull with no underlying skull fracture.
[2024-11-11 18:20] VITALS: BP 190/100; PULSE 63; RESP 18; TEMP 36.7; O2SAT 96; BMI 21.6
--- NOTE | 2024-11-11 18:27 | ED_ITS ---
HPI - Head Injury General: Chief complaint: Head Injury Stated complaint: n/v/ fall Time Seen by Provider: 11/11/24 18:07 Source: patient Mode of arrival: EMS Limitations: no limitations History of Present Illness: Patient is a 74-year-old female presents the emergency department by ambulance due to a fall. Patient lives at the [facility], states she tripped over dog in the elevator and struck her head on the metal pole. She has a large hematoma to left occipital parietal region, and her reported headache is frontal. Denies any acute visual changes or focal neurological deficits, main complaint is pain. Initially she was feeling nauseous, EMS gave medication and route and she feels better other than the pain. Did not have any symptoms prior to falling. Does not take a blood thinner, takes baby aspirin. No vomiting. No neck pain. She did not lose consciousness with the event, no prolonged downtime. MD Complaint: head injury Onset (ago): minute(s) Mechanism of Injury: fall Place: home Loss of Consciousness: no Location of injury: parietal and occipital Severity: moderate Other Injuries: none Associated symptoms: Deny confusion, nausea, neck pain or vomiting Related Data Home Medications Medication Instructions Recorded Confirmed aspirin 81 mg tablet,delayed 81 mg PO .NOON 01/15/22 11/08/24 release (Adult Aspirin Regimen) hydrocodone 5 mg-acetaminophen 325 1 tab PO Q6H PRN 07/15/24 11/08/24 mg tablet Previous Rx's Medication Instructions Recorded albuterol sulfate 90 mcg/actuation 2 puff inhalation Q6H PRN 05/14/23 aerosol inhaler shortness of breath or wheezing #8.5 grams umeclidinium 62.5 mcg-vilanterol 1 inh inhalation DAILY #60 ea 05/14/23 25 mcg/actuation powdr for inhalation (Anoro Ellipta) furosemide 20 mg tablet See Rx Instructions .Route 04/20/24 .COMPLEX #90 tabs metoprolol succinate 25 mg 12.5 mg (1/2 x 25 mg) PO DAILY #90 06/09/24 tablet,extended release 24 hr tabs escitalopram oxalate 10 mg tablet 10 mg PO .noon #90 tabs 07/15/24 (Lexapro) trazodone 50 mg tablet 50 mg PO BEDTIME PRN insomnia #180 07/15/24 tabs omeprazole 40 mg capsule,delayed 40 mg PO DAILY #30 caps 09/20/24 release atorvastatin 20 mg tablet 20 mg PO .NOON #90 tabs 10/24/24 blood-glucose meter,continuous #1 ea 11/02/24 (Dexcom G7 Barrel Cooper) blood-glucose sensor (Dexcom G7 #3 ea 11/02/24 Sensor device) levothyroxine 50 mcg tablet See Rx Instructions .Route 11/02/24 .COMPLEX #60 tabs lorazepam 0.5 mg tablet (Ativan) 0.25 mg (1/2 x 0.5 mg) PO BID PRN 11/03/24 anxiety #30 tabs nitrofurantoin macrocrystal 50 mg 50 mg PO .qpm uti prevention #90 11/11/24 capsule caps nitrofurantoin 100 mg PO BID 10 days #20 caps 11/11/24 monohydrate/macrocrystals 100 mg capsule (Macrobid) Allergies Allergy/AdvReac Type Severity Reaction Status Date / Time pregabalin [From Lyrica] Allergy Severe ADR-Dizzine Verified 11/08/24 13:59 ss ropinirole Allergy Severe ADR-Nausea Verified 11/08/24 13:59 butorphanol [From Stadol] AdvReac Mild ADR-Vomitin Verified 11/08/24 13:59 g duloxetine [From Cymbalta] AdvReac Mild ADR-Vomitin Verified 11/08/24 13:59 g Review of Systems General: Reports: 10 or more systems reviewed and unremarkable except in HPI and below Const: Reports: other (Fall/head injury); Denies: fever(s), chills or fatigue Eyes: Denies: change in vision ENMT: Denies: throat pain, ear or mastoid pain or nasal discharge Card: Denies: chest pain, palpitations, swelling of feet/ankles or lightheadedness Resp: Denies: dyspnea, productive cough or wheezing GI: Denies: abdominal pain, nausea, vomiting, diarrhea or constipation : Denies: flank pain, difficulty voiding, dysuria or urinary frequency Musc: Denies: neck pain, back pain or joint pain Skin/Breast: Denies: rash Neuro: Reports: headache(s); Denies: numbness in extremities, weakness in extremities, sensory changes, confusion, behavioral changes, Slurred speech present or seizure-like activity PFSH ED PFSH: Medical History Thrombocytopenia COPD (chronic obstructive pulmonary disease) Macular degeneration DR. Pereira does eye injections Major depressive disorder, recurrent episode, moderate with anxious distress Varicose veins of bilateral lower extremities with other complications Palpitation Nicotine dependence, cigarettes, uncomplicated Hypersomnia Chronic back pain Lumbar stenosis with neurogenic claudication PVD (peripheral vascular disease) Polyneuropathy, peripheral sensorimotor axonal NCS/EMG 09/15/23 Bilateral medial nerve carpal tunnel syndrome, bilateral peritoneal nerve abnormal Bilateral carpal tunnel syndrome Basal cell carcinoma of nasal tip Bradycardia with 41-50 beats per minute Nocturnal leg cramps Hemangioma of joint History of anorexia nervosa Vitamin D deficiency History of kidney stones GERD (gastroesophageal reflux disease) Hyperlipidemia Benign essential HTN Osteoporosis has been on Fosamax for years--so stopping 11.08.24 for drug holiday; will repeat DEXA 1-2yrs Generalized anxiety disorder Post-traumatic stress disorder, chronic Surgical History Hx of foot surgery L foot--trauma surgery Status post carpal tunnel release Surgery: Right carpal tunnel release. Date of Surgery: 11/13/23. Surgeon: Dr. Carola Grimm MD. Status post lumbar laminectomy Georgie partial laminectomy 11/08/2021 L4L5 & L5S1 H/O colonoscopy H/O esophagogastroduodenoscopy S/P tonsillectomy S/P lumpectomy of breast bilateral; benign S/P breast biopsy bilateral breast bxes; all benign S/P thyroidectomy Right lobe of her thyroid removed left side multinodular goiter H/O section x1 Family History Mother , 89 Dementia Father No problems noted. 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; up the nose Adopted: No Caregiver/support person: No (has a nurse that comes in and sets up her medications) Lives independently: Yes Household members: none Housing: Apartment Marital status: Number of children: 4 Number of grandchildren: 11 Highest education level completed: GED or Equivalent service: No Current occupational status: retired Current occupational exposures/hazards: No 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; 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 Pets and animals: Yes (Tango) Pets & animals: dog(s) Leisure activites: exercise, art, games and other Leisure activities details: crafts, write, cheondoism Sexually active: No Do you think of yourself as: Straight/Heterosexual Current gender identity: Female Cara/Buddhist: Denominational Special cara needs: No Agree to transfusion: No Female Reproductive History: Para: 4 Physical Exam Const: COMMON NORMALS: no acute distress, patient oriented x3 and no limitations GENERAL APPEARANCE: cooperative and well developed ORIENTATION/CONSCIOUSNESS: Yes awake, Yes oriented to person, Yes oriented to place and Yes oriented to time OTHER: No focal neurological deficit HENMT: COMMON NORMALS: external ears normal and Normal external nose present HEAD & SCALP: hematoma left occipital and scalp tenderness; no Martins's sign, no laceration, no palpable skull fracture and no raccoon eyes FACE & SINUS: normal facial exam and face symmetric NOSE: Normal external nose present and Normal septum present EXTERNAL EAR: Yes external ears normal Eye: COMMON NORMALS: Equal, round and reactive pupils present, EOMs intact bilaterally and conjunctivae normal CONJUNCTIVA: Yes conjunctivae normal PUPIL: Yes Equal, round and reactive pupils present Neck/C-Spine: COMMON NORMALS: full ROM, supple and no JVD CERVICAL SPINE: Yes cervical ROM normal OTHER: No spinous process tenderness Resp: COMMON NORMALS: normal respiratory effort, No retractions, No use of accessory muscles and clear to auscultation bilaterally AUSCULTATION: clear to auscultation bilaterally Cardio: COMMON NORMALS: no JVD, regular rate, regular rhythm, No clicks present (Cardio), No murmurs present (Cardio) and No rub (Cardio) RATE: regular rate RHYTHM: regular rhythm GI: COMMON NORMALS: Normal to inspection, nondistended, normoactive bowel sounds present, Soft to palpation and non-tender AUSCULTATION: Yes normoactive bowel sounds PALPATION: Yes Soft to palpation RECTAL EXAM: deferred Back/Pelvis: COMMON NORMALS: thoracic and lumbar spine normal to inspection, no thoracic nor lumbar tenderness and thoraco-lumbar ROM normal Extremity: COMMON NORMALS: normal to inspection, full ROM and capillary refill normal Neuro: COMMON NORMALS: patient oriented x3, CN's II-XII intact bilaterally, moves all extremities, no focal motor deficits and no sensory deficits noted SENSORIUM/ORIENTATION: Yes oriented to person, Yes oriented to place and Yes oriented to time Psych: COMMON NORMALS: mental status grossly normal and Normal thought process present THOUGHT PROCESS: Normal thought process present Skin: COMMON NORMALS: no rashes or lesions noted GENERAL SKIN EXAM: no rashes or lesions noted Course Vital Signs: Vital signs: Vital Signs Temperature 98.1 F 11/11/24 18:20 Pulse Rate 63 11/11/24 18:20 Respiratory Rate 16 11/11/24 19:24 Blood Pressure 190/100 11/11/24 18:20 Pulse Oximetry 96 11/11/24 18:20 Oxygen Delivery Me thod Room Air 11/11/24 18:20 MDM - Head Injury Medcial Decision Making Patient presented by ambulance for a fall and head injury. Was not on a blood thinner. Large hematoma to occipital scalp noted on exam. She did have some nausea, this was resolved with medication by EMS. Given a dose of Dilaudid here for her severe headache. CT head and neck were unremarkable for any fracture or bleed. Cannot rule out a postconcussive syndrome, discussed with patient importance of avoiding reinjury, treating hematoma and return precautions given. Patient agrees with discharge home. Lab Data Radiology Impressions Cervical Spine CT 11/11/24 18:12 IMPRESSION: No acute cervical spine fracture. Head CT 11/11/24 18:12 IMPRESSION: 1. No acute intracranial abnormality. 2. Small-vessel ischemic disease. 3. Soft tissue hematoma overlying the left lateral skull with no underlying skull fracture. All radiology interpretation(s) finalized by discharge Discharge Plan Discharge Patient Disposition: Home Clinical Impression: Hematoma of occipital region of scalp, Fall Condition: Stable Prescriptions: No Action aspirin [Adult Aspirin Regimen] 81 mg tablet,delayed release (DR/EC) 81 mg PO .NOON levothyroxine 50 mcg tablet See Rx Instructions .ROUTE .COMPLEX Qty: 60 1RF Dose Instruction: TAKE 1 TABLET BY MOUTH EVERY DAY SKIP sundays Rx Instructions: TAKE 1 TABLET BY MOUTH EVERY DAY (DME) Dexcom G7 Sensor Device See Rx Instructions .Route Qty: 3 2RF Rx Instructions: change sensor every 10 days (DME) Dexcom G7 Barrel Cooper Misc See Rx Instructions .Route Qty: 1 0RF Rx Instructions: As directed hydrocodone-acetaminophen 5-325 mg tablet 1 tab PO Q6H PRN escitalopram oxalate [Lexapro] 10 mg tablet 10 mg PO .noon Qty: 90 2RF Rx Instructions: Take one tablet at noon trazodone 50 mg tablet 50 mg PO BEDTIME PRN (Reason: insomnia) Qty: 180 2RF Rx Instructions: May take 1 tab 1 hr prior to bedtime as needed for sleep may repeat if not asleep in 2 hours. albuterol sulfate 90 mcg/actuation HFA aerosol inhaler 2 puff inhalation Q6H PRN (Reason: shortness of breath or wheezing) Qty: 8.5 6RF Anoro Ellipta 62.5-25 mcg/actuation blister with device 1 inh inhalation DAILY Qty: 60 6RF metoprolol succinate 25 mg tablet extended release 24 hr 12.5 mg PO DAILY Qty: 90 3RF omeprazole 40 mg capsule,delayed release(DR/EC) 40 mg PO DAILY Qty: 30 2RF furosemide 20 mg tablet See Rx Instructions .ROUTE .COMPLEX Qty: 90 3RF Dose Instruction: TAKE 1 TABLET BY MOUTH EVERY DAY Rx Instructions: TAKE 1 TABLET BY MOUTH EVERY DAY atorvastatin 20 mg tablet 20 mg PO .NOON Qty: 90 0RF lorazepam [Ativan] 0.5 mg tablet 0.25 mg PO BID PRN (Reason: anxiety) Qty: 30 1RF Rx Instructions: Take half tablet twice per day as needed for anxiety nitrofurantoin monohyd/m-cryst [Macrobid] 100 mg capsule 100 mg PO BID 10 Days Qty: 20 0RF Rx Instructions: must administer with a meal/food nitrofurantoin macrocrystal 50 mg capsule 50 mg PO .qpm Qty: 90 0RF Rx Instructions: must administer with a meal/food Discharge Orders: Discharge ED (Routine); Ordered 11/11/24 Ordered By: Jorge Alberto Ramirez Referrals: Ewa Roland MD [Primary Care Provider] - Patient Instructions: Hematoma (ED) Activity Restrictions/Additional Instructions: Apply ice to hematoma. Ibuprofen and Tylenol for pain. Follow-up with primary care. Return with any new or worsening. Coding Level of Care Code ED Program Proposals Coordinator for Palomo Cameron
[2024-11-11 19:24] VITALS: RESP 16
[2024-11-11] MEDS: HYDROmorphone 1 mg/mL INJ 1 mL IVP (19:24)
[2024-11-11 21:28] VITALS: BP 188/104; PULSE 61; O2SAT 99
[2024-11-11 21:37] VITALS: BP 188/104; PULSE 61; O2SAT 99
== END 2024-11-11 21:38 | disposition home or self-care (01) ==
PROVIDERS: Emergency Provider Physician Assistant; PCP Family Medicine
DX: S00.03XA Contusion of scalp, initial encounter (principal); F17.210 Nicotine dependence, cigarettes, uncomplicated; J44.9 Chronic obstructive pulmonary disease, unspecified; E78.5 Hyperlipidemia, unspecified; I10 Essential (primary) hypertension; W19.XXXA Unspecified fall, initial encounter
CPT/HCPCS: 70450; 72125; 96374; 99285; J1171

== ENCOUNTER → 2024-12-12 12:59 | Outpatient (BNVA) | payer MEDICARE, MEDICAID, SELFPAY ==
[2025-02-13 16:59] VITALS: BP 149/75; BMI 22.0
== END ==
PROVIDERS: PCP Family Medicine; Visit Provider Internal Medicine Cardiovascular Disease
DX: I10 Essential (primary) hypertension (principal); R42 Dizziness and giddiness; R00.2 Palpitations; I83.893 Varicose veins of bilateral lower extremities with other complications; F17.200 Nicotine dependence, unspecified, uncomplicated
CPT/HCPCS: 99214

== ENCOUNTER → 2024-12-12 14:10 | Outpatient (BNVA) | payer OTHER, SELFPAY ==
[2024-05-25 13:01] VITALS: BP 149/75; BMI 22.0
== END ==
PROVIDERS: PCP Family Medicine; Visit Provider Psychiatry & Neurology Neurology
DX: E78.00 Pure hypercholesterolemia, unspecified (principal)
CPT/HCPCS: 36415; 84439; 84443

== ENCOUNTER 2025-01-01 17:51 | Emergency (ER) | payer MEDICAID, MEDICARE, SELFPAY ==
[2024-05-25 13:01] VITALS: BP 149/75; BMI 22.0
[2025-01-01] VITALS (7 sets, daily range): BP systolic 154–195; BP diastolic 92–106; PULSE 59–77; RESP 16–18; TEMP 36.7; O2SAT 96–99; BMI 21.6
--- NOTE | 2025-01-01 18:02 | ECG_ITS ---
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
[2025-01-01 19:10] LABS: Bilirubin Urine Negative (Negative); Blood Urine Negative (Negative); Glucose Urine UA Negative (Normal); Ketones Urine Negative (Negative); Leukocyte Esterase Urine Negative (Negative); Nitrate Urine Negative (Negative); Protein Urine Negative (Negative); Specific Gravity, Urine 1.006 (1.005-1.030); Urine Appearance Clear (CLEAR); Urine Color Yellow (Yellow); Urobilinogen Urine 0.2 mg/dL (Negative)
[2025-01-01] MEDS: morphine 4 mg/mL SDV 1 mL IVP (19:10)
[2025-01-01] MEDS: prochlorperazine 10 mg/2 mL Inj 5 MG IVP (19:10)
[2025-01-01] MEDS: cloNIDine 0.1 mg Tablet PO (19:11)
[2025-01-01 19:13] LABS: Bacteria Urine None Seen /hpf; Hyaline Casts Urine 0-4 /lpf; RBC Urine 0-2 /hpf (0-2); Squamous Epithelial Cell Urine 0-5 /hpf (0-5); WBC Urine 0-5 /hpf (0-5)
--- NOTE | 2025-01-01 20:46 | W.ED.HA ---
HPI - Headache General: Chief Complaint: Headache Stated Complaint: HTN; headache Time Seen by Provider: 01/01/25 17:56 History of Present Illness: This patient is a 74-year-old white female who presents to the emergency department stating that her blood pressure is running high. She has a headache and some nausea. Patient states that she was recently taken off of atenolol. She is not having any chest pain or shortness of breath. She has had some diarrhea. Patient states she was recently diagnosed with a urinary tract infection and treated with antibiotics. She is wondering if that has resolved as well. Associated symptoms: Reports nausea Related Data Home Medications ?Medication ?Instructions ?Recorded ?Confirmed aspirin 81 mg tablet,delayed 81 mg PO .NOON 01/15/22 12/19/24 release (Adult Aspirin Regimen) hydrocodone 5 mg-acetaminophen 325 1 tab PO Q6H PRN 07/15/24 12/19/24 mg tablet Previous Rx's ?Medication ?Instructions ?Recorded albuterol sulfate 90 mcg/actuation 2 puff inhalation Q6H PRN 05/14/23 aerosol inhaler shortness of breath or wheezing #8.5 grams umeclidinium 62.5 mcg-vilanterol 1 inh inhalation DAILY #60 ea 05/14/23 25 mcg/actuation powdr for inhalation (Anoro Ellipta) escitalopram oxalate 10 mg tablet 10 mg PO .noon #90 tabs 07/15/24 (Lexapro) trazodone 50 mg tablet 50 mg PO BEDTIME PRN insomnia #180 07/15/24 tabs atorvastatin 20 mg tablet 20 mg PO .NOON #90 tabs 10/24/24 blood-glucose meter,continuous #1 ea 11/02/24 (Dexcom G7 Die Developer) blood-glucose sensor (Dexcom G7 #3 ea 11/02/24 Sensor device) levothyroxine 50 mcg tablet See Rx Instructions .Route 11/02/24 .COMPLEX #60 tabs lorazepam 0.5 mg tablet (Ativan) 0.25 mg (1/2 x 0.5 mg) PO BID PRN 11/03/24 anxiety #30 tabs nitrofurantoin macrocrystal 50 mg 50 mg PO .qpm uti prevention #90 11/11/24 capsule caps fswtjwbjvqimxdo-psmykeswubkmsjy-AY 5 ml PO Q6H PRN cold symptoms #118 02/24/25 2 mg-30 mg-10 mg/5 mL oral syrup mL (Bromfed DM) levofloxacin 750 mg tablet 750 mg PO DAILY 7 days #7 tabs 12/19/24 prednisone 20 mg tablet 20 mg PO DAILY 5 days #5 tabs 12/19/24 omeprazole 40 mg capsule,delayed 40 mg PO DAILY #90 caps 12/26/24 release ondansetron 4 mg disintegrating 4 mg PO Q4H PRN nausea and 01/01/25 tablet vomiting #20 tabs Allergies Allergy/AdvReac Type Severity Reaction Status Date / Time pregabalin (From Lyrica) Allergy Severe ADR-Dizzine Verified 12/19/24 13:08 ss ropinirole Allergy Severe ADR-Nausea Verified 12/19/24 13:08 butorphanol (From Stadol) AdvReac Mild ADR-Vomitin Verified 12/19/24 13:08 g duloxetine (From Cymbalta) AdvReac Mild ADR-Vomitin Verified 12/19/24 13:08 g Review of Systems General: Reports: 10 or more systems reviewed and unremarkable except in HPI and below GI: Reports: nausea Neuro: Reports: headache(s) PFSH ED PFSH: Medical History Thrombocytopenia COPD (chronic obstructive pulmonary disease) Macular degeneration DR. Pereira does eye injections Major depressive disorder, recurrent episode, moderate with anxious distress Varicose veins of bilateral lower extremities with other complications Palpitation Nicotine dependence, cigarettes, uncomplicated Hypersomnia Chronic back pain Lumbar stenosis with neurogenic claudication PVD (peripheral vascular disease) Polyneuropathy, peripheral sensorimotor axonal NCS/EMG 09/15/23 Bilateral medial nerve carpal tunnel syndrome, bilateral peritoneal nerve abnormal Bilateral carpal tunnel syndrome Basal cell carcinoma of nasal tip Bradycardia with 41-50 beats per minute Nocturnal leg cramps Hemangioma of joint History of anorexia nervosa Vitamin D deficiency History of kidney stones GERD (gastroesophageal reflux disease) Hyperlipidemia Benign essential HTN Osteoporosis has been on Fosamax for years--so stopping 11.08.24 for drug holiday; will repeat DEXA 1-2yrs Generalized anxiety disorder Post-traumatic stress disorder, chronic Surgical History Hx of foot surgery L foot--trauma surgery Status post carpal tunnel release Surgery: Right carpal tunnel release. Date of Surgery: 11/13/23. Surgeon: Dr. Carola Grimm MD. Status post lumbar laminectomy Georgie partial laminectomy 11/08/2021 L4L5 & L5S1 H/O colonoscopy H/O esophagogastroduodenoscopy S/P tonsillectomy S/P lumpectomy of breast bilateral; benign S/P breast biopsy bilateral breast bxes; all benign S/P thyroidectomy Right lobe of her thyroid removed left side multinodular goiter H/O section x1 Family History Mother , 89 Dementia Father No problems noted. 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; up the nose Adopted: No Caregiver/support person: No (has a nurse that comes in and sets up her medications) Lives independently: Yes Household members: none Housing: Apartment Marital status: Number of children: 4 Number of grandchildren: 11 Highest education level completed: GED or Equivalent service: No Current occupational status: retired Current occupational exposures/hazards: No 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; 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 Pets and animals: Yes (Tango) Pets & animals: dog(s) Leisure activites: exercise, art, games and other Leisure activities details: crafts, write, restoration Sexually active: No Do you think of yourself as: Straight/Heterosexual Current gender identity: Female Cara/Alevism: Moravian Special cara needs: No Agree to transfusion: No Female Reproductive History: Para: 4 Physical Exam Const: COMMON NORMALS: patient oriented x3 and no limitations HENMT: COMMON NORMALS: normocephalic, atraumatic, Normal nasal mucous membranes and turbinates present, moist oral mucous membranes and oropharynx normal HEAD & SCALP: normal to inspection, normocephalic and atraumatic FACE & SINUS: normal facial exam NOSE: Normal nasal mucous membranes and turbinates present Eye: COMMON NORMALS: Equal, round and reactive pupils present, EOMs intact bilaterally and conjunctivae normal GENERAL EYE: appearance normal, both eyes and all related structures CONJUNCTIVA: Yes conjunctivae normal PUPIL: Yes Equal, round and reactive pupils present Neck/C-Spine: COMMON NORMALS: supple and no JVD Chest: COMMONS NORMALS: normal inspection of the chest Resp: COMMON NORMALS: normal respiratory effort and clear to auscultation bilaterally AUSCULTATION: clear to auscultation bilaterally Cardio: COMMON NORMALS: no JVD, regular rate, regular rhythm, No gallops present (Cardio), No murmurs present (Cardio) and No rub (Cardio) RATE: regular rate RHYTHM: regular rhythm GI: COMMON NORMALS: Normal to inspection, nondistended, normoactive bowel sounds present, Soft to palpation and non-tender AUSCULTATION: Yes normoactive bowel sounds PALPATION: Yes Soft to palpation : COMMON NORMALS: Yes no CVA tenderness BLADDER/KIDNEY EXAM: Yes no CVA tenderness Back/Pelvis: COMMON NORMALS: no CVA tenderness and thoracic and lumbar spine normal to inspection Extremity: COMMON NORMALS: normal to inspection Neuro: COMMON NORMALS: patient oriented x3 and CN's II-XII intact bilaterally Psych: COMMON NORMALS: mental status grossly normal, Normal thought process present and cooperative THOUGHT PROCESS: Normal thought process present Skin: COMMON NORMALS: no rashes or lesions noted, turgor normal and no jaundice GENERAL SKIN EXAM: no rashes or lesions noted and turgor normal Course Vital Signs: Vital signs: Vital Signs Temperature 98.1 F 01/01/25 17:53 Pulse Rate 59 L 01/01/25 20:27 Respiratory Rate 16 01/01/25 20:27 Blood Pressure 165/95 01/01/25 20:27 Pulse Oximetry 97 01/01/25 20:27 Oxygen Delivery Me thod Room Air 01/01/25 17:53 MDM - Headache Medical Decision Making Patient was given IV fluids, 0.1 mg of clonidine p.o. and 4 mg of Zofran IV. She is feeling significantly better. Her urine analysis was normal. EKG was normal. Patient was discharged in stable condition instructed to resume taking her atenolol. Follow-up with her primary care provider later this week for ongoing management of her hypertension. I did prescribe Zofran for her nausea. Lab Data Laboratory Results Urine Color Yellow (Yellow) 01/01/25 18:19 Urine Appearance Clear (CLEAR) 01/01/25 18:19 Urine pH 8.0 (5-7) A 01/01/25 18:19 Ur Specific [place] 1.006 (1.005-1.030) 01/01/25 18:19 Urine Protein Negative (Negative) 01/01/25 18:19 Urine Glucose (UA) Negative (Normal) 01/01/25 18:19 Urine Ketones Negative (Negative) 01/01/25 18:19 Urine Blood Negative (Negative) 01/01/25 18:19 Urine Nitrate Negative (Negative) 01/01/25 18:19 Urine Bilirubin Negative (Negative) 01/01/25 18:19 Urine Urobilinogen 0.2 mg/dL (Negative) 01/01/25 18:19 Ur Leukocyte Esterase Negative (Negative) 01/01/25 18:19 Urine RBC 0-2 /hpf (0-2) 01/01/25 18:19 Urine WBC 0-5 /hpf (0-5) 01/01/25 18:19 Ur Squamous Epith Cells 0-5 /hpf (0-5) 01/01/25 18:19 Amorphous Sediment Not Reportable 01/01/25 18:19 Urine Bacteria None seen /hpf (NONE) 01/01/25 18:19 Hyaline Casts 0-4 /lpf H 01/01/25 18:19 No radiology studies performed this visit Discharge Plan Discharge Patient Disposition: Home Clinical Impression: Nausea Hypertension Qualifiers: Hypertension type: primary hypertension Qualified Code(s): I10 - Essential (primary) hypertension Headache Qualifiers: Headache type: unspecified Headache chronicity pattern: acute headache Intractability: not intractable Qualified Code(s): R51.9 - Headache, unspecified Condition: Stable Prescriptions: New ondansetron 4 mg tablet,disintegrating 4 mg PO Q4H PRN (Reason: nausea and vomiting) Qty: 20 0RF No Action aspirin [Adult Aspirin Regimen] 81 mg tablet,delayed release (DR/EC) 81 mg PO .NOON levothyroxine 50 mcg tablet See Rx Instructions .ROUTE .COMPLEX Qty: 60 1RF Dose Instruction: TAKE 1 TABLET BY MOUTH EVERY DAY SKIP sundays Rx Instructions: TAKE 1 TABLET BY MOUTH EVERY DAY (DME) Dexcom G7 Sensor Device See Rx Instructions .Route Qty: 3 2RF Rx Instructions: change sensor every 10 days (DME) Dexcom G7 Die Developer Misc See Rx Instructions .Route Qty: 1 0RF Rx Instructions: As directed hydrocodone-acetaminophen 5-325 mg tablet 1 tab PO Q6H PRN escitalopram oxalate [Lexapro] 10 mg tablet 10 mg PO .noon Qty: 90 2RF Rx Instructions: Take one tablet at noon trazodone 50 mg tablet 50 mg PO BEDTIME PRN (Reason: insomnia) Qty: 180 2RF Rx Instructions: May take 1 tab 1 hr prior to bedtime as needed for sleep may repeat if not asleep in 2 hours. levofloxacin 750 mg tablet 750 mg PO DAILY 7 Days Qty: 7 0RF xmwtdfjjelkhdtp-zoaltzjnp-TE [Bromfed DM] 2-30-10 mg/5 mL syrup 5 ml PO Q6H PRN (Reason: cold symptoms) Qty: 118 0RF prednisone 20 mg tablet 20 mg PO DAILY 5 Days Qty: 5 0RF Rx Instructions: start this medicine on Thursday albuterol sulfate 90 mcg/actuation HFA aerosol inhaler 2 puff inhalation Q6H PRN (Reason: shortness of breath or wheezing) Qty: 8.5 6RF Anoro Ellipta 62.5-25 mcg/actuation blister with device 1 inh inhalation DAILY Qty: 60 6RF atorvastatin 20 mg tablet 20 mg PO .NOON Qty: 90 0RF lorazepam [Ativan] 0.5 mg tablet 0.25 mg PO BID PRN (Reason: anxiety) Qty: 30 1RF Rx Instructions: Take half tablet twice per day as needed for anxiety nitrofurantoin macrocrystal 50 mg capsule 50 mg PO .qpm Qty: 90 0RF Rx Instructions: must administer with a meal/food omeprazole 40 mg capsule,delayed release(DR/EC) 40 mg PO DAILY Qty: 90 1RF Discharge Orders: Discharge ED (Routine); Ordered 01/01/25 Ordered By: Arcenio Zeng Referrals: Ewa Roland MD [Primary Care Provider] - Patient Instructions: Hypertension Activity Restrictions/Additional Instructions: Follow-up with your primary care provider this week for ongoing management of your hypertension. Print Language: Gabonese Coding Level of Care Code ED Creative Specialist for Palomo Cameron
== END 2025-01-01 21:16 | disposition home or self-care (01) ==
PROVIDERS: Emergency Provider Emergency Medicine; PCP Family Medicine
DX: R11.0 Nausea (principal); I10 Essential (primary) hypertension; R51.9 Headache, unspecified; Z79.82 Long term (current) use of aspirin; F17.210 Nicotine dependence, cigarettes, uncomplicated; J44.9 Chronic obstructive pulmonary disease, unspecified; E78.5 Hyperlipidemia, unspecified
CPT/HCPCS: 81001; 93005; 96374; 96375; 99284; J0780; J2270

== ENCOUNTER 2025-01-07 12:39 | Emergency (ER) | payer MEDICARE, MEDICAID, SELFPAY ==
[2024-05-25 13:01] VITALS: BP 149/75; BMI 22.0
[2025-01-07 12:41] VITALS: BP 183/92; PULSE 75; RESP 20; TEMP 36.8; O2SAT 99
--- NOTE | 2025-01-07 12:49 | ECG_ITS ---
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
--- NOTE | 2025-01-07 12:53 | W.ED.GENADLT ---
HPI - General Adult General: Chief complaint: General Medical Stated complaint: hypertension Time Seen by Provider: 01/07/25 12:41 Source: patient Mode of arrival: ambulatory Limitations: no limitations History of Present Illness: 74-year-old female has a history of hypertension she states that 3 weeks ago her exploration manager stopped her metoprolol because it is causing her heart rate to drop she has had no replacement states that since then she has been having hypertension and is getting very anxious he seems very anxious here she denies any pain denies any headache she has not seen the ER previously. She has not followed back up with her exploration manager. Associated symptoms: Deny chest pain, dyspnea, headache(s), nausea, rash or vomiting Related Data Home Medications ?Medication ?Instructions ?Recorded ?Confirmed aspirin 81 mg tablet,delayed 81 mg PO .NOON 01/15/22 12/19/24 release (Adult Aspirin Regimen) hydrocodone 5 mg-acetaminophen 325 1 tab PO Q6H PRN 07/15/24 12/19/24 mg tablet Previous Rx's ?Medication ?Instructions ?Recorded albuterol sulfate 90 mcg/actuation 2 puff inhalation Q6H PRN 05/14/23 aerosol inhaler shortness of breath or wheezing #8.5 grams umeclidinium 62.5 mcg-vilanterol 1 inh inhalation DAILY #60 ea 05/14/23 25 mcg/actuation powdr for inhalation (Anoro Ellipta) escitalopram oxalate 10 mg tablet 10 mg PO .noon #90 tabs 07/15/24 (Lexapro) trazodone 50 mg tablet 50 mg PO BEDTIME PRN insomnia #180 07/15/24 tabs atorvastatin 20 mg tablet 20 mg PO .NOON #90 tabs 10/24/24 blood-glucose meter,continuous #1 ea 11/02/24 (Dexcom G7 Harness Puller) blood-glucose sensor (Dexcom G7 #3 ea 11/02/24 Sensor device) lorazepam 0.5 mg tablet (Ativan) 0.25 mg (1/2 x 0.5 mg) PO BID PRN 11/03/24 anxiety #30 tabs nitrofurantoin macrocrystal 50 mg 50 mg PO .qpm uti prevention #90 11/11/24 capsule caps hvabuoqksevnzwi-isrpwrkoslnbkre-YE 5 ml PO Q6H PRN cold symptoms #118 12/19/24 2 mg-30 mg-10 mg/5 mL oral syrup mL (Bromfed DM) levofloxacin 750 mg tablet 750 mg PO DAILY 7 days #7 tabs 12/19/24 prednisone 20 mg tablet 20 mg PO DAILY 5 days #5 tabs 12/19/24 omeprazole 40 mg capsule,delayed 40 mg PO DAILY #90 caps 12/26/24 release ondansetron 4 mg disintegrating 4 mg PO Q4H PRN nausea and 01/01/25 tablet vomiting #20 tabs levothyroxine 75 mcg tablet 75 mcg PO DAILY 1 month #30 tabs 01/05/25 (Synthroid) amlodipine 5 mg tablet (Norvasc) 5 mg PO BID #60 tabs 01/07/25 Allergies Allergy/AdvReac Type Severity Reaction Status Date / Time pregabalin (From Lyrica) Allergy Severe ADR-Dizzine Verified 12/19/24 13:08 ss ropinirole Allergy Severe ADR-Nausea Verified 12/19/24 13:08 butorphanol (From Stadol) AdvReac Mild ADR-Vomitin Verified 12/19/24 13:08 g duloxetine (From Cymbalta) AdvReac Mild ADR-Vomitin Verified 12/19/24 13:08 g Review of Systems Const: Denies: fever(s), chills, body aches or change in appetite ENMT: Denies: throat pain or dental pain Card: Denies: chest pain Resp: Denies: dyspnea GI: Denies: abdominal pain, nausea, vomiting or diarrhea Musc: Denies: neck pain or back pain Skin/Breast: Denies: rash Neuro: Denies: headache(s) PFSH ED PFSH: Medical History Thrombocytopenia COPD (chronic obstructive pulmonary disease) Macular degeneration DR. Pereira does eye injections Major depressive disorder, recurrent episode, moderate with anxious distress Varicose veins of bilateral lower extremities with other complications Palpitation Nicotine dependence, cigarettes, uncomplicated Hypersomnia Chronic back pain Lumbar stenosis with neurogenic claudication PVD (peripheral vascular disease) Polyneuropathy, peripheral sensorimotor axonal NCS/EMG 09/15/23 Bilateral medial nerve carpal tunnel syndrome, bilateral peritoneal nerve abnormal Bilateral carpal tunnel syndrome Basal cell carcinoma of nasal tip Bradycardia with 41-50 beats per minute Nocturnal leg cramps Hemangioma of joint History of anorexia nervosa Vitamin D deficiency History of kidney stones GERD (gastroesophageal reflux disease) Hyperlipidemia Benign essential HTN Osteoporosis has been on Fosamax for years--so stopping 11.08.24 for drug holiday; will repeat DEXA 1-2yrs Generalized anxiety disorder Post-traumatic stress disorder, chronic Surgical History Hx of foot surgery L foot--trauma surgery Status post carpal tunnel release Surgery: Right carpal tunnel release. Date of Surgery: 11/13/23. Surgeon: Dr. Carola Grimm MD. Status post lumbar laminectomy Georgie partial laminectomy 11/08/2021 L4L5 & L5S1 H/O colonoscopy H/O esophagogastroduodenoscopy S/P tonsillectomy S/P lumpectomy of breast bilateral; benign S/P breast biopsy bilateral breast bxes; all benign S/P thyroidectomy Right lobe of her thyroid removed left side multinodular goiter H/O section x1 Family History Mother , 89 Dementia Father No problems noted. 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; up the nose Adopted: No Caregiver/support person: No (has a nurse that comes in and sets up her medications) Lives independently: Yes Household members: none Housing: Apartment Marital status: Number of children: 4 Number of grandchildren: 11 Highest education level completed: GED or Equivalent service: No Current occupational status: retired Current occupational exposures/hazards: No 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; 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 Pets and animals: Yes (Tango) Pets & animals: dog(s) Leisure activites: exercise, art, games and other Leisure activities details: crafts, write, voodoo Sexually active: No Do you think of yourself as: Straight/Heterosexual Current gender identity: Female Cara/Restorationism: Taoism Special cara needs: No Agree to transfusion: No Female Reproductive History: Para: 4 Physical Exam Const: COMMON NORMALS: no acute distress, patient oriented x3 and healthy appearing HENMT: COMMON NORMALS: normocephalic and atraumatic HEAD & SCALP: normocephalic and atraumatic Eye: COMMON NORMALS: conjunctivae normal CONJUNCTIVA: Yes conjunctivae normal Neck/C-Spine: COMMON NORMALS: full ROM and supple Chest: COMMONS NORMALS: normal inspection of the chest Resp: COMMON NORMALS: normal respiratory effort and clear to auscultation bilaterally AUSCULTATION: clear to auscultation bilaterally Cardio: COMMON NORMALS: regular rate, regular rhythm and No murmurs present (Cardio) RATE: regular rate RHYTHM: regular rhythm GI: COMMON NORMALS: Normal to inspection, nondistended, normoactive bowel sounds present, Soft to palpation, non-tender and no masses PALPATION: Yes Soft to palpation Extremity: COMMON NORMALS: normal to inspection and full ROM Neuro: COMMON NORMALS: patient oriented x3, moves all extremities and no focal motor deficits Psych: COMMON NORMALS: mental status grossly normal, Normal thought process present and cooperative THOUGHT PROCESS: Normal thought process present Skin: COMMON NORMALS: no rashes or lesions noted and no wounds GENERAL SKIN EXAM: no rashes or lesions noted Course Vital Signs: Vital signs: Vital Signs Temperature 98.2 F 01/07/25 12:41 Pulse Rate 75 01/07/25 13:41 Respiratory Rate 20 H 01/07/25 12:41 Blood Pressure 175/90 01/07/25 13:41 Pulse Oximetry 98 01/07/25 13:41 [facility] - General Adult Medical Decision Making Patient presents with hypertension I spoke to her exploration manager will start patient on Norvasc 5 mg twice daily her blood pressure has improved here she has been asymptomatic she is to follow-up with her exploration manager return if worsening she understands agrees to plan Medical Records I reviewed the patient's medical records. No radiology studies performed this visit EKG Data EKG 1: I personally reviewed and interpreted this EKG as follows: EKG interpretation date: 01/07/25 EKG interpretation time: 12:49 Interpretation: nsr hr [address] elevation qrs 76 qtc 435 Discharge Plan Discharge Patient Disposition: Home Clinical Impression: Hypertension Qualifiers: Hypertension type: primary hypertension Qualified Code(s): I10 - Essential (primary) hypertension Condition: Stable Prescriptions: New amlodipine [Norvasc] 5 mg tablet 5 mg PO BID Qty: 60 0RF No Action aspirin [Adult Aspirin Regimen] 81 mg tablet,delayed release (DR/EC) 81 mg PO .NOON (DME) Dexcom G7 Sensor Device See Rx Instructions .Route Qty: 3 2RF Rx Instructions: change sensor every 10 days (DME) Dexcom G7 Harness Puller Misc See Rx Instructions .Route Qty: 1 0RF Rx Instructions: As directed hydrocodone-acetaminophen 5-325 mg tablet 1 tab PO Q6H PRN escitalopram oxalate [Lexapro] 10 mg tablet 10 mg PO .noon Qty: 90 2RF Rx Instructions: Take one tablet at noon trazodone 50 mg tablet 50 mg PO BEDTIME PRN (Reason: insomnia) Qty: 180 2RF Rx Instructions: May take 1 tab 1 hr prior to bedtime as needed for sleep may repeat if not asleep in 2 hours. levofloxacin 750 mg tablet 750 mg PO DAILY 7 Days Qty: 7 0RF phfbqcgwlgqsbjy-niotaddje-[place] [Bromfed DM] 2-30-10 mg/5 mL syrup 5 ml PO Q6H PRN (Reason: cold symptoms) Qty: 118 0RF prednisone 20 mg tablet 20 mg PO DAILY 5 Days Qty: 5 0RF Rx Instructions: start this medicine on Thursday albuterol sulfate 90 mcg/actuation HFA aerosol inhaler 2 puff inhalation Q6H PRN (Reason: shortness of breath or wheezing) Qty: 8.5 6RF Anoro Ellipta 62.5-25 mcg/actuation blister with device 1 inh inhalation DAILY Qty: 60 6RF atorvastatin 20 mg tablet 20 mg PO .NOON Qty: 90 0RF lorazepam [Ativan] 0.5 mg tablet 0.25 mg PO BID PRN (Reason: anxiety) Qty: 30 1RF Rx Instructions: Take half tablet twice per day as needed for anxiety nitrofurantoin macrocrystal 50 mg capsule 50 mg PO .qpm Qty: 90 0RF Rx Instructions: must administer with a meal/food omeprazole 40 mg capsule,delayed release(DR/EC) 40 mg PO DAILY Qty: 90 1RF levothyroxine [Synthroid] 75 mcg tablet 75 mcg PO DAILY 30 Days Qty: 30 3RF ondansetron 4 mg tablet,disintegrating 4 mg PO Q4H PRN (Reason: nausea and vomiting) Qty: 20 0RF Discharge Orders: Discharge ED (Routine); Ordered 01/07/25 Ordered By: Nayeli Rush Referrals: Ewa Roland MD [Primary Care Provider] - Discharge Diet: Advance as tolerated Discharge Activity: Resume usual activity Patient Instructions: Hypertension (ED) Print Language: Croatian Coding Level of Care Code ED Rail Loader for Palomo Cameron
[2025-01-07] MEDS: LORazepam 0.5 mg Tablet PO (12:57)
[2025-01-07] MEDS: amlodipine 5 mg Tablet PO (13:20)
[2025-01-07 13:41] VITALS: BP 175/90; PULSE 75; O2SAT 98
[2025-01-07 14:05] VITALS: BP 168/84; PULSE 90; O2SAT 98
== END 2025-01-07 14:06 | disposition home or self-care (01) ==
PROVIDERS: Emergency Provider Emergency Medicine; PCP Family Medicine
DX: I10 Essential (primary) hypertension (principal); F17.210 Nicotine dependence, cigarettes, uncomplicated; J44.9 Chronic obstructive pulmonary disease, unspecified; E78.5 Hyperlipidemia, unspecified
CPT/HCPCS: 93005; 99283; J9999

== ENCOUNTER → 2025-01-23 13:44 | Outpatient (BNVA) | payer MEDICARE, MEDICAID, SELFPAY ==
[2025-01-09 08:03] VITALS: BP 149/75; BMI 22.0
== END ==
PROVIDERS: PCP Family Medicine; Visit Provider Nurse Practitioner Family
DX: I83.893 Varicose veins of bilateral lower extremities with other complications (principal); I10 Essential (primary) hypertension
CPT/HCPCS: 99214

== ENCOUNTER 2025-02-08 13:22 | Outpatient (CLI) | payer OTHER, MEDICAID, SELFPAY ==
[2025-01-09 08:03] VITALS: BP 149/75; BMI 22.0
[2025-02-08 14:13] LABS: Blood Urea Nitrogen 18 mg/dL (8-23); Calcium 8.8 mg/dL (8.5-10.5); Carbon Dioxide 26 mmol/L (22-29); Chloride 104 mmol/L (98-107); Free T4 Free Thyroxine 1.69 ng/dL (0.82-1.77); Glucose 98 mg/dL (65-115); Osmolality Calculated 298 mOsm/kg (285-295); Sodium 143 mmol/L (136-145); Thyroid Stimulating Hormone 0.12 uIU/mL (0.27-4.20)
== END 2025-02-08 13:23 | disposition home or self-care (01) ==
PROVIDERS: PCP Family Medicine; Visit Provider Internal Medicine
DX: I10 Essential (primary) hypertension (principal); R60.0 Localized edema; R00.1 Bradycardia, unspecified; E03.9 Hypothyroidism, unspecified
CPT/HCPCS: 36415; 80048; 84439; 84443

== ENCOUNTER → 2025-02-15 10:10 | Outpatient (BNVA) | payer MEDICARE, MEDICAID, SELFPAY ==
[2025-02-13 16:59] VITALS: BP 149/75; BMI 22.0
== END ==
PROVIDERS: PCP Family Medicine; Visit Provider Internal Medicine
DX: E03.9 Hypothyroidism, unspecified (principal); R53.83 Other fatigue; E78.00 Pure hypercholesterolemia, unspecified; E55.9 Vitamin D deficiency, unspecified; D35.00 Benign neoplasm of unspecified adrenal gland; E04.1 Nontoxic single thyroid nodule; R03.0 Elevated blood-pressure reading, without diagnosis of hypertension; E16.2 Hypoglycemia, unspecified; L65.9 Nonscarring hair loss, unspecified
CPT/HCPCS: 99214

== ENCOUNTER 2025-04-19 11:25 | Outpatient (RCR) | payer MEDICARE, MEDICAID, SELFPAY ==
[2025-02-13 16:59] VITALS: BP 149/75; BMI 22.0
== END 2025-04-24 23:55 | disposition home or self-care (01) ==
LOC: SPT 11:25
PROVIDERS: PCP Family Medicine; Visit Provider Family Medicine
DX: R29.6 Repeated falls (principal); R26.89 Other abnormalities of gait and mobility
CPT/HCPCS: 97161

== ENCOUNTER 2025-04-25 05:00 | Outpatient (RCR) | payer MEDICARE, MEDICAID, SELFPAY ==
[2025-02-13 16:59] VITALS: BP 149/75; BMI 22.0
== END 2025-05-08 09:41 | disposition home or self-care (01) ==
LOC: SPT 05:00
PROVIDERS: PCP Family Medicine; Visit Provider Family Medicine
DX: R26.89 Other abnormalities of gait and mobility (principal); R29.6 Repeated falls
CPT/HCPCS: 97110

== ENCOUNTER 2025-05-03 14:36 | Outpatient (CLI) | payer MEDICARE, SELFPAY ==
[2025-02-13 16:59] VITALS: BP 149/75; BMI 22.0
[2025-05-03 15:27] LABS: Free T4 Free Thyroxine 0.89 ng/dL (0.82-1.77); Thyroid Stimulating Hormone 23.92 uIU/mL (0.27-4.20)
== END 2025-05-03 14:37 | disposition home or self-care (01) ==
LOC: LAB 14:41
PROVIDERS: PCP Family Medicine; Visit Provider Internal Medicine
DX: E03.9 Hypothyroidism, unspecified (principal); D35.00 Benign neoplasm of unspecified adrenal gland
CPT/HCPCS: 36415; 84439; 84443; 84480

== ENCOUNTER → 2025-05-04 10:35 | Outpatient (BNVA) | payer MEDICARE, MEDICAID, SELFPAY ==
[2025-02-13 16:59] VITALS: BP 149/75; BMI 22.0
== END ==
PROVIDERS: PCP Family Medicine; Visit Provider Internal Medicine
DX: E78.00 Pure hypercholesterolemia, unspecified (principal); E03.9 Hypothyroidism, unspecified; D35.00 Benign neoplasm of unspecified adrenal gland; R03.0 Elevated blood-pressure reading, without diagnosis of hypertension; R53.83 Other fatigue; E55.9 Vitamin D deficiency, unspecified; E04.1 Nontoxic single thyroid nodule; E16.2 Hypoglycemia, unspecified; L65.9 Nonscarring hair loss, unspecified
CPT/HCPCS: 99214

== ENCOUNTER → 2025-05-16 11:04 | Outpatient (BNVA) | payer OTHER, SELFPAY ==
[2025-02-13 16:59] VITALS: BP 149/75; BMI 22.0
== END ==
PROVIDERS: PCP Family Medicine; Visit Provider Nurse Practitioner Psychiatric/Mental Health
DX: F41.1 Generalized anxiety disorder (principal); F33.9 Major depressive disorder, recurrent, unspecified
CPT/HCPCS: 80061; 83036

== ENCOUNTER → 2025-06-02 08:16 | Outpatient (BNVA) | payer MEDICARE, MEDICAID, SELFPAY ==
[2025-06-01 10:33] VITALS: BP 130/70; BMI 22.8
== END ==
PROVIDERS: PCP Family Medicine; Visit Provider Nurse Practitioner Family
DX: L29.89 Other pruritus (principal); L82.1 Other seborrheic keratosis; L81.4 Other melanin hyperpigmentation; D22.4 Melanocytic nevi of scalp and neck; L57.8 Other skin changes due to chronic exposure to nonionizing radiation; L85.3 Xerosis cutis; I87.2 Venous insufficiency (chronic) (peripheral); Z08 Encounter for follow-up examination after completed treatment for malignant neoplasm; Z85.828 Personal history of other malignant neoplasm of skin
CPT/HCPCS: 99214

== ENCOUNTER → 2025-06-12 09:51 | Outpatient (BNVA) | payer MEDICARE, MEDICAID, SELFPAY ==
[2025-06-01 10:33] VITALS: BP 130/70; BMI 22.8
== END ==
PROVIDERS: PCP Family Medicine; Visit Provider Nurse Practitioner Family
DX: I83.893 Varicose veins of bilateral lower extremities with other complications (principal); I10 Essential (primary) hypertension; E03.9 Hypothyroidism, unspecified; E16.2 Hypoglycemia, unspecified; F17.210 Nicotine dependence, cigarettes, uncomplicated; Z85.828 Personal history of other malignant neoplasm of skin
CPT/HCPCS: 99214

== ENCOUNTER 2025-06-21 11:41 | Outpatient (CLI) | payer OTHER, MEDICAID, SELFPAY ==
[2025-06-01 10:33] VITALS: BP 130/70; BMI 22.8
--- NOTE | 2025-06-21 12:15 | US_ITS ---
WS: [id number] THYROID ULTRASOUND HISTORY: RIGHT thyroidectomy. COMPARISON: 04/25/2024, 02/23/2023, 12/05/2021 Right lobe: Surgically absent RIGHT thyroid. No recurrent mass in the thyroid bed. No cervical chain adenopathy. Left lobe: 0.7 cm x 0.7 cm x 2.5 cm (w x ap x l). Volume: 0.6 cm3. Very small caliber gland with a single hyperechoic nodule. Well-circumscribed mass inferior pole measures 0.5 x 0.7 x 0.7 cm. No echogenic focus. Overall the gland has decreased in size since the prior study. Only a single nodule is identified. Isthmus: 0.2 cm. US/US thyroid 62564 IMPRESSION: 1. TI-RADS 2; hypoechoic LEFT thyroid nodule. 2. Prior RIGHT thyroidectomy. 3. LEFT thyroid lobe has decreased in size.
== END 2025-06-21 11:42 | disposition home or self-care (01) ==
LOC: RAD 11:42
PROVIDERS: PCP Family Medicine; Visit Provider Internal Medicine
DX: D35.00 Benign neoplasm of unspecified adrenal gland (principal); E03.9 Hypothyroidism, unspecified; E78.00 Pure hypercholesterolemia, unspecified; E04.1 Nontoxic single thyroid nodule; Z90.89 Acquired absence of other organs; E03.4 Atrophy of thyroid (acquired); I83.893 Varicose veins of bilateral lower extremities with other complications
CPT/HCPCS: 76536

== ENCOUNTER 2025-07-24 09:08 | Outpatient (CLI) | payer OTHER, MEDICAID, SELFPAY ==
[2025-06-01 10:33] VITALS: BP 130/70; BMI 22.8
[2025-07-24 10:26] LABS: Free T4 Free Thyroxine 1.14 ng/dL (0.82-1.77); Thyroid Stimulating Hormone 18.43 uIU/mL (0.27-4.20)
== END 2025-07-24 09:09 | disposition home or self-care (01) ==
PROVIDERS: PCP Family Medicine; Visit Provider Internal Medicine
DX: E78.00 Pure hypercholesterolemia, unspecified (principal); E03.9 Hypothyroidism, unspecified; D35.00 Benign neoplasm of unspecified adrenal gland
CPT/HCPCS: 36415; 84439; 84443

== ENCOUNTER → 2025-08-03 10:32 | Outpatient (BNVA) | payer MEDICARE, MEDICAID, SELFPAY ==
[2025-06-01 10:33] VITALS: BP 130/70; BMI 22.8
== END ==
PROVIDERS: PCP Family Medicine; Visit Provider Internal Medicine
DX: R03.0 Elevated blood-pressure reading, without diagnosis of hypertension (principal); R53.83 Other fatigue; E78.5 Hyperlipidemia, unspecified; E03.9 Hypothyroidism, unspecified; E55.9 Vitamin D deficiency, unspecified; D35.00 Benign neoplasm of unspecified adrenal gland; E04.1 Nontoxic single thyroid nodule; L65.9 Nonscarring hair loss, unspecified; E16.A3 Hypoglycemia level 3
CPT/HCPCS: 99214

== ENCOUNTER 2025-10-02 07:59 | Oncology outpatient (recurring) (ONCR) | payer MEDICARE, MEDICAID, SELFPAY ==
[2025-06-01 10:33] VITALS: BP 130/70; BMI 22.8
[2025-10-02] MEDS: cosyntropin 0.25 mg SDV IVP (08:23)
[2025-10-02 08:28] VITALS: BP 174/89; PULSE 62; RESP 16; TEMP 36.2; O2SAT 99
[2025-10-02 09:07] LABS: Cosyntropin Baseline 3.06 mcg/dL
[2025-10-02 09:32] VITALS: BP 180/84; PULSE 59; RESP 16; TEMP 36.1; O2SAT 99
[2025-10-02 09:36] LABS: Cosyntropin 30 Minute 12.65 mcg/dL
--- NOTE | 2025-10-02 09:38 | PC.NURSE ---
Patient had elevated blood pressure readings during STIM test. Patient's BP was 174/89 prior to STIM test and 180/84 post STIM test. Patient stated she did not take any of her medications this morning, including her blood pressure medications, due to being told by Dr. Todd's nurse to fast prior to the STIM test. Patient stated she feels normal and will take her medications when she gets home.
[2025-10-02 10:37] LABS: Cosyntropin 1 Hour 16.29 mcg/dL
== END 2025-10-25 23:59 | disposition home or self-care (01) ==
PROVIDERS: Internal Medicine; PCP Family Medicine; Visit Provider Family Medicine
DX: D35.00 Benign neoplasm of unspecified adrenal gland (principal); Z79.899 Other long term (current) drug therapy; Z53.9 Procedure and treatment not carried out, unspecified reason
CPT/HCPCS: 82533; 96374; J0834

== ENCOUNTER → 2025-10-12 08:36 | Outpatient (BNVA) | payer MEDICARE, MEDICAID, SELFPAY ==
[2025-10-12 09:40] VITALS: BP 130/70; BMI 22.8
== END ==
PROVIDERS: PCP Family Medicine; Visit Provider Internal Medicine Endocrinology, Diabetes & Metabolism
DX: R03.0 Elevated blood-pressure reading, without diagnosis of hypertension (principal); R53.83 Other fatigue; E03.9 Hypothyroidism, unspecified; E55.9 Vitamin D deficiency, unspecified; D35.00 Benign neoplasm of unspecified adrenal gland; E04.1 Nontoxic single thyroid nodule; L65.9 Nonscarring hair loss, unspecified; E16.A3 Hypoglycemia level 3
CPT/HCPCS: 99214

== ENCOUNTER → 2025-10-23 08:53 | Outpatient (BNVA) | payer OTHER, MEDICAID, SELFPAY ==
[2025-10-12 09:40] VITALS: BP 130/70; BMI 22.8
== END ==
PROVIDERS: PCP Family Medicine; Visit Provider Family Medicine
DX: D69.6 Thrombocytopenia, unspecified (principal); E78.00 Pure hypercholesterolemia, unspecified; E03.9 Hypothyroidism, unspecified
CPT/HCPCS: 80053; 80061; 84439; 84443; 85025